=== PATIENT | female | born 1990 | race American Indian/Alaskan Native ===

== ENCOUNTER 2016-11-05 07:52 | Emergency (ER) | payer MEDICARE ==
[2016-11-05] MEDS ORDERED: KEPPRA 1,000 MG/NS 0.75% 100ML 100 ML IV ONE ×2 (08:32→08:42)
[2016-11-05] MEDS ORDERED: ZOFRAN ONE (08:34)
[2016-11-05] MEDS ORDERED: ZOFRAN IV ONE (08:41)
[2016-11-05 09:38] LABS: Hemoglobin 11.3 gm/dl (10.1-14.3); Mean Corpuscular HGB Conc 32 % (30-34); Mean Corpuscular Hemoglobin 31 pg (28-32); Mean Corpuscular Volume 95 fl (79-97); Red Blood Count 3.67 M/mm3 (3.65-5.03); Red Cell Distribution Width 17.3 % (13.2-15.2)
[2016-11-05 09:39] LABS: BUN/Creatinine Ratio 2.83; Calcium 8.7 mg/dL (8.4-10.2); Potassium 4.7 mmol/L (3.6-5.0)
--- NOTE | 2016-11-05 10:20 | Emergency Department Report ---
ED Seizure HPI - General Chief Complaint: Seizure Stated Complaint: SEIZURE Time Seen by Provider: 11/05/16 10:05 Source: patient, EMS Mode of arrival: Stretcher Limitations: No Limitations - History of Present Illness Initial Comments: 36-year-old female presents to the emergency department via EMS after a seizure. History is obtained from EMS report due to the patient not willing to give any information. Per report, EMS found the patient lying on the couch at home. Family reported that she had a seizure. Patient was reportedly seen in another emergency Department last night for the same. She was reportedly discharged around 2 AM. Patient receives dialysis on Sunday, , and Sunday. Patient did go to dialysis yesterday. Further history is unable to be obtained from the patient due to her uncooperative behavior. MD Complaint: seizure -: Gradual, During the night Description of Episode: tonic-clonic movement Witnessed:: Yes Trauma: No Seizure History: known seizure disorder, history of non-compliance Place: home Possible Precipitating Event: none Associated Symptoms: denies other symptoms - Related Data Home Medications Medication Instructions Recorded Confirmed Last Taken Furosemide [Lasix TAB] 80 mg PO QDAY 05/30/16 09/23/16 09/23/16 Lisinopril [Zestril TAB] 40 mg PO QDAY 05/30/16 09/23/16 09/23/16 Metoprolol [Lopressor] 100 mg PO DAILY 05/30/16 09/23/16 09/23/16 Phenytoin [Dilantin] 100 mg PO Q8HR 05/30/16 09/23/16 09/23/16 cloNIDine [Catapres] 0.2 mg PO TID 05/30/16 09/23/16 09/23/16 predniSONE [Deltasone] 10 mg PO QDAY 05/30/16 09/23/16 09/23/16 No Known Home Medications [No 09/15/16 09/15/16 Unknown Reported Home Medications] Allergies Allergy/AdvReac Type Severity Reaction Status Date / Time No Known Allergies Allergy Verified 05/22/15 11:56 ED Review of Systems ROS: Stated complaint: SEIZURE Other details as noted in HPI Comment: All other systems reviewed and negative Neurological: as per HPI (seizure) ED Past Medical Hx - Past Medical History Previous Medical History?: Yes Hx Hypertension: Yes Hx Congestive Heart Failure: No Hx Diabetes: No Hx Renal Disease: Yes (pt does dialysis) Hx Headaches / Migraines: Yes Hx Seizures: Yes Hx Asthma: Yes Hx COPD: No Additional medical history: Lupus - Surgical History Past Surgical History?: Yes Additional Surgical History: fistula right arm - Family History Family history: no significant - Social History Smoking Status: Never Smoker - Medications Home Medications: Home Medications Medication Instructions Recorded Confirmed Last Taken Type Furosemide [Lasix TAB] 80 mg PO QDAY 05/30/16 09/23/16 09/23/16 History Lisinopril [Zestril TAB] 40 mg PO QDAY 05/30/16 09/23/16 09/23/16 History Metoprolol [Lopressor] 100 mg PO DAILY 05/30/16 09/23/16 09/23/16 History Phenytoin [Dilantin] 100 mg PO Q8HR 05/30/16 09/23/16 09/23/16 History cloNIDine [Catapres] 0.2 mg PO TID 05/30/16 09/23/16 09/23/16 History predniSONE [Deltasone] 10 mg PO QDAY 05/30/16 09/23/16 09/23/16 History No Known Home Medications [No 09/15/16 09/15/16 Unknown History Reported Home Medications] ED Physical Exam - General Limitations: No Limitations General appearance: alert, in no apparent distress - Head Head exam: Present: atraumatic, normocephalic - Eye Eye exam: Present: normal appearance, PERRL, EOMI - ENT ENT exam: Present: normal exam, normal orophraynx, mucous membranes moist - Neck Neck exam: Present: normal inspection, full ROM. Absent: tenderness - Respiratory Respiratory exam: Present: normal lung sounds bilaterally. Absent: respiratory distress - Cardiovascular Cardiovascular Exam: Present: regular rate, normal rhythm, normal heart sounds - GI/Abdominal GI/Abdominal exam: Present: soft, normal bowel sounds. Absent: distended, tenderness - Extremities Exam Extremities exam: Present: normal inspection, full ROM. Absent: tenderness - Back Exam Back exam: Present: normal inspection, full ROM. Absent: tenderness - Neurological Exam Neurological exam: Present: alert, oriented X3. Absent: motor sensory deficit - Skin Skin exam: Present: warm, dry, intact ED Course Vital Signs 11/05/16 11/05/16 07:59 08:43 Temperature 98.9 F Pulse Rate 101 H Respiratory 22 18 Rate Blood Pressure 186/114 Blood Pressure 185/116 [Left] O2 Sat by Pulse 96 100 Oximetry ED Medical Decision Making - Lab Data Result diagrams: 11/05/16 09:30 11/05/16 08:58 - Medical Decision Making Laboratory results reviewed and discussed with the patient. Patient's Dilantin level is subtherapeutic. Patient has been given IV Keppra. No further seizure activity has been noted in the emergency department. Patient was initially sleeping upon my entering her room. After waking the patient up she began crying out in pain, but not say what was hurting. There are no objective findings on physical exam. Patient will be discharged home at this time to follow up with her primary care physician. - Differential Diagnosis seizure, medication noncompliance Critical care attestation.: If time is entered above; I have spent that time in minutes in the direct care of this critically ill patient, excluding procedure time. ED Disposition Clinical Impression: Seizure disorder, Subtherapeutic serum dilantin level Disposition: DISCHARGED TO HOME OR SELFCARE Is pt being admited?: No Condition: Stable Instructions: Recurrent Seizures Adult (ED) Time of Disposition: 10:20
[2016-11-05 10:31] LABS: Platelet Count 155 K/mm3 (140-440)
[2016-11-05] MEDS ORDERED: TYLENOL ONE (10:33)
[2016-11-05] MEDS ORDERED: TYLENOL PO ONE (10:37)
[2016-11-05 10:39] VITALS: BP 183/108
== END 2016-11-05 11:58 | disposition home or self-care (01) ==
LOC: ED 07:52
DX: G40.909 Epilepsy, unspecified, not intractable, without status epilepticus (principal); R79.1 Abnormal coagulation profile; I10 Essential (primary) hypertension; G43.909 Migraine, unspecified, not intractable, without status migrainosus; J45.909 Unspecified asthma, uncomplicated; N28.9 Disorder of kidney and ureter, unspecified
CPT/HCPCS: 36415; 80048; 80185; 85027; 96361; 96374; 99284; J1953; J2405

== ENCOUNTER 2017-02-10 13:44 | Emergency (ER) | payer MEDICARE ==
[2017-02-10] MEDS ORDERED: ATIVAN IV ONE (15:08)
[2017-02-10] MEDS ORDERED: NACL 0.9% 1000 ML 1,000 ML IV ONE (15:08)
[2017-02-10] MEDS ORDERED: BENADRYL ONE (15:39)
[2017-02-10] MEDS ORDERED: BENADRYL IV ONE (15:46)
[2017-02-10 16:01] LABS: Basophils % (Auto) 0.5 % (0.0-1.8); Eosinophils % (Auto) 1.6 % (0.0-4.3); Hemoglobin 10.6 gm/dl (10.1-14.3); Mean Corpuscular HGB Conc 32 % (30-34); Mean Corpuscular Hemoglobin 30 pg (28-32); Mean Corpuscular Volume 93 fl (79-97); Platelet Count 158 K/mm3 (140-440); Red Blood Count 3.55 M/mm3 (3.65-5.03); Red Cell Distribution Width 15.8 % (13.2-15.2); White Blood Count 6.1 K/mm3 (4.5-11.0)
--- NOTE | 2017-02-10 16:04 | Emergency Department Report ---
ED Seizure HPI - General Chief Complaint: Seizure Stated Complaint: SEIZURE Time Seen by Provider: 02/10/17 15:08 Source: EMS, vp integrity, RN notes reviewed Mode of arrival: Stretcher Limitations: No Limitations, Physical Limitation - History of Present Illness MD Complaint: seizure, feel seizure coming on, loss of consciousness, shaking, other (no ) Witnessed:: Yes Trauma: No Seizure History: known seizure disorder Place: home Possible Precipitating Event: head injury, lack of sleep Associated Symptoms: denies other symptoms Treatments Prior to Arrival: none - Related Data Home Medications Medication Instructions Recorded Confirmed Last Taken Furosemide [Lasix TAB] 80 mg PO QDAY 05/30/16 09/23/16 09/23/16 Lisinopril [Zestril TAB] 40 mg PO QDAY 05/30/16 09/23/16 09/23/16 Metoprolol [Lopressor] 100 mg PO DAILY 05/30/16 09/23/16 09/23/16 cloNIDine [Catapres] 0.2 mg PO TID 05/30/16 09/23/16 09/23/16 predniSONE [Deltasone] 10 mg PO QDAY 05/30/16 09/23/16 09/23/16 No Known Home Medications [No 09/15/16 09/15/16 Unknown Reported Home Medications] Previous Rx's Medication Instructions Recorded Last Taken Type Phenytoin [Dilantin] 100 mg PO Q8HR #180 capsule.er 02/10/17 Unknown Rx Allergies Allergy/AdvReac Type Severity Reaction Status Date / Time No Known Allergies Allergy Verified 05/22/15 11:56 ED Review of Systems ROS: Stated complaint: SEIZURE Other details as noted in HPI Comment: All other systems reviewed and negative ED Past Medical Hx - Past Medical History Hx Hypertension: Yes Hx Congestive Heart Failure: No Hx Diabetes: No Hx Renal Disease: Yes (pt does dialysis) Hx Headaches / Migraines: Yes Hx Seizures: Yes Hx Asthma: Yes Hx COPD: No Additional medical history: Lupus - Surgical History Additional Surgical History: fistula right arm - Social History Smoking Status: Never Smoker - Medications Home Medications: Home Medications Medication Instructions Recorded Confirmed Last Taken Type Furosemide [Lasix TAB] 80 mg PO QDAY 05/30/16 09/23/16 09/23/16 History Lisinopril [Zestril TAB] 40 mg PO QDAY 0809/23/16 09/23/16 History Metoprolol [Lopressor] 100 mg PO DAILY 05/30/16 09/23/16 09/23/16 History cloNIDine [Catapres] 0.2 mg PO TID 05/30/16 09/23/16 09/23/16 History predniSONE [Deltasone] 10 mg PO QDAY 05/30/16 09/23/16 09/23/16 History No Known Home Medications [No 09/15/16 09/15/16 Unknown History Reported Home Medications] Phenytoin [Dilantin] 100 mg PO Q8HR #180 capsule.er 02/10/17 Unknown Rx ED Physical Exam - General General appearance: alert, in no apparent distress - Head Head exam: Present: atraumatic, normocephalic - Eye Eye exam: Present: normal appearance - ENT ENT exam: Present: mucous membranes moist - Neck Neck exam: Present: normal inspection, other (neck stifnessed) - Respiratory Respiratory exam: Present: normal lung sounds bilaterally. Absent: respiratory distress - Cardiovascular Cardiovascular Exam: Present: regular rate, normal rhythm. Absent: systolic murmur, diastolic murmur, rubs, gallop - GI/Abdominal GI/Abdominal exam: Present: soft, normal bowel sounds - Extremities Exam Extremities exam: Present: normal inspection - Back Exam Back exam: Present: normal inspection - Neurological Exam Neurological exam: Present: alert, oriented X3 - Psychiatric Psychiatric exam: Present: normal affect, normal mood - Skin Skin exam: Present: warm, dry, intact, normal color. Absent: rash ED Course Vital Signs 02/10/17 14:20 Temperature 98.3 F Pulse Rate 74 Blood Pressure 152/110 ED Medical Decision Making - Lab Data Result diagrams: 02/10/17 15:25 02/10/17 15:25 - EKG Data EKG shows normal: sinus rhythm - Medical Decision Making Her ER evaluation she has no complaintsrelated to this point we worked her up and noted the blood test came back negative except for her Dilantin level. This is consistent with her doses. There is consistent with her missed doses of Dilantin, refill her medications for this head CT was negative to and will discharge and follow-up with neurology Critical care attestation.: If time is entered above; I have spent that time in minutes in the direct care of this critically ill patient, excluding procedure time. ED Disposition Clinical Impression: Seizure disorder Disposition: DISCHARGED TO HOME OR SELFCARE Is pt being admited?: No Does the pt Need Aspirin: No Condition: Good Instructions: Recurrent Seizures Adult (ED) Prescriptions: Phenytoin [Dilantin] 100 mg PO Q8HR #180 capsule.er Referrals: PRIMARY CARE, [Primary Care Provider] - 3-5 Days Time of Disposition: 17:25
[2017-02-10 16:25] LABS: Albumin 3.7 g/dL (3.9-5); Albumin/Globulin Ratio 1.5 %; BUN/Creatinine Ratio 3.2; Bilirubin,Total 0.2 mg/dL (0.1-1.2); Calcium 8.4 mg/dL (8.4-10.2); Potassium 3.7 mmol/L (3.6-5.0); Total Protein 6.2 g/dL (6.3-8.2)
--- NOTE | 2017-02-10 16:42 | Cat Scan Report ---
FINAL REPORT EXAM: CT HEAD/BRAIN WO CON HISTORY: Seizure TECHNIQUE: CT head without contrast PRIORS: None. FINDINGS: No acute intra-axial or extra-axial hemorrhage is identified. There is no evidence of midline shift or mass effect. The ventricles and sulci are within normal limits. Lyon-white matter differentiation is intact. No acute parenchymal abnormalities seen. Bony calvarium is grossly intact. Visualized portions of the mastoids and paranasal sinuses are unremarkable. IMPRESSION: Negative CT head
[2017-02-10 18:41] VITALS: BP 155/101
== END 2017-02-10 18:30 | disposition home or self-care (01) ==
LOC: ED 13:44
DX: G40.909 Epilepsy, unspecified, not intractable, without status epilepticus (principal); G43.909 Migraine, unspecified, not intractable, without status migrainosus; J45.909 Unspecified asthma, uncomplicated; I12.0 Hypertensive chronic kidney disease with stage 5 chronic kidney disease or end stage renal disease; N18.6 End stage renal disease
CPT/HCPCS: 36415; 70450; 80053; 80185; 85025; 96361; 96374; 96375; 99284; J1200; J2060; J7030

== ENCOUNTER 2017-02-19 05:33 | Emergency (ER) | payer MEDICARE ==
[2017-02-19] MEDS ORDERED: CATAPRES PO ONE (07:15)
[2017-02-19] MEDS ORDERED: SUBLIMAZE IV ONE (07:25)
[2017-02-19] MEDS ORDERED: ATIVAN IV ONE (07:26)
--- NOTE | 2017-02-19 07:33 | Emergency Department Report ---
HPI - General Chief Complaint: Pain General Time Seen by Provider: 02/19/17 07:14 - HPI HPI: Room 4 The patient is a 26-year-old female presenting with a chief complaint of lupus pain. The patient states she's had whole body pain consistent with her lupus flareups for the past 2 days. Patient states she believes she had a seizure yesterday because she was incontinent of urine and had bitten her tongue. The patient gives her whole body pain a score of 10/10. Patient states she has been compliant with her Dilantin. Location: "Whole body" Duration: [see above] Quality: Feels like previous lupus flares Severity: 1010 Modifying factors: [see above] Context: [see above] Mode of transportation: [not driving] ED Past Medical Hx - Past Medical History Previous Medical History?: Yes Hx Hypertension: Yes Hx Renal Disease: Yes (pt does dialysis) Hx Headaches / Migraines: Yes Hx Seizures: Yes Hx Asthma: Yes Additional medical history: Lupus - Surgical History Additional Surgical History: fistula right arm - Family History Family history: no significant - Social History Smoking Status: Never Smoker Substance Use Type: None - Medications Home Medications: Home Medications Medication Instructions Recorded Confirmed Last Taken Type Furosemide [Lasix TAB] 80 mg PO QDAY 05/30/16 09/23/16 09/23/16 History Lisinopril [Zestril TAB] 40 mg PO QDAY 05/30/16 09/23/16 09/23/16 History Metoprolol [Lopressor] 100 mg PO DAILY 05/30/16 09/23/16 09/23/16 History cloNIDine [Catapres] 0.2 mg PO TID 05/30/16 09/23/16 09/23/16 History predniSONE [Deltasone] 10 mg PO QDAY 05/30/16 09/23/16 09/23/16 History Phenytoin [Dilantin] 100 mg PO Q8HR #180 capsule.er 02/10/17 Unknown Rx HYDROcodone/APAP 5-325 [[place] 1 each PO Q6HR PRN #10 tablet 02/19/17 Unknown Rx 5/325] ED Review of Systems ROS: Stated complaint: LUPUS FLARE UP Other details as noted in HPI Comment: All other systems reviewed and negative Constitutional: denies: chills, fever Eyes: denies: eye pain, eye discharge, vision change ENT: denies: ear pain, throat pain Respiratory: denies: cough, shortness of breath, wheezing Cardiovascular: denies: palpitations Endocrine: no symptoms reported Gastrointestinal: denies: abdominal pain, nausea, diarrhea Genitourinary: denies: urgency, dysuria, discharge Musculoskeletal: myalgia Skin: denies: rash, lesions Neurological: other (seizure) Psychiatric: denies: anxiety, depression Hematological/Lymphatic: denies: easy bleeding, easy bruising Physical Exam - Physical Exam Vital Signs: Vital Signs 02/19/17 02/19/17 06:03 06:12 Temperature 98.7 F 98 F Pulse Rate 104 H 104 H Respiratory 18 18 Rate Blood Pressure 202/131 Blood Pressure 202/131 [Left] O2 Sat by Pulse 100 100 Oximetry Physical Exam: GENERAL: The patient is well-developed well-nourished female lying on stretcher not appearing to be in acute distress. [] HEENT: Normocephalic. Atraumatic. Extraocular motions are intact. Patient has moist mucous membranes. NECK: Supple. Trachea midline CHEST/LUNGS: Clear to auscultation. There is no respiratory distress noted. HEART/CARDIOVASCULAR: Regular. There is no tachycardia. There is no gallop rub or murmur. ABDOMEN: Abdomen is soft, nontender. Patient has normal bowel sounds. There is no abdominal distention. SKIN: There is no rash. There is no edema. There is no diaphoresis. NEURO: The patient is awake, alert, and oriented. The patient is cooperative. The patient has no focal neurologic deficits. The patient has normal speech. Cranial nerves II through XII grossly intact MUSCULOSKELETAL: There is no evidence of acute injury. ED Course Vital Signs 02/19/17 02/19/17 06:03 06:12 Temperature 98.7 F 98 F Pulse Rate 104 H 104 H Respiratory 18 18 Rate Blood Pressure 202/131 Blood Pressure 202/131 [Left] O2 Sat by Pulse 100 100 Oximetry - Reevaluation(s) Reevaluation #1: 02/19/17 10:09 Patient sleeping comfortably. Patient was awakened to be informed that her Dilantin level was subtherapeutic and we will be loading her with fosphenytoin ED Medical Decision Making - Lab Data Result diagrams: 02/19/17 07:34 05/15/17 07:34 Laboratory Tests 02/19/17 02/19/17 02/19/17 07:34 07:34 07:34 WBC 5.7 RBC 3.50 L Hgb 10.5 Hct 32.4 MCV 93 MCH 30 MCHC 33 RDW 16.4 H Plt Count 203 Lymph % (Auto) 15.3 [place] % (Auto) 9.3 H Eos % (Auto) 0.6 Baso % (Auto) 1.0 Lymph # 0.9 L [place] # 0.5 Eos # 0.0 Baso # 0.1 Seg Neutrophils % 73.8 H Seg Neutrophils # 4.2 Sodium 141 Potassium 4.3 Chloride 97.9 L Carbon Dioxide 24 Anion Gap 23 BUN 29 H Creatinine 9.4 H Estimated GFR 6 BUN/Creatinine Ratio 3.08 Glucose 75 Calcium 9.2 Phenytoin 3.0 L - Differential Diagnosis lupus pain, end-stage renal disease Critical care attestation.: If time is entered above; I have spent that time in minutes in the direct care of this critically ill patient, excluding procedure time. ED Disposition Clinical Impression: Whole body pain, Seizure, ESRD (end stage renal disease) on dialysis, Subtherapeutic serum dilantin level Disposition: DISCHARGED TO HOME OR SELFCARE Is pt being admited?: No Does the pt Need Aspirin: No Condition: Stable Instructions: Chronic Kidney Disease (ED) Additional Instructions: Return to the emergency department immediately should you develop worsening symptoms, fever, inability to tolerate food or liquid or any other concerns. Prescriptions: HYDROcodone/APAP 5-325 [[place] 5/325] 1 each PO Q6HR PRN #10 tablet PRN Reason: Pain Referrals: PRIMARY CARE, [Primary Care Provider] - 3-5 Days Time of Disposition: 10:13
[2017-02-19 08:03] LABS: Eosinophils % (Auto) 0.6 % (0.0-4.3); Hematocrit 32.4 % (30.3-42.9); Hemoglobin 10.5 gm/dl (10.1-14.3); Mean Corpuscular HGB Conc 33 % (30-34); Mean Corpuscular Hemoglobin 30 pg (28-32); Mean Corpuscular Volume 93 fl (79-97); Platelet Count 203 K/mm3 (140-440); Red Cell Distribution Width 16.4 % (13.2-15.2); White Blood Count 5.7 K/mm3 (4.5-11.0)
[2017-02-19 08:15] LABS: BUN/Creatinine Ratio 3.08; Calcium 9.2 mg/dL (8.4-10.2); Chloride 97.9 mmol/L (98-107); Potassium 4.3 mmol/L (3.6-5.0)
[2017-02-19 09:49] VITALS: BP 172/113
[2017-02-19] MEDS ORDERED: CEREBYX 1,000 MG.PE in NACL 0.9% 100 ML IV ONE (10:03)
== END 2017-02-19 11:13 | disposition home or self-care (01) ==
LOC: ED 05:33
DX: M79.1 Myalgia (principal); R56.9 Unspecified convulsions; G43.909 Migraine, unspecified, not intractable, without status migrainosus; J45.909 Unspecified asthma, uncomplicated; I12.0 Hypertensive chronic kidney disease with stage 5 chronic kidney disease or end stage renal disease; N18.6 End stage renal disease; R79.1 Abnormal coagulation profile
CPT/HCPCS: 36415; 80048; 80185; 85025; 96365; 96375; 99283; J2060; J3010; Q2009

== ENCOUNTER 2017-04-17 12:43 | Inpatient (IN) | payer MEDICARE ==
[2017-04-17] MEDS ORDERED: MORPHINE IV ONE (14:50)
[2017-04-17] MEDS ORDERED: ZOFRAN IV ONE (14:50)
[2017-04-17] MEDS ORDERED: APRESOLINE IV ONE ×2 (14:50→16:40)
--- NOTE | 2017-04-17 14:52 | Emergency Department Report ---
ED General Adult HPI - General Chief complaint: Nausea/Vomiting/Diarrhea Stated complaint: HYPERTENSION/NAUSEA AND VOMITING Time Seen by Provider: 04/17/17 14:49 Source: patient, EMS (ems notes not available at time of chart dictation), RN notes reviewed Mode of arrival: Stretcher Limitations: No Limitations - History of Present Illness Initial comments: This is a 27-year-old female. She is previously unknown to me. Past medical history includes hypertension, lupus, end-stage renal disease on dialysis. She typically gets dialysis Sunday, , Sunday. Her last dialysis session was this past Sunday. It was of normal length and duration. Nephrology: Dr. Strickland The patient was sent to the ER by dialysis for hypertension. The patient complains of nausea, vomiting, malaise, left flank pain, inability to tolerate liquid feeds. There is no chest pain or shortness of breath. Emesis is clear, nonbloody and nonbilious. She reports that she feels like she has a fever but is not certain. She denies cough. She denies irritative and obstructive urinary symptoms. Her symptoms have been constant. they dont have any exacerbating or relieving factors, with the exception that attending to eat and drink exacerbates her symptoms. Pain is exacerbated by movement. -: Gradual Location: back (left flank), abdomen Quality: aching Consistency: constant Improves with: medication, rest Worsens with: movement Associated Symptoms: fever/chills, loss of appetite, malaise, nausea/vomiting, weakness. denies: chest pain, cough, diaphoresis - Related Data Home Medications Medication Instructions Recorded Confirmed Last Taken Clonidine HCl [Catapres] 0.3 mg PO TID 04/17/17 04/17/17 04/15/17 NIFEdipine XL [Procardia Xl] 60 mg PO QDAY 04/17/17 04/17/17 04/15/17 Phenytoin [Dilantin] 200 mg PO TID 04/17/17 04/17/17 04/15/17 diphenhydrAMINE [Benadryl CAP] 25 mg PO QHS PRN 04/17/17 04/17/17 Unknown Previous Rx's Medication Instructions Recorded Last Taken Type amLODIPine [Norvasc] 10 mg PO DAILY #30 tab 03/24/17 04/15/17 Rx predniSONE [Deltasone] 10 mg PO QDAY #30 tablet 03/24/17 04/15/17 Rx Allergies Allergy/AdvReac Type Severity Reaction Status Date / Time No Known Allergies Allergy Verified 05/22/15 11:56 ED Review of Systems ROS: Stated complaint: HYPERTENSION/NAUSEA AND VOMITING Other details as noted in HPI Constitutional: malaise, weakness Eyes: denies: vision change ENT: denies: epistaxis Respiratory: see HPI Cardiovascular: as per HPI Gastrointestinal: nausea, vomiting Musculoskeletal: as per HPI, back pain Skin: denies: lesions Neurological: weakness Psychiatric: anxiety ED Past Medical Hx - Past Medical History Hx Hypertension: Yes Hx Congestive Heart Failure: No Hx Diabetes: No Hx Renal Disease: Yes Hx Headaches / Migraines: Yes (3 nights) Hx Seizures: Yes Hx Asthma: Yes Hx COPD: No Additional medical history: Lupus - Surgical History Additional Surgical History: fistula right arm - Social History Smoking Status: Current Every Day Smoker - Medications Home Medications: Home Medications Medication Instructions Recorded Confirmed Last Taken Type amLODIPine [Norvasc] 10 mg PO DAILY #30 tab 03/24/17 04/17/17 04/15/17 Rx predniSONE [Deltasone] 10 mg PO QDAY #30 tablet 03/24/17 04/17/17 04/15/17 Rx Clonidine HCl [Catapres] 0.3 mg PO TID 04/17/17 04/17/17 04/15/17 History NIFEdipine XL [Procardia Xl] 60 mg PO QDAY 04/17/17 04/17/17 04/15/17 History Phenytoin [Dilantin] 200 mg PO TID 04/17/17 04/17/17 04/15/17 History diphenhydrAMINE [Benadryl CAP] 25 mg PO QHS PRN 04/17/17 04/17/17 Unknown History ED Physical Exam - General Limitations: No Limitations General appearance: alert, in no apparent distress - Head Head exam: Present: atraumatic, normocephalic - Eye Eye exam: Present: normal appearance, EOMI. Absent: nystagmus - ENT ENT exam: Present: normal exam, normal orophraynx, mucous membranes moist - Neck Neck exam: Present: normal inspection, full ROM. Absent: tenderness, meningismus - Respiratory Respiratory exam: Present: normal lung sounds bilaterally. Absent: respiratory distress, wheezes, rales, rhonchi, stridor, chest wall tenderness, accessory muscle use, decreased breath sounds, prolonged expiratory - Cardiovascular Cardiovascular Exam: Present: regular rate, normal rhythm, normal heart sounds. Absent: bradycardia, tachycardia, irregular rhythm, systolic murmur, diastolic murmur, rubs, gallop - GI/Abdominal GI/Abdominal exam: Present: soft, tenderness, normal bowel sounds, other (llq tender). Absent: distended, guarding, rebound, rigid, pulsatile mass - Extremities Exam Extremities exam: Present: normal inspection, full ROM, normal capillary refill , other (there is a right upper extremity AV fistula. There is an appropriate throat. There is no tenderness.). Absent: pedal edema, joint swelling, calf tenderness - Back Exam Back exam: Present: normal inspection, full ROM. Absent: tenderness, CVA tenderness (R), CVA tenderness (L), muscle spasm, paraspinal tenderness, vertebral tenderness - Neurological Exam Neurological exam: Present: alert, oriented X3, normal gait, other (Extraocular movements intact. Tongue midline. No facial droop. Facial sensation intact to light touch in the V1, V2, V3 distribution bilaterally. 5 and 5 strength in 4 extremities.. Sensation is intact to light touch in 4 extremities.). Absent : motor sensory deficit - Psychiatric Psychiatric exam: Present: anxious - Skin Skin exam: Present: warm, dry, intact, normal color. Absent: rash ED Course Vital Signs 04/17/17 04/17/17 04/17/17 12:55 13:16 14:20 Temperature 98.3 F Pulse Rate 99 H 84 92 H Respiratory 18 16 16 Rate Blood Pressure 194/125 Blood Pressure 191/127 201/123 [Left] O2 Sat by Pulse 99 100 Oximetry 04/17/17 04/17/17 04/17/17 14:47 15:46 15:48 Temperature Pulse Rate 102 H Respiratory 16 18 Rate Blood Pressure 205/126 Blood Pressure [Left] O2 Sat by Pulse 99 Oximetry 04/17/17 04/17/17 16:08 17:43 Temperature 98.7 F Pulse Rate 98 H Respiratory Rate Blood Pressure 199/119 Blood Pressure [Left] O2 Sat by Pulse Oximetry - Reevaluation(s) Reevaluation #1: 04/17/17 17:03 Case is discussed with hematology on-call, Dr. Steffen Johnson, who agrees with repeat CBC and platelet count. He requests callback wants a platelet count has resulted. He does recommend bryson t13. Reevaluation #2: 04/17/17 17:15 case d/w Dr Kang who will arrange dialysis Reevaluation #3: 04/17/17 18:05 CT scan negative. Patient currently in dialysis. Patient's CBC will be drawn off in dialysis. - EJ/Peripheral Line Neck L Time Out Performed: Yes Indications: nurses unable to establis Skin Cleansed in Sterile Fashion: Yes Size: 20 Dressing Placed: Tegaderm Patient Tolerated Procedure: well ED Medical Decision Making - Lab Data Result diagrams: 04/18/17 14:36 04/18/17 14:36 Lab Results 04/17/17 04/17/17 04/17/17 Range/Units 15:34 15:34 15:34 WBC 1.8 L* (4.5-11.0) K/mm3 RBC 3.11 L (3.65-5.03) M/mm3 Hgb 9.7 L (10.1-14.3) gm/dl Hct 30.1 L (30.3-42.9) % MCV 97 (79-97) fl MCH 31 (28-32) pg MCHC 32 (30-34) % RDW 18.7 H (13.2-15.2) % Plt Count (140-440) K/mm3 [place] % (Auto) 4.7 (0.0-7.3) % Eos % (Auto) 0.6 (0.0-4.3) % [place] # 0.1 (0.0-0.8) K/mm3 Eos # 0.0 (0.0-0.4) K/mm3 Baso # 0.0 (0.0-0.1) K/mm3 Seg Neutrophils % 60.7 (40.0-70.0) % Seg Neutrophils # 1.1 L (1.8-7.7) K/mm3 Sodium 134 L (137-145) mmol/L Potassium 5.7 H (3.6-5.0) mmol/L Chloride 92.3 L (98-107) mmol/L Carbon Dioxide 21 L (22-30) mmol/L Anion Gap 26 mmol/L BUN 45 H (7-17) mg/dL Creatinine 11.9 H (0.7-1.2) mg/dL Estimated GFR 5 ml/min BUN/Creatinine Ratio 3.78 % Glucose 66 (65-100) mg/dL Calcium 8.6 (8.4-10.2) mg/dL HCG, Quant < 2 (0-4) mIU/mL Urine Color (Yellow) Urine Turbidity (Clear) Urine pH (5.0-7.0) Ur Specific [place] (1.003-1.030) Urine Protein (Negative) mg/dL Urine Glucose (UA) (Negative) mg/dL Urine Ketones (Negative) mg/dL Urine Blood (Negative) Urine Nitrite (Negative) Urine Bilirubin (Negative) Urine Urobilinogen (<2.0) mg/dL Ur Leukocyte Esterase (Negative) Urine WBC (Auto) (0.0-6.0) /HPF Urine RBC (Auto) (0.0-6.0) /HPF Urine Bacteria (Auto) (Negative) /HPF 04/17/17 Range/Units 15:55 WBC (4.5-11.0) K/mm3 RBC (3.65-5.03) M/mm3 Hgb (10.1-14.3) gm/dl Hct (30.3-42.9) % MCV (79-97) fl MCH (28-32) pg MCHC (30-34) % RDW (13.2-15.2) % Plt Count (140-440) K/mm3 [place] % (Auto) (0.0-7.3) % Eos % (Auto) (0.0-4.3) % [place] # (0.0-0.8) K/mm3 Eos # (0.0-0.4) K/mm3 Baso # (0.0-0.1) K/mm3 Seg Neutrophils % (40.0-70.0) % Seg Neutrophils # (1.8-7.7) K/mm3 Sodium (137-145) mmol/L Potassium (3.6-5.0) mmol/L Chloride (98-107) mmol/L Carbon Dioxide (22-30) mmol/L Anion Gap mmol/L BUN (7-17) mg/dL Creatinine (0.7-1.2) mg/dL Estimated GFR ml/min BUN/Creatinine Ratio % Glucose (65-100) mg/dL Calcium (8.4-10.2) mg/dL HCG, Quant (0-4) mIU/mL Urine Color Red (Yellow) Urine Turbidity Clear (Clear) Urine pH 7.0 (5.0-7.0) Ur Specific [place] 1.001 L (1.003-1.030) Urine Protein 100 mg/dl (Negative) mg/dL Urine Glucose (UA) Neg (Negative) mg/dL Urine Ketones Neg (Negative) mg/dL Urine Blood Lg (Negative) Urine Nitrite Neg (Negative) Urine Bilirubin Neg (Negative) Urine Urobilinogen < 2.0 (<2.0) mg/dL Ur Leukocyte Esterase Sm (Negative) Urine WBC (Auto) < 1.0 (0.0-6.0) /HPF Urine RBC (Auto) < 1.0 (0.0-6.0) /HPF Urine Bacteria (Auto) 1+ (Negative) /HPF Lab Results 04/17/17 04/17/17 04/17/17 Range/Units 15:34 15:34 15:34 WBC 1.8 L* (4.5-11.0) K/mm3 RBC 3.11 L (3.65-5.03) M/mm3 Hgb 9.7 L (10.1-14.3) gm/dl Hct 30.1 L (30.3-42.9) % MCV 97 (79-97) fl MCH 31 (28-32) pg MCHC 32 (30-34) % RDW 18.7 H (13.2-15.2) % Plt Count (140-440) K/mm3 [place] % (Auto) 4.7 (0.0-7.3) % Eos % (Auto) 0.6 (0.0-4.3) % [place] # 0.1 (0.0-0.8) K/mm3 Eos # 0.0 (0.0-0.4) K/mm3 Baso # 0.0 (0.0-0.1) K/mm3 Seg Neutrophils % 60.7 (40.0-70.0) % Seg Neutrophils # 1.1 L (1.8-7.7) K/mm3 Sodium 134 L (137-145) mmol/L Potassium 5.7 H (3.6-5.0) mmol/L Chloride 92.3 L (98-107) mmol/L Carbon Dioxide 21 L (22-30) mmol/L Anion Gap 26 mmol/L BUN 45 H (7-17) mg/dL Creatinine 11.9 H (0.7-1.2) mg/dL Estimated GFR 5 ml/min BUN/Creatinine Ratio 3.78 % Glucose 66 (65-100) mg/dL Calcium 8.6 (8.4-10.2) mg/dL HCG, Quant < 2 (0-4) mIU/mL Urine Color (Yellow) Urine Turbidity (Clear) Urine pH (5.0-7.0) Ur Specific [place] (1.003-1.030) Urine Protein (Negative) mg/dL Urine Glucose (UA) (Negative) mg/dL Urine Ketones (Negative) mg/dL Urine Blood (Negative) Urine Nitrite (Negative) Urine Bilirubin (Negative) Urine Urobilinogen (<2.0) mg/dL Ur Leukocyte Esterase (Negative) Urine WBC (Auto) (0.0-6.0) /HPF Urine RBC (Auto) (0.0-6.0) /HPF Urine Bacteria (Auto) (Negative) /HPF 04/17/17 Range/Units 15:55 WBC (4.5-11.0) K/mm3 RBC (3.65-5.03) M/mm3 Hgb (10.1-14.3) gm/dl Hct (30.3-42.9) % MCV (79-97) fl MCH (28-32) pg MCHC (30-34) % RDW (13.2-15.2) % Plt Count (140-440) K/mm3 [place] % (Auto) (0.0-7.3) % Eos % (Auto) (0.0-4.3) % [place] # (0.0-0.8) K/mm3 Eos # (0.0-0.4) K/mm3 Baso # (0.0-0.1) K/mm3 Seg Neutrophils % (40.0-70.0) % Seg Neutrophils # (1.8-7.7) K/mm3 Sodium (137-145) mmol/L Potassium (3.6-5.0) mmol/L Chloride (98-107) mmol/L Carbon Dioxide (22-30) mmol/L Anion Gap mmol/L BUN (7-17) mg/dL Creatinine (0.7-1.2) mg/dL Estimated GFR ml/min BUN/Creatinine Ratio % Glucose (65-100) mg/dL Calcium (8.4-10.2) mg/dL HCG, Quant (0-4) mIU/mL Urine Color Red (Yellow) Urine Turbidity Clear (Clear) Urine pH 7.0 (5.0-7.0) Ur Specific [place] 1.001 L (1.003-1.030) Urine Protein 100 mg/dl (Negative) mg/dL Urine Glucose (UA) Neg (Negative) mg/dL Urine Ketones Neg (Negative) mg/dL Urine Blood Lg (Negative) Urine Nitrite Neg (Negative) Urine Bilirubin Neg (Negative) Urine Urobilinogen < 2.0 (<2.0) mg/dL Ur Leukocyte Esterase Sm (Negative) Urine WBC (Auto) < 1.0 (0.0-6.0) /HPF Urine RBC (Auto) < 1.0 (0.0-6.0) /HPF Urine Bacteria (Auto) 1+ (Negative) /HPF - EKG Data -: EKG Interpreted by Sc EKG shows normal: sinus rhythm Rate: normal - EKG Data 04/17/17 16:48 Normal sinus, 91 beats per minute, QTC 492 ms, high left ventricular voltage, atrial enlargement, abnormal EKG, not morphologically consistent with STEMI 04/17/17 16:48 - Radiology Data Radiology results: pending, report reviewed, image reviewed X-ray of the chest demonstrates cardiomegaly, pulmonary vascular congestion. No pneumonia. Noncontrast CT scan of the abdomen and pelvis negative for acute disease - Medical Decision Making Differential diagnosis: Hypertensive urgency/emergency, TTP, ITP, urinary tract infection, pneumonia, perforated viscus, electrolyte derangement Assessment and plan: 27-year-old female with hypertensive urgency, hyperkalemia , heart dialysis. Lungs are clear at this time. No crackles or rales. She will be treated medically for her hyperkalemia. A nephrology consult is pending. She was fairly tender, but a urinalysis does not suggest urinary tract infection , a noncontrast CT scan of the abdomen and pelvis is pending. Given presence of abdominal pain, I will withhold Kayexalate at this time, given risk for perforated viscus. Patient also found to have leukopenia which appears to be new, and after my discussion with the research laboratory specialist Jenelle (she informs me that no platelet clumps are noted in the sample, but she only sees 13-15 platelets on microscopy, and recommends a repeat CBC), a repeat CBC is ordered. Lactic acid is ordered. Case is discussed with the Hospital physician, Dr. Campbell, who accepts the patient to his service. He requested I not consult hematology, and indicates that he will consult hematology if he feels like it is appropriate and necessary. Critical care attestation.: If time is entered above; I have spent that time in minutes in the direct care of this critically ill patient, excluding procedure time. ED Disposition Clinical Impression: ESRD (end stage renal disease) on dialysis, Hypertensive emergency, Hyperkalemia Leukopenia Qualifiers: Leukopenia type: unspecified Qualified Code(s): D72.819 - Decreased white blood cell count, unspecified Disposition: DC09 OP ADMIT IP TO THIS HOSP Is pt being admited?: Yes Does the pt Need Aspirin: No Condition: Good
[2017-04-17 15:53] LABS: Hematocrit 30.1 % (30.3-42.9); Hemoglobin 9.7 gm/dl (10.1-14.3); Mean Corpuscular HGB Conc 32 % (30-34); Mean Corpuscular Hemoglobin 31 pg (28-32); Mean Corpuscular Volume 97 fl (79-97); Red Blood Count 3.11 M/mm3 (3.65-5.03); Red Cell Distribution Width 18.7 % (13.2-15.2)
[2017-04-17 15:56] LABS: White Blood Count 1.8 K/mm3 (4.5-11.0)
[2017-04-17 16:04] LABS: Eosinophils % (Auto) 0.6 % (0.0-4.3)
[2017-04-17 16:13] LABS: BUN/Creatinine Ratio 3.78; Calcium 8.6 mg/dL (8.4-10.2); Chloride 92.3 mmol/L (98-107); Potassium 5.7 mmol/L (3.6-5.0)
[2017-04-17 16:32] LABS: Bacteria,Urine 1+ /HPF (Negative); Bilirubin,Urine NEG (Negative); Blood,Urine LG (Negative); Ketones,Urine NEG (Negative); Leukocyte Esterase,Urine SM (Negative); Nitrite,Urine NEG (Negative); Urobilinogen,Urine < 2.0 mg/dL (<2.0); WBC,Urine < 1.0 /HPF (0.0-6.0)
[2017-04-17 16:37] LABS: RBC,Urine < 1.0 /HPF (0.0-6.0)
[2017-04-17] MEDS ORDERED: SODIUM BICARBONATE IV ONE ×2 (16:40→17:00)
[2017-04-17] MEDS ORDERED: D50W (25GM) IV ONE (16:40)
[2017-04-17 16:43] LABS: Basophils % (Manual) 0 % (0.0-1.8); Blastocytes % (Manual) 0 %
[2017-04-17 16:46] LABS: Anisocytosis 1+; Elliptocytes 1+; Tear Drop Cells 1+
[2017-04-17 16:48] LABS: Diff Status Complete; Platelet Estimate Appears Decreased
[2017-04-17 16:50] LABS: Platelet Count TNR K/mm3 (140-440)
[2017-04-17] MEDS ORDERED: ATARAX PO ONE (17:00)
[2017-04-17] MEDS ORDERED: NORMODYNE IV ONE (17:13)
[2017-04-17] MEDS ORDERED: NACL 0.9% 100 ML IV PRN (17:19)
--- NOTE | 2017-04-17 17:38 | History and Physical Report ---
History of Present Illness Date of examination: 04/17/17 Date of admission: 04/17/17 Chief complaint: High BP History of present illness: This is a 27-year-old female. Past medical history includes hypertension, lupus , end-stage renal disease on dialysis. She typically gets dialysis Sunday, , Sunday. Her last dialysis session was this past Sunday. It was of normal length and duration. The patient was sent to the ER by dialysis for hypertension. The patient complains of nausea, vomiting, malaise, left flank pain, inability to tolerate liquid feeds. There is no chest pain or shortness of breath. Emesis is clear, nonbloody and nonbilious. She reports that she feels like she has a fever but is not certain. She denies cough. She denies irritative and obstructive urinary symptoms. Her symptoms have been constant. they dont have any exacerbating or relieving factors, with the exception that attending to eat and drink exacerbates her symptoms. Pain is exacerbated by movement. Review of Systems ROS: Stated complaint: HYPERTENSION/NAUSEA AND VOMITING Other details as noted in HPI ED Past Medical Hx - Past Medical History Hx Hypertension: Yes Hx Congestive Heart Failure: No Hx Diabetes: No Hx Renal Disease: Yes Hx Headaches / Migraines: Yes (3 nights) Hx Seizures: Yes Hx Asthma: Yes Hx COPD: No Additional medical history: Lupus - Surgical History Additional Surgical History: fistula right arm - Social History Smoking Status: Current Every Day Smoker - Medications Home Medications: Home Medications Medication Instructions Recorded Confirmed Last Taken Type amLODIPine [Norvasc] 10 mg PO DAILY #30 tab 03/24/17 04/17/17 04/15/17 Rx predniSONE [Deltasone] 10 mg PO QDAY #30 tablet 03/24/17 04/17/17 04/15/17 Rx Clonidine HCl [Catapres] 0.3 mg PO TID 04/17/17 04/17/17 04/15/17 History NIFEdipine XL [Procardia Xl] 60 mg PO QDAY 04/17/17 04/17/17 04/15/17 History Phenytoin [Dilantin] 200 mg PO TID 04/17/17 04/17/17 04/15/17 History diphenhydrAMINE [Benadryl CAP] 25 mg PO QHS PRN 04/17/17 04/17/17 Unknown History Medications and Allergies Allergies Allergy/AdvReac Type Severity Reaction Status Date / Time No Known Allergies Allergy Verified 05/22/15 11:56 Home Medications Medication Instructions Recorded Confirmed Last Taken Type predniSONE [Deltasone] 10 mg PO QDAY #30 tablet 03/24/17 04/17/17 04/15/17 Rx Clonidine HCl [Catapres] 0.3 mg PO TID #90 tablet 04/19/17 Unknown Rx Labetalol [Normodyne TAB] 200 mg PO BID #60 tablet 04/19/17 Unknown Rx NIFEdipine XL [Procardia Xl] 60 mg PO Q12HR #60 tablet 04/19/17 Unknown Rx Phenytoin [Dilantin] 200 mg PO TID #90 capsule.er 04/19/17 Unknown Rx diphenhydrAMINE [Benadryl CAP] 25 mg PO QHS PRN #30 capsule 04/19/17 Unknown Rx oxyCODONE /ACETAMINOPHEN [Percocet 1 tab PO Q6H PRN #20 tablet 04/19/17 Unknown Rx 5/325 mg] Active Meds: Active Medications Sodium Chloride (Nacl 0.9%) 100 mls @ 999 mls/hr IV LAKESHA PRN PRN Reason: Hypotension Exam - Physical Exam Narrative exam: Comfortable - Constitutional Vitals: Temp Pulse Resp BP Pulse Ox 98.7 F 102 H 18 205/126 99 04/17/17 16:08 04/17/17 15:48 04/17/17 15:46 04/17/17 15:48 04/17/17 14:47 General appearance: Present: no acute distress, well-nourished - EENT Eyes: Present: PERRL ENT: hearing intact, clear oral mucosa - Neck Neck: Present: supple, normal ROM - Respiratory Respiratory effort: normal Respiratory: bilateral: CTA - Cardiovascular Heart Sounds: Present: S1 & S2. Absent: rub, click - Extremities Extremities: pulses symmetrical, No edema Peripheral Pulses: within normal limits - Abdominal General gastrointestinal: Present: soft, non-tender, non-distended, normal bowel sounds Female genitourinary: Present: normal - Integumentary Integumentary: Present: clear, warm, dry - Musculoskeletal Musculoskeletal: gait normal, strength equal bilaterally - Psychiatric Psychiatric: appropriate mood/affect, intact judgment & insight - Neurologic Neurologic: CNII-XII intact, moves all extremities Results - Labs CBC & Chem 7: 04/19/17 10:26 04/19/17 10:26 Labs: Laboratory Last Values WBC 1.8 K/mm3 (4.5-11.0) L* 04/17/17 15:34 RBC 3.11 M/mm3 (3.65-5.03) L 04/17/17 15:34 Hgb 9.7 gm/dl (10.1-14.3) L 04/17/17 15:34 Hct 30.1 % (30.3-42.9) L 04/17/17 15:34 MCV 97 fl (79-97) 04/17/17 15:34 MCH 31 pg (28-32) 04/17/17 15:34 MCHC 32 % (30-34) 04/17/17 15:34 RDW 18.7 % (13.2-15.2) H 04/17/17 15:34 Plt Count TNR 04/17/17 15:34 [place] % (Auto) 4.7 % (0.0-7.3) 04/17/17 15:34 Eos % (Auto) 0.6 % (0.0-4.3) 04/17/17 15:34 [place] # 0.1 K/mm3 (0.0-0.8) 04/17/17 15:34 Eos # 0.0 K/mm3 (0.0-0.4) 04/17/17 15:34 Baso # 0.0 K/mm3 (0.0-0.1) 04/17/17 15:34 Add Manual Diff Complete 04/17/17 15:34 Total Counted 100 04/17/17 15:34 Seg Neutrophils % 60.7 % (40.0-70.0) 04/17/17 15:34 Seg Neuts % (Manual) 64.0 % (40.0-70.0) 04/17/17 15:34 Band Neutrophils % 1.0 % 04/17/17 15:34 Lymphocytes % (Manual) 27.0 % (13.4-35.0) 04/17/17 15:34 Reactive Lymphs % (Man) 1.0 % 04/17/17 15:34 Monocytes % (Manual) 6.0 % (0.0-7.3) 04/17/17 15:34 Eosinophils % (Manual) 1.0 % (0.0-4.3) 04/17/17 15:34 Basophils % (Manual) 0 % (0.0-1.8) 04/17/17 15:34 Metamyelocytes % 0 % 04/17/17 15:34 Myelocytes % 0 % 04/17/17 15:34 Promyelocytes % 0 % 04/17/17 15:34 Blast Cells % 0 % 04/17/17 15:34 Nucleated RBC % Not Reportable 04/17/17 15:34 Seg Neutrophils # 1.1 K/mm3 (1.8-7.7) L 04/17/17 15:34 Seg Neutrophils # Man 1.2 K/mm3 (1.8-7.7) L 04/17/17 15:34 Band Neutrophils # 0.0 K/mm3 04/17/17 15:34 Lymphocytes # (Manual) 0.5 K/mm3 (1.2-5.4) L 04/17/17 15:34 Abs React Lymphs (Man) 0.0 K/mm3 04/17/17 15:34 Monocytes # (Manual) 0.1 K/mm3 (0.0-0.8) 04/17/17 15:34 Eosinophils # (Manual) 0.0 K/mm3 (0.0-0.4) 04/17/17 15:34 Basophils # (Manual) 0.0 K/mm3 (0.0-0.1) 04/17/17 15:34 Metamyelocytes # 0.0 K/mm3 04/17/17 15:34 Myelocytes # 0.0 K/mm3 04/17/17 15:34 Promyelocytes # 0.0 K/mm3 04/17/17 15:34 Blast Cells # 0.0 K/mm3 04/17/17 15:34 WBC Morphology Not Reportable 04/17/17 15:34 Hypersegmented Neuts Not Reportable 04/17/17 15:34 Hyposegmented Neuts Not Reportable 04/17/17 15:34 Hypogranular Neuts Not Reportable 04/17/17 15:34 Smudge Cells Not Reportable 04/17/17 15:34 Toxic Granulation Not Reportable 04/17/17 15:34 Toxic Vacuolation Not Reportable 04/17/17 15:34 Dohle Bodies Not Reportable 04/17/17 15:34 Pelger-Huet Anomaly Not Reportable 04/17/17 15:34 Shay Rods Not Reportable 04/17/17 15:34 Platelet Estimate Appears decreased 04/17/17 15:34 Clumped Platelets Not Reportable 04/17/17 15:34 Plt Clumps, EDTA Not Reportable 04/17/17 15:34 Large Platelets Not Reportable 04/17/17 15:34 Giant Platelets Not Reportable 04/17/17 15:34 Platelet Satelliting Not Reportable 04/17/17 15:34 Plt Morphology Comment Not Reportable 04/17/17 15:34 RBC Morphology Not Reportable 04/17/17 15:34 Dimorphic RBCs Not Reportable 04/17/17 15:34 Polychromasia Not Reportable 04/17/17 15:34 Hypochromasia Not Reportable 04/17/17 15:34 Poikilocytosis Not Reportable 04/17/17 15:34 Anisocytosis 1+ 04/17/17 15:34 Microcytosis Not Reportable 04/17/17 15:34 Macrocytosis Not Reportable 04/17/17 15:34 Spherocytes Not Reportable 04/17/17 15:34 Pappenheimer Bodies Not Reportable 04/17/17 15:34 Sickle Cells Not Reportable 04/17/17 15:34 Target Cells Not Reportable 04/17/17 15:34 Tear Drop Cells 1+ 04/17/17 15:34 Ovalocytes Not Reportable 04/17/17 15:34 Helmet Cells Not Reportable 04/17/17 15:34 [place] Bodies Not Reportable 04/17/17 15:34 [place] Rings Not Reportable 04/17/17 15:34 Jade Cells Not Reportable 04/17/17 15:34 Bite Cells Not Reportable 04/17/17 15:34 Crenated Cell Not Reportable 04/17/17 15:34 Elliptocytes 1+ 04/17/17 15:34 Acanthocytes (Spur) Not Reportable 04/17/17 15:34 Rouleaux Not Reportable 04/17/17 15:34 Hemoglobin C Crystals Not Reportable 04/17/17 15:34 Schistocytes Not Reportable 04/17/17 15:34 Malaria parasites Not Reportable 04/17/17 15:34 Colt Bodies Not Reportable 04/17/17 15:34 Hem Pathologist Commnt No 04/17/17 15:34 Sodium 134 mmol/L (137-145) L 04/17/17 15:34 Potassium 5.7 mmol/L (3.6-5.0) H 04/17/17 15:34 Chloride 92.3 mmol/L (98-107) L 04/17/17 15:34 Carbon Dioxide 21 mmol/L (22-30) L 04/17/17 15:34 Anion Gap 26 mmol/L 04/17/17 15:34 BUN 45 mg/dL (7-17) H 04/17/17 15:34 Creatinine 11.9 mg/dL (0.7-1.2) H 04/17/17 15:34 Estimated GFR 5 ml/min 04/17/17 15:34 BUN/Creatinine Ratio 3.78 % 04/17/17 15:34 Glucose 66 mg/dL (65-100) 04/17/17 15:34 Calcium 8.6 mg/dL (8.4-10.2) 04/17/17 15:34 HCG, Quant < 2 mIU/mL (0-4) 04/17/17 15:34 Urine Color Red (Yellow) 04/17/17 15:55 Urine Turbidity Clear (Clear) 04/17/17 15:55 Urine pH 7.0 (5.0-7.0) 04/17/17 15:55 Ur Specific [place] 1.001 (1.003-1.030) L 04/17/17 15:55 Urine Protein 100 mg/dl mg/dL (Negative) 04/17/17 15:55 Urine Glucose (UA) Neg mg/dL (Negative) 04/17/17 15:55 Urine Ketones Neg mg/dL (Negative) 04/17/17 15:55 Urine Blood Lg (Negative) 04/17/17 15:55 Urine Nitrite Neg (Negative) 04/17/17 15:55 Urine Bilirubin Neg (Negative) 04/17/17 15:55 Urine Urobilinogen < 2.0 mg/dL (<2.0) 04/17/17 15:55 Ur Leukocyte Esterase Sm (Negative) 04/17/17 15:55 Urine WBC (Auto) < 1.0 /HPF (0.0-6.0) 04/17/17 15:55 Urine RBC (Auto) < 1.0 /HPF (0.0-6.0) 04/17/17 15:55 Urine Bacteria (Auto) 1+ /HPF (Negative) 04/17/17 15:55 - Imaging and Cardiology EKG: report reviewed Chest x-ray: report reviewed Assessment and Plan Advance Directives: Yes VTE prophylaxis?: Chemical Plan of care discussed with patient/family: Yes - Patient Problems (1) Hypertensive emergency Status: Acute Plan to address problem: Adjust meds IV Hydralazine 10 mg q 3 prn. Add Nicardipine drip if not amenable to Hydralazine (2) Hyperkalemia Status: Acute Plan to address problem: Given Kayexalate Emergent HD (3) ESRD (end stage renal disease) on dialysis Status: Chronic Plan to address problem: gent HD (4) Leukopenia Status: Chronic Qualifiers: Leukopenia type: unspecified Neutropenia type: N Qualified Code(s): D72.819 - Decreased white blood cell count, unspecified Plan to address problem: Recheck. Nonspecific
[2017-04-17] MEDS ORDERED: ZOFRAN IV PRN (17:40)
[2017-04-17] MEDS ORDERED: DULCOLAX PR PRN (17:40)
[2017-04-17] MEDS ORDERED: PERCOCET 5/325 PO PRN (17:40)
[2017-04-17] MEDS ORDERED: MILK OF MAGNESIA PO PRN (17:40)
--- NOTE | 2017-04-17 17:44 | Cat Scan Report ---
FINAL REPORT EXAM: CT ABDOMEN PELVIS WO CON HISTORY: flank pain n/v TECHNIQUE: CT abdomen and pelvis without contrast PRIORS: None. FINDINGS: No acute abnormality identified in the lung bases. Mild parenchymal scarring noted at the lung bases. No focal abnormality identified within the liver parenchyma. The spleen demonstrates normal size and attenuation. No pancreatic abnormalities seen. Kidneys demonstrate no evidence of hydronephrosis or nephrolithiasis. No ureteral calculus identified. The adrenal glands are unremarkable. Abdominal aorta is normal in caliber. No pathologically enlarged lymph nodes are identified. No evidence of small bowel dilatation. The appendix is identified and is normal in size no adjacent inflammatory change seen. No pericolonic inflammatory changes are observed. There is small amount of free fluid in the lower pelvis which is most likely physiologic. Urinary bladder is unremarkable. IMPRESSION: Small amount of free fluid in the lower pelvis most likely physiologic No evidence for obstructive uropathy. No acute findings.
[2017-04-17 18:26] LABS: Hematocrit 38.9 % (30.3-42.9); Hemoglobin 12.4 gm/dl (10.1-14.3); Mean Corpuscular HGB Conc 32 % (30-34); Mean Corpuscular Hemoglobin 31 pg (28-32); Mean Corpuscular Volume 97 fl (79-97); Platelet Count 201 K/mm3 (140-440); Red Blood Count 4.02 M/mm3 (3.65-5.03); Red Cell Distribution Width 18.9 % (13.2-15.2); White Blood Count 4.9 K/mm3 (4.5-11.0)
[2017-04-17] MEDS: CATAPRES PO SCH ×2 (18:50→20:00)
[2017-04-17] MEDS: NORVASC PO SCH (19:00)
[2017-04-17] MEDS: PROCARDIA XL PO SCH (20:00)
[2017-04-17] MEDS ORDERED: NON-FORMULARY (Clonidine Hcl [Catapres] 0.3 MG) PO SCH (20:00)
[2017-04-17] MEDS: DILANTIN PO SCH (20:00)
--- NOTE | 2017-04-17 20:00 | Consultation ---
History of Present Illness - Reason for Consult Consult date: 04/17/17 - History of Present Illness This 27 yr old AA female with ESRD,HTN, SLE presents with SOB,vomitings. Pt says my bones are hurting. On HD x 4 and half yrs. Discussed with ER physician, reported to have high BP, but stable to go to dialysis room Past History Past Medical History: ESRD, hypertension, other (SLE) Social history: other (denies smoking or alcohol abuse) Family history: hypertension Medications and Allergies Allergies Allergy/AdvReac Type Severity Reaction Status Date / Time No Known Allergies Allergy Verified 05/22/15 11:56 Home Medications Medication Instructions Recorded Confirmed Last Taken Type amLODIPine [Norvasc] 10 mg PO DAILY #30 tab 03/24/17 04/17/17 04/15/17 Rx predniSONE [Deltasone] 10 mg PO QDAY #30 tablet 03/24/17 04/17/17 04/15/17 Rx Clonidine HCl [Catapres] 0.3 mg PO TID 04/17/17 04/17/17 04/15/17 History NIFEdipine XL [Procardia Xl] 60 mg PO QDAY 04/17/17 04/17/17 04/15/17 History Phenytoin [Dilantin] 200 mg PO TID 04/17/17 04/17/17 04/15/17 History diphenhydrAMINE [Benadryl CAP] 25 mg PO QHS PRN 04/17/17 04/17/17 Unknown History Active Meds: Active Medications Acetaminophen (Tylenol) 650 mg PO Q4H PRN PRN Reason: Pain MILD(1-3)/Fever >100.5/ROY Amlodipine Besylate (Norvasc) 10 mg PO DAILY HENRY Bisacodyl (Dulcolax) 10 mg [place] QDAY PRN PRN Reason: Constipation unrelieved by MOM Clonidine HCl (Catapres) 0.3 mg PO TID HENRY Last Admin: 04/17/17 18:50 Dose: 0.3 mg Diphenhydramine HCl (Benadryl) 25 mg PO QHS PRN PRN Reason: Itching Famotidine (Pepcid) 10 mg PO BID HENRY Hydromorphone HCl (Dilaudid) 0.5 mg IV Q3H PRN PRN Reason: Pain , Severe (7-10) Sodium Chloride (Nacl 0.9%) 100 mls @ 999 mls/hr IV LAKESHA PRN PRN Reason: Hypotension Magnesium Hydroxide (Milk Of Magnesia) 30 ml PO Q4H PRN PRN Reason: Constipation Nifedipine (Procardia Xl) 60 mg PO QDAY HENRY Ondansetron HCl (Zofran) 4 mg IV Q8H PRN PRN Reason: N/V unrelieved by Reglan Oxycodone/Acetaminophen (Percocet 5/325) 1 tab PO Q6H PRN PRN Reason: Pain, Moderate (4-6) Phenytoin (Dilantin) 200 mg PO TID HENRY Prednisone (Deltasone) 10 mg PO QDAY HENRY Review of Systems All systems: negative Constitutional: weakness Gastrointestinal: nausea, vomiting Musculoskeletal: other (hurts all over) Exam - Constitutional Vitals: Temp Pulse Resp BP Pulse Ox 98.5 F 112 H 16 159/112 99 04/17/17 17:45 04/17/17 19:45 04/17/17 17:45 04/17/17 19:45 04/17/17 14:47 General appearance: Present: no acute distress - EENT ENT: clear oral mucosa - Neck Neck: Present: supple - Respiratory Respiratory: bilateral: CTA - Cardiovascular Rhythm: other ([id number]) Heart Sounds: Present: S1 & S2, systolic murmur - Extremities Extremities: No edema - Abdominal General gastrointestinal: Present: soft, non-tender, normal bowel sounds Results - Labs CBC & Chem 7: 04/17/17 18:00 04/17/17 15:34 Labs: Abnormal lab results 04/17/17 Range/Units 18:00 RDW 18.9 H (13.2-15.2) % - Imaging and Cardiology EKG: report reviewed, image reviewed Chest x-ray: report reviewed Assessment and Plan - Patient Problems (1) ESRD (end stage renal disease) on dialysis Current Visit: Yes Status: Chronic Plan to address problem: pt was seen and examined during dialysis. BP-high, optimise BP meds. May need Cardene drip if no improvement with ultrafiltration (2) Hypertensive emergency Current Visit: Yes Status: Acute (3) Hyperkalemia Current Visit: Yes Status: Acute Plan to address problem: follow up on K. Renal diet with low potassium (4) Vomiting Current Visit: Yes Status: Acute Qualifiers: Vomiting type: V Vomiting Intractability: V Nausea presence: N (5) SLE (systemic lupus erythematosus) Current Visit: No Status: Chronic Qualifiers: Systemic lupus erythematosus type: unspecified Systemic lupus erythematosus organ involvement: unspecified Qualified Code(s): M32.9 - Systemic lupus erythematosus, unspecified Plan to address problem: check lupus serology (6) Hx of seizure disorder Current Visit: No Status: Acute
[2017-04-17] MEDS: DILAUDID IV PRN ×2 (20:34→23:25)
[2017-04-17] MEDS: PEPCID PO SCH (23:25)
[2017-04-17] MEDS: BENADRYL PO PRN (23:25)
[2017-04-18] MEDS ORDERED: APRESOLINE IV ONE (05:09)
[2017-04-18] MEDS: DILAUDID IV PRN ×2 (05:40→15:23)
[2017-04-18] MEDS: ZOFRAN IV PRN ×2 (05:42→15:24)
--- NOTE | 2017-04-18 07:21 | XRay Report ---
AP CHEST: HISTORY: Hypertension Mild cardiomegaly, mild pulmonary venous congestion and trace pleural effusions are identified. These findings have improved slightly since 03/01/17. No evidence for pneumonia or pneumothorax. Normal bony structures. IMPRESSION: Mild CHF and
--- NOTE | 2017-04-18 08:22 | Admit Criteria Form ---
Admission Criteria Documentation: HYPERTENSION Clinical Indications for Admission to Inpatient Care ( [facility]/check or initial the applicable condition/criteria) Admission is indicated for 1 or more of the following(1)(2)(3)(4)(5)(6)(7)(8)(9) (10): [ ]I. Hypertensive emergency, with evidence of acute and progressing target organ disease as indicated by 1 or more of the following: [ ]a) Hypertensive encephalopathy (e.g., confusion, altered mental status) (11) [ ]b) Cerebral infarction [ ]c) Intracranial hemorrhage [ ]d) Myocardial ischemia or infarction [ ]e) Heart failure (eg. Pulmonary edema) [ ]f) Aortic dissection [ ]g) Increased creatinine (new) with reduction of more than 50% in estimated glomerular filtration rate from baseline [ ]h) Seizure [ ]i) Papilledema [ ]j) Retinal hemorrhage [ ]k) Microangiopathic hemolytic anemia [ ]l) Other significant finding secondary to hypertension [ ]II. Adrenergic or sympathomimetic crisis (e.g., severe hypertension due to pheochromocytoma crisis, cocaine, phencyclindine, or amphetamine intoxication, or clonidine withdrawal) [X ]III. Severe hypertension (SBP greater than 180 mmHg or DBP greater than 110 mmHg or greater than the 95th percentile for age, gender, and height in pediatric patients) that cannot be controlled (e.g., to SBP less than 160 mmHg and DBP less than 100 mmHg in adults) by treatment with oral medication in emergency department or observation care (12) Extended stay beyond goal length of staymay be needed for(21)(22): [ ]a) Persistent hypertensive encephalopathy [ ]b) Continuation of pulmonary edema [ ]c) Recurring or persistent severe hypertension [ ]d) Target organ damage (eg, angina, stroke, aortic dissection) The original [employer] content created by [employer] has been revised. The portions of the content which have been revised are identified through the use of italic text or in bold, and [employer] has neither reviewed nor approved the modified material. All other unmodified content is copyright [employer]. Please see references footnoted in the original [employer] edition 2016
[2017-04-18] MEDS: DILANTIN PO SCH ×3 (09:22→20:46)
[2017-04-18] MEDS: DELTASONE PO SCH (09:23)
[2017-04-18] MEDS: NORVASC PO SCH (09:23)
[2017-04-18] MEDS: PROCARDIA XL PO SCH ×3 (09:23→22:44)
[2017-04-18] MEDS: PEPCID PO SCH ×2 (09:24→22:41)
[2017-04-18] MEDS: CATAPRES PO SCH ×3 (09:24→20:47)
--- NOTE | 2017-04-18 09:24 | Progress Note ---
Assessment and Plan Impression: * End stage renal disease on HD TTS * Accelerated hypertension * Hyperkalemia * Nausea/Vomiting * SLE * Hx of seizure disorder Plan: * Patient is s/p hemodialysis yesterday; continue TTS schedule * Patient is ordered to receive Amlodipine and Nifedipine. Will d/c Amlodipine ; Increase Nifedipine to BID * Add Labetalol 200mg BID * Renal diet * Epogen for Hb 10-12; current Hb 12 * Dose medications for renal function Subjective Date of service: 04/18/17 Interval history: Patient c/o vomiting this am. Objective - Vital Signs Vital signs: Vital Signs - 12hr 04/17/17 04/17/17 04/17/17 21:31 21:33 22:00 Temperature 98.5 F 98.4 F Pulse Rate 105 H 99 H Pulse Rate [ 92 H Left] Respiratory 16 20 Rate Blood Pressure 132/78 140/83 Blood Pressure 135/87 [Left Arm] O2 Sat by Pulse 98 Oximetry 04/18/17 04/18/17 04/18/17 02:22 05:18 05:19 Temperature 99.1 F Pulse Rate 75 102 H Pulse Rate [ 83 Left] Respiratory 16 Rate Blood Pressure 180/130 Blood Pressure 204/119 [Left Arm] O2 Sat by Pulse 98 Oximetry 04/18/17 06:58 Temperature 99.1 F Pulse Rate Pulse Rate [ 100 H Left] Respiratory 18 Rate Blood Pressure Blood Pressure 186/111 [Left Arm] O2 Sat by Pulse 98 Oximetry - General Appearance General appearance: well-developed, well-nourished, other (NAD; resting comfortably) EENT: ATNC Respiratory: Present: Clear to Ascultation Cardiology: tachycardia, S1S2 Gastrointestinal: normal, no tenderness, no distended Neurologic: no focal deficit Musculoskeletal: other (no edema) Psychiatric: cooperative - Lab 04/17/17 18:00 04/17/17 15:34 Most recent lab results Calcium 8.6 mg/dL (8.4-10.2) 04/17/17 15:34
[2017-04-18] MEDS ORDERED: DELTASONE PO SCH (10:00)
[2017-04-18] MEDS: NORMODYNE PO SCH ×2 (11:10→22:44)
[2017-04-18] MEDS ORDERED: NACL 0.9% 100 ML IV PRN (11:30)
--- NOTE | 2017-04-18 12:48 | Progress Note ---
Assessment and Plan Assessment and plan: Accelerated hypertension. Continue current medications. Nephrology added labetalol to the regimen. We will increase as needed. Hyperkalemia. Patient status post emergent hemodialysis. Continue follow-up BMP. ESRD. Continue hemodialysis per nephrology. Abdominal pain/nausea/vomiting. Check CT scan of the abdomen and pelvis. SLE. Stable. Seizure disorder. Stable. History Interval history: Patient refusing labs this morning. Hospitalist Physical - Constitutional Vitals: Temp Pulse Resp BP Pulse Ox 97.8 F 86 18 196/120 99 04/18/17 07:00 04/18/17 11:10 04/18/17 07:00 04/18/17 11:10 04/18/17 07:00 General appearance: Present: no acute distress, well-nourished - EENT Eyes: Present: PERRL, EOM intact ENT: hearing intact, clear oral mucosa, dentition normal - Neck Neck: Present: supple, normal ROM - Respiratory Respiratory effort: normal Respiratory: bilateral: CTA - Cardiovascular Rhythm: regular Heart Sounds: Present: S1 & S2. Absent: gallop, rub - Extremities Extremities: no ischemia, No edema, Full ROM - Abdominal General gastrointestinal: soft, non-tender, non-distended, normal bowel sounds - Integumentary Integumentary: Present: clear, warm, dry - Neurologic Neurologic: CNII-XII intact, moves all extremities Results - Labs CBC & Chem 7: 04/17/17 18:00 04/17/17 15:34 Labs: Laboratory Last Values WBC 4.9 K/mm3 (4.5-11.0) 04/17/17 18:00 RBC 4.02 M/mm3 (3.65-5.03) 04/17/17 18:00 Hgb 12.4 gm/dl (10.1-14.3) 04/17/17 18:00 Hct 38.9 % (30.3-42.9) D 04/17/17 18:00 MCV 97 fl (79-97) 04/17/17 18:00 MCH 31 pg (28-32) 04/17/17 18:00 MCHC 32 % (30-34) 04/17/17 18:00 RDW 18.9 % (13.2-15.2) H 04/17/17 18:00 Plt Count 201 K/mm3 (140-440) 04/17/17 18:00 Garza % (Auto) 4.7 % (0.0-7.3) 04/17/17 15:34 Eos % (Auto) 0.6 % (0.0-4.3) 04/17/17 15:34 Garza # 0.1 K/mm3 (0.0-0.8) 04/17/17 15:34 Eos # 0.0 K/mm3 (0.0-0.4) 04/17/17 15:34 Baso # 0.0 K/mm3 (0.0-0.1) 04/17/17 15:34 Add Manual Diff Complete 04/17/17 15:34 Total Counted 100 04/17/17 15:34 Seg Neutrophils % 60.7 % (40.0-70.0) 04/17/17 15:34 Seg Neuts % (Manual) 64.0 % (40.0-70.0) 04/17/17 15:34 Band Neutrophils % 1.0 % 04/17/17 15:34 Lymphocytes % (Manual) 27.0 % (13.4-35.0) 04/17/17 15:34 Reactive Lymphs % (Man) 1.0 % 04/17/17 15:34 Monocytes % (Manual) 6.0 % (0.0-7.3) 04/17/17 15:34 Eosinophils % (Manual) 1.0 % (0.0-4.3) 04/17/17 15:34 Basophils % (Manual) 0 % (0.0-1.8) 04/17/17 15:34 Metamyelocytes % 0 % 04/17/17 15:34 Myelocytes % 0 % 04/17/17 15:34 Promyelocytes % 0 % 04/17/17 15:34 Blast Cells % 0 % 04/17/17 15:34 Nucleated RBC % Not Reportable 04/17/17 15:34 Seg Neutrophils # 1.1 K/mm3 (1.8-7.7) L 04/17/17 15:34 Seg Neutrophils # Man 1.2 K/mm3 (1.8-7.7) L 04/17/17 15:34 Band Neutrophils # 0.0 K/mm3 04/17/17 15:34 Lymphocytes # (Manual) 0.5 K/mm3 (1.2-5.4) L 04/17/17 15:34 Abs React Lymphs (Man) 0.0 K/mm3 04/17/17 15:34 Monocytes # (Manual) 0.1 K/mm3 (0.0-0.8) 04/17/17 15:34 Eosinophils # (Manual) 0.0 K/mm3 (0.0-0.4) 04/17/17 15:34 Basophils # (Manual) 0.0 K/mm3 (0.0-0.1) 04/17/17 15:34 Metamyelocytes # 0.0 K/mm3 04/17/17 15:34 Myelocytes # 0.0 K/mm3 04/17/17 15:34 Promyelocytes # 0.0 K/mm3 04/17/17 15:34 Blast Cells # 0.0 K/mm3 04/17/17 15:34 WBC Morphology Not Reportable 04/17/17 15:34 Hypersegmented Neuts Not Reportable 04/17/17 15:34 Hyposegmented Neuts Not Reportable 04/17/17 15:34 Hypogranular Neuts Not Reportable 04/17/17 15:34 Smudge Cells Not Reportable 04/17/17 15:34 Toxic Granulation Not Reportable 04/17/17 15:34 Toxic Vacuolation Not Reportable 04/17/17 15:34 Dohle Bodies Not Reportable 04/17/17 15:34 Pelger-Huet Anomaly Not Reportable 04/17/17 15:34 Shay Rods Not Reportable 04/17/17 15:34 Platelet Estimate Appears decreased 04/17/17 15:34 Clumped Platelets Not Reportable 04/17/17 15:34 Plt Clumps, EDTA Not Reportable 04/17/17 15:34 Large Platelets Not Reportable 04/17/17 15:34 Giant Platelets Not Reportable 04/17/17 15:34 Platelet Satelliting Not Reportable 04/17/17 15:34 Plt Morphology Comment Not Reportable 04/17/17 15:34 RBC Morphology Not Reportable 04/17/17 15:34 Dimorphic RBCs Not Reportable 04/17/17 15:34 Polychromasia Not Reportable 04/17/17 15:34 Hypochromasia Not Reportable 04/17/17 15:34 Poikilocytosis Not Reportable 04/17/17 15:34 Anisocytosis 1+ 04/17/17 15:34 Microcytosis Not Reportable 04/17/17 15:34 Macrocytosis Not Reportable 04/17/17 15:34 Spherocytes Not Reportable 04/17/17 15:34 Pappenheimer Bodies Not Reportable 04/17/17 15:34 Sickle Cells Not Reportable 04/17/17 15:34 Target Cells Not Reportable 04/17/17 15:34 Tear Drop Cells 1+ 04/17/17 15:34 Ovalocytes Not Reportable 04/17/17 15:34 Helmet Cells Not Reportable 04/17/17 15:34 [employer] Bodies Not Reportable 04/17/17 15:34 [place] Rings Not Reportable 04/17/17 15:34 [place] Cells Not Reportable 04/17/17 15:34 Bite Cells Not Reportable 04/17/17 15:34 Crenated Cell Not Reportable 04/17/17 15:34 Elliptocytes 1+ 04/17/17 15:34 Acanthocytes (Spur) Not Reportable 04/17/17 15:34 Rouleaux Not Reportable 04/17/17 15:34 Hemoglobin C Crystals Not Reportable 04/17/17 15:34 Schistocytes Not Reportable 04/17/17 15:34 Malaria parasites Not Reportable 04/17/17 15:34 Colt Bodies Not Reportable 04/17/17 15:34 Hem Pathologist Commnt No 04/17/17 15:34 Sodium 134 mmol/L (137-145) L 04/17/17 15:34 Potassium 5.7 mmol/L (3.6-5.0) H 04/17/17 15:34 Chloride 92.3 mmol/L (98-107) L 04/17/17 15:34 Carbon Dioxide 21 mmol/L (22-30) L 04/17/17 15:34 Anion Gap 26 mmol/L 04/17/17 15:34 BUN 45 mg/dL (7-17) H 04/17/17 15:34 Creatinine 11.9 mg/dL (0.7-1.2) H 04/17/17 15:34 Estimated GFR 5 ml/min 04/17/17 15:34 BUN/Creatinine Ratio 3.78 % 04/17/17 15:34 Glucose 66 mg/dL (65-100) 04/17/17 15:34 Lactic Acid 0.80 mmol/L (0.7-2.0) 04/17/17 18:00 Calcium 8.6 mg/dL (8.4-10.2) 04/17/17 15:34 HCG, Quant < 2 mIU/mL (0-4) 04/17/17 15:34 Urine Color Red (Yellow) 04/17/17 15:55 Urine Turbidity Clear (Clear) 04/17/17 15:55 Urine pH 7.0 (5.0-7.0) 04/17/17 15:55 Ur Specific [place] 1.001 (1.003-1.030) L 04/17/17 15:55 Urine Protein 100 mg/dl mg/dL (Negative) 04/17/17 15:55 Urine Glucose (UA) Neg mg/dL (Negative) 04/17/17 15:55 Urine Ketones Neg mg/dL (Negative) 04/17/17 15:55 Urine Blood Lg (Negative) 04/17/17 15:55 Urine Nitrite Neg (Negative) 04/17/17 15:55 Urine Bilirubin Neg (Negative) 04/17/17 15:55 Urine Urobilinogen < 2.0 mg/dL (<2.0) 04/17/17 15:55 Ur Leukocyte Esterase Sm (Negative) 04/17/17 15:55 Urine WBC (Auto) < 1.0 /HPF (0.0-6.0) 04/17/17 15:55 Urine RBC (Auto) < 1.0 /HPF (0.0-6.0) 04/17/17 15:55 Urine Bacteria (Auto) 1+ /HPF (Negative) 04/17/17 15:55
[2017-04-18 15:06] LABS: Basophils % (Auto) 0.5 % (0.0-1.8); Eosinophils % (Auto) 0.5 % (0.0-4.3); Hematocrit 39.5 % (30.3-42.9); Hemoglobin 12.8 gm/dl (10.1-14.3); Mean Corpuscular HGB Conc 32 % (30-34); Mean Corpuscular Hemoglobin 31 pg (28-32); Mean Corpuscular Volume 97 fl (79-97); Platelet Count 143 K/mm3 (140-440); Red Blood Count 4.06 M/mm3 (3.65-5.03); Red Cell Distribution Width 18.9 % (13.2-15.2); White Blood Count 3.8 K/mm3 (4.5-11.0)
[2017-04-18 15:34] LABS: Albumin 4.1 g/dL (3.9-5); Albumin/Globulin Ratio 1.2 %; BUN/Creatinine Ratio 2.76; Bilirubin,Total 0.5 mg/dL (0.1-1.2); Calcium 8.9 mg/dL (8.4-10.2); Chloride 91.9 mmol/L (98-107); Potassium 4.8 mmol/L (3.6-5.0); Total Protein 7.4 g/dL (6.3-8.2)
[2017-04-19] MEDS: DILAUDID IV PRN (04:26)
--- NOTE | 2017-04-19 08:38 | Discharge Summary ---
Providers - Providers Date of Admission: 04/17/17 17:40 Date of discharge: 04/19/17 Attending physician: YANDY GONZALES Primary care physician: UI SOFTWARE DEVELOPER Hospitalization Reason for admission: accelerated hypertension Condition: Good Hospital course: 27-year-old female presented through the emergency department with significant past medical history hypertension, SLE and ESRD who presented to the emergency department with complaints of elevated blood pressure and missed hemodialysis. Patient normally has dialysis Sunday, and Sunday. Patient however missed her dialysis the Sunday prior to admission. Patient denies any chest pain or shortness of breath. Patient was seen by nephrology in consultation and underwent hemodialysis to hospitalization. Patient was also noted to have hyperkalemia which resolved. Patient also had her blood pressure medications adjusted. Patient also complains of abdominal pain which resolved on hospital stay. CT scan of the abdomen was found to be negative. Patient's blood pressure has stabilized and she is felt to have received maximal hospital benefit for discharge. Dedicated discharge time 32 minutes. Disposition: TO HOME OR SELFCARE Time spent for discharge: 32 - Discharge Diagnoses (1) Hyperkalemia Status: Acute (2) Hypertensive emergency Status: Acute (3) ESRD (end stage renal disease) on dialysis Status: Chronic (4) Leukopenia Status: Chronic Qualifiers: Leukopenia type: unspecified Neutropenia type: N Qualified Code(s): D72.819 - Decreased white blood cell count, unspecified (5) SLE (systemic lupus erythematosus) Status: Chronic Qualifiers: Systemic lupus erythematosus type: unspecified Systemic lupus erythematosus organ involvement: unspecified Qualified Code(s): M32.9 - Systemic lupus erythematosus, unspecified Core Measure Documentation - Palliative Care Palliative Care/ Comfort Measures: Not Applicable - Core Measures Any of the following diagnoses?: none Exam - Constitutional Vitals: Temp Pulse Resp BP Pulse Ox 98.2 F 81 16 156/96 100 04/19/17 04:30 04/19/17 04:30 04/19/17 04:30 04/19/17 04:30 04/19/17 04:30 General appearance: Present: no acute distress, well-nourished - EENT Eyes: Present: PERRL ENT: hearing intact, clear oral mucosa - Neck Neck: Present: supple, normal ROM - Respiratory Respiratory effort: normal Respiratory: bilateral: CTA - Cardiovascular Heart Sounds: Present: S1 & S2. Absent: rub, click - Extremities Extremities: pulses symmetrical, No edema Peripheral Pulses: within normal limits - Abdominal General gastrointestinal: Present: soft, non-tender, non-distended, normal bowel sounds Female genitourinary: Present: normal - Integumentary Integumentary: Present: clear, warm, dry - Musculoskeletal Musculoskeletal: gait normal, strength equal bilaterally - Psychiatric Psychiatric: appropriate mood/affect, intact judgment & insight - Neurologic Neurologic: CNII-XII intact, moves all extremities Plan Activity: no restrictions Weight Bearing Status: Full Weight Bearing Diet: renal Follow up with: PRIMARY CAREMD [Primary Care Provider] - 3-5 Days ALEE ORTEGA MD [Staff Physician] - 7 Days Prescriptions: Clonidine HCl [Catapres] 0.3 mg PO TID #90 tablet diphenhydrAMINE [Benadryl CAP] 25 mg PO QHS PRN #30 capsule PRN Reason: Itching Labetalol [Normodyne TAB] 200 mg PO BID #60 tablet NIFEdipine XL [Procardia Xl] 60 mg PO Q12HR #60 tablet oxyCODONE /ACETAMINOPHEN [Percocet 5/325 mg] 1 tab PO Q6H PRN #20 tablet PRN Reason: Pain, Moderate (4-6) Phenytoin [Dilantin] 200 mg PO TID #90 capsule.er
[2017-04-19] MEDS: DILANTIN PO SCH ×3 (08:45→20:55)
[2017-04-19] MEDS: CATAPRES PO SCH ×3 (08:45→20:54)
[2017-04-19] MEDS: ZOFRAN IV PRN ×2 (08:58→15:26)
[2017-04-19 10:55] LABS: Hematocrit 34.1 % (30.3-42.9); Hemoglobin 11.1 gm/dl (10.1-14.3); Mean Corpuscular HGB Conc 33 % (30-34); Mean Corpuscular Hemoglobin 31 pg (28-32); Mean Corpuscular Volume 97 fl (79-97); Platelet Count 111 K/mm3 (140-440); Red Blood Count 3.53 M/mm3 (3.65-5.03); Red Cell Distribution Width 18.3 % (13.2-15.2)
[2017-04-19 11:06] LABS: BUN/Creatinine Ratio 2.65; Calcium 8.1 mg/dL (8.4-10.2); Chloride 93.4 mmol/L (98-107); Potassium 3.5 mmol/L (3.6-5.0)
[2017-04-19] MEDS: PEPCID PO SCH ×3 (11:14→22:58)
[2017-04-19] MEDS: DELTASONE PO SCH ×2 (11:14→15:25)
[2017-04-19] MEDS: NORMODYNE PO SCH ×2 (11:14→22:57)
[2017-04-19] MEDS: PROCARDIA XL PO SCH ×3 (11:15→22:58)
[2017-04-19 11:17] LABS: White Blood Count 1.9 K/mm3 (4.5-11.0)
[2017-04-19] MEDS ORDERED: NACL 0.9% 1000 ML 2,000 ML ONE (12:00)
[2017-04-19 12:09] LABS: Basophils % (Manual) 0 % (0.0-1.8); Blastocytes % (Manual) 0 %
[2017-04-19 12:10] LABS: Anisocytosis 1+; Ovalocytes 1+; Tear Drop Cells Few
[2017-04-19 12:15] LABS: Diff Status Complete; Platelet Estimate Consistent w Auto
--- NOTE | 2017-04-19 13:15 | Progress Note ---
Assessment and Plan Impression: * End stage renal disease on HD TTS * Accelerated hypertension * Hyperkalemia * Nausea/Vomiting * SLE * Hx of seizure disorder * Pancytopenia Plan: * HD continue TTS schedule * Nifedipine to BID * low wbc and plt noted, seems to be having lupus flare, give iv steriods * Renal diet * Epogen for Hb 10-12; current Hb 12 * Dose medications for renal function Subjective Date of service: 04/19/17 Principal diagnosis: esrd, sle Interval history: resting well in bed today Objective - Exam Narrative Exam: General appearance: well-developed, well-nourished, other (NAD; resting comfortably) EENT: ATNC Respiratory: Present: Clear to Ascultation Cardiology: tachycardia, S1S2 Gastrointestinal: normal, no tenderness, no distended Neurologic: no focal deficit Musculoskeletal: other (no edema) Psychiatric: cooperative - Vital Signs Vital signs: Vital Signs - 12hr 04/19/17 04/19/17 04/19/17 04:30 08:45 08:49 Temperature 98.2 F 97.6 F Pulse Rate Pulse Rate [ 81 76 Left] Respiratory 16 16 Rate Blood Pressure 197/115 Blood Pressure 156/96 197/115 [Left Arm] O2 Sat by Pulse 100 97 Oximetry 04/19/17 04/19/17 04/19/17 09:30 10:00 10:30 Temperature 97.0 F L Pulse Rate 77 76 78 Pulse Rate [ Left] Respiratory 20 18 Rate Blood Pressure 135/85 147/91 Blood Pressure [Left Arm] O2 Sat by Pulse 97 Oximetry 04/19/17 04/19/17 04/19/17 10:45 11:00 11:15 Temperature Pulse Rate 77 76 78 Pulse Rate [ Left] Respiratory Rate Blood Pressure 142/86 131/82 134/75 Blood Pressure [Left Arm] O2 Sat by Pulse Oximetry 04/19/17 04/19/17 04/19/17 11:30 11:45 12:00 Temperature Pulse Rate 84 78 88 Pulse Rate [ Left] Respiratory Rate Blood Pressure 128/84 129/81 135/87 Blood Pressure [Left Arm] O2 Sat by Pulse Oximetry 04/19/17 04/19/17 04/19/17 12:15 12:30 12:45 Temperature Pulse Rate 84 88 88 Pulse Rate [ Left] Respiratory Rate Blood Pressure 123/83 122/80 136/87 Blood Pressure [Left Arm] O2 Sat by Pulse Oximetry 04/19/17 13:00 Temperature Pulse Rate 92 H Pulse Rate [ Left] Respiratory Rate Blood Pressure 118/77 Blood Pressure [Left Arm] O2 Sat by Pulse Oximetry - Lab 04/19/17 10:26 04/19/17 10:26 Most recent lab results Calcium 8.1 mg/dL (8.4-10.2) L 04/19/17 10:26
[2017-04-19] MEDS: BENADRYL PO PRN (21:12)
[2017-04-19] MEDS: TYLENOL PO PRN (22:56)
[2017-04-20] MEDS: TYLENOL PO PRN (05:53)
[2017-04-20] MEDS: ZOFRAN IV PRN (06:20)
[2017-04-20 06:23] VITALS: BP 127/71
[2017-04-20] MEDS: DELTASONE PO SCH (09:49)
[2017-04-20] MEDS: PROCARDIA XL PO SCH (09:49)
[2017-04-20] MEDS: DILANTIN PO SCH (09:49)
[2017-04-20] MEDS: CATAPRES PO SCH (09:49)
[2017-04-20] MEDS: NORMODYNE PO SCH (09:49)
[2017-04-20] MEDS: PEPCID PO SCH (09:51)
--- NOTE | 2017-04-20 12:00 | Progress Note ---
Assessment and Plan Accelerated hypertension. Continue current medications. Hyperkalemia. Patient status post emergent hemodialysis. Continue follow-up BMP. ESRD. Continue hemodialysis per nephrology. Abdominal pain/nausea/vomiting. Check CT scan of the abdomen and pelvis. SLE. Stable. Seizure disorder. Stable. - Patient Problems (1) Hyperkalemia Status: Acute (2) Hypertensive emergency Status: Acute (3) ESRD (end stage renal disease) on dialysis Status: Chronic (4) Leukopenia Status: Chronic Qualifiers: Leukopenia type: unspecified Neutropenia type: N Qualified Code(s): D72.819 - Decreased white blood cell count, unspecified (5) SLE (systemic lupus erythematosus) Status: Chronic Qualifiers: Systemic lupus erythematosus type: unspecified Systemic lupus erythematosus organ involvement: unspecified Qualified Code(s): M32.9 - Systemic lupus erythematosus, unspecified Subjective Date of service: 04/19/17 Principal diagnosis: esrd, sle Interval history: Patient refusing labs this morning. Objective - Constitutional Vitals: Vital Signs - 12hr 04/20/17 04/20/17 00:00 06:22 Temperature 98.5 F 52.2 F L Pulse Rate [ 70 96 H Left] Respiratory 19 20 Rate Blood Pressure 136/82 127/71 [Left Arm] O2 Sat by Pulse 97 98 Oximetry General appearance: Present: no acute distress, well-nourished - EENT Eyes: PERRL, EOM intact ENT: hearing intact, clear oral mucosa Ears: bilateral: normal - Neck Neck: supple, normal ROM - Respiratory Respiratory effort: normal Respiratory: bilateral: CTA - Breasts Breasts: normal - Cardiovascular Rhythm: regular Heart Sounds: Present: S1 & S2. Absent: gallop, rub Extremities: pulses intact, No edema, normal color, Full ROM - Gastrointestinal General gastrointestinal: Present: soft, non-tender, non-distended, normal bowel sounds - Genitourinary Female genitourinary: normal - Integumentary Integumentary: clear, warm, dry - Musculoskeletal Musculoskeletal: 1, strength equal bilaterally - Neurologic Neurologic: moves all extremities - Psychiatric Psychiatric: memory intact, appropriate mood/affect, intact judgment & insight - Labs CBC & Chem 7: 04/19/17 10:26 04/19/17 10:26 Labs: Abnormal lab results 04/19/17 Range/Units 10:26 Eosinophils % (Manual) 5.0 H (0.0-4.3) % Seg Neutrophils # Man 1.2 L (1.8-7.7) K/mm3 Lymphocytes # (Manual) 0.6 L (1.2-5.4) K/mm3
--- NOTE | 2017-04-20 12:02 | Discharge Summary ---
Providers - Providers Date of Admission: 04/17/17 17:40 Date of discharge: 04/20/17 Attending physician: YANDY GONZALES Primary care physician: ROBERT HOLT MD Hospitalization Reason for admission: esrd Condition: Good Hospital course: 27-year-old female presented through the emergency department with significant past medical history hypertension, SLE and ESRD who presented to the emergency department with complaints of elevated blood pressure and missed hemodialysis. Patient normally has dialysis Sunday, and Sunday. Patient however missed her dialysis the Sunday prior to admission. Patient denies any chest pain or shortness of breath. Patient was seen by nephrology in consultation and underwent hemodialysis to hospitalization. Patient was also noted to have hyperkalemia which resolved. Patient also had her blood pressure medications adjusted. Patient also complains of abdominal pain which resolved during hospital stay. CT scan of the abdomen was found to be negative. Patient's blood pressure stabilized. Unfortunately, patient did have an episode of leukopenia and thrombocytopenia with general malaise. Therefore, there was some question of possible early SLE flare which has been her typical response per Dr. Mark in the past. Patient was started on IV steroids. However, patient did not want to continue further treatment and left AMA. Dedicated discharge time 32 minutes. Disposition: [id number] LEFT AGAINST MED ADVICE - Discharge Diagnoses (1) Hyperkalemia Status: Acute (2) Hypertensive emergency Status: Acute (3) ESRD (end stage renal disease) on dialysis Status: Chronic (4) Leukopenia Status: Chronic Qualifiers: Leukopenia type: unspecified Neutropenia type: N Qualified Code(s): D72.819 - Decreased white blood cell count, unspecified (5) SLE (systemic lupus erythematosus) Status: Chronic Qualifiers: Systemic lupus erythematosus type: unspecified Systemic lupus erythematosus organ involvement: unspecified Qualified Code(s): M32.9 - Systemic lupus erythematosus, unspecified Core Measure Documentation - Palliative Care Palliative Care/ Comfort Measures: Not Applicable - Core Measures Any of the following diagnoses?: none Exam - Constitutional Vitals: Temp Pulse Resp BP Pulse Ox 52.2 F L 96 H 20 127/71 98 04/20/17 06:22 04/20/17 06:22 04/20/17 06:22 04/20/17 06:22 04/20/17 06:22 Plan Follow up with: ROBERT HOLT MD [Primary Care Provider] - 3-5 Days ALEE ORTEGA MD [Staff Physician] - 7 Days Prescriptions: Clonidine HCl [Catapres] 0.3 mg PO TID #90 tablet diphenhydrAMINE [Benadryl CAP] 25 mg PO QHS PRN #30 capsule PRN Reason: Itching Labetalol [Normodyne TAB] 200 mg PO BID #60 tablet NIFEdipine XL [Procardia Xl] 60 mg PO Q12HR #60 tablet oxyCODONE /ACETAMINOPHEN [Percocet 5/325 mg] 1 tab PO Q6H PRN #20 tablet PRN Reason: Pain, Moderate (4-6) Phenytoin [Dilantin] 200 mg PO TID #90 capsule.er
== END 2017-04-20 10:26 | disposition left against medical advice (07) | DRG 545 ==
LOC: ED 12:43 → 4A 17:40
PROVIDERS: ADMIT Internal Medicine; ATTEND Hospitalist
PROC: 5A1D60Z (ICD-10-PCS; principal; 2017-04-17)
DX: M32.9 Systemic lupus erythematosus, unspecified (principal); N18.6 End stage renal disease; I16.1 Hypertensive emergency; I12.0 Hypertensive chronic kidney disease with stage 5 chronic kidney disease or end stage renal disease; D61.818 Other pancytopenia; E87.5 Hyperkalemia; G43.909 Migraine, unspecified, not intractable, without status migrainosus; Z53.21 Procedure and treatment not carried out due to patient leaving prior to being seen by health care provider; F17.200 Nicotine dependence, unspecified, uncomplicated; G40.909 Epilepsy, unspecified, not intractable, without status epilepticus; D72.819 Decreased white blood cell count, unspecified; Z82.49 Family history of ischemic heart disease and other diseases of the circulatory system
CPT/HCPCS: 36415; 71010; 74176; 80048; 80053; 81001; 81025; 82140; 84702; 85007; 85025; 85027; 93005; 93010; 96374; 96375; 96376; J0360; J1170; J2270; J2405; J2920; J7030; J7512

== ENCOUNTER 2017-06-21 21:37 | Emergency (ER) | payer MEDICARE ==
[2017-06-21] MEDS ORDERED: TYLENOL PO ONE (23:10)
[2017-06-21] MEDS ORDERED: TYLENOL ONE (23:15)
[2017-06-22 00:06] LABS: BUN/Creatinine Ratio 2.36; Calcium 8.7 mg/dL (8.4-10.2)
[2017-06-22 00:07] LABS: Chloride 99.3 mmol/L (98-107)
[2017-06-22 00:16] LABS: Basophils % (Auto) 0.4 % (0.0-1.8); Eosinophils % (Auto) 3.5 % (0.0-4.3); Hematocrit 31.4 % (30.3-42.9); Hemoglobin 10.2 gm/dl (10.1-14.3); Mean Corpuscular HGB Conc 32 % (30-34); Mean Corpuscular Hemoglobin 31 pg (28-32); Mean Corpuscular Volume 96 fl (79-97); Platelet Count 140 K/mm3 (140-440); Red Blood Count 3.28 M/mm3 (3.65-5.03); Red Cell Distribution Width 17.1 % (13.2-15.2); White Blood Count 2.8 K/mm3 (4.5-11.0)
[2017-06-22 11:38] LABS: Bacteria,Urine 2+ /HPF (Negative); Bilirubin,Urine NEG (Negative); Blood,Urine SM (Negative); Ketones,Urine NEG (Negative); Leukocyte Esterase,Urine SM (Negative); Nitrite,Urine NEG (Negative); Urobilinogen,Urine < 2.0 mg/dL (<2.0)
--- NOTE | 2017-06-22 11:59 | Emergency Department Report ---
ED General Adult HPI - General Chief complaint: Headache Stated complaint: BODY ACHE, HEADACHE Time Seen by Provider: 06/22/17 11:20 Source: patient Mode of arrival: Ambulatory Limitations: No Limitations - History of Present Illness Initial comments: The patient states "I am having a lupus flare". She states that she has tried to make an appointment at the [facility]. She states she does not have a floor worker well service. She denies fever or chills or any neurological change. She denies nausea or vomiting. She does have not infrequent headaches. She is not specifically complaining of a headache more so of hurting all over at time of my encounter. She did have a CT of her head that showed no intracranial abnormality on 03/23/2017 at this facility. She states that she is out of her oxycodone. She received a full dialysis run today. -: Gradual, hour(s) Location: head, upper extremity, lower extremity Radiation: non-radiation Quality: aching Consistency: intermittent Improves with: none Worsens with: none Associated Symptoms: denies other symptoms - Related Data Previous Rx's Medication Instructions Recorded Last Taken Type predniSONE [Deltasone] 10 mg PO QDAY #30 tablet 03/24/17 04/15/17 Rx Clonidine HCl [Catapres] 0.3 mg PO TID #90 tablet 04/19/17 Unknown Rx Labetalol [Normodyne TAB] 200 mg PO BID #60 tablet 04/19/17 Unknown Rx NIFEdipine XL [Procardia Xl] 60 mg PO Q12HR #60 tablet 04/19/17 Unknown Rx Phenytoin [Dilantin] 200 mg PO TID #90 capsule.er 04/19/17 Unknown Rx diphenhydrAMINE [Benadryl CAP] 25 mg PO QHS PRN #30 capsule 04/19/17 Unknown Rx oxyCODONE /ACETAMINOPHEN [Percocet 1 tab PO Q6H PRN #20 tablet 04/19/17 Unknown Rx 5/325 mg] oxyCODONE /ACETAMINOPHEN [Percocet 1 tab PO Q6HR PRN #7 tablet 06/22/17 Unknown Rx 5/325] Allergies Allergy/AdvReac Type Severity Reaction Status Date / Time No Known Allergies Allergy Verified 05/22/15 11:56 ED Review of Systems ROS: Stated complaint: BODY ACHE, HEADACHE Other details as noted in HPI Constitutional: denies: chills, fever Eyes: denies: eye pain, eye discharge, vision change ENT: denies: ear pain, throat pain Respiratory: denies: cough, shortness of breath, wheezing Cardiovascular: denies: chest pain, palpitations Endocrine: no symptoms reported Gastrointestinal: denies: abdominal pain, nausea, diarrhea Genitourinary: denies: urgency, dysuria, discharge Musculoskeletal: arthralgia. denies: back pain, joint swelling Skin: denies: rash, lesions Neurological: headache. denies: weakness, paresthesias Psychiatric: denies: anxiety, depression Hematological/Lymphatic: denies: easy bleeding, easy bruising ED Past Medical Hx - Past Medical History Previous Medical History?: Yes Hx Hypertension: Yes Hx Congestive Heart Failure: No Hx Diabetes: No Hx Renal Disease: Yes Hx Headaches / Migraines: Yes (3 nights) Hx Seizures: Yes Hx Asthma: Yes Hx COPD: No Hx HIV: No Additional medical history: Lupus - Surgical History Past Surgical History?: Yes Additional Surgical History: fistula right arm - Social History Smoking Status: Current Every Day Smoker Substance Use Type: None - Medications Home Medications: Home Medications Medication Instructions Recorded Confirmed Last Taken Type predniSONE [Deltasone] 10 mg PO QDAY #30 tablet 03/24/17 04/17/17 04/15/17 Rx Clonidine HCl [Catapres] 0.3 mg PO TID #90 tablet 04/19/17 Unknown Rx Labetalol [Normodyne TAB] 200 mg PO BID #60 tablet 04/19/17 Unknown Rx NIFEdipine XL [Procardia Xl] 60 mg PO Q12HR #60 tablet 04/19/17 Unknown Rx Phenytoin [Dilantin] 200 mg PO TID #90 capsule.er 04/19/17 Unknown Rx diphenhydrAMINE [Benadryl CAP] 25 mg PO QHS PRN #30 capsule 04/19/17 Unknown Rx oxyCODONE /ACETAMINOPHEN [Percocet 1 tab PO Q6H PRN #20 tablet 04/19/17 Unknown Rx 5/325 mg] oxyCODONE /ACETAMINOPHEN [Percocet 1 tab PO Q6HR PRN #7 tablet 06/22/17 Unknown Rx 5/325] ED Physical Exam - General Limitations: No Limitations General appearance: alert, in no apparent distress - Head Head exam: Present: atraumatic, normocephalic - Eye Eye exam: Present: normal appearance, PERRL, EOMI. Absent: scleral icterus - ENT ENT exam: Present: normal exam, mucous membranes moist - Neck Neck exam: Present: normal inspection. Absent: tenderness, meningismus - Respiratory Respiratory exam: Present: normal lung sounds bilaterally. Absent: respiratory distress - Cardiovascular Cardiovascular Exam: Present: regular rate, normal rhythm. Absent: systolic murmur, diastolic murmur, rubs, gallop - GI/Abdominal GI/Abdominal exam: Present: soft, normal bowel sounds. Absent: distended, tenderness, guarding, rebound, rigid - Extremities Exam Extremities exam: Present: normal inspection, full ROM, normal capillary refill. Absent: tenderness, pedal edema, joint swelling (no evidence of active joints found), calf tenderness - Back Exam Back exam: Present: normal inspection - Neurological Exam Neurological exam: Present: alert, oriented X3, CN II-XII intact, normal gait. Absent: motor sensory deficit - Psychiatric Psychiatric exam: Present: normal affect, normal mood - Skin Skin exam: Present: warm, dry, intact, normal color. Absent: rash ED Course Vital Signs 06/21/17 06/22/17 23:02 06:42 Temperature 98.0 F 98.1 F Pulse Rate 81 69 Respiratory 18 12 Rate Blood Pressure 152/112 156/96 O2 Sat by Pulse 100 100 Oximetry - Reevaluation(s) Reevaluation #1: The patient is on 20 mg of prednisone a day. She will be given Decadron 1 and oral analgesia. I do not think this is a "lupus flare". She is referred back to her corncob pipe supervisor for further care and a referral to a floor worker well service. 06/22/17 12:01 ED Medical Decision Making - Lab Data Result diagrams: 06/21/17 23:21 06/21/17 23:21 Laboratory Results - last 24 hr 06/21/17 06/21/17 06/22/17 23:21 23:21 11:27 WBC 2.8 L RBC 3.28 L Hgb 10.2 Hct 31.4 MCV 96 MCH 31 MCHC 32 RDW 17.1 H Plt Count 140 Lymph % (Auto) 32.9 Sebastian % (Auto) 10.4 H Eos % (Auto) 3.5 Baso % (Auto) 0.4 Lymph # 0.9 L Sebastian # 0.3 Eos # 0.1 Baso # 0.0 Seg Neutrophils % 52.8 Seg Neutrophils # 1.5 L Sodium 140 Potassium 4.0 Chloride 99.3 Carbon Dioxide 25 Anion Gap 20 BUN 13 Creatinine 5.5 H Estimated GFR 11 BUN/Creatinine Ratio 2.36 Glucose 65 Calcium 8.7 Urine Color Yellow Urine Turbidity Cloudy Urine pH 9.0 H Ur Specific [place] 1.009 Urine Protein 100 mg/dl Urine Glucose (UA) Neg Urine Ketones Neg Urine Blood Sm Urine Nitrite Neg Urine Bilirubin Neg Urine Urobilinogen < 2.0 Ur Leukocyte Esterase Sm Urine WBC (Auto) 27.0 H Urine RBC (Auto) 5.0 U Epithel Cells (Auto) 25.0 H Urine Bacteria (Auto) 2+ Critical care attestation.: If time is entered above; I have spent that time in minutes in the direct care of this critically ill patient, excluding procedure time. ED Disposition Clinical Impression: SLE (systemic lupus erythematosus) Qualifiers: Systemic lupus erythematosus type: unspecified Systemic lupus erythematosus organ involvement: unspecified Qualified Code(s): M32.9 - Systemic lupus erythematosus, unspecified Arthralgia Qualifiers: Joint pain location: unspecified Qualified Code(s): M25.50 - Pain in unspecified joint Cephalalgia Qualifiers: Headache type: unspecified Headache chronicity pattern: chronic headache Intractability: not intractable Qualified Code(s): R51 - Headache Disposition: DC-01 TO HOME OR SELFCARE Is pt being admited?: No Does the pt Need Aspirin: No Condition: Stable Instructions: Arthralgia (ED), Acute Headache (ED) Additional Instructions: See your nephrologists regarding referral to a floor worker well service or Dov as you have called before. Return any acute change or problems. Prescriptions: oxyCODONE /ACETAMINOPHEN [Percocet 5/325] 1 tab PO Q6HR PRN #7 tablet PRN Reason: Pain Referrals: PRIMARY CARE, [Primary Care Provider] - 3-5 Days Time of Disposition: 12:03
[2017-06-22] MEDS ORDERED: DECADRON IM ONE (12:04)
[2017-06-22] MEDS ORDERED: PERCOCET 5/325 PO ONE (12:04)
[2017-06-22 13:39] VITALS: BP 139/89
== END 2017-06-22 12:50 | disposition home or self-care (01) ==
LOC: ED 21:37
DX: M32.9 Systemic lupus erythematosus, unspecified (principal); M25.50 Pain in unspecified joint; R51 Headache; I10 Essential (primary) hypertension; G43.909 Migraine, unspecified, not intractable, without status migrainosus; R56.9 Unspecified convulsions; J45.909 Unspecified asthma, uncomplicated; F17.200 Nicotine dependence, unspecified, uncomplicated
CPT/HCPCS: 36415; 80048; 81001; 85025; 96372; 99283; J1100

== ENCOUNTER 2017-07-01 02:43 | Emergency (ER) | payer MEDICARE ==
[2017-07-01] MEDS ORDERED: CATAPRES PO ONE (04:35)
[2017-07-01] MEDS ORDERED: CATAPRES ONE ×2 (04:36)
[2017-07-01 07:03] LABS: Basophils % (Auto) 0.5 % (0.0-1.8); Eosinophils % (Auto) 6.6 % (0.0-4.3); Hematocrit 29.2 % (30.3-42.9); Hemoglobin 9.5 gm/dl (10.1-14.3); Mean Corpuscular HGB Conc 33 % (30-34); Mean Corpuscular Hemoglobin 31 pg (28-32); Mean Corpuscular Volume 96 fl (79-97); Platelet Count 152 K/mm3 (140-440); Red Blood Count 3.04 M/mm3 (3.65-5.03); Red Cell Distribution Width 17.5 % (13.2-15.2); White Blood Count 2.7 K/mm3 (4.5-11.0)
[2017-07-01 07:22] LABS: Albumin 3.9 g/dL (3.9-5); Albumin/Globulin Ratio 1.2 %; BUN/Creatinine Ratio 3.54; Bilirubin,Total 0.3 mg/dL (0.1-1.2); Calcium 8.8 mg/dL (8.4-10.2); Chloride 94.6 mmol/L (98-107); Potassium 4.7 mmol/L (3.6-5.0); Total Protein 7.2 g/dL (6.3-8.2)
--- NOTE | 2017-07-01 09:25 | XRay Report ---
Chest 2 views: Compared to 04/17/17. History: Weakness shakiness patient on dialysis. Findings: Cardiomegaly. Trachea is midline. Pulmonary venous congestion with fluid in the oblique and horizontal fissure. Normal CP angles. Impression: Probable early CHF.
[2017-07-01 10:28] LABS: Bacteria,Urine 1+ /HPF (Negative); Bilirubin,Urine NEG (Negative); Blood,Urine NEG (Negative); Ketones,Urine NEG (Negative); Leukocyte Esterase,Urine TR (Negative); Mucus,Urine FEW /HPF; Nitrite,Urine NEG (Negative); RBC,Urine < 1.0 /HPF (0.0-6.0); Urobilinogen,Urine < 2.0 mg/dL (<2.0)
--- NOTE | 2017-07-01 10:40 | Emergency Department Report ---
ED General Adult HPI - General Chief complaint: Abdominal Pain Stated complaint: CAN NOT SLEEP Time Seen by Provider: 07/01/17 10:37 Source: patient, EMS Mode of arrival: Wheelchair Limitations: No Limitations - History of Present Illness Initial comments: The patient is found in the left lateral decubitus position lethargic and/or a sleeping in no distress. Very similar to the presentation 2 days ago at this emergency department where she complained of allodynia. She was given a prescription for a few Percocet. She states that she did not take them today at all. She does not even seem to recall that I saw HER-2 days ago for similar non-emergent complaints. At that time she was informed that she needed better chronic pain management with her family physician/environmental compliance inspector and oriented from this. He states he has a history of lupus. There is no joint complaints there is no fever swelling headache, etc. Today she is solely complaining of pain in her left trapezius area which is tender to touch. Her last dialysis was yesterday. Apparently she does not discuss her emergency department visits with her chip separator or primary care/rheumatology physician. -: Gradual, hour(s) Location: left (trapezius) Radiation: non-radiation Quality: aching Consistency: intermittent Improves with: none Worsens with: none Associated Symptoms: denies other symptoms Treatments Prior to Arrival: none - Related Data Previous Rx's Medication Instructions Recorded Last Taken Type predniSONE [Deltasone] 10 mg PO QDAY #30 tablet 03/24/17 04/15/17 Rx Clonidine HCl [Catapres] 0.3 mg PO TID #90 tablet 04/19/17 Unknown Rx Labetalol [Normodyne TAB] 200 mg PO BID #60 tablet 04/19/17 Unknown Rx NIFEdipine XL [Procardia Xl] 60 mg PO Q12HR #60 tablet 04/19/17 Unknown Rx Phenytoin [Dilantin] 200 mg PO TID #90 capsule.er 04/19/17 Unknown Rx diphenhydrAMINE [Benadryl CAP] 25 mg PO QHS PRN #30 capsule 04/19/17 Unknown Rx oxyCODONE /ACETAMINOPHEN [Percocet 1 tab PO Q6H PRN #20 tablet 04/19/17 Unknown Rx 5/325 mg] oxyCODONE /ACETAMINOPHEN [Percocet 1 tab PO Q6HR PRN #7 tablet 06/22/17 Unknown Rx 5/325] Cyclobenzaprine HCl [Flexeril 5 MG 5 mg PO TID PRN #14 tab 07/01/17 Unknown Rx TAB] Allergies Allergy/AdvReac Type Severity Reaction Status Date / Time acetaminophen [From Percocet] AdvReac Unknown Verified 07/01/17 04:06 metoprolol AdvReac Vomiting Verified 07/01/17 04:07 oxycodone HCl [From Percocet] AdvReac Unknown Verified 07/01/17 04:06 phenytoin sodium AdvReac Unknown Verified 07/01/17 04:07 [From Dilantin] phenytoin sodium extended AdvReac Unknown Verified 07/01/17 04:07 [From Dilantin] ED Review of Systems ROS: Stated complaint: CAN NOT SLEEP Other details as noted in HPI Constitutional: denies: chills, fever Eyes: denies: eye pain, eye discharge, vision change ENT: denies: ear pain, throat pain Respiratory: denies: cough, shortness of breath, wheezing Cardiovascular: denies: chest pain, palpitations Endocrine: no symptoms reported Gastrointestinal: denies: abdominal pain, nausea, diarrhea Genitourinary: denies: urgency, dysuria, discharge Musculoskeletal: as per HPI. denies: back pain, joint swelling, arthralgia Skin: denies: rash, lesions Neurological: denies: headache, weakness, paresthesias Psychiatric: denies: anxiety, depression Hematological/Lymphatic: denies: easy bleeding, easy bruising ED Past Medical Hx - Past Medical History Previous Medical History?: Yes Hx Hypertension: Yes Hx Congestive Heart Failure: No Hx Diabetes: No Hx Renal Disease: Yes Hx Headaches / Migraines: Yes (3 nights) Hx Seizures: Yes Hx Asthma: Yes Hx COPD: No Hx HIV: No Additional medical history: Lupus - Surgical History Past Surgical History?: Yes Additional Surgical History: fistula right arm - Social History Smoking Status: Current Every Day Smoker Substance Use Type: None - Medications Home Medications: Home Medications Medication Instructions Recorded Confirmed Last Taken Type predniSONE [Deltasone] 10 mg PO QDAY #30 tablet 03/24/17 04/17/17 04/15/17 Rx Clonidine HCl [Catapres] 0.3 mg PO TID #90 tablet 04/19/17 Unknown Rx Labetalol [Normodyne TAB] 200 mg PO BID #60 tablet 04/19/17 Unknown Rx NIFEdipine XL [Procardia Xl] 60 mg PO Q12HR #60 tablet 04/19/17 Unknown Rx Phenytoin [Dilantin] 200 mg PO TID #90 capsule.er 04/19/17 Unknown Rx diphenhydrAMINE [Benadryl CAP] 25 mg PO QHS PRN #30 capsule 04/19/17 Unknown Rx oxyCODONE /ACETAMINOPHEN [Percocet 1 tab PO Q6H PRN #20 tablet 04/19/17 Unknown Rx 5/325 mg] oxyCODONE /ACETAMINOPHEN [Percocet 1 tab PO Q6HR PRN #7 tablet 06/22/17 Unknown Rx 5/325] Cyclobenzaprine HCl [Flexeril 5 MG 5 mg PO TID PRN #14 tab 07/01/17 Unknown Rx TAB] ED Physical Exam - General Limitations: No Limitations General appearance: alert, in no apparent distress - Head Head exam: Present: atraumatic, normocephalic - Eye Eye exam: Present: normal appearance, PERRL, EOMI. Absent: scleral icterus - ENT ENT exam: Present: mucous membranes moist - Neck Neck exam: Present: normal inspection - Respiratory Respiratory exam: Present: normal lung sounds bilaterally. Absent: respiratory distress - Cardiovascular Cardiovascular Exam: Present: regular rate, normal rhythm. Absent: systolic murmur, diastolic murmur, rubs, gallop - GI/Abdominal GI/Abdominal exam: Present: soft, normal bowel sounds. Absent: distended, tenderness, guarding, rebound, rigid - Extremities Exam Extremities exam: Present: normal inspection, tenderness (tenderness is localized and reproducible to the left trapezius area there is normal range of motion of the shoulder. There is no swelling or arm or calf tenderness no thigh tenderness.). Absent: full ROM, normal capillary refill, pedal edema, joint swelling, calf tenderness - Back Exam Back exam: Present: normal inspection. Absent: CVA tenderness (R), CVA tenderness (L), muscle spasm, paraspinal tenderness, vertebral tenderness - Neurological Exam Neurological exam: Present: alert, oriented X3, CN II-XII intact. Absent: motor sensory deficit - Psychiatric Psychiatric exam: Present: normal mood, flat affect - Skin Skin exam: Present: warm, dry, intact, normal color. Absent: rash ED Course Vital Signs 07/01/17 07/01/17 07/01/17 03:26 04:11 04:42 Temperature 98.1 F 98.1 F Pulse Rate 96 H 96 H 96 H Respiratory 18 18 Rate Blood Pressure 184/119 184/119 184/119 Blood Pressure [Left] O2 Sat by Pulse 100 100 Oximetry 07/01/17 07/01/17 07/01/17 08:28 08:31 08:36 Temperature 97.8 F Pulse Rate 76 75 Respiratory 20 18 Rate Blood Pressure Blood Pressure 148/104 [Left] O2 Sat by Pulse 100 100 Oximetry 07/01/17 07/01/17 07/01/17 08:37 08:45 09:00 Temperature Pulse Rate 71 71 Respiratory 18 15 16 Rate Blood Pressure 148/104 138/105 Blood Pressure [Left] O2 Sat by Pulse 100 97 Oximetry 07/01/17 07/01/17 07/01/17 09:15 09:31 09:45 Temperature Pulse Rate 68 71 74 Respiratory 13 16 16 Rate Blood Pressure 138/105 138/105 138/105 Blood Pressure [Left] O2 Sat by Pulse 98 99 100 Oximetry - Reevaluation(s) Reevaluation #1: This is the second emergency department visit for this patient with pain complaints. She claims that she did not even attempt to take pain management which I prescribed to HER-2 days ago. This certainly raises the specter of drug -seeking behavior. In any case it would appear that the patient has a series of chronic pain management issues and should be addressed in the appropriate venue. She was again advised. She will be given a prescription for Flexeril today. 07/01/17 10:58 ED Medical Decision Making - Lab Data Result diagrams: 07/01/17 06:25 07/01/17 06:25 NA 134 K 4.7 Cl 94.6 AG 19 Critical care attestation.: If time is entered above; I have spent that time in minutes in the direct care of this critically ill patient, excluding procedure time. ED Disposition Clinical Impression: History of lupus, End stage renal disease on dialysis Strain of left trapezius muscle Qualifiers: Encounter type: initial encounter Qualified Code(s): S46.812A - Strain of other muscles, fascia and tendons at shoulder and upper arm level, left arm, initial encounter Chronic pain Qualifiers: Chronic pain type: chronic pain syndrome Qualified Code(s): G89.4 - Chronic pain syndrome Disposition: - TO HOME OR SELFCARE Is pt being admited?: No Does the pt Need Aspirin: No Condition: Stable Instructions: Muscle Strain (ED), Chronic Kidney Disease (ED), Chronic Pain (ED ) Additional Instructions: Follow-up with your environmental compliance inspector, primary care provider and chip separator. Chronic pain management must be handled by your usual physicians. Prescriptions: Cyclobenzaprine HCl [Flexeril 5 MG TAB] 5 mg PO TID PRN #14 tab PRN Reason: Muscle Spasm Referrals: PRIMARY CARE, [Primary Care Provider] - 3-5 Days Time of Disposition: 11:01
[2017-07-01 11:46] VITALS: BP 157/104
== END 2017-07-01 11:45 | disposition home or self-care (01) ==
LOC: ED 02:43
DX: S46.812A Strain of other muscles, fascia and tendons at shoulder and upper arm level, left arm, initial encounter (principal); G89.4 Chronic pain syndrome; I12.0 Hypertensive chronic kidney disease with stage 5 chronic kidney disease or end stage renal disease; N18.6 End stage renal disease; G43.909 Migraine, unspecified, not intractable, without status migrainosus; J45.909 Unspecified asthma, uncomplicated; F17.200 Nicotine dependence, unspecified, uncomplicated; R56.9 Unspecified convulsions; Z88.8 Allergy status to other drugs, medicaments and biological substances
CPT/HCPCS: 36415; 71020; 80053; 80185; 81001; 83690; 85025; 93005; 93010

== ENCOUNTER 2017-07-10 04:00 | Inpatient (IN) | payer MEDICARE ==
[2017-07-10] MEDS ORDERED: NORMODYNE IV ONE ×2 (05:13→05:23)
[2017-07-10] MEDS ORDERED: KEPPRA 1,000 MG/NS 0.75% 100ML 1,000 MG/100 ML BAG IV ONE ×2 (05:13→05:23)
--- NOTE | 2017-07-10 06:34 | Emergency Department Report ---
ED Seizure HPI - General Chief Complaint: Seizure Stated Complaint: SEIZURE Time Seen by Provider: 07/10/17 05:59 Source: EMS Mode of arrival: Stretcher Limitations: No Limitations - History of Present Illness Initial Comments: 27-year-old female who presents to emergency department status post seizure. Patient had a second seizure the last 3 days. States she's been taking her Dilantin on a daily basis. Complains of some chills but otherwise no other complaints or headaches fevers nausea vomiting. Her blood pressure is slightly elevated. She states she is taking her blood pressure medicines. MD Complaint: seizure -: Sudden Description of Episode: tonic-clonic movement Seizure History: known seizure disorder, compliant with medication Place: home Possible Precipitating Event: none Associated Symptoms: fever/chills. denies: chest pain, confusion, cough, diaphoresis, loss of appetite, malaise, rash - Related Data Previous Rx's Medication Instructions Recorded Last Taken Type predniSONE [Deltasone] 10 mg PO QDAY #30 tablet 03/24/17 04/15/17 Rx Clonidine HCl [Catapres] 0.3 mg PO TID #90 tablet 04/19/17 Unknown Rx Labetalol [Normodyne TAB] 200 mg PO BID #60 tablet 04/19/17 Unknown Rx NIFEdipine XL [Procardia Xl] 60 mg PO Q12HR #60 tablet 04/19/17 Unknown Rx Phenytoin [Dilantin] 200 mg PO TID #90 capsule.er 04/19/17 Unknown Rx diphenhydrAMINE [Benadryl CAP] 25 mg PO QHS PRN #30 capsule 04/19/17 Unknown Rx oxyCODONE /ACETAMINOPHEN [Percocet 1 tab PO Q6H PRN #20 tablet 04/19/17 Unknown Rx 5/325 mg] oxyCODONE /ACETAMINOPHEN [Percocet 1 tab PO Q6HR PRN #7 tablet 06/22/17 Unknown Rx 5/325] Cyclobenzaprine HCl [Flexeril 5 MG 5 mg PO TID PRN #14 tab 07/01/17 Unknown Rx TAB] Allergies Allergy/AdvReac Type Severity Reaction Status Date / Time acetaminophen [From Percocet] AdvReac Unknown Verified 07/01/17 04:06 metoprolol AdvReac Vomiting Verified 07/01/17 04:07 oxycodone HCl [From Percocet] AdvReac Unknown Verified 07/01/17 04:06 phenytoin sodium AdvReac Unknown Verified 07/01/17 04:07 [From Dilantin] phenytoin sodium extended AdvReac Unknown Verified 07/01/17 04:07 [From Dilantin] ED Review of Systems ROS: Stated complaint: SEIZURE Other details as noted in HPI Comment: All other systems reviewed and negative Constitutional: denies: chills, fever Eyes: denies: eye pain, eye discharge, vision change ENT: denies: ear pain, throat pain Respiratory: denies: cough, shortness of breath, wheezing Cardiovascular: denies: chest pain, palpitations Endocrine: no symptoms reported Gastrointestinal: denies: abdominal pain, nausea, diarrhea Genitourinary: denies: urgency, dysuria, discharge Musculoskeletal: denies: back pain, joint swelling, arthralgia Skin: denies: rash, lesions Neurological: denies: headache, weakness, numbness, paresthesias, confusion Psychiatric: denies: anxiety, depression Hematological/Lymphatic: denies: easy bleeding, easy bruising ED Past Medical Hx - Past Medical History Hx Hypertension: Yes Hx Congestive Heart Failure: No Hx Diabetes: No Hx Renal Disease: Yes Hx Headaches / Migraines: Yes (3 nights) Hx Seizures: Yes Hx Asthma: Yes Hx COPD: No Hx HIV: No Additional medical history: Lupus - Surgical History Additional Surgical History: fistula right arm - Family History Family history: no significant - Social History Smoking Status: Never Smoker Substance Use Type: None - Medications Home Medications: Home Medications Medication Instructions Recorded Confirmed Last Taken Type predniSONE [Deltasone] 10 mg PO QDAY #30 tablet 03/24/17 04/17/17 04/15/17 Rx Clonidine HCl [Catapres] 0.3 mg PO TID #90 tablet 04/19/17 Unknown Rx Labetalol [Normodyne TAB] 200 mg PO BID #60 tablet 04/19/17 Unknown Rx NIFEdipine XL [Procardia Xl] 60 mg PO Q12HR #60 tablet 04/19/17 Unknown Rx Phenytoin [Dilantin] 200 mg PO TID #90 capsule.er 04/19/17 Unknown Rx diphenhydrAMINE [Benadryl CAP] 25 mg PO QHS PRN #30 capsule 04/19/17 Unknown Rx oxyCODONE /ACETAMINOPHEN [Percocet 1 tab PO Q6H PRN #20 tablet 04/19/17 Unknown Rx 5/325 mg] oxyCODONE /ACETAMINOPHEN [Percocet 1 tab PO Q6HR PRN #7 tablet 06/22/17 Unknown Rx 5/325] Cyclobenzaprine HCl [Flexeril 5 MG 5 mg PO TID PRN #14 tab 07/01/17 Unknown Rx TAB] ED Physical Exam - General Limitations: No Limitations General appearance: alert, in no apparent distress - Head Head exam: Present: atraumatic, normocephalic - Eye Eye exam: Present: normal appearance - ENT ENT exam: Present: mucous membranes moist - Neck Neck exam: Present: normal inspection - Respiratory Respiratory exam: Present: normal lung sounds bilaterally. Absent: respiratory distress, wheezes, rales - Cardiovascular Cardiovascular Exam: Present: regular rate, normal rhythm, normal heart sounds. Absent: systolic murmur, diastolic murmur, rubs, gallop - GI/Abdominal GI/Abdominal exam: Present: soft, normal bowel sounds. Absent: distended, tenderness - Extremities Exam Extremities exam: Present: normal inspection - Back Exam Back exam: Present: normal inspection - Neurological Exam Neurological exam: Present: alert, oriented X3 - Psychiatric Psychiatric exam: Present: normal affect, normal mood - Skin Skin exam: Present: warm, dry, intact, normal color. Absent: rash ED Course Vital Signs 07/10/17 07/10/17 07/10/17 04:37 04:47 05:00 Temperature 98.7 F Pulse Rate 99 H Respiratory 20 Rate Blood Pressure 172/113 172/113 189/126 Blood Pressure 172/113 [Left] O2 Sat by Pulse 97 98 Oximetry 07/10/17 07/10/17 07/10/17 05:15 05:30 05:46 Temperature Pulse Rate Respiratory Rate Blood Pressure 191/116 172/113 172/113 Blood Pressure [Left] O2 Sat by Pulse 100 100 100 Oximetry 07/10/17 07/10/17 07/10/17 05:56 06:05 06:15 Temperature Pulse Rate 99 H 88 Respiratory 20 21 Rate Blood Pressure 171/113 170/111 Blood Pressure [Left] O2 Sat by Pulse 98 97 Oximetry 07/10/17 07/10/17 07/10/17 06:20 06:26 06:30 Temperature Pulse Rate 94 H 96 H 92 H Respiratory 20 25 H 21 Rate Blood Pressure 170/111 170/111 164/110 Blood Pressure [Left] O2 Sat by Pulse 98 97 97 Oximetry 07/10/17 07/10/17 07/10/17 06:36 06:40 06:45 Temperature Pulse Rate 96 H 94 H 98 H Respiratory 20 21 20 Rate Blood Pressure 164/110 164/110 164/112 Blood Pressure [Left] O2 Sat by Pulse 99 98 97 Oximetry 07/10/17 07/10/17 07/10/17 06:50 06:56 07:00 Temperature Pulse Rate 96 H 97 H 93 H Respiratory 26 H 23 21 Rate Blood Pressure 164/112 164/112 160/104 Blood Pressure [Left] O2 Sat by Pulse 98 99 98 Oximetry 07/10/17 07/10/17 07/10/17 07:06 07:10 07:15 Temperature Pulse Rate 96 H 91 H 94 H Respiratory 21 21 22 Rate Blood Pressure 160/104 160/104 165/101 Blood Pressure [Left] O2 Sat by Pulse 98 96 98 Oximetry 07/10/17 07/10/17 07/10/17 07:20 07:26 07:30 Temperature Pulse Rate 97 H 101 H 91 H Respiratory 20 23 24 Rate Blood Pressure 165/101 162/112 162/112 Blood Pressure [Left] O2 Sat by Pulse 99 97 96 Oximetry 07/10/17 07/10/17 07/10/17 07:35 07:36 07:40 Temperature 98.5 F Pulse Rate 98 H 100 H 96 H Respiratory 24 20 23 Rate Blood Pressure 169/114 169/114 Blood Pressure 169/114 [Left] O2 Sat by Pulse 96 96 97 Oximetry 07/10/17 07/10/17 07/10/17 07:46 07:50 07:56 Temperature Pulse Rate 96 H 96 H 96 H Respiratory 24 23 23 Rate Blood Pressure 169/114 169/114 169/114 Blood Pressure [Left] O2 Sat by Pulse 97 97 96 Oximetry 07/10/17 07/10/17 07/10/17 08:00 08:06 08:10 Temperature Pulse Rate 94 H 94 H 96 H Respiratory 21 22 22 Rate Blood Pressure 164/106 164/106 164/106 Blood Pressure [Left] O2 Sat by Pulse 97 97 96 Oximetry 07/10/17 07/10/17 07/10/17 08:16 08:20 08:26 Temperature Pulse Rate 97 H 97 H 101 H Respiratory 20 22 21 Rate Blood Pressure 164/106 164/106 164/106 Blood Pressure [Left] O2 Sat by Pulse 97 97 97 Oximetry 07/10/17 07/10/17 07/10/17 08:30 08:36 08:40 Temperature Pulse Rate 103 H 94 H 103 H Respiratory 20 24 17 Rate Blood Pressure 164/106 164/106 164/106 Blood Pressure [Left] O2 Sat by Pulse 99 96 99 Oximetry 07/10/17 07/10/17 07/10/17 08:46 08:50 08:56 Temperature Pulse Rate 94 H 95 H 88 Respiratory 23 18 23 Rate Blood Pressure 164/106 164/106 164/106 Blood Pressure [Left] O2 Sat by Pulse 97 99 98 Oximetry 07/10/17 07/10/17 07/10/17 09:00 09:06 09:10 Temperature Pulse Rate 94 H 96 H 94 H Respiratory 18 23 21 Rate Blood Pressure 171/108 171/108 171/108 Blood Pressure [Left] O2 Sat by Pulse 98 97 97 Oximetry 07/10/17 07/10/17 07/10/17 09:16 09:20 09:26 Temperature Pulse Rate 88 90 94 H Respiratory 21 26 H 20 Rate Blood Pressure 171/108 171/108 164/106 Blood Pressure [Left] O2 Sat by Pulse 98 98 99 Oximetry 07/10/17 07/10/17 07/10/17 09:30 09:36 09:40 Temperature Pulse Rate 88 91 H 91 H Respiratory 20 20 21 Rate Blood Pressure 164/106 164/106 164/106 Blood Pressure [Left] O2 Sat by Pulse 98 98 98 Oximetry 07/10/17 07/10/17 07/10/17 09:46 09:50 09:56 Temperature Pulse Rate 91 H 94 H 90 Respiratory 21 22 21 Rate Blood Pressure 164/106 164/106 171/108 Blood Pressure [Left] O2 Sat by Pulse 99 96 97 Oximetry 07/10/17 07/10/17 07/10/17 10:00 10:06 10:10 Temperature Pulse Rate 89 93 H 93 H Respiratory 22 20 21 Rate Blood Pressure 176/106 176/106 176/106 Blood Pressure [Left] O2 Sat by Pulse 97 97 97 Oximetry 07/10/17 07/10/17 07/10/17 10:16 10:20 10:56 Temperature Pulse Rate 96 H 94 H Respiratory 16 13 12 Rate Blood Pressure 176/106 176/106 176/106 Blood Pressure [Left] O2 Sat by Pulse 98 99 Oximetry 07/10/17 07/10/17 07/10/17 11:00 11:05 11:11 Temperature Pulse Rate 94 H 91 H 97 H Respiratory 12 19 20 Rate Blood Pressure 162/110 162/110 162/110 Blood Pressure [Left] O2 Sat by Pulse Oximetry 07/10/17 07/10/17 07/10/17 11:15 11:21 11:25 Temperature Pulse Rate 94 H 99 H 102 H Respiratory 19 20 21 Rate Blood Pressure 162/110 162/110 162/110 Blood Pressure [Left] O2 Sat by Pulse Oximetry 07/10/17 07/10/17 07/10/17 11:35 11:41 11:45 Temperature Pulse Rate 109 H 96 H 95 H Respiratory 16 14 Rate Blood Pressure 162/110 162/110 162/110 Blood Pressure [Left] O2 Sat by Pulse Oximetry 07/10/17 07/10/17 07/10/17 11:51 11:55 12:00 Temperature Pulse Rate 97 H 96 H 96 H Respiratory 17 13 14 Rate Blood Pressure 162/110 162/110 161/110 Blood Pressure [Left] O2 Sat by Pulse Oximetry ED Medical Decision Making - Lab Data Result diagrams: 07/10/17 06:43 07/10/17 06:43 Laboratory Results - last 24 hr 07/10/17 07/10/17 07/10/17 06:43 06:43 06:43 WBC 6.5 RBC 2.81 L Hgb 8.8 L Hct 27.2 L MCV 97 MCH 31 MCHC 33 RDW 18.3 H Plt Count 212 Lymph % (Auto) 12.7 L [place] % (Auto) 7.3 Eos % (Auto) 2.2 Baso % (Auto) 0.6 Lymph # 0.8 L [place] # 0.5 Eos # 0.1 Baso # 0.0 Seg Neutrophils % 77.2 H Seg Neutrophils # 5.0 Sodium 138 Potassium 6.0 H Chloride 100.9 Carbon Dioxide 20 L Anion Gap 23 BUN 47 H Creatinine 10.1 H Estimated GFR 6 BUN/Creatinine Ratio 5 Glucose 76 Calcium 8.9 Phenytoin 4.2 L - EKG Data -: EKG Interpreted by Wi - EKG Data 07/10/17 12:02 Sinus 91 normal axis normal intervals she has early peaking T waves no ST segment changes - Medical Decision Making 27-year-old female with known seizure disorder here with seizure. Plan to check labs and will reassess. No focal findings on neurological exam. Potassium of 6 on chemistry. Patient is supposed to receive dialysis today. She does not appear volume overloaded however she is hypertensive. 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 Plan to treat her hyperkalemia with D50 insulin and calcium gluconate. Portions of this chart were dictated with dictation software. There may be dictation errors contained within this note. Critical Care Time: Yes (60) Critical care attestation.: If time is entered above; I have spent that time in minutes in the direct care of this critically ill patient, excluding procedure time. Critical Care Time: 60 ED Disposition Clinical Impression: SLE (systemic lupus erythematosus), Seizure disorder, ESRD (end stage renal disease) on dialysis, Hyperkalemia Disposition: OP ADMIT IP TO THIS HOSP Is pt being admited?: Yes Condition: Stable Referrals: PRIMARY CARE, [Primary Care Provider] - 3-5 Days
[2017-07-10 07:21] LABS: Calcium 8.9 mg/dL (8.4-10.2)
[2017-07-10 07:22] LABS: Chloride 100.9 mmol/L (98-107)
[2017-07-10 07:37] LABS: Basophils % (Auto) 0.6 % (0.0-1.8); Eosinophils % (Auto) 2.2 % (0.0-4.3); Hematocrit 27.2 % (30.3-42.9); Hemoglobin 8.8 gm/dl (10.1-14.3); Mean Corpuscular HGB Conc 33 % (30-34); Mean Corpuscular Hemoglobin 31 pg (28-32); Mean Corpuscular Volume 97 fl (79-97); Platelet Count 212 K/mm3 (140-440); Red Blood Count 2.81 M/mm3 (3.65-5.03); Red Cell Distribution Width 18.3 % (13.2-15.2); White Blood Count 6.5 K/mm3 (4.5-11.0)
[2017-07-10] MEDS ORDERED: CEREBYX 1,000 MG.PE in NACL 0.9% 100 ML IV ONE (09:00)
[2017-07-10] MEDS ORDERED: CALCIUM GLUCONATE 1,000 MG in NACL 0.9% 100 ML IV ONE (12:00)
[2017-07-10] MEDS ORDERED: D50W (25GM) Syringe IV ONE (12:00)
--- NOTE | 2017-07-10 12:18 | XRay Report ---
Portable chest: Hypertension. The heart is enlarged and there is vascular congestion. No perivascular edema is appreciated. No pulmonary infiltrates. The findings appear unchanged compared to prior study of July 01, 2017. Impression: Mild CHF.
[2017-07-10] MEDS ORDERED: NACL 0.9% 100 ML IV PRN (12:56)
--- NOTE | 2017-07-10 14:30 | Consultation ---
History of Present Illness - Reason for Consult Consult date: 07/10/17 end stage renal disease, accelerated hypertension Requesting physician: EVELIO HOLMAN - History of Present Illness 27-year-old female who presents to emergency department status post seizure. Patient had a second seizure the last 3 days. States she's been taking her Dilantin on a daily basis. Complains of some chills but otherwise no other complaints or headaches fevers nausea vomiting. Her blood pressure is slightly elevated. She states she is taking her blood pressure medicines. Description of Episode: tonic-clonic movement Seizure History: known seizure disorder, compliant with medication Place: home Possible Precipitating Event: none Associated Symptoms: fever/chills. denies: chest pain, confusion, cough, diaphoresis, loss of appetite, malaise, rash ROS: Stated complaint: SEIZURE Other details as noted in HPI All other systems reviewed and negative Constitutional: denies: chills, fever Eyes: denies: eye pain, eye discharge, vision change ENT: denies: ear pain, throat pain Respiratory: denies: cough, shortness of breath, wheezing Cardiovascular: denies: chest pain, palpitations Endocrine: no symptoms reported Gastrointestinal: denies: abdominal pain, nausea, diarrhea Genitourinary: denies: urgency, dysuria, discharge Musculoskeletal: denies: back pain, joint swelling, arthralgia Skin: denies: rash, lesions Neurological: denies: headache, weakness, numbness, paresthesias, confusion Psychiatric: denies: anxiety, depression Hematological/Lymphatic: denies: easy bleeding, easy bruising Medications and Allergies Allergies Allergy/AdvReac Type Severity Reaction Status Date / Time acetaminophen [From Percocet] AdvReac Unknown Verified 07/01/17 04:06 metoprolol AdvReac Vomiting Verified 07/01/17 04:07 oxycodone HCl [From Percocet] AdvReac Unknown Verified 07/01/17 04:06 phenytoin sodium AdvReac Unknown Verified 07/01/17 04:07 [From Dilantin] phenytoin sodium extended AdvReac Unknown Verified 07/01/17 04:07 [From Dilantin] Home Medications Medication Instructions Recorded Confirmed Last Taken Type predniSONE [Deltasone] 10 mg PO QDAY #30 tablet 03/24/17 04/17/17 04/15/17 Rx Clonidine HCl [Catapres] 0.3 mg PO TID #90 tablet 04/19/17 Unknown Rx Labetalol [Normodyne TAB] 200 mg PO BID #60 tablet 04/19/17 Unknown Rx NIFEdipine XL [Procardia Xl] 60 mg PO Q12HR #60 tablet 04/19/17 Unknown Rx Phenytoin [Dilantin] 200 mg PO TID #90 capsule.er 04/19/17 Unknown Rx diphenhydrAMINE [Benadryl CAP] 25 mg PO QHS PRN #30 capsule 04/19/17 Unknown Rx oxyCODONE /ACETAMINOPHEN [Percocet 1 tab PO Q6H PRN #20 tablet 04/19/17 Unknown Rx 5/325 mg] oxyCODONE /ACETAMINOPHEN [Percocet 1 tab PO Q6HR PRN #7 tablet 06/22/17 Unknown Rx 5/325] Cyclobenzaprine HCl [Flexeril 5 MG 5 mg PO TID PRN #14 tab 07/01/17 Unknown Rx TAB] Active Meds: Active Medications Sodium Chloride (Nacl 0.9%) 100 mls @ 999 mls/hr IV LAKESHA PRN PRN Reason: Hypotension Exam - Vital Signs Vital signs: Vital Signs Temp Pulse Resp BP Pulse Ox 98.7 F 99 H 20 172/113 97 07/10/17 04:37 07/10/17 04:37 07/10/17 04:37 07/10/17 04:37 07/10/17 04:37 - Physical Exam Narrative exam: - General Limitations: No Limitations General appearance: alert, in no apparent distress - Head Head exam: Present: atraumatic, normocephalic - Eye Eye exam: Present: normal appearance - ENT ENT exam: Present: mucous membranes moist - Neck Neck exam: Present: normal inspection - Respiratory Respiratory exam: Present: normal lung sounds bilaterally. Absent: respiratory distress, wheezes, rales - Cardiovascular Cardiovascular Exam: Present: regular rate, normal rhythm, normal heart sounds. Absent: systolic murmur, diastolic murmur, rubs, gallop - GI/Abdominal GI/Abdominal exam: Present: soft, normal bowel sounds. Absent: distended, tenderness - Extremities Exam Extremities exam: Present: normal inspection - Back Exam Back exam: Present: normal inspection - Neurological Exam Neurological exam: Present: alert, oriented X3 - Psychiatric Psychiatric exam: Present: normal affect, normal mood - Skin Skin exam: Present: warm, dry, intact, normal color. Absent: rash Results - Lab Results 07/10/17 06:43 10 06:43 Most recent lab results Calcium 8.9 mg/dL (8.4-10.2) 07/10/17 06:43 Assessment and Plan Impression: * End stage renal disease on HD TTS * Accelerated hypertension * Hyperkalemia * SLE * Hx of seizure disorder Plan: * HD continue TTS schedule * screen for lupus flare, may need iv steriods * Renal diet * sz management per neurology * strict i/os * uf as tolerated with hd * Epogen for Hb 10-12; current Hb 12 * Dose medications for renal function
[2017-07-10] MEDS ORDERED: K-DUR PO ONE (16:14)
--- NOTE | 2017-07-10 23:41 | History and Physical Report ---
History of Present Illness Date of examination: 07/10/17 Date of admission: 07/10/17 12:12 Chief complaint: Seizures before arrival in ED History of present illness: - History of Present Illness Initial Comments: 27-year-old female who presents to emergency department status post seizure. Patient had a second seizure since the last 3 days. States she's been taking her Dilantin on a daily basis. Complains of some chills but otherwise no other complaints or headaches fevers nausea vomiting. Her blood pressure is slightly elevated. She states she is taking her blood pressure medicines. MD Complaint: seizure -: Sudden Description of Episode: tonic-clonic movement Seizure History: known seizure disorder, compliant with medication Place: home Possible Precipitating Event: none Associated Symptoms: fever/chills. denies: chest pain, confusion, cough, diaphoresis, loss of appetite, malaise, rash - Past Medical History Hx Hypertension: Yes Hx Renal Disease: Yes Hx Headaches / Migraines: Yes (3 nights) Hx Seizures: Yes Hx Asthma: Yes Additional medical history: Lupus ESRd - Surgical History Additional Surgical History: fistula right arm - Family History Family history: no significant - Social History Smoking Status: Never Smoker Substance Use Type: None - Medications Home Medications: Home Medications Medication Instructions Recorded Confirmed Last Taken Type predniSONE [Deltasone] 10 mg PO QDAY #30 tablet 03/24/17 04/17/17 04/15/17 Rx Clonidine HCl [Catapres] 0.3 mg PO TID #90 tablet 04/19/17 Unknown Rx Labetalol [Normodyne TAB] 200 mg PO BID #60 tablet 04/19/17 Unknown Rx NIFEdipine XL [Procardia Xl] 60 mg PO Q12HR #60 tablet 04/19/17 Unknown Rx Phenytoin [Dilantin] 200 mg PO TID #90 capsule.er 04/19/17 Unknown Rx diphenhydrAMINE [Benadryl CAP] 25 mg PO QHS PRN #30 capsule 04/19/17 Unknown Rx oxyCODONE /ACETAMINOPHEN [Percocet 1 tab PO Q6H PRN #20 tablet 04/19/17 Unknown Rx 5/325 mg] oxyCODONE /ACETAMINOPHEN [Percocet 1 tab PO Q6HR PRN #7 tablet 06/22/17 Unknown Rx 5/325] Cyclobenzaprine HCl [Flexeril 5 MG 5 mg PO TID PRN #14 tab 07/01/17 Unknown Rx TAB] Review of Systems Stated complaint: SEIZURE Other details as noted in HPI Comment: All other systems reviewed and negative Constitutional: denies: chills, fever Eyes: denies: eye pain, eye discharge, vision change ENT: denies: ear pain, throat pain Respiratory: denies: cough, shortness of breath, wheezing Cardiovascular: denies: chest pain, palpitations Endocrine: no symptoms reported Gastrointestinal: denies: abdominal pain, nausea, diarrhea Genitourinary: denies: urgency, dysuria, discharge Musculoskeletal: denies: back pain, joint swelling, arthralgia Skin: denies: rash, lesions Neurological: denies: headache, weakness, numbness, paresthesias, confusion Psychiatric: denies: anxiety, depression Hematological/Lymphatic: denies: easy bleeding, easy bruising Medications and Allergies Allergies Allergy/AdvReac Type Severity Reaction Status Date / Time acetaminophen [From Percocet] AdvReac Unknown Verified 07/01/17 04:06 metoprolol AdvReac Vomiting Verified 07/01/17 04:07 oxycodone HCl [From Percocet] AdvReac Unknown Verified 07/01/17 04:06 phenytoin sodium AdvReac Unknown Verified 07/01/17 04:07 [From Dilantin] phenytoin sodium extended AdvReac Unknown Verified 07/01/17 04:07 [From Dilantin] Home Medications Medication Instructions Recorded Confirmed Last Taken Type predniSONE [Deltasone] 10 mg PO QDAY #30 tablet 03/24/17 07/10/17 07/09/17 09: 00 Rx Clonidine HCl [Catapres] 0.3 mg PO TID #90 tablet 04/19/17 07/10/17 07/09/17 20: 45 Rx Labetalol [Normodyne TAB] 200 mg PO BID #60 tablet 04/19/17 07/10/17 07/09/17 08 :30 Rx 60mg NIFEdipine XL [Procardia Xl] 60 mg PO Q12HR #60 tablet 04/19/17 07/10/17 08:30 Rx Phenytoin [Dilantin] 200 mg PO TID #90 capsule.er 04/19/17 07/10/17 07/09/17 21: 00 Rx 200mg diphenhydrAMINE [Benadryl CAP] 25 mg PO QHS PRN #30 capsule 04/19/17 07/10/17 20:00 Rx 25mg oxyCODONE /ACETAMINOPHEN [Percocet 1 tab PO Q6H PRN #20 tablet 04/19/17 Unknown Rx 5/325 mg] oxyCODONE /ACETAMINOPHEN [Percocet 1 tab PO Q6HR PRN #7 tablet 06/22/17 Unknown Rx 5/325] Cyclobenzaprine HCl [Flexeril 5 MG 5 mg PO TID PRN #14 tab 07/01/17 Unknown Rx TAB] Active Meds: Active Medications Sodium Chloride (Nacl 0.9%) 100 mls @ 999 mls/hr IV LAKESHA PRN PRN Reason: Hypotension Exam - Constitutional Vitals: Temp Pulse Resp BP Pulse Ox 99.0 F 80 18 154/92 99 07/10/17 19:38 07/10/17 20:47 07/10/17 20:47 07/10/17 19:38 07/10/17 10:20 General appearance: Present: no acute distress, well-nourished - EENT Eyes: Present: PERRL ENT: hearing intact, clear oral mucosa - Neck Neck: Present: supple, normal ROM - Respiratory Respiratory effort: normal Respiratory: bilateral: CTA - Cardiovascular Heart Sounds: Present: S1 & S2. Absent: rub, click - Extremities Extremities: pulses symmetrical, No edema Peripheral Pulses: within normal limits - Abdominal General gastrointestinal: Present: soft, non-tender, non-distended, normal bowel sounds Female genitourinary: Present: normal - Integumentary Integumentary: Present: clear, warm, dry - Musculoskeletal Musculoskeletal: gait normal, strength equal bilaterally - Psychiatric Psychiatric: appropriate mood/affect, intact judgment & insight - Neurologic Neurologic: CNII-XII intact, moves all extremities Results - Labs CBC & Chem 7: 07/11/17 02:25 07/11/17 02:25 Labs: Laboratory Last Values WBC 6.5 K/mm3 (4.5-11.0) 07/10/17 06:43 RBC 2.81 M/mm3 (3.65-5.03) L 07/10/17 06:43 Hgb 8.8 gm/dl (10.1-14.3) L 07/10/17 06:43 Hct 27.2 % (30.3-42.9) L 07/10/17 06:43 MCV 97 fl (79-97) 07/10/17 06:43 MCH 31 pg (28-32) 07/10/17 06:43 MCHC 33 % (30-34) 07/10/17 06:43 RDW 18.3 % (13.2-15.2) H 07/10/17 06:43 Plt Count 212 K/mm3 (140-440) 07/10/17 06:43 Lymph % (Auto) 12.7 % (13.4-35.0) L 07/10/17 06:43 [place] % (Auto) 7.3 % (0.0-7.3) 07/10/17 06:43 Eos % (Auto) 2.2 % (0.0-4.3) 07/10/17 06:43 Baso % (Auto) 0.6 % (0.0-1.8) 07/10/17 06:43 Lymph # 0.8 K/mm3 (1.2-5.4) L 07/10/17 06:43 [place] # 0.5 K/mm3 (0.0-0.8) 07/10/17 06:43 Eos # 0.1 K/mm3 (0.0-0.4) 07/10/17 06:43 Baso # 0.0 K/mm3 (0.0-0.1) 07/10/17 06:43 Seg Neutrophils % 77.2 % (40.0-70.0) H 07/10/17 06:43 Seg Neutrophils # 5.0 K/mm3 (1.8-7.7) 07/10/17 06:43 Sodium 138 mmol/L (137-145) 07/10/17 06:43 Potassium 6.0 mmol/L (3.6-5.0) H 07/10/17 06:43 Chloride 100.9 mmol/L (98-107) 07/10/17 06:43 Carbon Dioxide 20 mmol/L (22-30) L 07/10/17 06:43 Anion Gap 23 mmol/L 07/10/17 06:43 BUN 47 mg/dL (7-17) H 07/10/17 06:43 Creatinine 10.1 mg/dL (0.7-1.2) H 07/10/17 06:43 Estimated GFR 6 ml/min 07/10/17 06:43 BUN/Creatinine Ratio 5 % 07/10/17 06:43 Glucose 76 mg/dL (65-100) 07/10/17 06:43 Calcium 8.9 mg/dL (8.4-10.2) 07/10/17 06:43 Phenytoin 4.2 ug/mL (10.0-20.0) L 07/10/17 06:43 - Imaging and Cardiology EKG: report reviewed Chest x-ray: report reviewed (Mild CHF) Assessment and Plan Advance Directives: Yes (Full code) VTE prophylaxis?: Chemical Plan of care discussed with patient/family: Yes - Patient Problems (1) Seizure disorder Current Visit: Yes Status: Acute Plan to address problem: IV Keppra and transition to Keppra po Check phenytoin level Discharge on po Keppra if patient tolerates Keppra. Phenytoin maybe d/c'd if Keppra is tolerated. (2) Hyperkalemia Current Visit: Yes Status: Acute Plan to address problem: Was given Insulin and Dextrose+ Calcium Gluconate in ER Recheck K level (3) End stage renal disease on dialysis Current Visit: Yes Status: Chronic Plan to address problem: COnt HD Renal consulted (4) Accelerated hypertension Current Visit: No Status: Acute Plan to address problem: Adjust BP meds (5) Volume overload Current Visit: Yes Status: Acute Qualifiers: Hypervolemia type: unspecified Qualified Code(s): E87.70 - Fluid overload, unspecified Plan to address problem: Needs emergent HD (6) Lupus (systemic lupus erythematosus) Current Visit: Yes Status: Chronic Qualifiers: Systemic lupus erythematosus type: S Systemic lupus erythematosus organ involvement: unspecified Plan to address problem: On Prednisone 10 mg po qd.To f/u with PCP regarding Plaquenil (7) Noncompliance Current Visit: Yes Status: Acute Plan to address problem: Seems to be there.Patient to be counselled.Was post ictal and could not academic counselor (8) Anemia Current Visit: Yes Status: Chronic Qualifiers: Anemia type: due to chronic kidney disease Iron deficiency anemia type: I Vitamin B12 deficiency anemia type: V Folate deficiency anemia type: F Bone marrow failure anemia type: B Hemolytic anemia type: H Other causes of anemia: O Chronic kidney disease stage: on chronic dialysis Qualified Code(s ): N18.6 - End stage renal disease; D63.1 - Anemia in chronic kidney disease; D63.1 - Anemia in chronic kidney disease; Z99.2 - Dependence on renal dialysis; Z99.2 - Dependence on renal dialysis; Z99.2 - Dependence on renal dialysis; Z99.2 - Dependence on renal dialysis Plan to address problem: Anemia sec to ESRD (9) DVT prophylaxis Current Visit: Yes Status: Acute Plan to address problem: on heparin
[2017-07-10] MEDS ORDERED: TYLENOL PO PRN (23:42)
[2017-07-10] MEDS ORDERED: DULCOLAX PR PRN (23:42)
[2017-07-10] MEDS ORDERED: PERCOCET 5/325 PO PRN (23:42)
[2017-07-10] MEDS ORDERED: MILK OF MAGNESIA PO PRN (23:42)
[2017-07-10] MEDS ORDERED: ZOFRAN IV PRN (23:42)
[2017-07-10] MEDS ORDERED: PEPCID PO SCH (23:45)
[2017-07-10] MEDS ORDERED: BENADRYL PO PRN (23:52)
[2017-07-10] MEDS ORDERED: MORPHINE PO ONE (23:53)
[2017-07-11 02:38] LABS: Basophils % (Auto) 0.9 % (0.0-1.8); Eosinophils % (Auto) 3.7 % (0.0-4.3); Hematocrit 26.3 % (30.3-42.9); Hemoglobin 8.9 gm/dl (10.1-14.3); Mean Corpuscular HGB Conc 34 % (30-34); Mean Corpuscular Hemoglobin 32 pg (28-32); Mean Corpuscular Volume 96 fl (79-97); Platelet Count 205 K/mm3 (140-440); Red Blood Count 2.75 M/mm3 (3.65-5.03); Red Cell Distribution Width 18.1 % (13.2-15.2); White Blood Count 3.3 K/mm3 (4.5-11.0)
[2017-07-11 02:54] LABS: Calcium 8.4 mg/dL (8.4-10.2); Chloride 95.7 mmol/L (98-107); Potassium 4.7 mmol/L (3.6-5.0)
[2017-07-11] MEDS: PEPCID PO SCH ×2 (05:22→10:16)
[2017-07-11] MEDS ORDERED: NON-FORMULARY (Cyclobenzaprine Hcl [Flexeril 5 Mg Tab] 5 MG) PO PRN (07:32)
[2017-07-11] MEDS ORDERED: DILANTIN PO SCH (08:00)
[2017-07-11] MEDS ORDERED: NON-FORMULARY (Clonidine Hcl [Catapres] 0.3 MG) PO SCH (08:00)
[2017-07-11 09:00] VITALS: BP 178/121
[2017-07-11] MEDS ORDERED: APRESOLINE IV SCH (10:00)
[2017-07-11] MEDS ORDERED: PROCARDIA XL PO SCH (10:00)
[2017-07-11] MEDS ORDERED: DELTASONE PO SCH ×2 (10:00→12:00)
--- NOTE | 2017-07-11 10:15 | Progress Note ---
Assessment and Plan Impression: * End stage renal disease on HD TTS * Accelerated hypertension * Hyperkalemia * SLE * Hx of seizure disorder Plan: * HD continue TTS schedule * screen for lupus flare, may need iv steriods * Renal diet * sz management per neurology * strict i/os * uf as tolerated with hd * Epogen for Hb 10-12; current Hb 12 * Dose medications for renal function Subjective Date of service: 07/11/17 Principal diagnosis: esrd Interval history: resting well in bed today Objective - Exam Narrative Exam: - General Limitations: No Limitations General appearance: alert, in no apparent distress - Head Head exam: Present: atraumatic, normocephalic - Eye Eye exam: Present: normal appearance - ENT ENT exam: Present: mucous membranes moist - Neck Neck exam: Present: normal inspection - Respiratory Respiratory exam: Present: normal lung sounds bilaterally. Absent: respiratory distress, wheezes, rales - Cardiovascular Cardiovascular Exam: Present: regular rate, normal rhythm, normal heart sounds. Absent: systolic murmur, diastolic murmur, rubs, gallop - GI/Abdominal GI/Abdominal exam: Present: soft, normal bowel sounds. Absent: distended, tenderness - Extremities Exam Extremities exam: Present: normal inspection - Back Exam Back exam: Present: normal inspection - Neurological Exam Neurological exam: Present: alert, oriented X3 - Psychiatric Psychiatric exam: Present: normal affect, normal mood - Skin Skin exam: Present: warm, dry, intact, normal color. Absent: rash - Vital Signs Vital signs: Vital Signs - 12hr 07/10/17 07/11/17 07/11/17 23:48 03:15 05:05 Temperature 98.6 F 99.0 F Pulse Rate 93 H 93 H 96 H Respiratory 18 18 Rate Blood Pressure 161/109 164/107 Blood Pressure [Left] O2 Sat by Pulse 99 98 Oximetry 07/11/17 08:59 Temperature 100.0 F H Pulse Rate 92 H Respiratory 16 Rate Blood Pressure Blood Pressure 178/121 [Left] O2 Sat by Pulse Oximetry - Lab 07/11/17 02:25 07/11/17 02:25 Most recent lab results Calcium 8.4 mg/dL (8.4-10.2) 07/11/17 02:25
[2017-07-11] MEDS ORDERED: NORMODYNE PO SCH (11:00)
[2017-07-11] MEDS ORDERED: HEPARIN SUB-Q SCH (11:00)
--- NOTE | 2017-07-11 11:20 | Discharge Summary ---
Providers - Providers Date of Admission: 07/10/17 12:12 Date of discharge: 07/11/17 Attending physician: DRU GONG MD 07/10/17 23:42 Consult to Physician [CONS] Routine Consulting Provider: ANITHA FRANCO Reason For Exam: esrd Place consult to:: Deedee Notified:: Office Phone number called:: [phone] Was contact made?: Yes If yes, spoke with:: Deepika Time called:: 09:39 Primary care physician: FRONT OFFICE SUPERVISOR Hospitalization Reason for admission: Seizure disorder Condition: Stable Pertinent studies: CT head negative for acute intracranial process Hospital course: 27-year-old female who presents to emergency department status post seizure. Patient had a second seizure since the last 3 days. States she's been taking her Dilantin on a daily basis. Complains of some chills but otherwise no other complaints or headaches fevers nausea vomiting. Her blood pressure is slightly elevated. She states she is taking her blood pressure medicines. Patient was admitted to the floor and patient's seizure was controlled with Keppra. Serum Dilantin level was low. On further questioning the patient admitted that she has been taking 100 mg of Dilantin 3 times a day, but when I checked several order it was ordered 200 mg by mouth 3 times a day. Patient was advised to take Dilantin 200 mg by mouth 3 times a day and patient agreed with the plan. Patient preferred to take Dilantin instead of Keppra. Patient is hemodynamically stable at the time of discharge. Patient's medications were reviewed and updated to the time of discharge. Patient's questions and concerns were addressed at bedside. Disposition: -01 TO HOME OR SELFCARE Time spent for discharge: 31 minutes - Discharge Diagnoses (1) Hyperkalemia Status: Acute (2) Seizure disorder Status: Acute (3) End stage renal disease on dialysis Status: Chronic (4) History of lupus Status: Acute Core Measure Documentation - Palliative Care Palliative Care/ Comfort Measures: Not Applicable - Core Measures Any of the following diagnoses?: none Exam - Physical Exam Narrative exam: Not in cardiopulmonary distress. The patient appeared well nourished and normally developed. Vital signs as documented. Head exam is unremarkable. No scleral icterus . Neck is without jugular venous distension, thyromegaly, or carotid bruits. Lungs are clear to auscultation. Cardiac exam reveals regular rate and Rhythm. First and second heart sounds normal. No murmurs, rubs or gallops. Abdominal exam reveals normal bowel sounds, no masses, no organomegaly and no aortic enlargement. Extremities are nonedematous and both femoral and pedal pulses are normal. E[employer]AME [employer]ER: Alert and oriented 3. No focal weakness. - Constitutional Vitals: Temp Pulse Resp BP Pulse Ox 100.0 F H 92 H 16 178/121 98 07/11/17 08:59 07/11/17 08:59 07/11/17 08:59 07/11/17 08:59 07/11/17 05:05 Plan Activity: no restrictions Weight Bearing Status: Full Weight Bearing Diet: low cholesterol, low salt, renal Follow up with: PRIMARY CAREMD [Primary Care Provider] - 3-5 Days
[2017-07-11] MEDS ORDERED: KEPPRA PO SCH (11:30)
[2017-07-11] MEDS ORDERED: CATAPRES PO SCH (12:00)
[2017-07-11] MEDS ORDERED: FLEXERIL PO PRN ×2 (12:14→12:15)
[2017-07-11] MEDS ORDERED: BENADRYL PO PRN (22:00)
== END 2017-07-11 12:58 | disposition home or self-care (01) | DRG 100 ==
LOC: ED 04:00 → 4A 12:12
PROVIDERS: ADMIT Internal Medicine; ATTEND Internal Medicine
PROC: 5A1D70Z Performance of Urinary Filtration, Intermittent, Less than 6 Hours Per Day (ICD-10-PCS; principal; 2017-07-10)
DX: G40.909 Epilepsy, unspecified, not intractable, without status epilepticus (principal); N18.6 End stage renal disease; I12.0 Hypertensive chronic kidney disease with stage 5 chronic kidney disease or end stage renal disease; E87.5 Hyperkalemia; Z99.2 Dependence on renal dialysis; E87.70 Fluid overload, unspecified; M32.9 Systemic lupus erythematosus, unspecified; D64.9 Anemia, unspecified; Z88.8 Allergy status to other drugs, medicaments and biological substances; Z91.19 Patient's noncompliance with other medical treatment and regimen
CPT/HCPCS: 36415; 71010; 80048; 80185; 83036; 85025; 93005; 93010; 96374; 96375; 99291; J0360; J0610; J1644; J1815; J1953; Q2009

== ENCOUNTER 2017-07-17 14:41 | Emergency (ER) | payer MEDICARE ==
[2017-07-17 14:58] VITALS: BP 175/112
--- NOTE | 2017-07-17 15:48 | Emergency Department Report ---
ED Seizure HPI - General Chief Complaint: Seizure Stated Complaint: SEIZURE Source: patient, EMS Mode of arrival: Stretcher Limitations: Altered Mental Status - History of Present Illness Complaint: seizure -: Sudden (Patient with seizure 2 days ago and then again today at HD. Was brought in and then had seizure in the ED and given ativan 1 mg and keppra 1 gm. ) Description of Episode: loss of consciousness, tonic-clonic movement -: minutes(s) (5) Witnessed:: Yes Trauma: No Seizure History: known seizure disorder Place: other (dialysis center) Possible Precipitating Event: stress, medication (subtheraputic) Associated Symptoms: denies other symptoms Treatments Prior to Arrival: benzodiazepines - Related Data Previous Rx's Medication Instructions Recorded Last Taken Type Clonidine HCl [Catapres] 0.3 mg PO TID #90 tablet 04/19/17 07/09/17 20:45 Rx Labetalol [Normodyne TAB] 200 mg PO BID #60 tablet 04/19/17 07/09/17 08:30 Rx 60mg NIFEdipine XL [Procardia Xl] 60 mg PO Q12HR #60 tablet 04/19/17 07/09/17 08:30 Rx Phenytoin [Dilantin] 200 mg PO TID #90 capsule.er 04/19/17 07/09/17 21:00 Rx 200mg levETIRAcetam [Keppra TAB] 500 mg PO BID #60 tablet 07/17/17 Unknown Rx Allergies Allergy/AdvReac Type Severity Reaction Status Date / Time acetaminophen [From Percocet] AdvReac Unknown Verified 07/01/17 04:06 metoprolol AdvReac Vomiting Verified 07/01/17 04:07 oxycodone HCl [From Percocet] AdvReac Unknown Verified 07/01/17 04:06 phenytoin sodium AdvReac Unknown Verified 07/01/17 04:07 [From Dilantin] phenytoin sodium extended AdvReac Unknown Verified 07/01/17 04:07 [From Dilantin] ED Review of Systems ROS: Stated complaint: SEIZURE Other details as noted in HPI Constitutional: denies: chills, fever Eyes: denies: eye pain, eye discharge, vision change ENT: denies: ear pain, throat pain Respiratory: denies: cough, shortness of breath, wheezing Cardiovascular: denies: chest pain, palpitations Endocrine: no symptoms reported Gastrointestinal: denies: abdominal pain, nausea, diarrhea Genitourinary: denies: urgency, dysuria, discharge Musculoskeletal: denies: back pain, joint swelling, arthralgia Skin: denies: rash, lesions Neurological: headache, confusion. denies: weakness, paresthesias Psychiatric: denies: anxiety, depression Hematological/Lymphatic: denies: easy bleeding, easy bruising ED Past Medical Hx - Past Medical History Previous Medical History?: Yes Hx Hypertension: Yes Hx Congestive Heart Failure: No Hx Diabetes: No Hx Renal Disease: Yes Hx Headaches / Migraines: Yes (3 nights) Hx Seizures: Yes Hx Asthma: Yes Hx COPD: No Hx HIV: No Additional medical history: Lupus - Surgical History Past Surgical History?: Yes Additional Surgical History: fistula right arm - Social History Smoking Status: Current Every Day Smoker Substance Use Type: None - Medications Home Medications: Home Medications Medication Instructions Recorded Confirmed Last Taken Type Clonidine HCl [Catapres] 0.3 mg PO TID #90 tablet 04/19/17 07/10/17 07/09/17 20: 45 Rx Labetalol [Normodyne TAB] 200 mg PO BID #60 tablet 04/19/17 07/10/17 07/09/17 08 :30 Rx 60mg NIFEdipine XL [Procardia Xl] 60 mg PO Q12HR #60 tablet 04/19/17 07/10/17 08:30 Rx Phenytoin [Dilantin] 200 mg PO TID #90 capsule.er 04/19/17 07/10/17 07/09/17 21: 00 Rx 200mg levETIRAcetam [Keppra TAB] 500 mg PO BID #60 tablet 07/17/17 Unknown Rx ED Physical Exam - General Limitations: Altered Mental Status General appearance: alert, in no apparent distress - Head Head exam: Present: atraumatic, normocephalic - Eye Eye exam: Present: normal appearance - ENT ENT exam: Present: mucous membranes moist - Neck Neck exam: Present: normal inspection - Respiratory Respiratory exam: Present: normal lung sounds bilaterally. Absent: respiratory distress - Cardiovascular Cardiovascular Exam: Present: regular rate, normal rhythm. Absent: systolic murmur, diastolic murmur, rubs, gallop - GI/Abdominal GI/Abdominal exam: Present: soft, normal bowel sounds - Extremities Exam Extremities exam: Present: normal inspection - Back Exam Back exam: Present: normal inspection - Neurological Exam Neurological exam: Present: alert, oriented X3 (after recovered from postictal state.) - Psychiatric Psychiatric exam: Present: normal affect, normal mood - Skin Skin exam: Present: warm, dry, intact, normal color. Absent: rash ED Course Vital Signs 07/17/17 14:55 Temperature 98.4 F Pulse Rate 104 H Respiratory 18 Rate Blood Pressure 175/112 O2 Sat by Pulse 97 Oximetry - Reevaluation(s) Reevaluation #1: 07/17/17 20:20 Patient reevaluated around 20:20 and was A&O x 4. She was able to tell me she was taking her meds every day and that she does not have a neurologist but does have a primary care doctor. - Consultations Consultation #1: 07/17/17 20:22 Called Tele-neurology around 20:00 and they stated that she should be okay to be placed on keppra since she was subtheraputic on dilatin. No driving until she sees neurology. She was informed of this. ED Medical Decision Making - Lab Data Result diagrams: 07/17/17 16:24 07/17/17 16:24 - EKG Data EKG shows normal: axis, intervals, QRS complexes - Medical Decision Making Seizures recurrent. Has history of seizure with no acute changes on CT head this summer. Had last seizure 2 days ago. D/W neurology and they stated she can be sent home on Keppra. Critical care attestation.: If time is entered above; I have spent that time in minutes in the direct care of this critically ill patient, excluding procedure time. ED Disposition Clinical Impression: Seizure disorder Disposition: DC-01 TO HOME OR SELFCARE Is pt being admited?: No Does the pt Need Aspirin: No Condition: Stable Instructions: Epilepsy (ED) Additional Instructions: No driving until follow up with Neurology. Referrals were given for neurology and for primary care. Prescriptions: levETIRAcetam [Keppra TAB] 500 mg PO BID #60 tablet Referrals: [facility] [Outside] - 3-5 Days TON ZIMMERMAN MD [Staff Physician] - 3-5 Days MANN ANGULO MD [Staff Physician] - 3-5 Days
[2017-07-17 16:45] LABS: Hematocrit 25.9 % (30.3-42.9); Hemoglobin 8.5 gm/dl (10.1-14.3); Mean Corpuscular HGB Conc 33 % (30-34); Mean Corpuscular Hemoglobin 31 pg (28-32); Mean Corpuscular Volume 96 fl (79-97); Platelet Count 149 K/mm3 (140-440); Red Blood Count 2.71 M/mm3 (3.65-5.03); Red Cell Distribution Width 17.7 % (13.2-15.2); White Blood Count 4.2 K/mm3 (4.5-11.0)
[2017-07-17] MEDS ORDERED: KEPPRA 1,000 MG/NS 0.75% 100ML 1,000 MG/100 ML BAG IV ONE (16:45)
[2017-07-17] MEDS ORDERED: ATIVAN ONE (16:46)
[2017-07-17 16:59] LABS: Calcium 8.6 mg/dL (8.4-10.2); Chloride 97.7 mmol/L (98-107); Potassium 4.7 mmol/L (3.6-5.0)
[2017-07-17] MEDS ORDERED: ATIVAN IV ONE (17:00)
[2017-07-17] MEDS ORDERED: KEPPRA 1,000 MG in NACL 0.9% 100 ML IV ONE ×2 (17:00→18:00)
[2017-07-17] MEDS ORDERED: MORPHINE IV ONE (18:05)
[2017-07-17] MEDS ORDERED: ZOFRAN IV ONE (18:05)
== END 2017-07-17 21:00 | disposition home or self-care (01) ==
LOC: ED 14:41
DX: R56.9 Unspecified convulsions (principal); I10 Essential (primary) hypertension; J45.909 Unspecified asthma, uncomplicated; F17.200 Nicotine dependence, unspecified, uncomplicated; Z88.6 Allergy status to analgesic agent
CPT/HCPCS: 36415; 80048; 80185; 82962; 85027; 96365; 96366; 96375; 99284; J1953; J2060; J2270; J2405

== ENCOUNTER 2017-09-03 00:59 | Inpatient (IN) | payer MEDICARE ==
[2017-09-03] MEDS ORDERED: PROVENTIL IH ONE ×2 (01:39→03:48)
[2017-09-03] MEDS ORDERED: ATROVENT IH ONE ×2 (01:39→03:48)
[2017-09-03] MEDS ORDERED: DECADRON 20 MG in NACL 0.9% 50 ML IV ONE (01:40)
--- NOTE | 2017-09-03 01:42 | Emergency Department Report ---
ED Shortness of Breath HPI - General Chief Complaint: Dyspnea/Respdistress Stated Complaint: ELIANE Time Seen by Provider: 09/03/17 01:38 Source: patient, EMS Mode of arrival: Stretcher Limitations: No Limitations - History of Present Illness Initial Comments: 27 YO FEMALE WITH SOB SINCE 09/01/2017 WHICH BECAME WORSE LAST NIGHT. SHE HAS DIALYSIS WHICH SHE MISSED BECAUSE OF THE [place] hER LAST DIALYSIS WAS SUNDAY AND SHE IS SCHEDULE FOR TODAY. SHE HAS H/O ASTHMA,LUPUS, ANXIETY, SEIZURE,DEPRESSION AND SEVERE HTN. SHE IS ON A LOW DOSE OF DILANTIN FOR SEIZURE. IN THE PAST, NEUROLOGY HAD HER ON A HIGHER DOSE OF DILANTIN BUT HS LOWER THIS DUE TO HER KEPPRA USE. SHE IS A POOR HISTORIAN MD Complaint: shortness of breath, "asthma attack" -: days(s) (3) Consistency: constant Improves With: nothing Associated Symptoms: denies other symptoms - Related Data Previous Rx's Medication Instructions Recorded Last Taken Type Clonidine HCl [Catapres] 0.3 mg PO TID #90 tablet 07/22/17 Unknown Rx NIFEdipine XL [Procardia Xl] 60 mg PO Q12HR #60 tablet 07/22/17 Unknown Rx Phenytoin [Dilantin] 200 mg PO TID #180 capsule.er 07/22/17 Unknown Rx levETIRAcetam [Keppra TAB] 500 mg PO BID #60 tablet 07/22/17 Unknown Rx Allergies Allergy/AdvReac Type Severity Reaction Status Date / Time acetaminophen [From Percocet] AdvReac Unknown Verified 09/03/17 01:06 metoprolol AdvReac Vomiting Verified 09/03/17 01:06 oxycodone HCl [From Percocet] AdvReac Unknown Verified 09/03/17 01:06 ED Review of Systems ROS: Stated complaint: ELIANE Other details as noted in HPI Constitutional: denies: chills, fever Eyes: denies: eye pain, eye discharge, vision change ENT: denies: ear pain, throat pain Respiratory: shortness of breath, SOB at rest. denies: cough, wheezing Cardiovascular: denies: chest pain, palpitations Endocrine: no symptoms reported Gastrointestinal: denies: abdominal pain, nausea, diarrhea Genitourinary: denies: urgency, dysuria, discharge Musculoskeletal: denies: back pain, joint swelling, arthralgia Skin: denies: rash, lesions Neurological: denies: headache, weakness, paresthesias Psychiatric: denies: anxiety, depression Hematological/Lymphatic: denies: easy bleeding, easy bruising ED Past Medical Hx - Past Medical History Previous Medical History?: Yes Hx Hypertension: Yes Hx Heart Attack/AMI: No Hx Congestive Heart Failure: No Hx Diabetes: No Hx Pulmonary Embolism: No Hx Liver Disease: No Hx Renal Disease: Yes Hx Sickle Cell Disease: No Hx Headaches / Migraines: Yes (3 nights) Hx Seizures: Yes Hx Asthma: No Hx COPD: No Additional medical history: Lupus - Surgical History Past Surgical History?: Yes Additional Surgical History: fistula right arm - Social History Smoking Status: Current Every Day Smoker Substance Use Type: Prescribed - Medications Home Medications: Home Medications Medication Instructions Recorded Confirmed Last Taken Type Clonidine HCl [Catapres] 0.3 mg PO TID #90 tablet 07/22/17 Unknown Rx NIFEdipine XL [Procardia Xl] 60 mg PO Q12HR #60 tablet 07/22/17 Unknown Rx Phenytoin [Dilantin] 200 mg PO TID #180 capsule.er 07/22/17 Unknown Rx levETIRAcetam [Keppra TAB] 500 mg PO BID #60 tablet 07/22/17 Unknown Rx ED Physical Exam - General Limitations: Other (POR HISTORIAN) General appearance: alert, in no apparent distress - Head Head exam: Present: atraumatic, normocephalic - Eye Eye exam: Present: normal appearance, EOMI - ENT ENT exam: Present: mucous membranes moist - Neck Neck exam: Present: normal inspection - Respiratory Respiratory exam: Present: normal lung sounds bilaterally, wheezes, decreased breath sounds - Cardiovascular Cardiovascular Exam: Present: regular rate, normal rhythm. Absent: systolic murmur, diastolic murmur, rubs, gallop - GI/Abdominal GI/Abdominal exam: Present: soft, normal bowel sounds. Absent: distended - Rectal Rectal exam: Present: deferred - Extremities Exam Extremities exam: Present: normal inspection - Back Exam Back exam: Present: normal inspection - Neurological Exam Neurological exam: Present: alert, oriented X3 - Psychiatric Psychiatric exam: Present: normal affect, normal mood - Skin Skin exam: Present: warm, dry, intact, normal color. Absent: rash ED Course Vital Signs 09/03/17 09/03/17 09/03/17 01:07 01:09 01:15 Temperature 98.3 F Pulse Rate 99 H 77 Pulse Rate [ Right Lower Lobe] Respiratory 24 28 H 17 Rate Respiratory Rate [Right Lower Lobe] Blood Pressure Blood Pressure [Left] O2 Sat by Pulse 100 100 Oximetry 09/03/17 09/03/17 09/03/17 01:16 01:31 01:45 Temperature Pulse Rate 74 80 Pulse Rate [ Right Lower Lobe] Respiratory 24 20 Rate Respiratory Rate [Right Lower Lobe] Blood Pressure Blood Pressure 182/122 [Left] O2 Sat by Pulse 100 100 Oximetry 09/03/17 09/03/17 09/03/17 02:01 03:53 04:09 Temperature Pulse Rate 87 Pulse Rate [ 86 Right Lower Lobe] Respiratory 41 H Rate Respiratory 18 Rate [Right Lower Lobe] Blood Pressure Blood Pressure [Left] O2 Sat by Pulse 100 100 Oximetry 09/03/17 09/03/17 09/03/17 04:12 04:15 04:20 Temperature 98.2 F Pulse Rate 89 Pulse Rate [ Right Lower Lobe] Respiratory Rate Respiratory Rate [Right Lower Lobe] Blood Pressure 185/122 190/120 Blood Pressure [Left] O2 Sat by Pulse 100 Oximetry 09/03/17 09/03/17 09/03/17 04:22 04:23 04:30 Temperature Pulse Rate 89 Pulse Rate [ Right Lower Lobe] Respiratory 22 Rate Respiratory Rate [Right Lower Lobe] Blood Pressure 188/119 Blood Pressure [Left] O2 Sat by Pulse 100 100 Oximetry 09/03/17 09/03/17 09/03/17 04:45 05:00 05:15 Temperature Pulse Rate Pulse Rate [ Right Lower Lobe] Respiratory Rate Respiratory Rate [Right Lower Lobe] Blood Pressure 195/120 193/118 192/115 Blood Pressure [Left] O2 Sat by Pulse 100 100 100 Oximetry 09/03/17 05:38 Temperature Pulse Rate 72 Pulse Rate [ Right Lower Lobe] Respiratory Rate Respiratory Rate [Right Lower Lobe] Blood Pressure 170/115 Blood Pressure [Left] O2 Sat by Pulse Oximetry ED Medical Decision Making - Lab Data Result diagrams: 09/03/17 01:33 09/03/17 01:33 - Radiology Data Radiology results: report reviewed (CXR:CHF WITH CARDIOMEGALY) Critical care attestation.: If time is entered above; I have spent that time in minutes in the direct care of this critically ill patient, excluding procedure time. ED Disposition Clinical Impression: Hyperkalemia, Hypertensive urgency, ESRD needing dialysis Acute on chronic renal failure Qualifiers: Acute renal failure type: unspecified Chronic kidney disease stage: on chronic dialysis Qualified Code(s): N17.9 - Acute kidney failure, unspecified; N18.9 - Chronic kidney disease, unspecified; N18.9 - Chronic kidney disease, unspecified ; Z99.2 - Dependence on renal dialysis; Z99.2 - Dependence on renal dialysis; Z99.2 - Dependence on renal dialysis; Z99.2 - Dependence on renal dialysis Disposition: OP ADMIT IP TO THIS HOSP Is pt being admited?: Yes Does the pt Need Aspirin: No Condition: Stable Referrals: PRIMARY CARE, [Primary Care Provider] - 3-5 Days Time of Disposition: 05:51 (CASE REVIEWED WITH DR CASTILLO AND HE WILL)
[2017-09-03 01:50] LABS: Eosinophils % (Auto) 0.8 % (0.0-4.3); Hematocrit 32.1 % (30.3-42.9); Hemoglobin 10.2 gm/dl (10.1-14.3); Mean Corpuscular HGB Conc 32 % (30-34); Mean Corpuscular Hemoglobin 32 pg (28-32); Mean Corpuscular Volume 101 fl (79-97); Platelet Count 175 K/mm3 (140-440); Red Blood Count 3.18 M/mm3 (3.65-5.03); Red Cell Distribution Width 18.3 % (13.2-15.2); White Blood Count 3.4 K/mm3 (4.5-11.0)
[2017-09-03 02:27] LABS: Anion Gap 27 mmol/L; BUN/Creatinine Ratio 5; Blood Urea Nitrogen 74 mg/dL (7-17); Calcium 8.7 mg/dL (8.4-10.2); Carbon Dioxide 17 mmol/L (22-30); Chloride 98.7 mmol/L (98-107); Glucose 76 mg/dL (65-100); Sodium 137 mmol/L (137-145)
--- NOTE | 2017-09-03 02:34 | XRay Report ---
FINAL REPORT EXAM: XR CHEST ROUTINE 2V HISTORY: Shortness of breath TECHNIQUE: PA and lateral views of the chest were submitted. FINDINGS: The heart is mildly enlarged. The lungs appear congested. There fluid in the fissures. There are no localized infiltrates. The bones and soft tissues otherwise appear well maintained. IMPRESSION: Cardiomegaly with CHF pattern.
[2017-09-03] MEDS ORDERED: CATAPRES PO ONE (04:16)
[2017-09-03] MEDS ORDERED: CATAPRES ONE ×3 (04:20→07:41)
[2017-09-03] MEDS ORDERED: NORVASC PO ONE (05:29)
[2017-09-03] MEDS ORDERED: NACL ONE (05:52)
[2017-09-03] MEDS ORDERED: D50W (25GM) Vial IV ONE (05:53)
[2017-09-03] MEDS ORDERED: D50W (25GM) Syringe IV ONE (05:53)
[2017-09-03] MEDS ORDERED: CALCIUM CHLORIDE 1,000 MG in NACL 0.9% 100 ML IV ONE (05:53)
[2017-09-03] MEDS ORDERED: KIONEX PO ONE (05:54)
--- NOTE | 2017-09-03 05:54 | History and Physical Report ---
History of Present Illness Chief complaint: I cant breathe History of present illness: 27 YO Female with HTN, Nicotine Dependence, Lupus, Seizure Disorder, Migraine Headache, ESRD on HD (M,W,F) presents to ED for evaluation. Pt states that she has experienced shortness of breath over the past 2 days with persistent symptoms over the past 8 hours. Pt states that she missed dialysis because she was unable to get a ride to the dialysis center. Pt was last dialyzed on Sunday. Pt denies fever, chills, trauma, CP, Palpitations, NVD, Productive cough or recent ill contacts. Pt seen and evaluated in ED and found to have hyperkalemia, malignant hypertension, and is in respiratory distress. Pt treated with , calcium gluconate, supplemental oxygen, nebulizer therapy. Nephrology service consulted in ED for urgent dialysis. Past History Past Medical History: ESRD, hypertension, seizures, other (SLE, Migraine ROY) Past Surgical History: Other (RUE AVF) Social history: single. denies: smoking, alcohol abuse, prescription drug abuse , IV drug use Family history: hypertension Medications and Allergies Allergies Allergy/AdvReac Type Severity Reaction Status Date / Time acetaminophen [From Percocet] AdvReac Unknown Verified 09/03/17 01:06 metoprolol AdvReac Vomiting Verified 09/03/17 01:06 oxycodone HCl [From Percocet] AdvReac Unknown Verified 09/03/17 01:06 Home Medications Medication Instructions Recorded Confirmed Last Taken Type Clonidine HCl [Catapres] 0.3 mg PO TID #90 tablet 07/22/17 Unknown Rx NIFEdipine XL [Procardia Xl] 60 mg PO Q12HR #60 tablet 07/22/17 Unknown Rx Phenytoin [Dilantin] 200 mg PO TID #180 capsule.er 07/22/17 Unknown Rx levETIRAcetam [Keppra TAB] 500 mg PO BID #60 tablet 07/22/17 Unknown Rx Review of Systems Constitutional: no weight loss, no weight gain, no fever, no chills Ears, nose, mouth and throat: no ear pain, no ear discharge, no tinnitis, no decreased hearing, no nose pain, no nasal congestion Breasts: no change in shape, no swelling, no mass Cardiovascular: shortness of breath, no chest pain, no orthopnea, no palpitations, no dyspnea on exertion, no leg edema Respiratory: no cough, no cough with sputum, no excessive sputum, no hemoptysis Gastrointestinal: no nausea, no vomiting, no diarrhea, no constipation, no change in bowel habits Genitourinary Female: no pelvic pain, no flank pain, no menorrhagia, no dysuria Rectal: no pain, no incontinence, no bleeding Musculoskeletal: no neck stiffness, no neck pain, no shooting arm pain, no arm numbness/tingling, no low back pain Integumentary: no rash, no pruritis, no redness, no sores, no wounds Neurological: no head injury, no transient paralysis, no paralysis, no weakness , no parathesias, no numbness, no tingling Psychiatric: no anxiety, no memory loss, no change in sleep habits, no sleep disturbances, no insomnia, no hypersomnia, no change in appetite Endocrine: no cold intolerance, no heat intolerance, no polyphagia, no excessive thirst, no polydipsia, no polyuria Hematologic/Lymphatic: no easy bruising, no easy bleeding Allergic/Immunologic: no urticaria, no allergic rhinitis, no wheezing Exam - Constitutional Vitals: Temp Pulse Resp BP Pulse Ox 98.2 F 72 22 170/115 100 09/03/17 04:12 09/03/17 05:38 09/03/17 04:22 09/03/17 05:38 09/03/17 05:15 General appearance: Present: mild distress - Respiratory Respiratory effort: normal Respiratory: bilateral: diminished - Cardiovascular Heart Sounds: Present: S1 & S2. Absent: rub, click - Extremities Extremities: pulses symmetrical, No edema Peripheral Pulses: within normal limits - Abdominal General gastrointestinal: Present: soft, non-tender, non-distended, normal bowel sounds Female genitourinary: Present: normal - Integumentary Integumentary: Present: clear, warm, dry - Musculoskeletal Musculoskeletal: gait normal, strength equal bilaterally - Psychiatric Psychiatric: appropriate mood/affect, intact judgment & insight - Neurologic Neurologic: CNII-XII intact, moves all extremities Results - Labs CBC & Chem 7: 09/03/17 01:33 09/03/17 01:33 Labs: Abnormal lab results 09/03/17 09/03/17 09/03/17 Range/Units 01:33 01:33 01:42 WBC 3.4 L (4.5-11.0) K/mm3 RBC 3.18 L (3.65-5.03) M/mm3 MCV 101 H (79-97) fl RDW 18.3 H (13.2-15.2) % [place] % (Auto) 8.4 H (0.0-7.3) % Lymph # 1.0 L (1.2-5.4) K/mm3 D-Dimer 813.08 H (0-234) ng/mlDDU Potassium 6.0 H (3.6-5.0) mmol/L Carbon Dioxide 17 L (22-30) mmol/L BUN 74 H (7-17) mg/dL Creatinine 13.6 H (0.7-1.2) mg/dL Phenytoin (10.0-20.0) ug/mL 09/03/17 Range/Units 01:44 WBC (4.5-11.0) K/mm3 RBC (3.65-5.03) M/mm3 MCV (79-97) fl RDW (13.2-15.2) % [place] % (Auto) (0.0-7.3) % Lymph # (1.2-5.4) K/mm3 D-Dimer (0-234) ng/mlDDU Potassium (3.6-5.0) mmol/L Carbon Dioxide (22-30) mmol/L BUN (7-17) mg/dL Creatinine (0.7-1.2) mg/dL Phenytoin 2.4 L (10.0-20.0) ug/mL Assessment and Plan - Patient Problems (1) Acute hypoxemic respiratory failure Current Visit: No Status: Acute Plan to address problem: Supplemental oxygen, nebs, aspiration precautions, incentive spirometry, urgent dialysis, NIPPV as clinically indicated, (2) Hyperkalemia Current Visit: No Status: Acute (3) Hypertensive urgency Current Visit: No Status: Acute Plan to address problem: Monitor BP q shift, Hydralazine PRN, urgent dialysis, IV hydralazine prn for systolic above 150. (4) Seizure disorder Current Visit: No Status: Acute Plan to address problem: Continue current therapy, neuro checks, resume dilantin and Keppra, outpatient neurology f/U care. (5) ESRD needing dialysis Current Visit: No Status: Acute Plan to address problem: Nephrology consulted, Dialysis as per renal team, monitor uop q shift, fluid restriction (6) DVT prophylaxis Current Visit: No Status: Acute
[2017-09-03] MEDS ORDERED: ZOFRAN IV PRN (05:58)
[2017-09-03] MEDS ORDERED: TYLENOL PO PRN (05:58)
[2017-09-03] MEDS ORDERED: DILANTIN 1,000 MG in NACL 0.9% 250ML 250 ML IV ONE (06:01)
[2017-09-03] MEDS ORDERED: D50W (25GM) Vial 50 ML IV ONE (06:06)
[2017-09-03] MEDS ORDERED: APRESOLINE IV PRN (06:15)
[2017-09-03] MEDS ORDERED: ZOFRAN ONE (07:44)
[2017-09-03] MEDS: CATAPRES PO SCH ×3 (07:55→21:32)
[2017-09-03] MEDS ORDERED: NON-FORMULARY (Clonidine Hcl [Catapres] 0.3 MG) PO SCH (08:00)
[2017-09-03] MEDS ORDERED: NACL 0.9% 100 ML IV PRN (08:54)
[2017-09-03] MEDS ORDERED: PROCRIT IV PRN (08:54)
--- NOTE | 2017-09-03 09:07 | Consultation ---
History of Present Illness - Reason for Consult Consult date: 09/03/17 end stage renal disease Requesting physician: CARLEY MCGEE - History of Present Illness 27 YO Female with HTN, Nicotine Dependence, Lupus, Seizure Disorder, Migraine Headache, ESRD on HD (M,W,F) presents to ED for evaluation. Pt states that she has experienced shortness of breath over the past 2 days with persistent symptoms over the past 8 hours. Pt states that she missed dialysis because she was unable to get a ride to the dialysis center. Pt was last dialyzed on Sunday. Pt denies fever, chills, trauma, CP, Palpitations, NVD, Productive cough or recent ill contacts. Pt seen and evaluated in ED and found to have hyperkalemia, malignant hypertension, and is in respiratory distress. Pt treated with , calcium gluconate, supplemental oxygen, nebulizer therapy. Past History Past Medical History: ESRD, hypertension, seizures, other (SLE, Migraine ROY) Past Surgical History: Other (RUE AVF) Social history: single. denies: smoking, alcohol abuse, prescription drug abuse , IV drug use Family history: hypertension Medications and Allergies Allergies Allergy/AdvReac Type Severity Reaction Status Date / Time acetaminophen [From Percocet] AdvReac Unknown Verified 09/03/17 01:06 metoprolol AdvReac Vomiting Verified 09/03/17 01:06 oxycodone HCl [From Percocet] AdvReac Unknown Verified 09/03/17 01:06 Home Medications Medication Instructions Recorded Confirmed Last Taken Type Clonidine HCl [Catapres] 0.3 mg PO TID #90 tablet 07/22/17 Unknown Rx NIFEdipine XL [Procardia Xl] 60 mg PO Q12HR #60 tablet 07/22/17 Unknown Rx Phenytoin [Dilantin] 200 mg PO TID #180 capsule.er 07/22/17 Unknown Rx levETIRAcetam [Keppra TAB] 500 mg PO BID #60 tablet 07/22/17 Unknown Rx Active Meds: Active Medications Acetaminophen (Tylenol) 650 mg PO Q4H PRN PRN Reason: Pain MILD(1-3)/Fever >100.5/ROY Clonidine HCl (Catapres) 0.3 mg PO TID HENRY Last Admin: 09/03/17 07:55 Dose: 0.3 mg Epoetin Del (Procrit) 10,000 unit IV LAKESHA PRN PRN Reason: hemodialysis Hydralazine HCl (Apresoline) 10 mg IV Q6HR PRN PRN Reason: Hypertension Sodium Chloride (Nacl 0.9%) 100 mls @ 999 mls/hr IV LAKESHA PRN PRN Reason: Hypotension Levetiracetam (Keppra) 500 mg PO BID HENRY Nifedipine (Procardia Xl) 60 mg PO Q12HR HENRY Ondansetron HCl (Zofran) 4 mg IV Q8H PRN PRN Reason: N/V unrelieved by Emelyn Last Admin: 09/03/17 07:55 Dose: 4 mg Phenytoin (Dilantin) 200 mg PO TID HENRY Review of Systems All systems: negative (negative except as noted above) Exam - Vital Signs Vital signs: Vital Signs Temp Pulse Resp Pulse Ox 98.3 F 99 H 24 100 09/03/17 01:07 09/03/17 01:07 09/03/17 01:07 09/03/17 01:07 - General Appearance General appearance: well-developed, well-nourished, appears stated age EENT: PERRL, mucous membranes moist Neck: Present: neck supple, trachea midline. Absent: JVD/HJR, Masses Respiratory: Clear to Ascultation Heart: regular, normal heart rate, S1S2, no murmurs Gastrointestinal: Present: normal, normoactive bowel sounds Integumentary: no rash, other (AV fistula right upper extremity. Good bruit and thrill) Results - Lab Results 09/03/17 01:33 09/03/17 01:33 Most recent lab results Calcium 8.7 mg/dL (8.4-10.2) 09/03/17 01:33 Assessment and Plan Impression * End-stage renal disease. On maintenance hemodialysis * Hyperkalemia * Fluid overload * Uncontrolled Hypertension * Seizure disorder * Lupus * Anemia secondary to ESRD Recommendations * Agree with medical management of hyperkalemia * Shall arrange for hemodialysis as soon as possible for control of hyperkalemia and fluid overload * Epogen with dialysis * No IV, BP of any puncture in her access arm * Adjust diet and meds for ESRD state * Binders with diet * Thank you very much for the consultation. Shall follow along with you
[2017-09-03] MEDS: KEPPRA PO SCH ×2 (09:47→21:32)
[2017-09-03] MEDS ORDERED: NACL 0.9 (PRIMING MACHINE ONLY DIALYSIS) MC ONE (13:13)
--- NOTE | 2017-09-03 14:39 | Progress Note ---
History Interval history: Feels better, Less shortness of breath Hospitalist Physical - Physical exam Narrative exam: GEN APPEARANCE : Not in acute distress, HEENT: Normocephalic Atraumatic NECK : supple, no JVD LUNGS: Bilateral rales, no wheeze HEART: S1 and S2 regular, tachycardia, no murmurs, rubs or gallop, ABD: Soft, no tenderness, no distension, normal bowel sounds EXT: No edema, no clubbing, no cyanosis NEURO: Awake,alert,oriented x 3, no facial asymmetry, no focal signs - Constitutional Vitals: Temp Pulse Resp BP Pulse Ox 98.2 F 67 18 198/104 100 09/03/17 10:45 09/03/17 12:45 09/03/17 10:45 09/03/17 12:45 09/03/17 08:15 General appearance: Present: mild distress Results - Labs CBC & Chem 7: 09/03/17 01:33 09/03/17 01:33 Labs: Laboratory Last Values WBC 3.4 K/mm3 (4.5-11.0) L 09/03/17 01:33 RBC 3.18 M/mm3 (3.65-5.03) L 09/03/17 01:33 Hgb 10.2 gm/dl (10.1-14.3) 09/03/17 01:33 Hct 32.1 % (30.3-42.9) 09/03/17 01:33 MCV 101 fl (79-97) H 09/03/17 01:33 MCH 32 pg (28-32) 09/03/17 01:33 MCHC 32 % (30-34) 09/03/17 01:33 RDW 18.3 % (13.2-15.2) H 09/03/17 01:33 Plt Count 175 K/mm3 (140-440) 09/03/17 01:33 Lymph % (Auto) 28.8 % (13.4-35.0) 09/03/17 01:33 [place] % (Auto) 8.4 % (0.0-7.3) H 09/03/17 01:33 Eos % (Auto) 0.8 % (0.0-4.3) 09/03/17 01:33 Baso % (Auto) 1.0 % (0.0-1.8) 09/03/17 01:33 Lymph # 1.0 K/mm3 (1.2-5.4) L 09/03/17 01:33 [place] # 0.3 K/mm3 (0.0-0.8) 09/03/17 01:33 Eos # 0.0 K/mm3 (0.0-0.4) 09/03/17 01:33 Baso # 0.0 K/mm3 (0.0-0.1) 09/03/17 01:33 Seg Neutrophils % 61.0 % (40.0-70.0) 09/03/17 01:33 Seg Neutrophils # 2.1 K/mm3 (1.8-7.7) 09/03/17 01:33 D-Dimer 813.08 ng/mlDDU (0-234) H 09/03/17 01:42 Sodium 137 mmol/L (137-145) 09/03/17 01:33 Potassium 6.0 mmol/L (3.6-5.0) H 09/03/17 01:33 Chloride 98.7 mmol/L (98-107) 09/03/17 01:33 Carbon Dioxide 17 mmol/L (22-30) L 09/03/17 01:33 Anion Gap 27 mmol/L 09/03/17 01:33 BUN 74 mg/dL (7-17) H 09/03/17 01:33 Creatinine 13.6 mg/dL (0.7-1.2) H 09/03/17 01:33 Estimated GFR 4 ml/min 09/03/17 01:33 BUN/Creatinine Ratio 5 % 09/03/17 01:33 Glucose 76 mg/dL (65-100) 09/03/17 01:33 POC Glucose 200 (70-105) H 09/03/17 07:12 Calcium 8.7 mg/dL (8.4-10.2) 09/03/17 01:33 Troponin T < 0.010 ng/mL (0.00-0.029) 09/03/17 01:33 NT-Pro-B Natriuret Pep > 16749 pg/mL (0-450) H 09/03/17 01:33 HCG, Qual Negative (Negative) 09/03/17 01:33 Phenytoin 2.4 ug/mL (10.0-20.0) L 09/03/17 01:44
--- NOTE | 2017-09-03 14:48 | Event Note ---
Date: 09/03/17 Patient is 27 yo with ESRD on dialysis, missed dialysis, presents with shortness of breath, hyperkalemia and hypertensive urgency. I have seen and examined her today. Continue current management. For dialysis today.
[2017-09-03] MEDS: PROCARDIA XL PO SCH ×2 (16:09→21:32)
[2017-09-03] MEDS: DILANTIN PO SCH ×3 (16:10→21:32)
[2017-09-04] MEDS ORDERED: BENADRYL IV ONE (05:44)
[2017-09-04 07:37] LABS: Calcium 7.8 mg/dL (8.4-10.2); Chloride 99.3 mmol/L (98-107); Potassium 4.5 mmol/L (3.6-5.0)
[2017-09-04] MEDS: CATAPRES PO SCH ×3 (09:37→23:51)
[2017-09-04] MEDS: KEPPRA PO SCH ×2 (09:37→23:39)
[2017-09-04] MEDS ORDERED: NACL 0.9% 100 ML IV PRN (09:43)
--- NOTE | 2017-09-04 09:43 | Progress Note ---
Assessment and Plan Impression * End-stage renal disease. On maintenance hemodialysis * Hyperkalemia * Fluid overload * Uncontrolled Hypertension * Seizure disorder * Lupus * Anemia secondary to ESRD Recommendations * Her hyperkalemia has been corrected. * Outpatient dialysis days however Tuesdays, and Saturdays. She'll dialyze her today and keep her on TTS schedule * Epogen with dialysis * No IV, BP of any puncture in her access arm * Adjust diet and meds for ESRD state * Binders with diet Subjective Date of service: 09/04/17 Interval history: Patient is awake and alert. Denies any shortness of breath. Uneventful hemodialysis yesterday Objective - Vital Signs Vital signs: Vital Signs - 12hr 09/03/17 09/03/17 21:52 22:00 Temperature 98.0 F Pulse Rate 72 Respiratory 16 Rate Blood Pressure 165/101 O2 Sat by Pulse 100 98 Oximetry - General Appearance General appearance: well-developed, well-nourished, appears stated age EENT: PERRL, mucous membranes moist Neck: no JVD, no thyromegaly, no carotid bruit, supple Respiratory: Present: Clear to Ascultation Cardiology: regular, normal heart rate Gastrointestinal: normal, normoactive bowel sounds Integumentary: no rash, other (AV fistula in her right upper arm. Good bruit and thrill) - Lab 09/03/17 01:33 09/04/17 07:04 Most recent lab results Calcium 7.8 mg/dL (8.4-10.2) L 09/04/17 07:04
[2017-09-04] MEDS: PROCARDIA XL PO SCH ×2 (10:00→23:50)
--- NOTE | 2017-09-04 10:21 | XRay Report ---
AP CHEST :09/04/17 CLINICAL: Difficulty breathing. COMPARISON:09/03/17 FINDINGS: Cardiomegaly and central vascular congestion. Increased bilateral multilobar lung opacities. Both interstitial and alveolar lung opacities involve bilateral upper lobes and the right lung base. No tubes or lines. Stable small right pleural effusion. IMPRESSION: Slight worsening of CHF with multilobar pulmonary edema.
--- NOTE | 2017-09-04 11:09 | Nuclear Medicine Report ---
VENTILATION/PERFUSION LUNG SCAN: 09/03/17 05:58:00 CLINICAL: Shortness of breath TECHNIQUE: 15.0 millicuries of xenon-133 was administered by aerosol and 5.0 mCi of technetium 99m MAA was administered intravenously. Comparison is made to the 09/03/17 chest x-ray. FINDINGS: Inhalation of Xenon gas demonstrates a normal distribution of the activity throughout both lungs. The wash out phases show significant retention of activity in the left lower lobe. After injection of Technetium 99m macroaggregated albumin gamma camera imaging of the lungs in multiple projections demonstrates normal pulmonary contours with a homogeneous distribution of activity. No focal areas of perfusion deficiency are identified. IMPRESSION: Low probability for pulmonary embolus. Left lower lobe air trapping.
[2017-09-04] MEDS: APRESOLINE PO SCH ×3 (12:26→23:40)
--- NOTE | 2017-09-04 12:28 | Progress Note ---
Assessment and Plan Assessment and plan: Fluid overload from missed hemodialysis. Dialysis done yesterday. Hyperkalemia due to missed dialysis. hemoglobin 6.0 on admission. Now 4.5 after Dialysis ESRD on dialysis Hypertensive urgency. Resumed Clonidine and nifedipine XL Diabetes mellitus type 2. Fingerstick Qac and hs Seizure disorder. Continue Keppra and Dilantin. No seizure this admission Lupus. No exacerbation currently Full code status History Interval history: Nausea or vomiting, shortness of breath Hospitalist Physical - Constitutional Vitals: Temp Pulse Resp BP Pulse Ox 99.0 F 72 20 153/97 100 09/04/17 10:11 09/03/17 21:52 09/04/17 10:11 09/04/17 10:11 09/04/17 11:34 General appearance: Present: no acute distress - EENT Eyes: Present: PERRL ENT: hearing intact - Neck Neck: Present: supple - Respiratory Respiratory effort: normal Respiratory: bilateral: CTA, negative: diminished, rales, rhonchi, wheezing - Cardiovascular Rhythm: regular Heart Sounds: Present: S1 & S2 (S1 and S2 reg, no murmurs) - Extremities Extremities: no ischemia, No edema - Abdominal General gastrointestinal: soft, non-tender, non-distended, normal bowel sounds - Integumentary Integumentary: Present: clear, warm - Neurologic Neurologic: CNII-XII intact, moves all extremities Results - Labs CBC & Chem 7: 09/03/17 01:33 09/04/17 07:04 Labs: Laboratory Last Values WBC 3.4 K/mm3 (4.5-11.0) L 09/03/17 01:33 RBC 3.18 M/mm3 (3.65-5.03) L 09/03/17 01:33 Hgb 10.2 gm/dl (10.1-14.3) 09/03/17 01:33 Hct 32.1 % (30.3-42.9) 09/03/17 01:33 MCV 101 fl (79-97) H 09/03/17 01:33 MCH 32 pg (28-32) 09/03/17 01:33 MCHC 32 % (30-34) 09/03/17 01:33 RDW 18.3 % (13.2-15.2) H 09/03/17 01:33 Plt Count 175 K/mm3 (140-440) 09/03/17 01:33 Lymph % (Auto) 28.8 % (13.4-35.0) 09/03/17 01:33 Sanders % (Auto) 8.4 % (0.0-7.3) H 09/03/17 01:33 Eos % (Auto) 0.8 % (0.0-4.3) 09/03/17 01:33 Baso % (Auto) 1.0 % (0.0-1.8) 09/03/17 01:33 Lymph # 1.0 K/mm3 (1.2-5.4) L 09/03/17 01:33 Sanders # 0.3 K/mm3 (0.0-0.8) 09/03/17 01:33 Eos # 0.0 K/mm3 (0.0-0.4) 09/03/17 01:33 Baso # 0.0 K/mm3 (0.0-0.1) 09/03/17 01:33 Seg Neutrophils % 61.0 % (40.0-70.0) 09/03/17 01:33 Seg Neutrophils # 2.1 K/mm3 (1.8-7.7) 09/03/17 01:33 D-Dimer 813.08 ng/mlDDU (0-234) H 09/03/17 01:42 Sodium 142 mmol/L (137-145) 09/04/17 07:04 Potassium 4.5 mmol/L (3.6-5.0) D 09/04/17 07:04 Chloride 99.3 mmol/L (98-107) 09/04/17 07:04 Carbon Dioxide 26 mmol/L (22-30) D 09/04/17 07:04 Anion Gap 21 mmol/L 09/04/17 07:04 BUN 35 mg/dL (7-17) H 09/04/17 07:04 Creatinine 8.2 mg/dL (0.7-1.2) H 09/04/17 07:04 Estimated GFR 7 ml/min 09/04/17 07:04 BUN/Creatinine Ratio 4 % 09/04/17 07:04 Glucose 81 mg/dL (65-100) 09/04/17 07:04 POC Glucose 200 (70-105) H 09/03/17 07:12 Calcium 7.8 mg/dL (8.4-10.2) L 09/04/17 07:04 Troponin T < 0.010 ng/mL (0.00-0.029) 09/03/17 01:33 NT-Pro-B Natriuret Pep > 28979 pg/mL (0-450) H 09/03/17 01:33 HCG, Qual Negative (Negative) 09/03/17 01:33 Phenytoin 2.4 ug/mL (10.0-20.0) L 09/03/17 01:44
[2017-09-04] MEDS: DILANTIN PO SCH (23:39)
[2017-09-05] MEDS: APRESOLINE PO SCH (07:56)
[2017-09-05] MEDS: KEPPRA PO SCH (09:17)
[2017-09-05] MEDS: PROCARDIA XL PO SCH (09:17)
[2017-09-05] MEDS: CATAPRES PO SCH ×2 (09:17→14:02)
--- NOTE | 2017-09-05 10:26 | Progress Note ---
Assessment and Plan Assessment and plan: 1) Acute hypoxemic respiratory failure Resolved. Cont. Supplemental oxygen, nebs, aspiration precautions, incentive spirometry (2) Hyperkalemia Resolved (3) Hypertensive urgency Monitor BP q shift, Hydralazine PRN, Increase scheduled and nifedipine. (4) Seizure disorder Continue current therapy, neuro checks, resume dilantin and Keppra, outpatient neurology f/U care. (5) ESRD needing dialysis Nephrology following, Dialysis as per renal team, monitor uop q shift, fluid restriction (6) DVT prophylaxis Add lovenox History Interval history: No new issues overnight Hospitalist Physical - Constitutional Vitals: Temp Pulse Resp BP Pulse Ox 98.3 F 99 H 20 158/100 99 09/05/17 08:00 09/05/17 08:00 09/05/17 08:00 09/05/17 08:00 09/05/17 08:00 General appearance: Present: no acute distress - EENT Eyes: Present: PERRL, EOM intact ENT: hearing intact, clear oral mucosa, dentition normal - Neck Neck: Present: supple, normal ROM - Respiratory Respiratory effort: normal Respiratory: bilateral: CTA - Cardiovascular Rhythm: regular Heart Sounds: Present: S1 & S2. Absent: gallop, rub - Extremities Extremities: no ischemia, No edema, Full ROM - Abdominal General gastrointestinal: soft, non-tender, non-distended, normal bowel sounds - Integumentary Integumentary: Present: clear, warm, dry - Neurologic Neurologic: CNII-XII intact, moves all extremities Results - Labs CBC & Chem 7: 09/03/17 01:33 09/04/17 07:04 Labs: Laboratory Last Values WBC 3.4 K/mm3 (4.5-11.0) L 09/03/17 01:33 RBC 3.18 M/mm3 (3.65-5.03) L 09/03/17 01:33 Hgb 10.2 gm/dl (10.1-14.3) 09/03/17 01:33 Hct 32.1 % (30.3-42.9) 09/03/17 01:33 MCV 101 fl (79-97) H 09/03/17 01:33 MCH 32 pg (28-32) 09/03/17 01:33 MCHC 32 % (30-34) 09/03/17 01:33 RDW 18.3 % (13.2-15.2) H 09/03/17 01:33 Plt Count 175 K/mm3 (140-440) 09/03/17 01:33 Lymph % (Auto) 28.8 % (13.4-35.0) 09/03/17 01:33 Hood % (Auto) 8.4 % (0.0-7.3) H 09/03/17 01:33 Eos % (Auto) 0.8 % (0.0-4.3) 09/03/17 01:33 Baso % (Auto) 1.0 % (0.0-1.8) 09/03/17 01:33 Lymph # 1.0 K/mm3 (1.2-5.4) L 09/03/17 01:33 Hood # 0.3 K/mm3 (0.0-0.8) 09/03/17 01:33 Eos # 0.0 K/mm3 (0.0-0.4) 09/03/17 01:33 Baso # 0.0 K/mm3 (0.0-0.1) 09/03/17 01:33 Seg Neutrophils % 61.0 % (40.0-70.0) 09/03/17 01:33 Seg Neutrophils # 2.1 K/mm3 (1.8-7.7) 09/03/17 01:33 D-Dimer 813.08 ng/mlDDU (0-234) H 09/03/17 01:42 Sodium 142 mmol/L (137-145) 09/04/17 07:04 Potassium 4.5 mmol/L (3.6-5.0) D 09/04/17 07:04 Chloride 99.3 mmol/L (98-107) 09/04/17 07:04 Carbon Dioxide 26 mmol/L (22-30) D 09/04/17 07:04 Anion Gap 21 mmol/L 09/04/17 07:04 BUN 35 mg/dL (7-17) H 09/04/17 07:04 Creatinine 8.2 mg/dL (0.7-1.2) H 09/04/17 07:04 Estimated GFR 7 ml/min 09/04/17 07:04 BUN/Creatinine Ratio 4 % 09/04/17 07:04 Glucose 81 mg/dL (65-100) 09/04/17 07:04 POC Glucose 200 (70-105) H 09/03/17 07:12 Calcium 7.8 mg/dL (8.4-10.2) L 09/04/17 07:04 Troponin T < 0.010 ng/mL (0.00-0.029) 09/03/17 01:33 NT-Pro-B Natriuret Pep > 61188 pg/mL (0-450) H 09/03/17 01:33 HCG, Qual Negative (Negative) 09/03/17 01:33 Phenytoin 2.4 ug/mL (10.0-20.0) L 09/03/17 01:44
[2017-09-05] MEDS ORDERED: APRESOLINE PO SCH ×2 (10:28→12:00)
[2017-09-05] MEDS ORDERED: PROCARDIA XL PO SCH ×2 (10:28→22:00)
--- NOTE | 2017-09-05 11:53 | Progress Note ---
Assessment and Plan Impression * End-stage renal disease. On maintenance hemodialysis * Hyperkalemia * Fluid overload * Uncontrolled Hypertension * Seizure disorder * Lupus * Anemia secondary to ESRD Recommendations * Her hyperkalemia has been corrected. * Continue dialysis on Tuesdays, and Saturdays schedule for now * Epogen with dialysis * No IV, BP of any puncture in her access arm * Adjust diet and meds for ESRD state * Binders with diet Subjective Date of service: 09/05/17 Interval history: Patient is comfortable. Denies any shortness of breath. Uneventful hemodialysis yesterday Objective - Vital Signs Vital signs: Vital Signs - 12hr 09/05/17 08:00 Temperature 98.3 F Pulse Rate 99 H Respiratory 20 Rate Blood Pressure 158/100 [Left] O2 Sat by Pulse 99 Oximetry - General Appearance General appearance: well-developed, well-nourished, appears stated age EENT: PERRL, mucous membranes moist Neck: no JVD, no thyromegaly, no carotid bruit, supple Respiratory: Present: Clear to Ascultation Cardiology: regular, normal heart rate, S1S2, no murmurs Gastrointestinal: normal, normoactive bowel sounds Integumentary: no rash, other (AV fistula in her right upper arm. Good bruit and thrill.) - Lab 09/03/17 01:33 09/04/17 07:04 Most recent lab results Calcium 7.8 mg/dL (8.4-10.2) L 09/04/17 07:04
[2017-09-05 13:33] VITALS: BP 142/88
--- NOTE | 2017-09-05 14:06 | Discharge Summary ---
Providers - Providers Date of Admission: 09/03/17 05:58 Date of discharge: 09/05/17 Attending physician: YANDY GONZALES 09/03/17 06:00 Consult to Physician [CONS] Routine Consulting Provider: DEBBI JACOBO Reason For Exam: PT NEEDS DIALYSIS Place consult to:: Dr. Jacobo Notified:: Answering Service Phone number called:: [phone] Was contact made?: Yes If yes, spoke with:: Dr. Jacobo Time called:: 05:51 Comment:: Dr. Scott (er dr) spoke with Dr. 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 Pt stated that she missed dialysis because she was unable to get a ride to the dialysis center. Pt was last dialyzed on Sunday [employer] TE[employer]. Pt denied fever, chills, trauma, CP, Palpitations, NVD, Productive cough or recent ill contacts. Pt seen and evaluated in ED and found to have hyperkalemia, malignant hypertension, and is in respiratory distress. Pt treated with , calcium gluconate, supplemental oxygen, nebulizer therapy. Pt. received appropriate HD and was seen by nephrology in consultation. Bp stabilized with antihypertensive meds at discharge. Resp failure was sec to missed HD and volume overload. Pt. now back to baseline. Pt. reports she has all meds at home including BP meds and needs no prescriptions Disposition: TO HOME OR SELFCARE Time spent for discharge: 32 - Discharge Diagnoses (1) Acute dyspnea Status: Acute (2) ESRD needing dialysis Status: Acute (3) Hyperkalemia Status: Acute (4) Hypertensive urgency Status: Acute (5) Acute hypoxemic respiratory failure Status: Acute Core Measure Documentation - Palliative Care Palliative Care/ Comfort Measures: Not Applicable - Core Measures Any of the following diagnoses?: none Exam - Constitutional Vitals: Temp Pulse Resp BP Pulse Ox 98.3 F 78 20 142/88 99 09/05/17 08:00 09/05/17 13:34 09/05/17 08:00 09/05/17 13:34 09/05/17 08:00 General appearance: Present: no acute distress, well-nourished - EENT Eyes: Present: PERRL ENT: hearing intact, clear oral mucosa - Neck Neck: Present: supple, normal ROM - Respiratory Respiratory effort: normal Respiratory: bilateral: CTA - Cardiovascular Heart Sounds: Present: S1 & S2. Absent: rub, click - Extremities Extremities: pulses symmetrical, No edema Peripheral Pulses: within normal limits - Abdominal General gastrointestinal: Present: soft, non-tender, non-distended, normal bowel sounds Female genitourinary: Present: normal - Integumentary Integumentary: Present: clear, warm, dry - Musculoskeletal Musculoskeletal: gait normal, strength equal bilaterally - Psychiatric Psychiatric: appropriate mood/affect, intact judgment & insight - Neurologic Neurologic: CNII-XII intact, moves all extremities Plan Activity: no restrictions Weight Bearing Status: Full Weight Bearing Diet: renal Follow up with: PRIMARY CAREMD [Primary Care Provider] - 3-5 Days
== END 2017-09-05 15:46 | disposition home or self-care (01) | DRG 189 ==
LOC: ED 00:59 → 3A 05:58
PROVIDERS: ADMIT Internal Medicine; ATTEND Hospitalist
PROC: 5A1D70Z Performance of Urinary Filtration, Intermittent, Less than 6 Hours Per Day (ICD-10-PCS; principal; 2017-09-03)
PROC: 5A1D70Z Performance of Urinary Filtration, Intermittent, Less than 6 Hours Per Day (ICD-10-PCS; 2017-09-04)
DX: J96.01 Acute respiratory failure with hypoxia (principal); N18.6 End stage renal disease; I12.0 Hypertensive chronic kidney disease with stage 5 chronic kidney disease or end stage renal disease; E87.5 Hyperkalemia; G40.909 Epilepsy, unspecified, not intractable, without status epilepticus; D63.1 Anemia in chronic kidney disease; M32.9 Systemic lupus erythematosus, unspecified; I16.0 Hypertensive urgency; F17.200 Nicotine dependence, unspecified, uncomplicated; G43.909 Migraine, unspecified, not intractable, without status migrainosus; Z95.828 Presence of other vascular implants and grafts; Z99.2 Dependence on renal dialysis; Z82.49 Family history of ischemic heart disease and other diseases of the circulatory system; Z88.8 Allergy status to other drugs, medicaments and biological substances; Z88.5 Allergy status to narcotic agent
CPT/HCPCS: 36415; 71010; 71020; 78582; 80048; 80185; 82962; 83880; 84484; 84703; 85025; 85379; 96365; 99406; A9540; A9558; J0360; J0885; J1100; J1165; J1200; J1815; J2405; J7030; J7050

== ENCOUNTER 2017-09-11 23:33 | Inpatient (IN) | payer MEDICARE ==
[2017-09-12] MEDS ORDERED: KEPPRA 1,000 MG/NS 0.75% 100ML 1,000 MG/100 ML BAG IV ONE (00:11)
[2017-09-12 00:45] LABS: Basophils % (Auto) 0.9 % (0.0-1.8); Eosinophils % (Auto) 1.5 % (0.0-4.3); Hematocrit 22.6 % (30.3-42.9); Hemoglobin 7.4 gm/dl (10.1-14.3); Mean Corpuscular HGB Conc 33 % (30-34); Mean Corpuscular Hemoglobin 31 pg (28-32); Mean Corpuscular Volume 94 fl (79-97); Platelet Count 138 K/mm3 (140-440); Red Blood Count 2.41 M/mm3 (3.65-5.03); Red Cell Distribution Width 16.1 % (13.2-15.2); White Blood Count 3.8 K/mm3 (4.5-11.0)
[2017-09-12 01:04] LABS: Calcium 7.9 mg/dL (8.4-10.2); Chloride 98.8 mmol/L (98-107)
[2017-09-12] MEDS ORDERED: DILANTIN 1,000 MG in NACL 0.9% 250ML 250 ML IV ONE (02:36)
[2017-09-12] MEDS ORDERED: NACL 0.9% 1000 ML 1,000 ML IV ONE (02:37)
--- NOTE | 2017-09-12 02:43 | Emergency Department Report ---
ED Seizure HPI - General Chief Complaint: Seizure Stated Complaint: SEIZURE Time Seen by Provider: 09/12/17 02:20 Source: EMS Mode of arrival: Stretcher Limitations: Altered Mental Status - History of Present Illness Initial Comments: 27 yo female who comes in today due to seizures. The patient was sent to the ED via ems after her family witnessed her seizing. She does have a hx of seizures for which she is supposed to take meds. The patient is a poor historian and is somnolent currently. MD Complaint: seizure -: Last night Description of Episode: other (Unknown ) Duration of Episode: 2 -: minutes(s) Witnessed:: Yes Trauma: No Seizure History: known seizure disorder, history of non-compliance Place: home Possible Precipitating Event: other (unknown ) Treatments Prior to Arrival: none - Related Data Home Medications Medication Instructions Recorded Confirmed Last Taken Phenytoin Sodium Extended 100 mg PO QHS 09/03/17 09/03/17 Unknown [Dilantin] Previous Rx's Medication Instructions Recorded Last Taken Type Clonidine HCl [Catapres] 0.3 mg PO TID #90 tablet 07/22/17 Unknown Rx NIFEdipine XL [Procardia Xl] 60 mg PO Q12HR #60 tablet 07/22/17 Unknown Rx levETIRAcetam [Keppra TAB] 500 mg PO BID #60 tablet 07/22/17 Unknown Rx Allergies Allergy/AdvReac Type Severity Reaction Status Date / Time acetaminophen [From Percocet] AdvReac Unknown Verified 09/03/17 01:06 metoprolol AdvReac Vomiting Verified 09/03/17 01:06 oxycodone HCl [From Percocet] AdvReac Unknown Verified 09/03/17 01:06 ED Review of Systems ROS: Stated complaint: SEIZURE Other details as noted in HPI Constitutional: denies: chills, fever Eyes: denies: eye pain, eye discharge, vision change ENT: denies: ear pain, throat pain Respiratory: denies: cough, shortness of breath, wheezing Cardiovascular: denies: chest pain, palpitations Endocrine: no symptoms reported Gastrointestinal: denies: abdominal pain, nausea, diarrhea Genitourinary: denies: urgency, dysuria, discharge Musculoskeletal: back pain Skin: denies: rash, lesions Neurological: denies: headache, weakness, paresthesias Psychiatric: denies: anxiety, depression Hematological/Lymphatic: denies: easy bleeding, easy bruising ED Past Medical Hx - Past Medical History Hx Hypertension: Yes Hx Heart Attack/AMI: No Hx Congestive Heart Failure: No Hx Diabetes: No Hx Pulmonary Embolism: No Hx Liver Disease: No Hx Renal Disease: Yes Hx Sickle Cell Disease: No Hx Headaches / Migraines: Yes (3 nights) Hx Seizures: Yes Hx Asthma: Yes Hx COPD: No Additional medical history: Lupus - Surgical History Additional Surgical History: fistula right arm - Social History Smoking Status: Never Smoker Substance Use Type: None - Medications Home Medications: Home Medications Medication Instructions Recorded Confirmed Last Taken Type Clonidine HCl [Catapres] 0.3 mg PO TID #90 tablet 07/22/17 09/03/17 Unknown Rx NIFEdipine XL [Procardia Xl] 60 mg PO Q12HR #60 tablet 07/22/17 09/03/17 Unknown Rx levETIRAcetam [Keppra TAB] 500 mg PO BID #60 tablet 07/22/17 09/03/17 Unknown Rx Phenytoin Sodium Extended 100 mg PO QHS 09/03/17 09/03/17 Unknown History [Dilantin] ED Physical Exam - General Limitations: Altered Mental Status General appearance: postictal, other (Somnolent ) - Head Head exam: Present: atraumatic, normocephalic - Eye Eye exam: Present: normal appearance - ENT ENT exam: Present: mucous membranes moist - Neck Neck exam: Present: normal inspection - Respiratory Respiratory exam: Present: normal lung sounds bilaterally. Absent: respiratory distress - Cardiovascular Cardiovascular Exam: Present: regular rate, normal rhythm. Absent: systolic murmur, diastolic murmur, rubs, gallop - GI/Abdominal GI/Abdominal exam: Present: soft, normal bowel sounds - Extremities Exam Extremities exam: Present: normal inspection - Back Exam Back exam: Present: normal inspection - Neurological Exam Neurological exam: Present: other (somnolent ) - Psychiatric Psychiatric exam: Present: other (somnolent ) - Skin Skin exam: Present: warm, dry, intact, normal color. Absent: rash ED Course Vital Signs 09/11/17 09/12/17 09/12/17 23:42 00:00 00:01 Temperature 98.8 F Pulse Rate 89 94 H Respiratory 20 23 Rate Blood Pressure 167/95 183/97 O2 Sat by Pulse 98 100 99 Oximetry 12/03/2409/12/17 09/12/17 00:10 00:11 00:30 Temperature Pulse Rate 85 84 Respiratory 23 19 22 Rate Blood Pressure 167/95 165/93 O2 Sat by Pulse 99 Oximetry 09/12/17 09/12/17 09/12/17 01:00 01:30 02:00 Temperature Pulse Rate 85 76 73 Respiratory 10 L 22 18 Rate Blood Pressure 169/98 166/92 168/93 O2 Sat by Pulse 100 100 100 Oximetry 09/12/17 09/12/17 09/12/17 02:30 03:00 03:31 Temperature Pulse Rate 73 73 95 H Respiratory 17 17 15 Rate Blood Pressure 170/94 175/98 175/98 O2 Sat by Pulse 100 100 100 Oximetry 09/12/17 04:01 Temperature Pulse Rate 109 H Respiratory 14 Rate Blood Pressure 175/98 O2 Sat by Pulse Oximetry - Reevaluation(s) Reevaluation #1: 09/12/17 04:44 No seizures reported since being present in the ED. H/H changed from previous visit. Patient does admit to being on her menstrual cycle currently. Patient to be admitted for further evaluation. ED Medical Decision Making - Lab Data Result diagrams: 09/12/17 00:19 09/12/17 00:19 - Radiology Data Radiology results: report reviewed Critical care attestation.: If time is entered above; I have spent that time in minutes in the direct care of this critically ill patient, excluding procedure time. ED Disposition Clinical Impression: Seizure disorder, Non-compliance, ESRD (end stage renal disease) on dialysis, Anemia Disposition: OP ADMIT IP TO THIS HOSP Is pt being admited?: Yes Does the pt Need Aspirin: No Condition: Stable Referrals: PRIMARY CARE, [Primary Care Provider] - 3-5 Days Time of Disposition: 04:48
--- NOTE | 2017-09-12 03:03 | XRay Report ---
FINAL REPORT EXAM: XR CHEST 1V AP HISTORY: seizure COMPARISON: September 03, 2017 FINDINGS: Frontal view(s) of the chest obtained. Stable mild to moderate cardiac enlargement. Shallow inspiration. Prominence of the pulmonary vasculature centrally without overt edema. Stable linear scarring at the left lung base. No pneumothorax. IMPRESSION: Stable cardiac enlargement. Shallow inspiration. No acute infiltrates. Stable scarring at the left lung base.
[2017-09-12] MEDS ORDERED: BENADRYL ONE (04:01)
[2017-09-12] MEDS ORDERED: BENADRYL IV ONE (04:07)
--- NOTE | 2017-09-12 09:01 | History and Physical Report ---
<YOLANDA MCKEON - Last Filed: 09/12/17 13:24> History of Present Illness Date of examination: 09/12/17 Date of admission: 09/12/2017 Chief complaint: Seizure History of present illness: Patient is a 27-year-old -Niuean female with past medical history of hypertension, lupus, end-stage renal disease MWF and asthma who is brought to the hospital by EMS for seizure. Patient currently very lethargic, follows simple command. Patient understood the basic words spoken, but struggle to get words out and somnolent currently, Therefore poor historian. Patient had generalized tonic-clonic seizure this morning while she was at home. History obtained from ER physician and charts. patient denies headache, chest pain shortness of breath or neck pain. CTof the head negative at this time. Patient is currently taking Keppra. Past History Past Medical History: other (Asthma and lupus ) Past Surgical History: Other Social history: denies: smoking, alcohol abuse Family history: denies: hypertension Medications and Allergies Allergies Allergy/AdvReac Type Severity Reaction Status Date / Time acetaminophen [From Percocet] AdvReac Unknown Verified 09/03/17 01:06 metoprolol AdvReac Vomiting Verified 09/03/17 01:06 oxycodone HCl [From Percocet] AdvReac Unknown Verified 09/03/17 01:06 Home Medications Medication Instructions Recorded Confirmed Last Taken Type Clonidine HCl [Catapres] 0.3 mg PO TID #90 tablet 07/22/17 09/12/17 Unknown Rx NIFEdipine XL [Procardia Xl] 60 mg PO Q12HR #60 tablet 07/22/17 09/12/17 Unknown Rx levETIRAcetam [Keppra TAB] 500 mg PO BID #60 tablet 07/22/17 09/12/17 Unknown Rx Phenytoin Sodium Extended 100 mg PO QHS 09/03/17 09/12/17 Unknown History [Dilantin] Active Meds: Active Medications Heparin Sodium (Porcine) (Heparin) 5,000 unit SUB-Q Q12HR [facility] Hydralazine HCl (Apresoline) 10 mg IV Q4HR PRN PRN Reason: Blood Pressure Ondansetron HCl (Zofran) 4 mg IV Q4H PRN PRN Reason: Nausea And Vomiting Pantoprazole Sodium (Protonix) 40 mg PO QDAY [facility] Review of Systems Constitutional: no weight gain, no fever, no chills Ears, nose, mouth and throat: no tinnitis, no decreased hearing, no nose pain, no nasal congestion Breasts: no swelling Cardiovascular: no palpitations, no rapid/irregular heart beat, no edema Respiratory: no cough with sputum, no excessive sputum, no hemoptysis Gastrointestinal: no vomiting, no diarrhea, no constipation Genitourinary Female: no pelvic pain, no flank pain, no menorrhagia Rectal: no incontinence, no bleeding Musculoskeletal: no shooting arm pain, no arm numbness/tingling, no low back pain Integumentary: no sores, no wounds, no jaundice Neurological: no parathesias, no numbness, no tingling Psychiatric: no memory loss, no change in sleep habits, no sleep disturbances, no insomnia, no hypersomnia Endocrine: no heat intolerance, no polyphagia, no excessive thirst, no polydipsia Hematologic/Lymphatic: no easy bruising, no easy bleeding Allergic/Immunologic: no urticaria, no allergic rhinitis Exam - Constitutional Vitals: Temp Pulse Resp BP Pulse Ox 98.8 F 90 16 144/90 100 09/12/17 00:01 09/12/17 07:31 09/12/17 07:31 09/12/17 07:31 09/12/17 07:31 General appearance: Present: no acute distress - EENT Eyes: Present: PERRL ENT: hearing intact, clear oral mucosa - Neck Neck: Present: supple - Respiratory Respiratory effort: normal Respiratory: bilateral: CTA - Cardiovascular Rhythm: regular Heart Sounds: Present: S1 & S2 - Abdominal General gastrointestinal: Present: soft, non-tender Female genitourinary: Present: deferred - Rectal Rectal Exam: deferred - Integumentary Integumentary: Present: clear, warm, dry - Musculoskeletal Musculoskeletal: strength equal bilaterally - Psychiatric Psychiatric: appropriate mood/affect - Neurologic Neurologic: moves all extremities - Allied Health Allied health notes reviewed: nursing Results - Labs CBC & Chem 7: 09/12/17 00:19 09/12/17 00:19 Labs: Laboratory Last Values WBC 3.8 K/mm3 (4.5-11.0) L 09/12/17 00:19 RBC 2.41 M/mm3 (3.65-5.03) L 09/12/17 00:19 Hgb 7.4 gm/dl (10.1-14.3) L 09/12/17 00:19 Hct 22.6 % (30.3-42.9) L 09/12/17 00:19 MCV 94 fl (79-97) 09/12/17 00:19 MCH 31 pg (28-32) 09/12/17 00:19 MCHC 33 % (30-34) 09/12/17 00:19 RDW 16.1 % (13.2-15.2) H 09/12/17 00:19 Plt Count 138 K/mm3 (140-440) L 09/12/17 00:19 Lymph % (Auto) 18.6 % (13.4-35.0) 09/12/17 00:19 Wallace % (Auto) 6.8 % (0.0-7.3) 09/12/17 00:19 Eos % (Auto) 1.5 % (0.0-4.3) 09/12/17 00:19 Baso % (Auto) 0.9 % (0.0-1.8) 09/12/17 00:19 Lymph # 0.7 K/mm3 (1.2-5.4) L 09/12/17 00:19 Wallace # 0.3 K/mm3 (0.0-0.8) 09/12/17 00:19 Eos # 0.1 K/mm3 (0.0-0.4) 09/12/17 00:19 Baso # 0.0 K/mm3 (0.0-0.1) 09/12/17 00:19 Seg Neutrophils % 72.2 % (40.0-70.0) H 09/12/17 00:19 Seg Neutrophils # 2.7 K/mm3 (1.8-7.7) 09/12/17 00:19 Sodium 137 mmol/L (137-145) 09/12/17 00:19 Potassium 5.0 mmol/L (3.6-5.0) 09/12/17 00:19 Chloride 98.8 mmol/L (98-107) 09/12/17 00:19 Carbon Dioxide 26 mmol/L (22-30) 09/12/17 00:19 Anion Gap 17 mmol/L 09/12/17 00:19 BUN 34 mg/dL (7-17) H 09/12/17 00:19 Creatinine 8.8 mg/dL (0.7-1.2) H 09/12/17 00:19 Estimated GFR 7 ml/min 09/12/17 00:19 BUN/Creatinine Ratio 4 % 09/12/17 00:19 Glucose 86 mg/dL (65-100) 09/12/17 00:19 Calcium 7.9 mg/dL (8.4-10.2) L 09/12/17 00:19 Magnesium 2.00 mg/dL (1.7-2.3) 09/12/17 00:19 Total Creatine Kinase 44 units/L (30-135) 09/12/17 00:19 HCG, Qual Negative (Negative) 09/12/17 00:19 Phenytoin 1.8 ug/mL (10.0-20.0) L 09/12/17 00:19 Assessment and Plan Assessment and plan: Patient is a 27-year-old -Niuean female with past medical history of hypertension, lupus, end-stage renal disease MWF and asthma who is brought to the hospital by EMS for seizure. Metabolic encephalopathy Secondary to seizure, postictal state. CT of the head unremarkable. Seizure precautions We will get MRI of the brain Supportive care Status Epilepticus Started on PO Keppera Frequent neuro checks. We will obtain EEG Ativan when necessary Oxygen supplement when necessary Implement seizure precautions Neurology consulted Supportive care End-stage renal disease Nephrology consulted Chronic anemia Next likely due to ESRD Stable, No transfusion at this time Closely monitor H&H Medical Noncompliance Patient noncompliance with Keppra Counseling will be given when patient become awake. Hypertension Resume home antihypertensive medication IV hydralazine SBP >160 Closely monitor blood pressure History of lupus Stable History Asthma Stable DVT prophylaxis Heparin Advance Directives: Yes VTE prophylaxis?: Chemical Contraindication Mechanical VTE Prophylaxis: Treatment Not Indicated Plan of care discussed with patient/family: Yes <JANUARY PEÑA - Last Filed: 09/12/17 13:29> History of Present Illness Date of admission: 09/12/17 08:52 Medications and Allergies Active Meds: Active Medications Clonidine HCl (Catapres) 0.3 mg PO TID [facility] Last Admin: 09/12/17 10:39 Dose: Not Given Heparin Sodium (Porcine) (Heparin) 5,000 unit SUB-Q Q12HR [facility] Hydralazine HCl (Apresoline) 10 mg IV Q4HR PRN PRN Reason: Blood Pressure Levetiracetam (Keppra) 500 mg PO BID [facility] Last Admin: 09/12/17 10:36 Dose: 500 mg Nifedipine (Procardia Xl) 60 mg PO Q12HR [facility] Last Admin: 09/12/17 10:46 Dose: 60 mg Ondansetron HCl (Zofran) 4 mg IV Q4H PRN PRN Reason: Nausea And Vomiting Last Admin: 09/12/17 10:08 Dose: 4 mg Pantoprazole Sodium (Protonix) 40 mg PO QDAY [facility] Last Admin: 09/12/17 10:36 Dose: 40 mg Phenytoin (Dilantin) 100 mg PO QHS [facility] Exam - Constitutional Vitals: Temp Pulse Resp BP Pulse Ox 98.7 F 89 20 132/86 97 09/12/17 12:17 09/12/17 12:17 09/12/17 12:17 09/12/17 12:17 09/12/17 12:17 Results - Labs CBC & Chem 7: 09/12/17 00:19 09/12/17 00:19 Labs: Laboratory Last Values WBC 3.8 K/mm3 (4.5-11.0) L 09/12/17 00:19 RBC 2.41 M/mm3 (3.65-5.03) L 09/12/17 00:19 Hgb 7.4 gm/dl (10.1-14.3) L 09/12/17 00:19 Hct 22.6 % (30.3-42.9) L 09/12/17 00:19 MCV 94 fl (79-97) 09/12/17 00:19 MCH 31 pg (28-32) 09/12/17 00:19 MCHC 33 % (30-34) 09/12/17 00:19 RDW 16.1 % (13.2-15.2) H 09/12/17 00:19 Plt Count 138 K/mm3 (140-440) L 09/12/17 00:19 Lymph % (Auto) 18.6 % (13.4-35.0) 09/12/17 00:19 Wallace % (Auto) 6.8 % (0.0-7.3) 09/12/17 00:19 Eos % (Auto) 1.5 % (0.0-4.3) 09/12/17 00:19 Baso % (Auto) 0.9 % (0.0-1.8) 09/12/17 00:19 Lymph # 0.7 K/mm3 (1.2-5.4) L 09/12/17 00:19 Wallace # 0.3 K/mm3 (0.0-0.8) 09/12/17 00:19 Eos # 0.1 K/mm3 (0.0-0.4) 09/12/17 00:19 Baso # 0.0 K/mm3 (0.0-0.1) 09/12/17 00:19 Seg Neutrophils % 72.2 % (40.0-70.0) H 09/12/17 00:19 Seg Neutrophils # 2.7 K/mm3 (1.8-7.7) 09/12/17 00:19 Sodium 137 mmol/L (137-145) 09/12/17 00:19 Potassium 5.0 mmol/L (3.6-5.0) 09/12/17 00:19 Chloride 98.8 mmol/L (98-107) 09/12/17 00:19 Carbon Dioxide 26 mmol/L (22-30) 09/12/17 00:19 Anion Gap 17 mmol/L 09/12/17 00:19 BUN 34 mg/dL (7-17) H 09/12/17 00:19 Creatinine 8.8 mg/dL (0.7-1.2) H 09/12/17 00:19 Estimated GFR 7 ml/min 09/12/17 00:19 BUN/Creatinine Ratio 4 % 09/12/17 00:19 Glucose 86 mg/dL (65-100) 09/12/17 00:19 Calcium 7.9 mg/dL (8.4-10.2) L 09/12/17 00:19 Magnesium 2.00 mg/dL (1.7-2.3) 09/12/17 00:19 Total Creatine Kinase 44 units/L (30-135) 09/12/17 00:19 HCG, Qual Negative (Negative) 09/12/17 00:19 Phenytoin 1.8 ug/mL (10.0-20.0) L 09/12/17 00:19 Assessment and Plan Assessment and plan: I saw and evaluated the patient. I agree with the findings and the plan of care as documented in the Nurse Practitioner's
[2017-09-12] MEDS ORDERED: APRESOLINE IV PRN (09:30)
--- NOTE | 2017-09-12 09:32 | Cat Scan Report ---
CT HEAD WITHOUT CONTRAST: HISTORY: Headaches, seizure. TECHNIQUE: Sequential 2.5mm CT images. COMPARISON: 07/20/17. FINDINGS: Cerebral Parenchyma: Within normal limits. Cerebellum: Within normal limits. Brainstem: Within normal limits. Ventricles: Normal. Sella: Normal. Extra-axial spaces: Normal. Basal Cisterns: Normal. Intracranial Hemorrhage: None. Midline Shift: None. Calvarium: Normal. Sinuses: Normal. Mastoid Air Cells: Normal. Visualized Orbits: Normal. IMPRESSION: Cranial CT scan within normal limits.
[2017-09-12] MEDS ORDERED: ZOFRAN IV PRN (10:00)
[2017-09-12] MEDS: PROTONIX PO SCH (10:36)
[2017-09-12] MEDS: KEPPRA PO SCH ×2 (10:36→21:42)
[2017-09-12] MEDS: CATAPRES PO SCH ×3 (10:39→21:41)
[2017-09-12] MEDS: PROCARDIA XL PO SCH ×2 (10:46→21:41)
[2017-09-12] MEDS ORDERED: NON-FORMULARY (Clonidine Hcl [Catapres] 0.3 MG) PO SCH (14:00)
[2017-09-12] MEDS ORDERED: DILANTIN PO SCH (22:00)
--- NOTE | 2017-09-13 08:22 | Consultation ---
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 as ther dilantin level is 1.8 patient has RF and dilantin actually good choice as far as seizure med will advise patient on med therapy Past History Past Medical History: other (Asthma and lupus ) Past Surgical History: Other Social history: denies: smoking, alcohol abuse Family history: denies: hypertension Medications and Allergies Allergies Allergy/AdvReac Type Severity Reaction Status Date / Time acetaminophen [From Percocet] AdvReac Unknown Verified 09/03/17 01:06 metoprolol AdvReac Vomiting Verified 09/03/17 01:06 oxycodone HCl [From Percocet] AdvReac Unknown Verified 09/03/17 01:06 Home Medications Medication Instructions Recorded Confirmed Last Taken Type Clonidine HCl [Catapres] 0.3 mg PO TID #90 tablet 07/22/17 09/13/17 Unknown Rx NIFEdipine XL [Procardia Xl] 60 mg PO Q12HR #60 tablet 07/22/17 09/13/17 Unknown Rx levETIRAcetam [Keppra TAB] 500 mg PO BID #60 tablet 07/22/17 09/13/17 Unknown Rx Phenytoin Sodium Extended 100 mg PO QHS 09/03/17 09/13/17 Unknown History [Dilantin] Active Meds: Active Medications Clonidine HCl (Catapres) 0.3 mg PO TID [facility] Last Admin: 09/12/17 21:41 Dose: 0.3 mg Heparin Sodium (Porcine) (Heparin) 5,000 unit SUB-Q Q12HR [facility] Hydralazine HCl (Apresoline) 10 mg IV Q4HR PRN PRN Reason: Blood Pressure Levetiracetam (Keppra) 500 mg PO BID [facility] Last Admin: 09/12/17 21:42 Dose: 500 mg Nifedipine (Procardia Xl) 60 mg PO Q12HR [facility] Last Admin: 09/12/17 21:41 Dose: 60 mg Ondansetron HCl (Zofran) 4 mg IV Q4H PRN PRN Reason: Nausea And Vomiting Last Admin: 09/12/17 10:08 Dose: 4 mg Pantoprazole Sodium (Protonix) 40 mg PO QDAY [facility] Last Admin: 09/12/17 10:36 Dose: 40 mg Phenytoin (Dilantin) 100 mg PO QHS [facility] Last Admin: 09/12/17 21:42 Dose: 100 mg Physical Examination - Vital Signs Vital Signs: Vital Signs Pulse Ox 98 09/11/17 23:42 Results - Laboratory Findings CBC and BMP: 09/12/17 00:19 09/12/17 00:19 Abnormal Lab Findings: Abnormal Labs 09/12/17 09/12/17 09/12/17 00:19 00:19 00:19 WBC 3.8 L RBC 2.41 L Hgb 7.4 L Hct 22.6 L RDW 16.1 H Plt Count 138 L Lymph # 0.7 L Seg Neutrophils % 72.2 H BUN 34 H Creatinine 8.8 H Calcium 7.9 L Phenytoin 1.8 L
[2017-09-13 08:38] LABS: Urine Drugs of Abuse Note Disclamer
[2017-09-13 09:00] LABS: Bilirubin,Urine NEG (Negative); Blood,Urine LG (Negative); Ketones,Urine NEG (Negative); Leukocyte Esterase,Urine NEG (Negative); Nitrite,Urine NEG (Negative); Urobilinogen,Urine < 2.0 mg/dL (<2.0)
[2017-09-13 09:05] LABS: RBC,Urine > 182.0 /HPF (0.0-6.0)
--- NOTE | 2017-09-13 09:58 | Magnetic Resonance Report ---
MRI BRAIN WITHOUT CONTRAST: 09/13/17 CLINICAL: Seizure. COMPARISON: 09/12/17 CT Head TECHNIQUE: Axial diffusion, T1, T2, FLAIR, gradient echo T2*, and sagittal T1 sequences on a 1.5 Valerie magnet. FINDINGS: The ventricles and sulci are slightly large for age. Focal linear hypointense signal at the margins of a right frontal lobe sulcus on the gradient echo sequence and no other abnormal signal. No restricted diffusion. No mass or mass effect. No hemorrhage, edema or extra-axial collection. Normal pituitary and optic chiasm. The brainstem and cerebellum are normal. Intact vascular flow voids. Normal sinuses. The orbits, and soft tissues are normal. Normal calvarium and skull base. IMPRESSION: Focal signal abnormality in the right frontal lobe is consistent with focal hemosiderin deposition and is likely related to a remote tiny hemorrhage. Focal mineralization is a second possibility but there is no corresponding calcification on the CT. No evidence of acute/subacute infarct or hemorrhage and no mass.
[2017-09-13] MEDS ORDERED: HEPARIN SUB-Q SCH (10:00)
[2017-09-13] MEDS: CATAPRES PO SCH ×3 (10:53→18:20)
[2017-09-13] MEDS: KEPPRA PO SCH (10:53)
[2017-09-13] MEDS: PROCARDIA XL PO SCH ×2 (10:53→18:21)
[2017-09-13] MEDS: PROTONIX PO SCH (10:53)
--- NOTE | 2017-09-13 12:05 | Discharge Summary ---
Providers - Providers Date of Admission: 09/12/17 08:52 Date of discharge: 09/13/17 Attending physician: JANUARY PEÑA 09/12/17 08:53 Consult to Physician [CONS] Routine Consulting Provider: CONNER SALCEDO Reason For Exam: esrd on hd Place consult to:: Notified:: voice mail Phone number called:: Was contact made?: No Time called:: 16:15 Comment:: left msg 09/12/17 08:55 Consult to Physician [CONS] Routine Consulting Provider: PATTIE DICKENS Reason For Exam: seizures, read EEG Place consult to:: dr. 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 Metabolic encephalopathy Secondary to seizure, postictal state. CT of the head unremarkable. Seizure precautions We will get MRI of the brain Supportive care Status Epilepticus Started on PO Keppera Frequent neuro checks. We will obtain EEG Ativan when necessary Oxygen supplement when necessary Implement seizure precautions Neurology consulted Supportive care End-stage renal disease Nephrology consulted Chronic anemia Next likely due to ESRD Stable, No transfusion at this time Closely monitor H&H Medical Noncompliance Patient noncompliance with Keppra Counseling will be given when patient become awake. Hypertension Resume home antihypertensive medication IV hydralazine SBP >160 Closely monitor blood pressure History of lupus Stable History Asthma Stable DVT prophylaxis Heparin Brain MRI: Focal signal abnormality in the right frontal lobe is consistent with focal hemosiderin deposition is likely related to a remote tiny hemorrhage. Focal mineralization is a second possibility but there is no corresponding consultation and CT. No evidence of acute/subacute infarct hemorrhage and no mass. Main issue is non compliance: Counseling done Cocaine abuse on UDS and tobacco abuse: Counseling done to stop both. Patient states "the blunt was laced with cocaine"; however marijuana on UDS was negative. So, patient may not be telling the truth. Disposition: DC-01 TO HOME OR SELFCARE Time spent for discharge: 34 minutes Core Measure Documentation - Palliative Care Palliative Care/ Comfort Measures: Not Applicable - Core Measures Any of the following diagnoses?: none - VTE Discharge Requirements Deep Vein Thrombosis/Pulmonary Embolism Present on Admission: No Has pt received <5 days of overlap therapy or INR<2.0: No Anticoagulant overlap therapy prescribed at discharge: No Contraindication No Overlap Therapy order at DC: Not Indicated Exam - Physical Exam Narrative exam: General appearance: Present: no acute distress - HEENT Eyes: Present: PERRL ENT: hearing intact, clear oral mucosa - Neck Neck: Present: supple - Respiratory Respiratory effort: normal Respiratory: bilateral: CTA - Cardiovascular Rhythm: regular Heart Sounds: Present: S1 & S2 - Abdominal General gastrointestinal: Present: soft, non-tender Female genitourinary: Present: deferred - Rectal Rectal Exam: deferred - Integumentary Integumentary: Present: clear, warm, dry - Musculoskeletal Musculoskeletal: strength equal bilaterally - Psychiatric Psychiatric: appropriate mood/affect - Neurologic Neurologic: moves all extremities - Allied Health Allied health notes reviewed: nursing - Constitutional Vitals: Temp Pulse Resp BP Pulse Ox 98.5 F 85 20 139/98 100 09/13/17 08:13 09/13/17 08:13 09/13/17 08:13 09/13/17 08:13 09/13/17 08:13 Plan Activity: other Diet: regular Special Instructions: smoking cessation Follow up with: PRIMARY CAREMD [Primary Care Provider] - 3-5 Days PATTIE DICKENS MD [Staff Physician] - 7 Days CONNER SALCEDO MD [Staff Physician] - 7 Days Prescriptions: Phenytoin Sodium Extended [Dilantin] 100 mg PO QHS #30 capsule Clonidine HCl [Catapres] 0.3 mg PO TID #90 tablet levETIRAcetam [Keppra TAB] 500 mg PO BID #60 tablet
[2017-09-13 12:23] LABS: Hematocrit 22.5 % (30.3-42.9); Hemoglobin 7.2 gm/dl (10.1-14.3); Mean Corpuscular HGB Conc 32 % (30-34); Mean Corpuscular Hemoglobin 31 pg (28-32); Mean Corpuscular Volume 97 fl (79-97); Platelet Count 152 K/mm3 (140-440); Red Blood Count 2.34 M/mm3 (3.65-5.03); Red Cell Distribution Width 16.2 % (13.2-15.2); White Blood Count 3.5 K/mm3 (4.5-11.0)
[2017-09-13 12:38] LABS: Calcium 8.3 mg/dL (8.4-10.2); Chloride 103.8 mmol/L (98-107)
[2017-09-13] MEDS ORDERED: NACL 0.9% 100 ML IV PRN (13:35)
[2017-09-13] MEDS ORDERED: HEPARIN 10,000 UNITS/10 ML IV PRN (13:35)
--- NOTE | 2017-09-13 15:56 | Consultation ---
History of Present Illness - Reason for Consult Consult date: 09/13/17 end stage renal disease Requesting physician: JANUARY PEÑA - History of Present Illness Patient is a 27-year-old -[place] female with past medical history of hypertension, lupus, end-stage renal disease MWF and asthma who is brought to the hospital by EMS for seizure. Patient currently very lethargic, follows simple command. Patient understood the basic words spoken, but struggle to get words out and somnolent currently, Therefore poor historian. Patient had generalized tonic-clonic seizure this morning while she was at home. History obtained from ER physician and charts. patient denies headache, chest pain shortness of breath or neck pain. CTof the head negative at this time. Patient is currently taking Keppra. Past History Past Medical History: other (Asthma and lupus ) Past Surgical History: Other Social history: denies: smoking, alcohol abuse Family history: denies: hypertension Review of Systems Constitutional: no weight gain, no fever, no chills Ears, nose, mouth and throat: no tinnitis, no decreased hearing, no nose pain, no nasal congestion Breasts: no swelling Cardiovascular: no palpitations, no rapid/irregular heart beat, no edema Respiratory: no cough with sputum, no excessive sputum, no hemoptysis Gastrointestinal: no vomiting, no diarrhea, no constipation Genitourinary Female: no pelvic pain, no flank pain, no menorrhagia Rectal: no incontinence, no bleeding Musculoskeletal: no shooting arm pain, no arm numbness/tingling, no low back pain Integumentary: no sores, no wounds, no jaundice Neurological: no parathesias, no numbness, no tingling Psychiatric: no memory loss, no change in sleep habits, no sleep disturbances, no insomnia, no hypersomnia Endocrine: no heat intolerance, no polyphagia, no excessive thirst, no polydipsia Hematologic/Lymphatic: no easy bruising, no easy bleeding Allergic/Immunologic: no urticaria, no allergic rhinitis Past History Past Medical History: other (Asthma and lupus ) Past Surgical History: Other Social history: denies: smoking, alcohol abuse Family history: denies: hypertension Medications and Allergies Allergies Allergy/AdvReac Type Severity Reaction Status Date / Time acetaminophen [From Percocet] AdvReac Unknown Verified 09/03/17 01:06 metoprolol AdvReac Vomiting Verified 09/03/17 01:06 oxycodone HCl [From Percocet] AdvReac Unknown Verified 09/03/17 01:06 Home Medications Medication Instructions Recorded Confirmed Last Taken Type NIFEdipine XL [Procardia Xl] 60 mg PO Q12HR #60 tablet 07/22/17 09/13/17 Unknown Rx Clonidine HCl [Catapres] 0.3 mg PO TID #90 tablet 09/13/17 Unknown Rx Phenytoin Sodium Extended 100 mg PO QHS #30 capsule 09/13/17 Unknown Rx [Dilantin] levETIRAcetam [Keppra TAB] 500 mg PO BID #60 tablet 09/13/17 Unknown Rx Active Meds: Active Medications Clonidine HCl (Catapres) 0.3 mg PO TID [facility] Last Admin: 09/13/17 15:26 Dose: Not Given Heparin Sodium (Porcine) (Heparin) 5,000 unit SUB-Q Q12HR [facility] Last Admin: 09/13/17 10:53 Dose: Not Given Heparin Sodium (Porcine) (Heparin 10,000 Units/10 Ml) 2,000 unit IV [facility] PRN PRN Reason: hemodialysis Hydralazine HCl (Apresoline) 10 mg IV Q4HR PRN PRN Reason: Blood Pressure Sodium Chloride (Nacl 0.9%) 100 mls @ 999 mls/hr IV [facility] PRN PRN Reason: Hypotension Levetiracetam (Keppra) 500 mg PO BID [facility] Last Admin: 09/13/17 10:53 Dose: 500 mg Nifedipine (Procardia Xl) 60 mg PO Q12HR [facility] Last Admin: 09/13/17 10:53 Dose: Not Given Ondansetron HCl (Zofran) 4 mg IV Q4H PRN PRN Reason: Nausea And Vomiting Last Admin: 09/12/17 10:08 Dose: 4 mg Pantoprazole Sodium (Protonix) 40 mg PO QDAY [facility] Last Admin: 09/13/17 10:53 Dose: 40 mg Phenytoin (Dilantin) 100 mg PO QHS [facility] Last Admin: 09/12/17 21:42 Dose: 100 mg Exam - Vital Signs Vital signs: Vital Signs Pulse Ox 98 09/11/17 23:42 - Physical Exam Narrative exam: General appearance: Present: no acute distress - EENT Eyes: Present: PERRL ENT: hearing intact, clear oral mucosa - Neck Neck: Present: supple - Respiratory Respiratory effort: normal Respiratory: bilateral: CTA - Cardiovascular Rhythm: regular Heart Sounds: Present: S1 & S2 - Abdominal General gastrointestinal: Present: soft, non-tender Female genitourinary: Present: deferred - Rectal Rectal Exam: deferred - Integumentary Integumentary: Present: clear, warm, dry - Musculoskeletal Musculoskeletal: strength equal bilaterally - Psychiatric Psychiatric: appropriate mood/affect - Neurologic Neurologic: moves all extremities - Allied Health Allied health notes reviewed: nursing Results - Lab Results 09/13/17 10:56 09/13/17 10:56 Most recent lab results Calcium 8.3 mg/dL (8.4-10.2) L 09/13/17 10:56 Magnesium 2.00 mg/dL (1.7-2.3) 09/12/17 00:19 Assessment and Plan Impression: * ESRD * Seizure disorder * HTN * Noncompliance * SLE * Anemia in esrd Plan: * hd today and qQMF for volume and solute control * strict i/os * uf as tolerated * stress compliance with medical therapy and dialysis * renal diet * hold epogen with seizures
[2017-09-13] MEDS ORDERED: ULTRAM PO PRN (18:14)
--- NOTE | 2017-09-13 18:15 | Progress Note ---
Assessment and Plan Assessment and plan: Patient is a 27-year-old -[place] female with past medical history of hypertension, lupus, end-stage renal disease MWF and asthma who is brought to the hospital by EMS for seizure. Metabolic encephalopathy Secondary to seizure, postictal state. CT of the head unremarkable. Seizure precautions We will get MRI of the brain Supportive care Status Epilepticus Started on PO Keppera Frequent neuro checks. We will obtain EEG Ativan when necessary Oxygen supplement when necessary Implement seizure precautions Neurology consulted Supportive care End-stage renal disease Nephrology consulted Chronic anemia Next likely due to ESRD Stable, No transfusion at this time Closely monitor H&H Medical Noncompliance Patient noncompliance with Keppra Counseling will be given when patient become awake. Hypertension Resume home antihypertensive medication IV hydralazine SBP >160 Closely monitor blood pressure History of lupus Stable History Asthma Stable DVT prophylaxis Heparin Brain MRI: Focal signal abnormality in the right frontal lobe is consistent with focal hemosiderin deposition is likely related to a remote tiny hemorrhage. Focal mineralization is a second possibility but there is no corresponding consultation and CT. No evidence of acute/subacute infarct hemorrhage and no mass. Main issue is non compliance: Counseling done Cocaine abuse on UDS and tobacco abuse: Counseling done to stop both. Patient states "the blunt was laced with cocaine"; however marijuana on UDS was negative. So, patient may not be telling the truth. BP is high because RN held patient clonidine and procardia dose. RN took iv out and patient is seeking narcotics. History Interval history: pt seen and examined. no more seizures. Hospitalist Physical - Physical exam Narrative exam: General appearance: Present: no acute distress - HEENT Eyes: Present: PERRL ENT: hearing intact, clear oral mucosa - Neck Neck: Present: supple - Respiratory Respiratory effort: normal Respiratory: bilateral: CTA - Cardiovascular Rhythm: regular Heart Sounds: Present: S1 & S2 - Abdominal General gastrointestinal: Present: soft, non-tender Female genitourinary: Present: deferred - Rectal Rectal Exam: deferred - Integumentary Integumentary: Present: clear, warm, dry - Musculoskeletal Musculoskeletal: strength equal bilaterally - Psychiatric Psychiatric: appropriate mood/affect - Neurologic Neurologic: moves all extremities - Allied Health Allied health notes reviewed: nursing - Constitutional Vitals: Temp Pulse Resp BP Pulse Ox 98.5 F 117 H 18 179/114 100 09/13/17 17:59 09/13/17 17:59 09/13/17 17:59 09/13/17 17:59 09/13/17 17:59 General appearance: Present: no acute distress Results - Labs CBC & Chem 7: 09/13/17 10:56 09/13/17 10:56 Labs: Laboratory Last Values WBC 3.5 K/mm3 (4.5-11.0) L 09/13/17 10:56 RBC 2.34 M/mm3 (3.65-5.03) L 09/13/17 10:56 Hgb 7.2 gm/dl (10.1-14.3) L 09/13/17 10:56 Hct 22.5 % (30.3-42.9) L 09/13/17 10:56 MCV 97 fl (79-97) 09/13/17 10:56 MCH 31 pg (28-32) 09/13/17 10:56 MCHC 32 % (30-34) 09/13/17 10:56 RDW 16.2 % (13.2-15.2) H 09/13/17 10:56 Plt Count 152 K/mm3 (140-440) 09/13/17 10:56 Lymph % (Auto) 18.6 % (13.4-35.0) 09/12/17 00:19 [place] % (Auto) 6.8 % (0.0-7.3) 09/12/17 00:19 Eos % (Auto) 1.5 % (0.0-4.3) 09/12/17 00:19 Baso % (Auto) 0.9 % (0.0-1.8) 09/12/17 00:19 Lymph # 0.7 K/mm3 (1.2-5.4) L 09/12/17 00:19 [place] # 0.3 K/mm3 (0.0-0.8) 09/12/17 00:19 Eos # 0.1 K/mm3 (0.0-0.4) 09/12/17 00:19 Baso # 0.0 K/mm3 (0.0-0.1) 09/12/17 00:19 Seg Neutrophils % 72.2 % (40.0-70.0) H 09/12/17 00:19 Seg Neutrophils # 2.7 K/mm3 (1.8-7.7) 09/12/17 00:19 Sodium 144 mmol/L (137-145) D 09/13/17 10:56 Potassium 5.0 mmol/L (3.6-5.0) 09/13/17 10:56 Chloride 103.8 mmol/L (98-107) 09/13/17 10:56 Carbon Dioxide 21 mmol/L (22-30) L 09/13/17 10:56 Anion Gap 24 mmol/L 09/13/17 10:56 BUN 47 mg/dL (7-17) H 09/13/17 10:56 Creatinine 11.2 mg/dL (0.7-1.2) H 09/13/17 10:56 Estimated GFR 5 ml/min 09/13/17 10:56 BUN/Creatinine Ratio 4 % 09/13/17 10:56 Glucose 100 mg/dL (65-100) 09/13/17 10:56 Calcium 8.3 mg/dL (8.4-10.2) L 09/13/17 10:56 Magnesium 2.00 mg/dL (1.7-2.3) 09/12/17 00:19 Total Creatine Kinase 44 units/L (30-135) 09/12/17 00:19 HCG, Qual Negative (Negative) 09/12/17 00:19 Urine Color Red (Yellow) 09/13/17 02:37 Urine Turbidity Clear (Clear) 09/13/17 02:37 Urine pH 9.0 (5.0-7.0) H 09/13/17 02:37 Ur Specific [place] 1.010 (1.003-1.030) 09/13/17 02:37 Urine Protein 100 mg/dl mg/dL (Negative) 09/13/17 02:37 Urine Glucose (UA) 50 mg/dL (Negative) 09/13/17 02:37 Urine Ketones Neg mg/dL (Negative) 09/13/17 02:37 Urine Blood Lg (Negative) 09/13/17 02:37 Urine Nitrite Neg (Negative) 09/13/17 02:37 Urine Bilirubin Neg (Negative) 09/13/17 02:37 Urine Urobilinogen < 2.0 mg/dL (<2.0) 09/13/17 02:37 Ur Leukocyte Esterase Neg (Negative) 09/13/17 02:37 Urine WBC (Auto) 10.0 /HPF (0.0-6.0) H 09/13/17 02:37 Urine RBC (Auto) > 182.0 /HPF (0.0-6.0) 09/13/17 02:37 U Epithel Cells (Auto) 3.0 /HPF (0-13.0) 09/13/17 02:37 Urine Opiates Screen Presumptive negative 09/13/17 02:37 Urine Methadone Screen Presumptive negative 09/13/17 02:37 Ur Barbiturates Screen Presumptive negative 09/13/17 02:37 Phenytoin 1.8 ug/mL (10.0-20.0) L 09/12/17 00:19 Ur Phencyclidine Scrn Presumptive negative 09/13/17 02:37 Ur Amphetamines Screen Presumptive negative 09/13/17 02:37 U Benzodiazepines Scrn Presumptive negative 09/13/17 02:37 Urine Cocaine Screen Presumptive positive 09/13/17 02:37 U Marijuana (THC) Screen Presumptive negative 09/13/17 02:37 Drugs of Abuse Note Disclamer 09/13/17 02:37
[2017-09-13] MEDS ORDERED: MOTRIN PO PRN (18:18)
[2017-09-13 19:52] VITALS: BP 150/98
== END 2017-09-13 19:00 | disposition home or self-care (01) | DRG 100 ==
LOC: ED 23:33 → 3A 09-12 08:52
PROVIDERS: ADMIT Internal Medicine; ATTEND Internal Medicine
PROC: 5A1D70Z Performance of Urinary Filtration, Intermittent, Less than 6 Hours Per Day (ICD-10-PCS; principal; 2017-09-13)
DX: G40.401 Other generalized epilepsy and epileptic syndromes, not intractable, with status epilepticus (principal); N18.6 End stage renal disease; I12.0 Hypertensive chronic kidney disease with stage 5 chronic kidney disease or end stage renal disease; G43.909 Migraine, unspecified, not intractable, without status migrainosus; J45.909 Unspecified asthma, uncomplicated; M32.9 Systemic lupus erythematosus, unspecified; D63.1 Anemia in chronic kidney disease; Z99.2 Dependence on renal dialysis; Z88.6 Allergy status to analgesic agent; Z91.14 Patient's other noncompliance with medication regimen
CPT/HCPCS: 36415; 70450; 70551; 71010; 80048; 80185; 80307; 81001; 82550; 83735; 84703; 85025; 85027; 96365; 96375; 99285; J0360; J1165; J1200; J1644; J1953; J2405; J2930; J7030; J7050

== ENCOUNTER 2017-09-17 19:34 | Inpatient (IN) | payer MEDICARE ==
[2017-09-17] MEDS ORDERED: DILANTIN 1,000 MG in NACL 0.9% 250ML 250 ML IV ONE (20:29)
[2017-09-17] MEDS ORDERED: KEPPRA 1,000 MG/NS 0.75% 100ML 1,000 MG/100 ML BAG IV ONE (20:30)
--- NOTE | 2017-09-17 20:39 | Emergency Department Report ---
ED Seizure HPI - General Chief Complaint: Seizure Stated Complaint: SEIZURE Time Seen by Provider: 09/17/17 20:22 Source: patient, EMS Mode of arrival: Stretcher Limitations: Altered Mental Status - History of Present Illness Initial Comments: 27 yo female who comes in today due to seizures. The patient has been seen on several occasions due to her history of seizures and medical non-compliance. The patient was brought in via ems prior to arrival. The patient is sleeping in the room and is a poor historian. MD Complaint: seizure -: unknown Description of Episode: other (unknown) Witnessed:: No Trauma: No Seizure History: known seizure disorder, history of non-compliance Place: home Possible Precipitating Event: none Associated Symptoms: other (none noted ) Treatments Prior to Arrival: none - Related Data Previous Rx's Medication Instructions Recorded Last Taken Type NIFEdipine XL [Procardia Xl] 60 mg PO Q12HR #60 tablet 07/22/17 Unknown Rx Clonidine HCl [Catapres] 0.3 mg PO TID #90 tablet 09/13/17 Unknown Rx Phenytoin Sodium Extended 100 mg PO QHS #30 capsule 09/13/17 Unknown Rx [Dilantin] levETIRAcetam [Keppra TAB] 500 mg PO BID #60 tablet 09/13/17 Unknown Rx Allergies Allergy/AdvReac Type Severity Reaction Status Date / Time acetaminophen [From Percocet] AdvReac Unknown Verified 09/03/17 01:06 metoprolol AdvReac Vomiting Verified 09/03/17 01:06 oxycodone HCl [From Percocet] AdvReac Unknown Verified 09/03/17 01:06 ED Review of Systems ROS: Stated complaint: SEIZURE Other details as noted in HPI Comment: Unobtainable due to pts medical conditions (seizure disorder-patient sleeping/post-ictal) Neurological: as per HPI ED Past Medical Hx - Past Medical History Previous Medical History?: Yes Hx Hypertension: Yes Hx Heart Attack/AMI: No Hx Congestive Heart Failure: No Hx Diabetes: No Hx Pulmonary Embolism: No Hx Liver Disease: No Hx Renal Disease: Yes Hx Sickle Cell Disease: No Hx Headaches / Migraines: Yes (3 nights) Hx Seizures: Yes Hx Asthma: Yes Hx COPD: No Additional medical history: Lupus - Surgical History Past Surgical History?: Yes Additional Surgical History: fistula right arm - Social History Smoking Status: Heavy Tobacco Smoker Substance Use Type: None - Medications Home Medications: Home Medications Medication Instructions Recorded Confirmed Last Taken Type NIFEdipine XL [Procardia Xl] 60 mg PO Q12HR #60 tablet 07/22/17 09/13/17 Unknown Rx Clonidine HCl [Catapres] 0.3 mg PO TID #90 tablet 09/13/17 Unknown Rx Phenytoin Sodium Extended 100 mg PO QHS #30 capsule 09/13/17 Unknown Rx [Dilantin] levETIRAcetam [Keppra TAB] 500 mg PO BID #60 tablet 09/13/17 Unknown Rx ED Physical Exam - General Limitations: Altered Mental Status General appearance: postictal - Head Head exam: Present: atraumatic, normocephalic - Eye Eye exam: Present: normal appearance - ENT ENT exam: Present: mucous membranes moist - Neck Neck exam: Present: normal inspection - Respiratory Respiratory exam: Present: normal lung sounds bilaterally. Absent: respiratory distress - Cardiovascular Cardiovascular Exam: Present: regular rate, normal rhythm. Absent: systolic murmur, diastolic murmur, rubs, gallop - GI/Abdominal GI/Abdominal exam: Present: soft, normal bowel sounds - Extremities Exam Extremities exam: Present: normal inspection - Back Exam Back exam: Present: normal inspection - Neurological Exam Neurological exam: Present: other (somnolent ) - Psychiatric Psychiatric exam: Present: other (somnolent ) - Skin Skin exam: Present: warm, dry, intact, normal color. Absent: rash ED Course Vital Signs 09/17/17 09/17/17 09/17/17 19:56 20:00 20:05 Temperature 98.1 F Pulse Rate 95 H 97 H Respiratory 11 L 12 Rate Blood Pressure 176/123 176/123 Blood Pressure [Right] O2 Sat by Pulse 100 100 100 Oximetry 09/17/17 09/17/17 09/17/17 20:10 20:15 20:16 Temperature 98.1 F Pulse Rate 98 H 97 H Respiratory 19 12 12 Rate Blood Pressure 176/123 Blood Pressure 176/123 [Right] O2 Sat by Pulse 100 100 100 Oximetry 09/17/17 09/17/17 09/17/17 20:20 20:30 20:40 Temperature Pulse Rate 103 H 102 H Respiratory 26 H 21 Rate Blood Pressure 217/133 171/117 171/117 Blood Pressure [Right] O2 Sat by Pulse 100 96 Oximetry 09/17/17 09/17/1709/17/17 20:50 21:02 21:29 Temperature Pulse Rate 103 H 129 H Respiratory 23 25 H Rate Blood Pressure 217/133 217/133 Blood Pressure [Right] O2 Sat by Pulse 100 Oximetry 09/17/17 09/17/17 09/17/17 21:30 21:40 21:50 Temperature Pulse Rate Respiratory Rate Blood Pressure 178/121 178/121 206/110 Blood Pressure [Right] O2 Sat by Pulse 100 73 L 76 L Oximetry 09/17/17 09/17/17 09/17/17 22:00 22:10 22:20 Temperature Pulse Rate 107 H 101 H 100 H Respiratory 22 25 H 22 Rate Blood Pressure 178/121 178/121 178/121 Blood Pressure [Right] O2 Sat by Pulse 100 100 89 Oximetry 09/17/17 09/17/17 09/17/17 22:30 22:40 22:50 Temperature Pulse Rate 98 H 97 H 95 H Respiratory 22 19 19 Rate Blood Pressure 182/107 182/107 182/107 Blood Pressure [Right] O2 Sat by Pulse 95 100 100 Oximetry 09/17/17 09/17/17 09/17/17 23:00 23:10 23:20 Temperature Pulse Rate 95 H 98 H 131 H Respiratory 19 19 26 H Rate Blood Pressure 182/107 182/107 182/107 Blood Pressure [Right] O2 Sat by Pulse 100 100 Oximetry 09/17/17 09/18/17 09/18/17 23:31 00:46 00:50 Temperature Pulse Rate 109 H Respiratory 17 Rate Blood Pressure 182/107 176/115 176/115 Blood Pressure [Right] O2 Sat by Pulse 93 88 90 Oximetry 09/18/17 09/18/17 09/18/17 01:00 03:30 03:47 Temperature Pulse Rate 111 H 107 H 132 H Respiratory 18 22 Rate Blood Pressure 176/117 185/118 Blood Pressure 160/103 [Right] O2 Sat by Pulse 100 100 Oximetry - Reevaluation(s) Reevaluation #1: 09/18/17 04:11 Patient extremely agitated and uncooperative with nursing staff. Geodon and ativan IM given. Patient now resting quietly. Admit to the hospitalist service for dialysis and seizure disorder management. ED Medical Decision Making - Lab Data Result diagrams: 09/17/17 20:34 09/17/17 20:34 - EKG Data Rate: tachycardia - EKG Data When compared to previous EKG there are: no significant change Interpretation: no acute changes, other (sinus tachycardia ) - Medical Decision Making Medication non-compliance Seizure disorder End stage renal disease requiring dialysis - Differential Diagnosis seizure disorder, medication non-compliance, end stage renal disease Critical care attestation.: If time is entered above; I have spent that time in minutes in the direct care of this critically ill patient, excluding procedure time. ED Disposition Clinical Impression: ESRD (end stage renal disease) on dialysis, Hypertension, Noncompliance with medication regimen Disposition: OP ADMIT IP TO THIS HOSP Is pt being admited?: Yes Does the pt Need Aspirin: No Condition: Stable Instructions: Hypertension (ED), Chronic Kidney Disease (ED) Referrals: ROSIE EVANS MD [Primary Care Provider] - 3-5 Days Time of Disposition: 04:16
[2017-09-17] MEDS ORDERED: APRESOLINE IV ONE (20:43)
[2017-09-17 20:46] LABS: Hematocrit 26.6 % (30.3-42.9); Hemoglobin 8.4 gm/dl (10.1-14.3); Mean Corpuscular HGB Conc 32 % (30-34); Mean Corpuscular Hemoglobin 31 pg (28-32); Mean Corpuscular Volume 98 fl (79-97); Platelet Count 295 K/mm3 (140-440); Red Blood Count 2.73 M/mm3 (3.65-5.03); Red Cell Distribution Width 16.7 % (13.2-15.2); White Blood Count 10.4 K/mm3 (4.5-11.0)
[2017-09-17 21:10] LABS: Creatine Kinase MB 2.3 ng/mL (0.0-4.0)
[2017-09-17 21:11] LABS: Albumin 4.2 g/dL (3.9-5); Albumin/Globulin Ratio 1.4 %; Bilirubin,Total 0.2 mg/dL (0.1-1.2); Calcium 8.3 mg/dL (8.4-10.2); Total Protein 7.1 g/dL (6.3-8.2)
[2017-09-17 21:15] LABS: Potassium 6.3 mmol/L (3.6-5.0)
[2017-09-17] MEDS ORDERED: NARCAN 0.4 MG/1 ML IV ONE (21:55)
[2017-09-17] MEDS ORDERED: ROMAZICON IV ONE (21:56)
[2017-09-17] MEDS ORDERED: ATIVAN IM ONE (23:34)
[2017-09-17] MEDS ORDERED: ATIVAN ONE (23:36)
[2017-09-18] MEDS ORDERED: GEODON IM ONE (01:38)
[2017-09-18] MEDS ORDERED: KEPPRA 1,000 MG/NS 0.75% 100ML 1,000 MG/100 ML BAG IV ONE (03:20)
[2017-09-18] MEDS ORDERED: APRESOLINE ONE (03:28)
[2017-09-18] MEDS ORDERED: CALCIUM GLUCONATE 1,000 MG in NACL 0.9% 100 ML IV ONE (04:08)
[2017-09-18] MEDS ORDERED: D50W (25GM) Vial IV ONE (04:10)
[2017-09-18] MEDS ORDERED: MILK OF MAGNESIA PO PRN (04:44)
[2017-09-18] MEDS ORDERED: ATIVAN IV PRN (04:44)
[2017-09-18] MEDS ORDERED: ZOFRAN IV PRN (04:44)
[2017-09-18] MEDS ORDERED: DULCOLAX PR PRN (04:44)
--- NOTE | 2017-09-18 04:47 | History and Physical Report ---
History of Present Illness Date of examination: 09/18/17 History of present illness: 27-year-old and a history of lupus, end-stage renal disease on dialysis Sunday, Sunday, seizure, asthma, hypertension was brought to the emergency room because she had a seizure. She was also found to be hyperkalemic and missed dialysis, per the emergency room physician. The patient is sedated with IV Ativan, unable to obtain a history or review of systems. Old charts reviewed. Recent admission for seizure PAST MEDICAL HISTORY:lupus, end-stage renal disease on dialysis Sunday , Sunday, seizure, asthma, hypertension PAST SURGICAL HISTORY:avf FAMILY HISTORY:hypertension SOCIAL HISTORY: Unknown Medications and Allergies Allergies Allergy/AdvReac Type Severity Reaction Status Date / Time acetaminophen [From Percocet] AdvReac Unknown Verified 09/03/17 01:06 metoprolol AdvReac Vomiting Verified 09/03/17 01:06 oxycodone HCl [From Percocet] AdvReac Unknown Verified 09/03/17 01:06 Home Medications Medication Instructions Recorded Confirmed Last Taken Type Clonidine HCl [Catapres] 0.3 mg PO TID #90 tablet 09/13/17 09/18/17 Unknown Rx Phenytoin Sodium Extended 100 mg PO QHS #30 capsule 09/13/17 09/18/17 Unknown Rx [Dilantin] levETIRAcetam [Keppra TAB] 500 mg PO BID #60 tablet 09/13/17 09/18/17 Unknown Rx hydrALAZINE [Apresoline] 25 mg PO DAILY 09/18/17 09/18/17 Unknown History Exam - Physical Exam Narrative exam: Gen. appearance: Patient lying in bed in no acute distress HEENT: Normocephalic/atraumatic, pupils equal round reactive to light, unable to do extraocular movement, no scleral icterus, no JVD or thyromegaly or nodule , neck is supple, mucous membrane moist, unable to examine oral cavity Heart: S1-S2, regular rate and rhythm Lungs: Clear to auscultation bilateral breathing comfortable Abdomen: Positive bowel sounds, nontender, nondistended, no organomegaly Extremities: No edema, cyanosis, clubbing Neuro:: sedated Skin: No rash, nodules, warm dry - Constitutional Vitals: Temp Pulse Resp BP Pulse Ox 98.1 F 132 H 22 160/103 100 09/17/17 20:15 09/18/17 03:47 09/18/17 03:47 09/18/17 03:47 09/18/17 03:47 Results - Labs CBC & Chem 7: 09/17/17 20:34 09/18/17 08:49 Labs: Abnormal lab results 09/17/17 09/17/17 09/17/17 Range/Units 20:20 20:34 20:34 RBC 2.73 L (3.65-5.03) M/mm3 Hgb 8.4 L (10.1-14.3) gm/dl Hct 26.6 L (30.3-42.9) % MCV 98 H (79-97) fl RDW 16.7 H (13.2-15.2) % Potassium 6.3 H* D (3.6-5.0) mmol/L Chloride 95.0 L (98-107) mmol/L Carbon Dioxide 17 L (22-30) mmol/L BUN 56 H (7-17) mg/dL Creatinine 15.2 H (0.7-1.2) mg/dL POC Glucose (70-105) Calcium 8.3 L (8.4-10.2) mg/dL Phenytoin 2.5 L (10.0-20.0) ug/mL 09/17/17 Range/Units 21:57 RBC (3.65-5.03) M/mm3 Hgb (10.1-14.3) gm/dl Hct (30.3-42.9) % MCV (79-97) fl RDW (13.2-15.2) % Potassium (3.6-5.0) mmol/L Chloride (98-107) mmol/L Carbon Dioxide (22-30) mmol/L BUN (7-17) mg/dL Creatinine (0.7-1.2) mg/dL POC Glucose 123 H (70-105) Calcium (8.4-10.2) mg/dL Phenytoin (10.0-20.0) ug/mL Assessment and Plan Assessment Seizure, acute on chronic End-stage renal disease needing dialysis Hyperkalemia Hypertension Lupus Plan Admit to medicine Give Kayexalate, consult renal for dialysis Start IV Ativan as needed for seizure activity DVT prophylaxis
[2017-09-18] MEDS ORDERED: KIONEX PO ONE (05:11)
[2017-09-18] MEDS ORDERED: KIONEX PR ONE (06:05)
[2017-09-18] MEDS ORDERED: KIONEX ONE (06:23)
[2017-09-18] MEDS ORDERED: MORPHINE IV ONE (06:43)
[2017-09-18] MEDS ORDERED: MORPHINE ONE (06:51)
[2017-09-18 09:30] LABS: Calcium 8.8 mg/dL (8.4-10.2); Chloride 98.3 mmol/L (98-107); Potassium 5.7 mmol/L (3.6-5.0)
[2017-09-18] MEDS ORDERED: LOVENOX SUB-Q SCH (10:00)
--- NOTE | 2017-09-18 10:08 | Consultation ---
History of Present Illness - History of Present Illness Source of information: History of presenting illness Patient is a 27-year-old -[place] female who is currently established clinic for ESRD care. Patient is currently dialysis dependent and does dialyze on Sunday schedule according to the patient she dialyzes for approximately 3 hours and normally 2-3 kg taken off. Patient is currently admitted here with seizure disorder with very low blood Dilantin level she does have history of noncompliance with medications, Dilantin level upon admission was subtherapeutic suggestive of noncompliance, confirmed She denies any complaints of chest pain pressure or shortness of breath but unfortunately continues to smoke Past medical history is significant for end-stage renal disease currently in maintenance hemodialysis Sunday and Sunday Anemia and end-stage renal disease Secondary hyperparathyroidism Seizure disorder Chronic tobacco use Noncompliance Family history: Noncontributory to foot elevated his daughter Social history: history of ongoing chronic tobacco abuse Allergies: Tylenol metoprolol and oxycodone Medications: Reviewed from the chart Review of system is positive for sseizure activity mild shortness of breath chronic tobacco use occasional cough All other review of system negative Physical examination Vitals: Reviewed HEENT: Oral mucosa mildly dry. No pharyngeal erythema, no icterus Neck: Supple, no JVD, thyromegaly, nodule or mass Chest: Clear to auscultation anteriorly. Very few faint basilar crackles Heart: Regular rate and rhythm, S1, S2 heard, no S3, S4 Abdomen: Soft, nontender, bowel sounds present. No suprapubic mass. No CVA tenderness. No renal bruit Extremities: No petechial rash, dry skin, 1+ edema, no peripheral cyanosis Neurological: Alert, awake, follows commands. No asterixis Dermatology; no petechial skin rash, dry skin, poor skin hygiene, fistula appears to have good thrill and bruit Back: Nontender thoracolumbar spine Psychiatric: No agitation, aggression noted My assessment and plan are as follows 1.end-stage renal disease: Patient is currently in maintenance dialysis on Sunday and Sunday patient will be dialyzed today 2.anemia and end-stage renal disease: To monitor and follow, 3.secondary hyperparathyroidism monitor phosphorus and PTH level periodically 4.chronic tobacco abuse counseled and educated to quit tobacco at length consequences explained mortality morbidity risk was also discussed 5.seizure disorder noncompliant patient subtherapeutic Dilantin level would be prone to chronic brain injury memory loss etc. 6.hyperkalemia patient will receive her hemodialysis treatment and follow-up 7.metabolic acidosis to follow Patient has received adequate counseling and education regarding multiple health issues that are being addressed this admission if she continues to remain noncompliant her overall prognosis will be very poor mortality and morbidity risk will be very high Patient needs to be responsible for her health and comply with medical instructions that have been provided We'll continue to follow and make recommendations from renal standpoint Patient was advised to make an appointment for follow-up in the office upon discharge. Medications and Allergies Allergies Allergy/AdvReac Type Severity Reaction Status Date / Time acetaminophen [From Percocet] AdvReac Unknown Verified 09/03/17 01:06 metoprolol AdvReac Vomiting Verified 09/03/17 01:06 oxycodone HCl [From Percocet] AdvReac Unknown Verified 09/03/17 01:06 Home Medications Medication Instructions Recorded Confirmed Last Taken Type Clonidine HCl [Catapres] 0.3 mg PO TID #90 tablet 09/13/17 09/18/17 Unknown Rx Phenytoin Sodium Extended 100 mg PO QHS #30 capsule 09/13/17 09/18/17 Unknown Rx [Dilantin] levETIRAcetam [Keppra TAB] 500 mg PO BID #60 tablet 09/13/17 09/18/17 Unknown Rx hydrALAZINE [Apresoline] 25 mg PO DAILY 09/18/17 09/18/17 Unknown History Active Meds: Active Medications Bisacodyl (Dulcolax) 10 mg [place] QDAY PRN PRN Reason: Constipation unrelieved by MOM Enoxaparin Sodium (Lovenox) 30 mg SUB-Q QDAY HENRY Lorazepam (Ativan) 1 mg IV Q4H PRN PRN Reason: Seizures Magnesium Hydroxide (Milk Of Magnesia) 30 ml PO Q4H PRN PRN Reason: Constipation Ondansetron HCl (Zofran) 4 mg IV Q8H PRN PRN Reason: N/V unrelieved by Reglan Last Admin: 09/18/17 09:45 Dose: 4 mg Exam - Vital Signs Vital signs: Vital Signs Pulse Ox 100 09/17/17 19:56 Results - Lab Results 09/17/17 20:34 12/12/17 08:49 Most recent lab results Calcium 8.8 mg/dL (8.4-10.2) 09/18/17 08:49
[2017-09-18] MEDS ORDERED: NORMODYNE IV PRN (12:36)
[2017-09-18] MEDS ORDERED: REGLAN IV PRN ×2 (12:36→13:09)
--- NOTE | 2017-09-18 14:02 | Progress Note ---
Assessment and Plan Assessment and plan: Patient is a 27-year-old -[place] female with past medical history of hypertension, cocaine abuse, Lupus, end-stage renal disease on hemodialysis and asthma who is brought to the hospital by EMS for seizure. Just discharged from her on 09/13/17 who returns after another seizure. She missed her hemodialysis session because "they [transport] didn't come on Sunday". Hyperkalemia Hemodialysis needed Acute Metabolic encephalopathy Secondary to seizure, postictal state. CT of the head unremarkable. Seizure precautions We will get MRI of the brain Supportive care Status Epilepticus Started on PO Keppera Frequent neuro checks. We will obtain EEG Ativan when necessary Oxygen supplement when necessary Implement seizure precautions Neurology consulted Supportive care End-stage renal disease Nephrology following Medical Noncompliance Patient noncompliance with Keppra Counseling will be given when patient become awake. Accelerated Hypertension Resume home antihypertensive medication IV labetalol SBP >160 Closely monitor blood pressure History of lupus Stable History Asthma Stable DVT prophylaxis Heparin Main issue is non compliance: Counseling done History Interval history: Patient was seen and examined. Follow-up on current diagnosis. Overnight uneventful. Patient denies any chest pain, shortness breath, nausea/vomiting or severe headaches. Imaging, nursing note, chart, labs and old chart reviewed. Discussed with patient. Hospitalist Physical - Physical exam Narrative exam: GEN: Ill-appearing young woman NAD, AWAKE, ALERT, ORIENTATED 3 HEENT: NCAT, EOMI, PERRL, OP Clear NECK: supple, no adenopathy, no thyromegaly, no JVD CVS/HEART: Regular tachycardic NORMAL S1S2, NO JVD, pulses present bilaterally CHEST/LUNGS: CTA B, Symmetrical chest expansion, good air entry bilaterally GI/Abdomen: soft, NTND, good bowel sounds, no guarding or rebound /Bladder: no suprapubic tenderness, no CVA or paraspinal tenderness EXT/Skin: no c/c/e, no obvious rash MSK: FROM x 4 Neuro: CN 2-12 grossly intact, no new focal deficits Psych: calm - Constitutional Vitals: Temp Pulse Resp BP Pulse Ox 98.2 F 113 H 18 178/114 100 09/18/17 09:18 09/18/17 09:18 09/18/17 09:18 09/18/17 09:18 09/18/17 09:18 Results - Labs CBC & Chem 7: 09/17/17 20:34 09/18/17 08:49 Labs: Laboratory Last Values WBC 10.4 K/mm3 (4.5-11.0) 09/17/17 20:34 RBC 2.73 M/mm3 (3.65-5.03) L 09/17/17 20:34 Hgb 8.4 gm/dl (10.1-14.3) L 09/17/17 20:34 Hct 26.6 % (30.3-42.9) L 09/17/17 20:34 MCV 98 fl (79-97) H 09/17/17 20:34 MCH 31 pg (28-32) 09/17/17 20:34 MCHC 32 % (30-34) 09/17/17 20:34 RDW 16.7 % (13.2-15.2) H 09/17/17 20:34 Plt Count 295 K/mm3 (140-440) 09/17/17 20:34 Sodium 147 mmol/L (137-145) H 09/18/17 08:49 Potassium 5.7 mmol/L (3.6-5.0) H 09/18/17 08:49 Chloride 98.3 mmol/L (98-107) 09/18/17 08:49 Carbon Dioxide 19 mmol/L (22-30) L 09/18/17 08:49 Anion Gap 35 mmol/L 09/18/17 08:49 BUN 62 mg/dL (7-17) H 09/18/17 08:49 Creatinine 16.2 mg/dL (0.7-1.2) H 09/18/17 08:49 Estimated GFR 3 ml/min 09/18/17 08:49 BUN/Creatinine Ratio 4 % 09/18/17 08:49 Glucose 69 mg/dL (65-100) 09/18/17 08:49 POC Glucose 98 (70-105) 09/18/17 05:32 Calcium 8.8 mg/dL (8.4-10.2) 09/18/17 08:49 Total Bilirubin 0.20 mg/dL (0.1-1.2) 09/17/17 20:34 AST 19 units/L (5-40) 09/17/17 20:34 ALT 11 units/L (7-56) 09/17/17 20:34 Alkaline Phosphatase 115 units/L (35-129) 09/17/17 20:34 Total Creatine Kinase 71 units/L (30-135) 09/17/17 20:34 CK-MB (CK-2) 2.3 ng/mL (0.0-4.0) 09/17/17 20:34 CK-MB (CK-2) Rel Index 3.2 (0-4) 09/17/17 20:34 Troponin T 0.018 ng/mL (0.00-0.029) 09/17/17 20:34 Total Protein 7.1 g/dL (6.3-8.2) 09/17/17 20:34 Albumin 4.2 g/dL (3.9-5) 09/17/17 20:34 Albumin/Globulin Ratio 1.4 % 09/17/17 20:34 HCG, Qual Negative (Negative) 09/18/17 08:49 Phenytoin 2.5 ug/mL (10.0-20.0) L 09/17/17 20:20 Plasma/Serum Alcohol < 0.01 gm% (0-0.07) 09/17/17 20:34
[2017-09-18] MEDS ORDERED: NACL 0.9% 100 ML IV PRN (15:41)
[2017-09-18] MEDS: MORPHINE IV PRN ×2 (16:34→21:10)
[2017-09-18] MEDS: BENADRYL IV PRN ×2 (16:34→21:22)
[2017-09-18] MEDS ORDERED: CATAPRES PO NR (18:46)
[2017-09-18] MEDS ORDERED: NON-FORMULARY (Clonidine Hcl [Catapres] 0.3 MG) PO SCH (20:00)
--- NOTE | 2017-09-18 20:04 | Cat Scan Report ---
FINAL REPORT PROCEDURE: CT HEAD/BRAIN WO CON TECHNIQUE: Computerized tomography of the head was performed without contrast material. HISTORY: severe headache COMPARISON: 02/10/2017 FINDINGS: No CT evidence of intracranial mass, hemorrhage, acute territorial infarction, or hydrocephalus. The intracranial arteries are symmetric in density. Calvarium is intact. Visualized paranasal sinuses and mastoids are aerated. IMPRESSION: No CT evidence of acute abnormality
[2017-09-18] MEDS: APRESOLINE IV PRN (21:11)
[2017-09-19] MEDS: CATAPRES PO SCH ×8 (01:02→22:36)
[2017-09-19] MEDS: KEPPRA PO SCH ×3 (01:04→22:35)
[2017-09-19] MEDS: DILANTIN PO SCH ×2 (01:04→22:37)
[2017-09-19] MEDS: BENADRYL IV PRN ×3 (05:30→22:48)
[2017-09-19 05:49] LABS: Basophils % (Auto) 0.6 % (0.0-1.8); Eosinophils % (Auto) 0.4 % (0.0-4.3); Hemoglobin 6.7 gm/dl (10.1-14.3); Mean Corpuscular HGB Conc 34 % (30-34); Mean Corpuscular Hemoglobin 31 pg (28-32); Mean Corpuscular Volume 93 fl (79-97); Platelet Count 165 K/mm3 (140-440); Red Blood Count 2.15 M/mm3 (3.65-5.03); White Blood Count 5.5 K/mm3 (4.5-11.0)
[2017-09-19 05:53] LABS: Hematocrit 19.9 % (30.3-42.9)
[2017-09-19 06:02] LABS: Calcium 8.7 mg/dL (8.4-10.2); Chloride 99.2 mmol/L (98-107); Potassium 4.8 mmol/L (3.6-5.0)
[2017-09-19 08:17] LABS: Hemoglobin 6.5 gm/dl (10.1-14.3)
[2017-09-19] MEDS ORDERED: NACL 0.9% 500 ML 500 ML IV ONE (08:38)
--- NOTE | 2017-09-19 09:35 | Progress Note ---
Subjective Interval history: Patient was seen today for follow-up on multiple renal related issues Events of 24 hours vitals labs intake output medications were reviewed Interdisciplinary Notes were also reviewed Past medical history: Reviewed Social history: Reviewed Allergies: Reviewed Medication: Reviewed Labs: Reviewed Physical examination Gen.: No acute distress HEENT: Oral mucosa moist, mild pallor no icterus Neck: Supple no thyromegaly nodular mass or JVD Chest: Clear to auscultation anteriorly Heart: Regular rate and rhythm S1 and S2 heard Abdomen: Soft nontender no renal bruit no CVA tenderness no suprapubic fullness Extremity: Edema approximately 1+ dry skin no purpuric rash Dermatology: Dry skin no rash Neurological: Assessment and plan End-stage renal disease in a patient who is very poorly compliant has had hemodialysis yesterday and will continue with Sunday and Sunday hemodialysis Hypertension: Goal blood pressure remains under 140-150 at this time Hyperkalemia: Responded well to hemodialysis Anemia significant drop in hemoglobin and hematocrit patient needs to rule out any possibility of GI bleed She may need one to 2 unit of packed red blood cell transfusion please consider with next dialysis treatment tomorrow She may need an upper endoscopy/ Seizure disorder: Noncompliant patient Dilantin was subtherapeutic Ongoing chronic tobacco abuse counseled and educated will be prone to vascular complications resulting from this and other organ injury Monitor dialysis related labs periodically, Patient must take responsibility for her own health or else her prognosis is very poor this has been well explained to her mortality risk will remain high Had a detailed discussion with patient about multiple renal related issues, explained and simple Ecuadorean. Patient does exhibit good understanding off multiple renal related issues We'll continue to follow and make recommendation from renal standpoint Objective - Vital Signs Vital signs: Vital Signs - 12hr 09/18/17 09/18/17 09/18/17 21:45 22:00 22:15 Temperature Pulse Rate 129 H 129 H 125 H Respiratory Rate Blood Pressure 189/117 191/121 200/123 Blood Pressure [Left] O2 Sat by Pulse 98 Oximetry 09/18/17 09/18/17 09/18/17 22:30 22:45 23:00 Temperature Pulse Rate 122 H 126 H 110 H Respiratory Rate Blood Pressure 198/128 206/128 202/108 Blood Pressure [Left] O2 Sat by Pulse Oximetry 09/18/17 09/18/17 09/18/17 23:15 23:30 23:45 Temperature Pulse Rate 116 H 121 H 117 H Respiratory Rate Blood Pressure 202/128 206/131 197/102 Blood Pressure [Left] O2 Sat by Pulse Oximetry 09/19/17 09/19/17 09/19/17 00:00 01:02 01:03 Temperature 98.6 F Pulse Rate 123 H 136 H 136 H Respiratory 20 Rate Blood Pressure 199/122 206/130 206/130 Blood Pressure [Left] O2 Sat by Pulse Oximetry 09/19/17 09/19/17 09/19/17 01:56 06:16 08:50 Temperature 98.6 F 99.9 F H 99.5 F Pulse Rate 122 H 112 H 107 H Respiratory 18 18 18 Rate Blood Pressure 156/101 Blood Pressure 178/106 162/103 [Left] O2 Sat by Pulse 98 100 100 Oximetry - Lab 09/19/17 Unknown 09/19/17 04:00 Most recent lab results Calcium 8.7 mg/dL (8.4-10.2) 09/19/17 04:00
[2017-09-19] MEDS: APRESOLINE PO SCH ×2 (10:53→22:38)
[2017-09-19] MEDS: MORPHINE IV PRN ×3 (10:55→22:39)
--- NOTE | 2017-09-19 14:09 | Progress Note ---
Assessment and Plan Assessment and plan: Patient is a 27-year-old -[place] female with past medical history of hypertension, cocaine abuse, Lupus, end-stage renal disease on hemodialysis and asthma who is brought to the hospital by EMS for seizure. Just discharged from her on 09/13/17 who returns after another seizure. She missed her hemodialysis session because "they [transport] didn't come on Sunday". Hyperkalemia Hemodialysis needed Acute Metabolic encephalopathy Secondary to seizure, postictal state. CT of the head unremarkable. Seizure precautions We will get MRI of the brain Supportive care Status Epilepticus Started on PO Keppera Frequent neuro checks. We will obtain EEG Ativan when necessary Oxygen supplement when necessary Implement seizure precautions Neurology consulted Supportive care End-stage renal disease Nephrology following Medical Noncompliance Patient noncompliance with Keppra Counseling will be given when patient become awake. Accelerated Hypertension Resume home antihypertensive medication IV labetalol SBP >160 Closely monitor blood pressure History of lupus Stable History Asthma Stable DVT prophylaxis Heparin Main issue is non compliance: Counseling done 09/19/17: h/h dropped to 6.5, most likely related to renal failure and noncompliance. Will transfuse 2 units of prbc, recheck h/h and if stable then d/ c tomorrow after hemodialysis History Interval history: Patient was seen and examined. Follow-up on current diagnosis. Overnight uneventful. Patient denies any chest pain, shortness breath, nausea/vomiting or severe headaches. Imaging, nursing note, chart, labs and old chart reviewed. Discussed with patient. Hospitalist Physical - Physical exam Narrative exam: GEN: Ill-appearing young woman NAD, AWAKE, ALERT, ORIENTATED 3 HEENT: NCAT, EOMI, PERRL, OP Clear NECK: supple, no adenopathy, no thyromegaly, no JVD CVS/HEART: Regular tachycardic NORMAL S1S2, NO JVD, pulses present bilaterally CHEST/LUNGS: CTA B, Symmetrical chest expansion, good air entry bilaterally GI/Abdomen: soft, NTND, good bowel sounds, no guarding or rebound /Bladder: no suprapubic tenderness, no CVA or paraspinal tenderness EXT/Skin: no c/c/e, no obvious rash MSK: FROM x 4 Neuro: CN 2-12 grossly intact, no new focal deficits Psych: calm - Constitutional Vitals: Temp Pulse Resp BP Pulse Ox 99.2 F 107 H 18 152/101 100 09/19/17 12:58 09/19/17 12:58 09/19/17 12:58 09/19/17 12:58 09/19/17 12:58 Results - Labs CBC & Chem 7: 09/19/17 Unknown 09/19/17 04:00 Labs: Laboratory Last Values WBC 5.5 K/mm3 (4.5-11.0) 09/19/17 04:00 RBC 2.15 M/mm3 (3.65-5.03) L 09/19/17 04:00 Hgb 6.5 gm/dl (10.1-14.3) L 09/19/17 Unknown Hct 20.0 % (30.3-42.9) L 09/19/17 Unknown MCV 93 fl (79-97) 09/19/17 04:00 MCH 31 pg (28-32) 09/19/17 04:00 MCHC 34 % (30-34) 09/19/17 04:00 RDW 16.0 % (13.2-15.2) H 09/19/17 04:00 Plt Count 165 K/mm3 (140-440) 09/19/17 04:00 Lymph % (Auto) 17.7 % (13.4-35.0) 09/19/17 04:00 Foard % (Auto) 8.7 % (0.0-7.3) H 09/19/17 04:00 Eos % (Auto) 0.4 % (0.0-4.3) 09/19/17 04:00 Baso % (Auto) 0.6 % (0.0-1.8) 09/19/17 04:00 Lymph # 1.0 K/mm3 (1.2-5.4) L 09/19/17 04:00 Foard # 0.5 K/mm3 (0.0-0.8) 09/19/17 04:00 Eos # 0.0 K/mm3 (0.0-0.4) 09/19/17 04:00 Baso # 0.0 K/mm3 (0.0-0.1) 09/19/17 04:00 Seg Neutrophils % 72.6 % (40.0-70.0) H 09/19/17 04:00 Seg Neutrophils # 4.0 K/mm3 (1.8-7.7) 09/19/17 04:00 Sodium 142 mmol/L (137-145) 09/19/17 04:00 Potassium 4.8 mmol/L (3.6-5.0) 09/19/17 04:00 Chloride 99.2 mmol/L (98-107) 09/19/17 04:00 Carbon Dioxide 27 mmol/L (22-30) D 09/19/17 04:00 Anion Gap 21 mmol/L 09/19/17 04:00 BUN 18 mg/dL (7-17) H 09/19/17 04:00 Creatinine 7.6 mg/dL (0.7-1.2) H D 09/19/17 04:00 Estimated GFR 8 ml/min 09/19/17 04:00 BUN/Creatinine Ratio 2 % 09/19/17 04:00 Glucose 75 mg/dL (65-100) 09/19/17 04:00 POC Glucose 98 (70-105) 09/18/17 05:32 Calcium 8.7 mg/dL (8.4-10.2) 09/19/17 04:00 Total Bilirubin 0.20 mg/dL (0.1-1.2) 09/17/17 20:34 AST 19 units/L (5-40) 09/17/17 20:34 ALT 11 units/L (7-56) 09/17/17 20:34 Alkaline Phosphatase 115 units/L (35-129) 09/17/17 20:34 Total Creatine Kinase 71 units/L (30-135) 09/17/17 20:34 CK-MB (CK-2) 2.3 ng/mL (0.0-4.0) 09/17/17 20:34 CK-MB (CK-2) Rel Index 3.2 (0-4) 09/17/17 20:34 Troponin T 0.018 ng/mL (0.00-0.029) 09/17/17 20:34 Total Protein 7.1 g/dL (6.3-8.2) 09/17/17 20:34 Albumin 4.2 g/dL (3.9-5) 09/17/17 20:34 Albumin/Globulin Ratio 1.4 % 09/17/17 20:34 HCG, Qual Negative (Negative) 09/18/17 08:49 Phenytoin 2.5 ug/mL (10.0-20.0) L 09/17/17 20:20 Plasma/Serum Alcohol < 0.01 gm% (0-0.07) 09/17/17 20:34 Blood Type O POSITIVE 09/19/17 07:50 Antibody Screen Negative 09/19/17 07:50 Crossmatch See Detail 09/19/17 07:50
[2017-09-20 06:17] LABS: Hematocrit 27.3 % (30.3-42.9); Hemoglobin 9.2 gm/dl (10.1-14.3); Mean Corpuscular HGB Conc 34 % (30-34); Mean Corpuscular Hemoglobin 31 pg (28-32); Mean Corpuscular Volume 91 fl (79-97); Platelet Count 146 K/mm3 (140-440); Red Blood Count 3.01 M/mm3 (3.65-5.03); Red Cell Distribution Width 17.6 % (13.2-15.2); White Blood Count 4.2 K/mm3 (4.5-11.0)
[2017-09-20 06:39] LABS: Calcium 8.7 mg/dL (8.4-10.2); Chloride 98.5 mmol/L (98-107); Potassium 5.6 mmol/L (3.6-5.0)
[2017-09-20] MEDS: CATAPRES PO SCH ×4 (08:54→15:49)
--- NOTE | 2017-09-20 09:27 | Progress Note ---
Subjective Interval history: Patient was seen today for follow-up on multiple renal related issues Events of 24 hours vitals labs intake output medications were reviewed Received packed red blood cell transfusion Interdisciplinary Notes were also reviewed Past medical history: Reviewed Social history: Reviewed Allergies: Reviewed Medication: Reviewed Labs: Reviewed Physical examination Gen.: No acute distress HEENT: Oral mucosa moist, mild pallor no icterus Neck: Supple no thyromegaly nodular mass or JVD Chest: Clear to auscultation anteriorly Heart: Regular rate and rhythm S1 and S2 heard Abdomen: Soft nontender no renal bruit no CVA tenderness no suprapubic fullness Extremity: Edema approximately 1+ dry skin no purpuric rash Dermatology: Dry skin no rash Neurological: Assessment and plan End-stage renal disease in a patient who is very poorly compliant has had hemodialysis yesterday and will continue with Sunday and Sunday hemodialysis Patient was counseled and educated to remain compliant Hypertension: Goal blood pressure remains under 140-150 at this time, diet plan was discussed with patient Hyperkalemia: Responded well to hemodialysis, continue to monitor Anemia significant drop in hemoglobin and hematocrit patient needs to rule out any possibility of GI bleed, better post PRBC Erythropoietin 10,000 units with every dialysis treatment Seizure disorder: Noncompliant patient Dilantin was subtherapeutic Ongoing chronic tobacco abuse counseled and educated will be prone to vascular complications resulting from this and other organ injury Monitor dialysis related labs periodically, Patient must take responsibility for her own health or else her prognosis is very poor this has been well explained to her mortality risk will remain high Had a detailed discussion with patient about multiple renal related issues, explained and simple Cypriot. All questions were answered Objective - Vital Signs Vital signs: Vital Signs - 12hr 09/19/17 09/19/17 09/19/17 21:50 22:00 22:20 Temperature 98.1 F 98.1 F Pulse Rate 76 79 Respiratory 18 20 20 Rate Blood Pressure 146/101 142/102 O2 Sat by Pulse 98 98 100 Oximetry 09/19/17 09/19/17 09/19/17 22:31 22:36 22:38 Temperature 98.0 F Pulse Rate 78 78 78 Respiratory 20 Rate Blood Pressure 132/87 132/87 132/87 O2 Sat by Pulse 98 Oximetry 09/19/17 09/20/17 09/20/17 22:39 00:08 04:57 Temperature 97.4 F L 98.7 F Pulse Rate 88 89 Respiratory 20 18 18 Rate Blood Pressure 152/102 148/110 O2 Sat by Pulse 94 98 Oximetry 09/20/17 09/20/17 09/20/17 07:46 08:54 08:58 Temperature Pulse Rate 96 H 96 H Respiratory Rate Blood Pressure 166/114 166/114 O2 Sat by Pulse 100 Oximetry - Lab 09/20/17 05:08 09/20/17 05:08 Most recent lab results Calcium 8.7 mg/dL (8.4-10.2) 09/20/17 05:08
[2017-09-20] MEDS: KEPPRA PO SCH (09:30)
[2017-09-20] MEDS: MORPHINE IV PRN (09:39)
[2017-09-20] MEDS: BENADRYL IV PRN (11:14)
--- NOTE | 2017-09-20 13:28 | Discharge Summary ---
Providers - Providers Date of Admission: 09/18/17 04:44 Date of discharge: 09/20/17 Attending physician: JANUARY PEÑA 09/18/17 04:44 Consult to Physician [CONS] Routine Consulting Provider: ANITHA FRANCO Reason For Exam: hd Place consult to:: RENAL Notified:: Y If yes, spoke with:: Dr Jacobo Primary care physician: ROSIE EVANS Hospitalization Condition: Stable Hospital course: Patient is a 27-year-old -[place] female with past medical history of hypertension, cocaine abuse, Lupus, end-stage renal disease on hemodialysis and asthma who is brought to the hospital by EMS for seizure. Just discharged from her on 09/13/17 who returns after another seizure. She missed her hemodialysis session because "they [transport] didn't come on Sunday". Hyperkalemia Hemodialysis needed Acute Metabolic encephalopathy Secondary to seizure, postictal state. CT of the head unremarkable. Seizure precautions We will get MRI of the brain Supportive care Status Epilepticus Started on PO Keppera Frequent neuro checks. We will obtain EEG Ativan when necessary Oxygen supplement when necessary Implement seizure precautions Neurology consulted Supportive care End-stage renal disease Nephrology following Medical Noncompliance Patient noncompliance with Keppra Counseling will be given when patient become awake. Accelerated Hypertension Resume home antihypertensive medication IV labetalol SBP >160 Closely monitor blood pressure History of lupus Stable History Asthma Stable DVT prophylaxis Heparin Main issue is non compliance: Counseling done 09/19/17: h/h dropped to 6.5, most likely related to renal failure and noncompliance. Will transfuse 2 units of prbc, recheck h/h and if stable then d/ c tomorrow after hemodialysis 09/20/17: hemodialysis today then discharge, h/h stable Disposition: DC-01 TO HOME OR SELFCARE Time spent for discharge: 34 minutes Core Measure Documentation - Palliative Care Palliative Care/ Comfort Measures: Not Applicable - Core Measures Any of the following diagnoses?: none - VTE Discharge Requirements Deep Vein Thrombosis/Pulmonary Embolism Present on Admission: No Has pt received <5 days of overlap therapy or INR<2.0: No Anticoagulant overlap therapy prescribed at discharge: No Contraindication No Overlap Therapy order at DC: Not Indicated Exam - Physical Exam Narrative exam: GEN: Ill-appearing young woman NAD, AWAKE, ALERT, ORIENTATED 3 HEENT: NCAT, EOMI, PERRL, OP Clear NECK: supple, no adenopathy, no thyromegaly, no JVD CVS/HEART: Regular tachycardic NORMAL S1S2, NO JVD, pulses present bilaterally CHEST/LUNGS: CTA B, Symmetrical chest expansion, good air entry bilaterally GI/Abdomen: soft, NTND, good bowel sounds, no guarding or rebound /Bladder: no suprapubic tenderness, no CVA or paraspinal tenderness EXT/Skin: no c/c/e, no obvious rash MSK: FROM x 4 Neuro: CN 2-12 grossly intact, no new focal deficits Psych: calm - Constitutional Vitals: Temp Pulse Resp BP Pulse Ox 98.8 F 85 20 156/94 99 09/20/17 10:00 09/20/17 12:15 09/20/17 10:00 09/20/17 12:15 09/20/17 08:26 Plan Activity: other (no strenous activity until cleared by pcp) Diet: renal Follow up with: ROSIE EVANS MD [Primary Care Provider] - 3-5 Days
[2017-09-20] MEDS ORDERED: NACL 0.9 (PRIMING MACHINE ONLY DIALYSIS) MC ONE (13:39)
[2017-09-20] MEDS: APRESOLINE IV PRN (15:38)
[2017-09-20 15:50] VITALS: BP 177/117
== END 2017-09-20 16:52 | disposition home or self-care (01) | DRG 100 ==
LOC: ED 19:34 → 4A 09-18 04:44
PROVIDERS: ADMIT Internal Medicine; ATTEND Internal Medicine
PROC: 5A1D70Z Performance of Urinary Filtration, Intermittent, Less than 6 Hours Per Day (ICD-10-PCS; 2017-09-18)
PROC: 30233N1 Transfusion of Nonautologous Red Blood Cells into Peripheral Vein, Percutaneous Approach (ICD-10-PCS; principal; 2017-09-19)
PROC: 5A1D70Z Performance of Urinary Filtration, Intermittent, Less than 6 Hours Per Day (ICD-10-PCS; 2017-09-20)
DX: G40.901 Epilepsy, unspecified, not intractable, with status epilepticus (principal); N18.6 End stage renal disease; N25.81 Secondary hyperparathyroidism of renal origin; E87.2 Acidosis; I12.0 Hypertensive chronic kidney disease with stage 5 chronic kidney disease or end stage renal disease; E87.5 Hyperkalemia; M32.9 Systemic lupus erythematosus, unspecified; G43.909 Migraine, unspecified, not intractable, without status migrainosus; F17.200 Nicotine dependence, unspecified, uncomplicated; D64.9 Anemia, unspecified; Z91.14 Patient's other noncompliance with medication regimen; Z71.89 Other specified counseling; Z88.5 Allergy status to narcotic agent; Z82.49 Family history of ischemic heart disease and other diseases of the circulatory system
CPT/HCPCS: 36415; 70450; 80048; 80053; 80185; 80320; 82550; 82553; 82962; 84484; 84703; 85014; 85018; 85025; 85027; 86850; 86900; 86901; 86920; 93005; 93010; 96365; 96367; 96372; 96375; G0480; J0360; J0610; J1165; J1200; J1650; J1815; J1953; J2060; J2270; J2310; J2405; J2765; J3486; J7030; J7040; J7050; P9016

== ENCOUNTER 2017-09-23 19:36 | Inpatient (IN) | payer MEDICARE ==
[2017-09-24] MEDS ORDERED: APRESOLINE IV ONE ×2 (06:37→07:45)
--- NOTE | 2017-09-24 06:39 | Emergency Department Report ---
ED General Adult HPI - General Chief complaint: Pain General Stated complaint: BODY PAIN Time Seen by Provider: 09/24/17 06:11 Source: patient, EMS, RN notes reviewed Mode of arrival: Ambulatory Limitations: Altered Mental Status - History of Present Illness Initial comments: This is a 27-year-old female whom I had evaluated in the past. Past medical history includes hypertension, lupus, end-stage renal disease on dialysis, Sunday, , Sunday. She reports missing dialysis over the weekend, and was last dialyzed on . Nephrology: Dr. Kang Patient is brought to the hospital by EMS. EMS indicates the patient complains of total body pain. Patient indicated that she was hurting all over. Patient indicated to EMS and to nursing staff that she did cocaine all weekend. To me she cannot tell me if she's had any coingestants. She cannot describe exacerbating or relieving factors. She cannot describe radiation. She admits to generalized malaise. Patient denies homicidality and suicidality. She denies urinary symptoms. She denies cough, chest pain, abdominal pain, shortness of breath. -: unknown Radiation: other (as per history of present illness) Quality: other (as per history of present illness) Consistency: other (as per history of present illness) Improves with: other (as per history of present illness) Worsens with: other (as per history of present illness) Associated Symptoms: other (as per history of present illness) - Related Data Home Medications Medication Instructions Recorded Confirmed Last Taken hydrALAZINE [Apresoline TAB] 25 mg PO DAILY 09/18/17 09/18/17 Unknown Previous Rx's Medication Instructions Recorded Last Taken Type Clonidine HCl [Catapres] 0.3 mg PO TID #90 tablet 09/13/17 Unknown Rx Phenytoin Sodium Extended 100 mg PO QHS #30 capsule 09/13/17 Unknown Rx [Dilantin] levETIRAcetam [Keppra TAB] 500 mg PO BID #60 tablet 09/13/17 Unknown Rx Allergies Allergy/AdvReac Type Severity Reaction Status Date / Time acetaminophen [From Percocet] AdvReac Unknown Verified 09/23/17 20:06 metoprolol AdvReac Vomiting Verified 09/23/17 20:06 oxycodone HCl [From Percocet] AdvReac Unknown Verified 09/23/17 20:06 ED Review of Systems ROS: Stated complaint: BODY PAIN Other details as noted in HPI Comment: Unobtainable due to pts medical conditions ED Past Medical Hx - Past Medical History Hx Hypertension: Yes Hx Heart Attack/AMI: No Hx Congestive Heart Failure: No Hx Diabetes: No Hx Pulmonary Embolism: No Hx Liver Disease: No Hx Renal Disease: Yes Hx Sickle Cell Disease: No Hx Headaches / Migraines: Yes (3 nights) Hx Seizures: Yes Hx Asthma: Yes Hx COPD: No Additional medical history: Lupus - Surgical History Additional Surgical History: fistula right arm - Social History Smoking Status: Current Every Day Smoker Substance Use Type: Cocaine - Medications Home Medications: Home Medications Medication Instructions Recorded Confirmed Last Taken Type Clonidine HCl [Catapres] 0.3 mg PO TID #90 tablet 09/13/17 09/18/17 Unknown Rx Phenytoin Sodium Extended 100 mg PO QHS #30 capsule 09/13/17 09/18/17 Unknown Rx [Dilantin] levETIRAcetam [Keppra TAB] 500 mg PO BID #60 tablet 09/13/17 09/18/17 Unknown Rx hydrALAZINE [Apresoline TAB] 25 mg PO DAILY 09/18/17 09/18/17 Unknown History ED Physical Exam - General Limitations: Altered Mental Status, Physical Limitation General appearance: appears intoxicated, in distress - Head Head exam: Present: atraumatic, normocephalic - Eye Eye exam: Present: normal appearance, PERRL, EOMI. Absent: nystagmus - ENT ENT exam: Present: normal exam, normal orophraynx, mucous membranes moist, normal external ear exam - Neck Neck exam: Present: normal inspection, full ROM - Respiratory Respiratory exam: Present: normal lung sounds bilaterally. Absent: respiratory distress - Cardiovascular Cardiovascular Exam: Present: normal rhythm, tachycardia, normal heart sounds. Absent: systolic murmur, diastolic murmur, rubs, gallop - GI/Abdominal GI/Abdominal exam: Present: soft, normal bowel sounds. Absent: distended, tenderness, guarding, rebound, rigid, pulsatile mass - Extremities Exam Extremities exam: Present: normal inspection, full ROM, normal capillary refill , other (right upper extremity AV fistula, no redness, pus or streaking. 2+ pulses noted in the bilateral upper and lower extremities, the compartments are soft, there is no clonus, downgoing plantar reflexes bilaterally). Absent: pedal edema, joint swelling, calf tenderness - Back Exam Back exam: Present: normal inspection, full ROM. Absent: tenderness, CVA tenderness (R), paraspinal tenderness, vertebral tenderness - Neurological Exam Neurological exam: Present: altered (patient alert to name, location, doesn't know the day of the week, doesn't know the month, follows commands), CN II-XII intact, other (Extraocular movements intact. Tongue midline. No facial droop. Facial sensation intact to light touch in the V1, V2, V3 distribution bilaterally. 5 and 5 strength in 4 extremities.. Sensation is intact to light touch in 4 extremities.). Absent: motor sensory deficit - Psychiatric Psychiatric exam: Present: anxious. Absent: homicidal ideation, suicidal ideation - Skin Skin exam: Present: warm, dry, intact, normal color. Absent: rash ED Course Vital Signs 09/23/17 09/24/17 09/24/17 20:06 02:37 05:44 Temperature 98.6 F 98.8 F Pulse Rate 120 H 106 H Respiratory 18 18 18 Rate Blood Pressure 211/143 209/134 O2 Sat by Pulse 98 100 98 Oximetry 09/24/17 09/24/17 09/24/17 06:00 06:15 06:30 Temperature 97.4 F L Pulse Rate 97 H 99 H 105 H Respiratory 12 9 L 14 Rate Blood Pressure 197/133 200/130 202/131 O2 Sat by Pulse 98 100 93 Oximetry 09/24/17 09/24/17 09/24/17 06:45 07:00 07:15 Temperature Pulse Rate 96 H 97 H 96 H Respiratory 15 12 15 Rate Blood Pressure 210/131 200/131 209/129 O2 Sat by Pulse 100 Oximetry 09/24/17 07:50 Temperature Pulse Rate 97 H Respiratory Rate Blood Pressure 200/131 O2 Sat by Pulse Oximetry - Reevaluation(s) Reevaluation #1: 09/24/17 08:[address] scan of the brain is negative. Patient had a generalized tonic- clonic seizure. She is placed on seizure precautions, head of the bed is elevated, 1 g of Keppra is ordered. - EJ/Peripheral Line Neck L Time Out Performed: Yes Indications: nurses unable to establis Skin Cleansed in Sterile Fashion: Yes Size: 20 Dressing Placed: Tegaderm Patient Tolerated Procedure: well ED Medical Decision Making - Lab Data Result diagrams: 09/24/17 05:56 09/24/17 05:56 Vital Signs 09/23/17 09/24/17 09/24/17 20:06 02:37 05:44 Temperature 98.6 F 98.8 F Pulse Rate 120 H 106 H Respiratory 18 18 18 Rate Blood Pressure 211/143 209/134 O2 Sat by Pulse 98 100 98 Oximetry 09/24/17 09/24/17 09/24/17 06:00 06:15 06:30 Temperature 97.4 F L Pulse Rate 97 H 99 H 105 H Respiratory 12 9 L 14 Rate Blood Pressure 197/133 200/130 202/131 O2 Sat by Pulse 98 100 93 Oximetry 09/24/17 09/24/17 09/24/17 06:45 07:00 07:15 Temperature Pulse Rate 96 H 97 H 96 H Respiratory 15 12 15 Rate Blood Pressure 210/131 200/131 209/129 O2 Sat by Pulse 100 Oximetry Lab Results 09/24/17 09/24/17 09/24/17 Range/Units 05:56 05:56 05:56 WBC 4.4 L (4.5-11.0) K/mm3 RBC 3.43 L (3.65-5.03) M/mm3 Hgb 10.3 (10.1-14.3) gm/dl Hct 30.9 (30.3-42.9) % MCV 90 (79-97) fl MCH 30 (28-32) pg MCHC 33 (30-34) % RDW 16.1 H (13.2-15.2) % Plt Count 138 L (140-440) K/mm3 Lymph % (Auto) 18.3 (13.4-35.0) % [place] % (Auto) 10.8 H (0.0-7.3) % Eos % (Auto) 3.7 (0.0-4.3) % Baso % (Auto) 1.0 (0.0-1.8) % Lymph # 0.8 L (1.2-5.4) K/mm3 [place] # 0.5 (0.0-0.8) K/mm3 Eos # 0.2 (0.0-0.4) K/mm3 Baso # 0.0 (0.0-0.1) K/mm3 Seg Neutrophils % 66.2 (40.0-70.0) % Seg Neutrophils # 2.9 (1.8-7.7) K/mm3 Sodium 139 (137-145) mmol/L Potassium 4.6 (3.6-5.0) mmol/L Chloride 92.3 L (98-107) mmol/L Carbon Dioxide 28 (22-30) mmol/L Anion Gap 23 mmol/L BUN 29 H (7-17) mg/dL Creatinine 12.6 H (0.7-1.2) mg/dL Estimated GFR 4 ml/min BUN/Creatinine Ratio 2 % Glucose 72 (65-100) mg/dL Calcium 9.0 (8.4-10.2) mg/dL Total Creatine Kinase 90 (30-135) units/L Troponin T 0.040 H (0.00-0.029) ng/mL Triglycerides 95 (2-149) mg/dL Cholesterol 164 (50-199) mg/dL LDL Cholesterol Direct 86 (50-130) mg/dL HDL Cholesterol 59 (40-59) mg/dL Cholesterol/HDL Ratio 2.77 % HCG, Qual Negative (Negative) - EKG Data -: EKG Interpreted by Ak EKG shows normal: sinus rhythm - EKG Data 09/24/17 07:50 EKG demonstrates normal sinus, 90 bpm, left axis deviation, atrial enlargement, QTC prolonged, high left ventricular voltage, abnormal EKG, not morphologically consistent with ST elevation myocardial infarction. Repeat EKG appears to be unchanged. Appears grossly unchanged from prior EKG from September 2017 - Radiology Data Radiology results: report reviewed, image reviewed X-ray of the chest negative for acute disease, chronic findings noted. - Medical Decision Making Differential diagnosis, including with not limited to: Posterior reversible encephalopathy syndrome, hypertensive encephalopathy, hypertensive urgency/ emergency, cocaine encephalopathy, rhabdomyolysis, hyperkalemia, azotemia, polysubstance abuse Assessment and plan: 27-year-old female with a complaint of total body pain. The patient is a poor historian. Her neurologic examination is nonfocal. Noncontrast CT scan of the brain grossly negative. Laboratory studies do nontender straight hyperkalemia, but patient has elevated creatinine at 12.6. Patient given hydralazine 2, still hypertensive. Patient has nonspecific altered mental status, most likely has encephalopathy as a multifactorial etiology, including cocaine abuse, and hypertension. The patient does not require 1013. A troponin was sent prior to my evaluation. It is elevated, as I would expect it to be for patient's end-stage renal disease. To me, the patient did not endorse any complaints of chest pain. X-ray of the chest and restraints chronic findings with no acute disease. Discussed with covering nephrology, Dr. Kang, who agrees with plan for admission and blood pressure control, her group will arrange for dialysis. Case presented to the hospital nurse practitioner, Antonieta Acosta; she accepts the patient to the medical service. Compartments were soft, there is no pain with passive range of motion of the upper or lower extremities, and creatinine kinase was not elevated. Critical care attestation.: If time is entered above; I have spent that time in minutes in the direct care of this critically ill patient, excluding procedure time. ED Disposition Clinical Impression: ESRD (end stage renal disease) on dialysis, Hypertensive urgency, Noncompliance with renal dialysis, Cocaine abuse, Generalized pain Disposition: 09 OP ADMIT IP TO THIS HOSP Is pt being admited?: Yes Condition: Good Referrals: CARLEY MARROQUIN MD [Primary Care Provider] - 3-5 Days
[2017-09-24 06:40] LABS: Eosinophils % (Auto) 3.7 % (0.0-4.3); Hematocrit 30.9 % (30.3-42.9); Hemoglobin 10.3 gm/dl (10.1-14.3); Mean Corpuscular HGB Conc 33 % (30-34); Mean Corpuscular Hemoglobin 30 pg (28-32); Mean Corpuscular Volume 90 fl (79-97); Platelet Count 138 K/mm3 (140-440); Red Blood Count 3.43 M/mm3 (3.65-5.03); Red Cell Distribution Width 16.1 % (13.2-15.2); White Blood Count 4.4 K/mm3 (4.5-11.0)
[2017-09-24 06:58] LABS: Chloride 92.3 mmol/L (98-107); Potassium 4.6 mmol/L (3.6-5.0)
--- NOTE | 2017-09-24 07:22 | XRay Report ---
FINAL REPORT PROCEDURE: XR CHEST 1V AP TECHNIQUE: Chest radiograph anteroposterior view. CPT 22607 HISTORY: htn esrd ams ? pna COMPARISON: Chest one view 09/12/2007 FINDINGS: Stable cardiomegaly is present. Stable linear scarring or subsegmental atelectasis at the left lung base is seen. The right lung is clear. There is no evident pneumothorax or pleural fluid. There is no focal consolidation or acute osseous abnormality. IMPRESSION: Stable cardiomegaly and left basilar scarring or subsegmental atelectasis.
--- NOTE | 2017-09-24 08:07 | Cat Scan Report ---
CT HEAD WITHOUT CONTRAST: HISTORY: Altered mental status. TECHNIQUE: Sequential 2.5mm CT images. COMPARISON: 09/18/17. FINDINGS: Cerebral Parenchyma: Within normal limits. Cerebellum: Within normal limits. Brainstem: Within normal limits. Ventricles: Normal. Sella: Normal. Extra-axial spaces: Normal. Basal Cisterns: Normal. Intracranial Hemorrhage: None. Midline Shift: None. Calvarium: Normal. Sinuses: Normal. Mastoid Air Cells: Normal. Visualized Orbits: Normal. IMPRESSION: Cranial CT scan within normal limits.
[2017-09-24] MEDS ORDERED: KEPPRA 1,000 MG/NS 0.75% 100ML 1,000 MG/100 ML BAG IV ONE ×2 (08:16)
[2017-09-24] MEDS ORDERED: DULCOLAX PR PRN (09:27)
[2017-09-24] MEDS ORDERED: TYLENOL PO PRN (09:27)
[2017-09-24] MEDS ORDERED: MORPHINE IV PRN (09:27)
[2017-09-24] MEDS ORDERED: APRESOLINE IV PRN (09:33)
[2017-09-24] MEDS ORDERED: ZOFRAN IM PRN (09:33)
--- NOTE | 2017-09-24 09:34 | Progress Note ---
History Interval history: Patient is a 27-year-old female whom I had evaluated in the past. Past medical history includes hypertension, lupus, end-stage renal disease on dialysis, Sunday, , Sunday. She reports missing dialysis over the weekend, and was last dialyzed on . Nephrology: Dr. Kang Patient is brought to the hospital by EMS. EMS indicates the patient complains of total body pain. Patient indicated that she was hurting all over. Patient indicated to EMS and to nursing staff that she did cocaine all weekend. To me she cannot tell me if she's had any coingestants. She cannot describe exacerbating or relieving factors. She cannot describe radiation. She admits to generalized malaise. Hospitalist Physical - Constitutional Vitals: Temp Pulse Resp BP Pulse Ox 97.4 F L 97 H 15 200/131 100 09/24/17 06:00 09/24/17 07:50 09/24/17 07:15 09/24/17 07:50 09/24/17 06:45 Results - Labs CBC & Chem 7: 09/24/17 05:56 09/24/17 05:56 Labs: Laboratory Last Values WBC 4.4 K/mm3 (4.5-11.0) L 09/24/17 05:56 RBC 3.43 M/mm3 (3.65-5.03) L 09/24/17 05:56 Hgb 10.3 gm/dl (10.1-14.3) 09/24/17 05:56 Hct 30.9 % (30.3-42.9) 09/24/17 05:56 MCV 90 fl (79-97) 09/24/17 05:56 MCH 30 pg (28-32) 09/24/17 05:56 MCHC 33 % (30-34) 09/24/17 05:56 RDW 16.1 % (13.2-15.2) H 09/24/17 05:56 Plt Count 138 K/mm3 (140-440) L 09/24/17 05:56 Lymph % (Auto) 18.3 % (13.4-35.0) 09/24/17 05:56 [place] % (Auto) 10.8 % (0.0-7.3) H 09/24/17 05:56 Eos % (Auto) 3.7 % (0.0-4.3) 09/24/17 05:56 Baso % (Auto) 1.0 % (0.0-1.8) 09/24/17 05:56 Lymph # 0.8 K/mm3 (1.2-5.4) L 09/24/17 05:56 [place] # 0.5 K/mm3 (0.0-0.8) 09/24/17 05:56 Eos # 0.2 K/mm3 (0.0-0.4) 09/24/17 05:56 Baso # 0.0 K/mm3 (0.0-0.1) 09/24/17 05:56 Seg Neutrophils % 66.2 % (40.0-70.0) 09/24/17 05:56 Seg Neutrophils # 2.9 K/mm3 (1.8-7.7) 09/24/17 05:56 Sodium 139 mmol/L (137-145) 09/24/17 05:56 Potassium 4.6 mmol/L (3.6-5.0) 09/24/17 05:56 Chloride 92.3 mmol/L (98-107) L 09/24/17 05:56 Carbon Dioxide 28 mmol/L (22-30) 09/24/17 05:56 Anion Gap 23 mmol/L 09/24/17 05:56 BUN 29 mg/dL (7-17) H 09/24/17 05:56 Creatinine 12.6 mg/dL (0.7-1.2) H 09/24/17 05:56 Estimated GFR 4 ml/min 09/24/17 05:56 BUN/Creatinine Ratio 2 % 09/24/17 05:56 Glucose 72 mg/dL (65-100) 09/24/17 05:56 Calcium 9.0 mg/dL (8.4-10.2) 09/24/17 05:56 Total Creatine Kinase 90 units/L (30-135) 09/24/17 05:56 Troponin T 0.040 ng/mL (0.00-0.029) H 09/24/17 05:56 Triglycerides 95 mg/dL (2-149) 09/24/17 05:56 Cholesterol 164 mg/dL (50-199) 09/24/17 05:56 LDL Cholesterol Direct 86 mg/dL (50-130) 09/24/17 05:56 HDL Cholesterol 59 mg/dL (40-59) 09/24/17 05:56 Cholesterol/HDL Ratio 2.77 % 09/24/17 05:56 HCG, Qual Negative (Negative) 09/24/17 05:56
--- NOTE | 2017-09-24 11:41 | History and Physical Report ---
History of Present Illness Date of examination: 09/24/17 Date of admission: 09/24/17 09:27 Chief complaint: Seizure and Altered mental status History of present illness: Patient is a 27-year-old female with past medical history of hypertension, lupus, end-stage renal disease on dialysis, Sunday, , Sunday who presents to the emergency department for needing dialysis, seizure, altered mental status and ingested a large amount of cocaine. Patient currently post takedown and altered mental status and therefore unable to obtain detailed history. Per ER physician patient brought by EMS indicating that patient complains of generalized ache and she missed her dialysis over the weekend. Patient her last dialysis was on 09/20/17. Per ER nurse patient states that she she did cocaine all weekend.No reports of fever, chills, chest pain, she seizure, trauma, loss of bowel or bladder continence or recent ill contacts. Past History Past Medical History: ESRD (Sunday, , Sunday), hypertension, seizures , other (Lupus) Past Surgical History: Other (unable to obtain due to patients mental status ) Social history: other (cocaine) Family history: other (unable to obtain due to patients mental status) Medications and Allergies Allergies Allergy/AdvReac Type Severity Reaction Status Date / Time acetaminophen [From Percocet] AdvReac Unknown Verified 09/23/17 20:06 metoprolol AdvReac Vomiting Verified 09/23/17 20:06 oxycodone HCl [From Percocet] AdvReac Unknown Verified 09/23/17 20:06 Home Medications Medication Instructions Recorded Confirmed Last Taken Type Clonidine HCl [Catapres] 0.3 mg PO TID #90 tablet 09/13/17 10/02/17 Unknown Rx Phenytoin Sodium Extended 100 mg PO QHS #30 capsule 09/13/17 10/02/17 Unknown Rx [Dilantin] hydrALAZINE [Apresoline TAB] 25 mg PO DAILY 09/18/17 10/02/17 Unknown History levETIRAcetam [Keppra TAB] 750 mg PO BID #60 tablet 09/25/17 10/02/17 Unknown Rx Furosemide [Lasix] 80 mg PO QDAY 10/02/17 10/02/17 Unknown History predniSONE [Deltasone] 10 mg PO QDAY 10/02/17 10/02/17 Unknown History Active Meds: Active Medications Acetaminophen (Tylenol) 650 mg PO Q4H PRN PRN Reason: Pain MILD(1-3)/Fever >100.5/ROY Bisacodyl (Dulcolax) 10 mg [place] QDAY PRN PRN Reason: Constipation unrelieved by MOM Heparin Sodium (Porcine) (Heparin) 5,000 unit SUB-Q Q12HR HENRY Hydralazine HCl (Apresoline) 10 mg IV Q4H PRN PRN Reason: Blood Pressure Levetiracetam 750 mg/ Sodium (Chloride) 107.5 mls @ 400 mls/hr IV Q12HR HENRY Morphine Sulfate (Morphine) 2 mg IV Q4H PRN PRN Reason: Pain, Moderate (4-6) Ondansetron HCl (Zofran) 4 mg IM Q4H PRN PRN Reason: Nausea And Vomiting Review of Systems ROS unobtainable: due to mental status (Unable to obtain due to patients mental status) Exam - Constitutional Vitals: Temp Pulse Resp BP Pulse Ox 97.4 F L 120 H 21 161/107 100 09/24/17 06:00 09/24/17 10:35 09/24/17 10:35 09/24/17 10:35 09/24/17 10:35 General appearance: Present: mild distress, other (Aletered mental status ) - EENT Eyes: Present: PERRL - Neck Neck: Present: supple - Respiratory Respiratory effort: normal Respiratory: bilateral: diminished - Cardiovascular Rhythm: regular Heart Sounds: Present: S1 & S2 - Abdominal General gastrointestinal: Present: soft, non-tender Female genitourinary: Present: deferred - Rectal Rectal Exam: deferred - Integumentary Integumentary: Present: clear, warm, dry - Musculoskeletal Musculoskeletal: strength equal bilaterally - Psychiatric Psychiatric: other (impaired judgment ) - Neurologic Neurologic: moves all extremities - Allied Health Allied health notes reviewed: nursing Results - Labs CBC & Chem 7: 09/24/17 05:56 09/24/17 05:56 Labs: Laboratory Last Values WBC 4.4 K/mm3 (4.5-11.0) L 09/24/17 05:56 RBC 3.43 M/mm3 (3.65-5.03) L 09/24/17 05:56 Hgb 10.3 gm/dl (10.1-14.3) 09/24/17 05:56 Hct 30.9 % (30.3-42.9) 09/24/17 05:56 MCV 90 fl (79-97) 09/24/17 05:56 MCH 30 pg (28-32) 09/24/17 05:56 MCHC 33 % (30-34) 09/24/17 05:56 RDW 16.1 % (13.2-15.2) H 09/24/17 05:56 Plt Count 138 K/mm3 (140-440) L 09/24/17 05:56 Lymph % (Auto) 18.3 % (13.4-35.0) 09/24/17 05:56 [place] % (Auto) 10.8 % (0.0-7.3) H 09/24/17 05:56 Eos % (Auto) 3.7 % (0.0-4.3) 09/24/17 05:56 Baso % (Auto) 1.0 % (0.0-1.8) 09/24/17 05:56 Lymph # 0.8 K/mm3 (1.2-5.4) L 09/24/17 05:56 [place] # 0.5 K/mm3 (0.0-0.8) 09/24/17 05:56 Eos # 0.2 K/mm3 (0.0-0.4) 09/24/17 05:56 Baso # 0.0 K/mm3 (0.0-0.1) 09/24/17 05:56 Seg Neutrophils % 66.2 % (40.0-70.0) 09/24/17 05:56 Seg Neutrophils # 2.9 K/mm3 (1.8-7.7) 09/24/17 05:56 Sodium 139 mmol/L (137-145) 09/24/17 05:56 Potassium 4.6 mmol/L (3.6-5.0) 09/24/17 05:56 Chloride 92.3 mmol/L (98-107) L 09/24/17 05:56 Carbon Dioxide 28 mmol/L (22-30) 09/24/17 05:56 Anion Gap 23 mmol/L 09/24/17 05:56 BUN 29 mg/dL (7-17) H 09/24/17 05:56 Creatinine 12.6 mg/dL (0.7-1.2) H 09/24/17 05:56 Estimated GFR 4 ml/min 09/24/17 05:56 BUN/Creatinine Ratio 2 % 09/24/17 05:56 Glucose 72 mg/dL (65-100) 09/24/17 05:56 Calcium 9.0 mg/dL (8.4-10.2) 09/24/17 05:56 Total Creatine Kinase 90 units/L (30-135) 09/24/17 05:56 Troponin T 0.040 ng/mL (0.00-0.029) H 09/24/17 05:56 Triglycerides 95 mg/dL (2-149) 09/24/17 05:56 Cholesterol 164 mg/dL (50-199) 09/24/17 05:56 LDL Cholesterol Direct 86 mg/dL (50-130) 09/24/17 05:56 HDL Cholesterol 59 mg/dL (40-59) 09/24/17 05:56 Cholesterol/HDL Ratio 2.77 % 09/24/17 05:56 HCG, Qual Negative (Negative) 09/24/17 05:56 Plasma/Serum Alcohol < 0.01 gm% (0-0.07) 09/24/17 07:18 - Imaging and Cardiology Chest x-ray: image reviewed (stable cardiomegaly) CT Scan - head: image reviewed (unremarkable) Assessment and Plan Assessment and plan: Patient is a 27-year-old female with past medical history of hypertension, lupus, end-stage renal disease on dialysis, Sunday, , Sunday who presents to the emergency department for making dialysis, seizure, altered mental status and ingested a large amount of cocaine. Metabolic encephalopathy Secondary to seizure, postictal state. CT of the head did not show any bleed, shift, mass or any acute process. seizure precautions MRI pending Status Epilepticus Started on IV Keppera for now and we will transition to PO when patient become alert and oriented. Frequent neuro checks. patient has a recent unremarkable MRI We will obtain EEG Ativan when necessary Oxygen supplement when necessary Implement seizure precautions Neurology consulted Supportive care End-stage renal disease Nephrology consult that Medical Noncompliance Patient noncompliance with her medication and Diayalasis . Counseling will be given when patient become more alert and oriented. Tobacco/cocaine abuse Counseling will be given when patient become more alert and oriented. Elevated troponin Most likely due to ESRD; patient all pervious troponin elevated DVT prophylaxis Lovenox Plan discussed with patient and her nurse. Advance Directives: Yes VTE prophylaxis?: Chemical Contraindication Mechanical VTE Prophylaxis: Treatment Not Indicated Plan of care discussed with patient/family: Yes
[2017-09-24] MEDS ORDERED: ATIVAN IV PRN (12:00)
[2017-09-24] MEDS ORDERED: NACL 0.9% 100 ML IV PRN (13:58)
[2017-09-24] MEDS ORDERED: NON-FORMULARY (Clonidine Hcl [Catapres] 0.3 MG) PO SCH (14:00)
[2017-09-24] MEDS: HEPARIN SUB-Q SCH ×2 (18:02→22:49)
[2017-09-24] MEDS: CATAPRES PO SCH ×2 (18:03→22:49)
--- NOTE | 2017-09-24 18:16 | Consultation ---
History of Present Illness - Reason for Consult Consult date: 09/24/17 (consult dictated) - History of Present Illness Discussed with ER physician this morning about the pt's clinical condition. HD ordered Past History Past Medical History: ESRD (Sunday, , Sunday), hypertension, seizures , other (Lupus) Past Surgical History: Other (unable to obtain due to patients mental status ) Social history: other (cocaine) Family history: other (unable to obtain due to patients mental status) Medications and Allergies Allergies Allergy/AdvReac Type Severity Reaction Status Date / Time acetaminophen [From Percocet] AdvReac Unknown Verified 09/23/17 20:06 metoprolol AdvReac Vomiting Verified 09/23/17 20:06 oxycodone HCl [From Percocet] AdvReac Unknown Verified 09/23/17 20:06 Home Medications Medication Instructions Recorded Confirmed Last Taken Type Clonidine HCl [Catapres] 0.3 mg PO TID #90 tablet 09/13/17 09/24/17 Unknown Rx Phenytoin Sodium Extended 100 mg PO QHS #30 capsule 09/13/17 09/24/17 Unknown Rx [Dilantin] levETIRAcetam [Keppra TAB] 500 mg PO BID #60 tablet 09/13/17 09/24/17 Unknown Rx hydrALAZINE [Apresoline TAB] 25 mg PO DAILY 09/18/17 09/24/17 Unknown History Active Meds: Active Medications Acetaminophen (Tylenol) 650 mg PO Q4H PRN PRN Reason: Pain MILD(1-3)/Fever >100.5/ROY Bisacodyl (Dulcolax) 10 mg ME QDAY PRN PRN Reason: Constipation unrelieved by MOM Clonidine HCl (Catapres) 0.3 mg PO Q8HR [facility]ENRY Last Admin: 09/24/17 18:03 Dose: 0.3 mg Heparin Sodium (Porcine) (Heparin) 5,000 unit SUB-Q Q12HR [facility] Last Admin: 09/24/17 18:02 Dose: Not Given Hydralazine HCl (Apresoline) 10 mg IV Q4H PRN PRN Reason: Blood Pressure Hydralazine HCl (Apresoline) 25 mg PO DAILY [facility] Levetiracetam 750 mg/ Sodium (Chloride) 107.5 mls @ 400 mls/hr IV Q12H [facility] Sodium Chloride (Nacl 0.9%) 100 mls @ 999 mls/hr IV LAKESHA PRN PRN Reason: Hypotension Lorazepam (Ativan) 2 mg IV Q4H PRN PRN Reason: Seizures Ondansetron HCl (Zofran) 4 mg IM Q4H PRN PRN Reason: Nausea And Vomiting Phenytoin (Dilantin) 100 mg PO QHS [facility] Exam - Constitutional Vitals: Temp Pulse Resp BP Pulse Ox 98.1 F 140 H 24 156/110 95 09/24/17 14:00 09/24/17 17:05 09/24/17 14:00 09/24/17 17:05 09/24/17 11:34 Results - Labs CBC & Chem 7: 09/24/17 05:56 09/24/17 05:56 Labs: Abnormal lab results 09/24/17 09/24/17 09/24/17 Range/Units 05:56 05:56 07:18 WBC 4.4 L (4.5-11.0) K/mm3 RBC 3.43 L (3.65-5.03) M/mm3 RDW 16.1 H (13.2-15.2) % Plt Count 138 L (140-440) K/mm3 Heard % (Auto) 10.8 H (0.0-7.3) % Lymph # 0.8 L (1.2-5.4) K/mm3 Chloride 92.3 L (98-107) mmol/L BUN 29 H (7-17) mg/dL Creatinine 12.6 H (0.7-1.2) mg/dL Troponin T 0.040 H (0.00-0.029) ng/mL Salicylates < 0.3 L (2.8-20.0) mg/dL
[2017-09-24] MEDS ORDERED: KEPPRA 750 MG in NACL 0.9% 100 ML IV SCH (20:00)
[2017-09-24] MEDS ORDERED: DILANTIN PO SCH (22:00)
[2017-09-24] MEDS: APRESOLINE PO SCH (22:48)
[2017-09-25] MEDS: CATAPRES PO SCH ×2 (05:53→13:31)
[2017-09-25] MEDS: APRESOLINE PO SCH ×2 (05:54→13:31)
--- NOTE | 2017-09-25 08:19 | Consultation ---
RENAL CONSULTATION HISTORY OF PRESENT ILLNESS: This 27-year-old -Stateless female with a history of end-stage renal disease, hypertension, lupus, was brought to the Emergency Room with complaints of total body pain. Discussed with ER physician, Dr. Santacruz. The patient goes to [facility] on Tuesdays, , Saturdays. Her last treatment was past , she missed her dialysis treatment on Sunday due to transportation issues per the patient. This discussed with the ER physician who informed me that the patient was doing cocaine all weekend. CT scan of the head was reported to have no acute findings and she also was reported to have a generalized tonic-clonic seizure, a gram of Keppra was ordered. Potassium was 4.6, BUN 29, creatinine 12.6. She had accelerated hypertension with blood pressure of 211/143 to 209/134. PAST MEDICAL HISTORY: Hypertension, end-stage renal disease, systemic lupus erythematosus. PERSONAL HISTORY: She smokes cigarettes, also cocaine abuse. ALLERGIES: ACETAMINOPHEN, METOPROLOL, OXYCODONE. HOME MEDICATIONS: Clonidine 0.3 mg 3 times a day, Dilantin 100 mg at bedtime, Keppra 500 mg twice a day, hydralazine 25 mg a day. FAMILY HISTORY: No family history of kidney failure. REVIEW OF SYSTEMS: The patient complains of headache and hurting all over. Denies fever or chills. Denies abdomen pain, denies nausea or vomiting. Appetite fair. Denies swelling of the legs. Other review of systems reviewed and negative. PHYSICAL EXAMINATION: GENERAL: The patient is sleepy, but arousable, able to tell her age, oriented to person and place. HEENT: Head is normocephalic. Eyes: Pupils reactive. VITAL SIGNS: Blood pressure 159/113, pulse 123, afebrile. HEENT: Conjunctivae pale. Lips noncyanotic. NECK: No JVD. No thyroid enlargement. LUNGS: Clear. HEART: S1, S2 regular. A 2/6 systolic murmur along the left sternal border. No pericardial rub. ABDOMEN: Soft, bowel sounds present, nontender. EXTREMITIES: 1+ edema, right upper arm AV access has bruit and thrill. LABORATORY DATA: WBC 4.4, hemoglobin 10.3, hematocrit 30.9, platelets 138. Sodium 139, potassium 4.6, chloride 92, CO2 28, BUN 29, creatinine 12.6, glucose 72, calcium 9.0. ASSESSMENT AND PLAN: 1. Hypertensive urgency. 2. End stage renal disease. 3. Cocaine abuse. 4. Anemia in chronic kidney disease. 5. Seizure disorder. 6. Systemic lupus erythematosus. Hemodialysis with ultrafiltration as tolerated. Optimize blood pressure medications. Avoid Epogen until blood pressure is well controlled. Adjust medications per renal function. JOB# [id number] K/NTS
[2017-09-25] MEDS ORDERED: APRESOLINE PO SCH (10:00)
--- NOTE | 2017-09-25 11:30 | Discharge Summary ---
Providers - Providers Date of Admission: 09/24/17 09:27 Date of discharge: 09/25/17 Attending physician: CARLEY MCGEE 09/24/17 07:25 Consult to Physician [CONS] Urgent Consulting Provider: ALEE ORTEGA Reason For Exam: esrd htn Notified:: yes Primary care physician: CARLEY MARROQUIN Hospitalization Condition: Good Hospital course: Patient with ESRD on dialysis, seizure disorder. She presents with seizures. She recently used lot of cocaine. She had altered mental status, hypertensive emergency with BP 211/143. She was given Hydralazine iv, and admitted. She was evaluated by Ophthalmic Assistant. Dialysis was done. her mental status improved, encephalopathy resolved and she was discharged home in 2 days on 09/25/17. Total time spent on discharge, 33 mins. Disposition: DC-01 TO HOME OR SELFCARE - Discharge Diagnoses (1) Breakthrough seizure Status: Acute (2) Cocaine abuse Status: Acute (3) Hypertensive urgency Status: Acute (4) End stage renal disease on dialysis Status: Chronic (5) Medical non-compliance Status: Acute (6) Lupus (systemic lupus erythematosus) Status: Acute (7) Hypertensive emergency Status: Acute (8) Toxic metabolic encephalopathy Status: Acute Core Measure Documentation - Palliative Care Palliative Care/ Comfort Measures: Not Applicable - Core Measures Any of the following diagnoses?: none Exam - Constitutional Vitals: Temp Pulse Resp BP Pulse Ox 97.6 F 79 18 124/77 98 09/25/17 08:51 09/25/17 09:25 09/25/17 08:51 09/25/17 08:51 09/25/17 08:51 General appearance: Present: no acute distress - EENT ENT: hearing intact - Respiratory Respiratory: bilateral: CTA - Cardiovascular Heart Sounds: Present: S1 & S2 Plan Activity: no restrictions, no driving until cleared by PCP Diet: low fat, low cholesterol, low salt, diabetic Additional Instructions: 1.Follow up with PCP in 1 week. 2.Continue routine hemodialysis as scheduled. 3.No driving for at least 6 months and until cleared by Physician. Follow up with: CARLEY MARROQUIN MD [Primary Care Provider] - 3-5 Days
[2017-09-25 13:05] VITALS: BP 133/80
--- NOTE | 2017-09-25 15:17 | Progress Note ---
Assessment and Plan Impression * End-stage renal disease on maintenance hemodialysis * Accelerated hypertension * Seizure disorder * Noncompliance * Lupus * Anemia secondary to ESRD Recommendations * Patient had uneventful hemodialysis yesterday * Her outpatient dialysis days however Tuesdays, and Saturdays * Her blood pressure is under better control * Continue Procrit with dialysis * Antiseizure therapy as per primary team * No objection to discharge from renal standpoint Subjective Date of service: 09/25/17 Interval history: Patient is comfortable this morning. Denies any shortness of breath. No nausea vomiting or diarrhea Objective - Vital Signs Vital signs: Vital Signs - 12hr 09/25/17 09/25/17 09/25/17 05:16 05:25 05:53 Temperature 98.0 F Pulse Rate 108 H 81 104 H Respiratory 18 Rate Blood Pressure 146/93 118/72 Blood Pressure [Left] O2 Sat by Pulse 99 Oximetry 09/25/17 09/25/17 09/25/17 05:54 08:51 09:25 Temperature 97.6 F Pulse Rate 104 H 72 79 Respiratory 18 Rate Blood Pressure 118/72 Blood Pressure 124/77 [Left] O2 Sat by Pulse 98 Oximetry 09/25/17 13:04 Temperature 97.7 F Pulse Rate 80 Respiratory 18 Rate Blood Pressure Blood Pressure 133/80 [Left] O2 Sat by Pulse Oximetry - General Appearance General appearance: well-developed, well-nourished, appears stated age EENT: PERRL, mucous membranes moist Neck: no JVD, no thyromegaly, no carotid bruit, supple Respiratory: Present: Clear to Ascultation Cardiology: regular, normal heart rate, S1S2, no murmurs Gastrointestinal: normal, normoactive bowel sounds Integumentary: no rash, other (AV fistula in her right upper arm. Good bruit and thrill.) - Lab 09/24/17 05:56 09/24/17 05:56 Most recent lab results Calcium 9.0 mg/dL (8.4-10.2) 09/24/17 05:56
[2017-09-25] MEDS ORDERED: KEPPRA PO SCH (22:00)
== END 2017-09-25 14:40 | disposition home or self-care (01) | DRG 100 ==
LOC: ED 19:36 → 4A 09-24 09:27
PROVIDERS: ADMIT Internal Medicine; ATTEND Internal Medicine
PROC: 5A1D70Z Performance of Urinary Filtration, Intermittent, Less than 6 Hours Per Day (ICD-10-PCS; principal; 2017-09-24)
PROC: 05HQ33Z Insertion of Infusion Device into Left External Jugular Vein, Percutaneous Approach (ICD-10-PCS; 2017-09-24)
DX: G40.901 Epilepsy, unspecified, not intractable, with status epilepticus (principal); N18.6 End stage renal disease; G93.41 Metabolic encephalopathy; I12.0 Hypertensive chronic kidney disease with stage 5 chronic kidney disease or end stage renal disease; I16.0 Hypertensive urgency; F14.10 Cocaine abuse, uncomplicated; G43.909 Migraine, unspecified, not intractable, without status migrainosus; F17.210 Nicotine dependence, cigarettes, uncomplicated; D63.1 Anemia in chronic kidney disease; M32.9 Systemic lupus erythematosus, unspecified; Z88.5 Allergy status to narcotic agent; Z79.899 Other long term (current) drug therapy; Z91.15 Patient's noncompliance with renal dialysis
CPT/HCPCS: 36415; 70450; 71010; 80048; 80061; 80320; 82550; 84484; 84703; 85025; 93005; 93010; 96365; 96372; 96375; 96376; 99285; 99406; G0480; J0360; J1644; J1953

== ENCOUNTER 2017-10-02 07:16 | Inpatient (IN) | payer MEDICARE ==
[2017-10-02] MEDS ORDERED: MORPHINE IV ONE (08:23)
[2017-10-02] MEDS ORDERED: APRESOLINE IV ONE (08:23)
--- NOTE | 2017-10-02 08:37 | Emergency Department Report ---
HPI - General Chief Complaint: Dyspnea/Respdistress Time Seen by Provider: 10/02/17 08:05 - HPI HPI: This is a 27-year-old -Citizen Of [place] female presents to the emergency department by EMS from home with complaints of body aches and joint pain, as well as some shortness of breath. The patient has a history of lupus and says that she feels like her body aches and joint pain consistent with a lupus exacerbation. The patient also has a history of end-stage renal disease on hemodialysis on Sunday//Sunday. In reviewing the patient's previous charts, she appears to have a history of medication and dialysis noncompliance, as well as a history of cocaine abuse. The patient denies any illicit drug use recently. She did miss her last dialysis session on Sunday. The body aches have been going on for the past few days and the shortness of breath started overnight. She says she was unable to get sleep secondary to the shortness of breath and was unable to get comfortable. She did not take anything for her symptoms prior to presentation. She denies any chest pain, fever, nausea or vomiting. She also has a past medical history of asthma, headaches, hypertension, seizures. She has a right upper extremity fistula. She does not have a primary care physician. Her magnetic prospecting operator is Dr. Strickland. No recent travel or sick contacts at home. ED Past Medical Hx - Past Medical History Previous Medical History?: Yes Hx Hypertension: Yes Hx Heart Attack/AMI: No Hx Congestive Heart Failure: No Hx Diabetes: No Hx Pulmonary Embolism: No Hx Liver Disease: No Hx Renal Disease: Yes Hx Sickle Cell Disease: No Hx Headaches / Migraines: Yes (3 nights) Hx Seizures: Yes Hx Asthma: Yes Hx COPD: No Additional medical history: Lupus - Surgical History Past Surgical History?: Yes Additional Surgical History: fistula right arm - Social History Smoking Status: Current Every Day Smoker Substance Use Type: Prescribed - Medications Home Medications: Home Medications Medication Instructions Recorded Confirmed Last Taken Type Clonidine HCl [Catapres] 0.3 mg PO TID #90 tablet 09/13/17 09/24/17 Unknown Rx Phenytoin Sodium Extended 100 mg PO QHS #30 capsule 09/13/17 09/24/17 Unknown Rx [Dilantin] hydrALAZINE [Apresoline TAB] 25 mg PO DAILY 09/18/17 09/24/17 Unknown History levETIRAcetam [Keppra TAB] 750 mg PO BID #60 tablet 09/25/17 Unknown Rx ED Review of Systems ROS: Stated complaint: SHORTNESS OF BREATH Other details as noted in HPI Comment: All other systems reviewed and negative Constitutional: denies: chills, fever Eyes: denies: eye pain, eye discharge, vision change ENT: denies: ear pain, throat pain Respiratory: orthopnea, shortness of breath Cardiovascular: denies: chest pain, palpitations Gastrointestinal: denies: abdominal pain, nausea, diarrhea Genitourinary: denies: urgency, dysuria, discharge Musculoskeletal: arthralgia, myalgia. denies: joint swelling Skin: denies: rash, lesions Neurological: denies: headache, weakness, paresthesias Physical Exam - Physical Exam Vital Signs: Vital Signs 10/02/17 07:41 Temperature 97.6 F Pulse Rate 102 H Respiratory 20 Rate Blood Pressure 219/146 O2 Sat by Pulse 99 Oximetry Physical Exam: GENERAL: The patient is well-developed well-nourished. HENT: Normocephalic. Atraumatic. Patient has moist mucous membranes. EYES: Extraocular motions are intact. Pupils equal reactive to light bilaterally. NECK: Supple. Trachea is midline. CHEST/LUNGS: Coarse breath sounds throughout the chest. There is some tachypnea but no accessory muscle use. There is no respiratory distress noted. HEART/CARDIOVASCULAR: Regular. There is no tachycardia. There is no murmur. ABDOMEN: Abdomen is soft, nontender. Patient has normal bowel sounds. There is no abdominal distention. SKIN: Skin is warm and dry. NEURO: The patient is awake, alert, and oriented. The patient is cooperative. The patient has no focal neurologic deficits. The patient has normal speech. MUSCULOSKELETAL: There is no tenderness or deformity. There is no limitation range of motion. There is no evidence of acute injury. There is a patent appearing right upper extremity dialysis fistula. ED Course Vital Signs 10/02/17 07:41 Temperature 97.6 F Pulse Rate 102 H Respiratory 20 Rate Blood Pressure 219/146 O2 Sat by Pulse 99 Oximetry - Consultations Consultation #1: I spoke with the patient's magnetic prospecting operator, Dr. Strickland, who is going to try to get the patient dialysis as soon as possible but did recommend giving the patient calcium, insulin, glucose and albuterol but does not feel the patient requires Kayexalate at this moment. The patient will be admitted to the hospitalist service. 10/02/17 10:51 - EJ/Peripheral Line Neck L Time Out Performed: Yes Indications: nurses unable to establis Skin Cleansed in Sterile Fashion: Yes Size: 22 Dressing Placed: Tegaderm, tape Patient Tolerated Procedure: well ED Medical Decision Making - Lab Data Result diagrams: 10/02/17 08:26 10/02/17 08:26 - EKG Data -: EKG Interpreted by Me EKG shows normal: sinus rhythm, axis, intervals, QRS complexes, ST-T waves (T- wave inversions to the septal leads and aVL) Rate: tachycardia (102 bpm) - EKG Data When compared to previous EKG there are: previous EKG unavailable Interpretation: other (mild sinus tachycardia, T-wave inversions to the septal leads. No ST elevation NE) - Radiology Data Radiology results: image reviewed interpreted by me: Chest x-ray shows some pulmonary vascular congestion and some effusions concerning for hypervolemia or CHF. - Medical Decision Making Patient is missed her last 2 dialysis sessions. She appears volume overloaded and has a potassium of 6.7. Nephrology has been counseled that and she will get dialysis this morning or afternoon. She got some of the hyperkalemia cocktail. She has hypertensive urgencyand has been getting antihypertensives. The patient will be admitted to the hospitalist service. - Differential Diagnosis CHF, hypervolemia, hyperkalemia, pneumonia, lupus Critical Care Time: No Critical care attestation.: If time is entered above; I have spent that time in minutes in the direct care of this critically ill patient, excluding procedure time. ED Disposition Clinical Impression: Hypertensive urgency, Noncompliance with renal dialysis, ESRD needing dialysis , Hyperkalemia SLE (systemic lupus erythematosus) Qualifiers: Systemic lupus erythematosus type: unspecified Systemic lupus erythematosus organ involvement: unspecified Qualified Code(s): M32.9 - Systemic lupus erythematosus, unspecified Arthralgia Qualifiers: Joint pain location: unspecified Qualified Code(s): M25.50 - Pain in unspecified joint Disposition: OP ADMIT IP TO THIS HOSP Is pt being admited?: Yes Condition: Fair Referrals: PRIMARY CARE, [Primary Care Provider] - 3-5 Days Time of Disposition: 10:09
--- NOTE | 2017-10-02 09:01 | XRay Report ---
CHEST 2 VIEWS INDICATION: Shortness of breath. COMPARISON: 09/24/2017 FINDINGS: Frontal and lateral chest radiographs now demonstrate subtle right lung air space opacities, somewhat nodular in the upper zone while more confluent towards the base, partly obscuring the hemidiaphragm. Small bilateral pleural effusions also noted as also fluid/thickening along the fissures. Stable cardiomediastinal silhouette/mild cardiomegaly, left axillary stent and few surgical clips. Intact bones. CONCLUSION: Pulmonary edema/congestion suspected developing radiographically, as described. Please correlate. Thank you for the opportunity to participate in this patient's care.
[2017-10-02 09:02] LABS: Hematocrit 29.7 % (30.3-42.9); Hemoglobin 9.3 gm/dl (10.1-14.3); Mean Corpuscular HGB Conc 31 % (30-34); Mean Corpuscular Hemoglobin 29 pg (28-32); Mean Corpuscular Volume 92 fl (79-97); Red Blood Count 3.23 M/mm3 (3.65-5.03); Red Cell Distribution Width 16.2 % (13.2-15.2)
[2017-10-02 09:03] LABS: Platelet Count 29 K/mm3 (140-440)
[2017-10-02 09:05] LABS: Basophils % (Auto) 0.4 % (0.0-1.8); Eosinophils # (Auto) 0.1 K/mm3 (0.0-0.4); Eosinophils % (Auto) 1.5 % (0.0-4.3); Lymphocytes # (Auto) 1.2 K/mm3 (1.2-5.4); Lymphocytes % (Auto) 20.7 % (13.4-35.0); Monocytes # (Auto) 0.3 K/mm3 (0.0-0.8); Monocytes % (Auto) 5.6 % (0.0-7.3)
[2017-10-02] MEDS ORDERED: NACL 0.9% 100 ML IV PRN (09:55)
[2017-10-02] MEDS ORDERED: D50W (25GM) Syringe IV ONE ×4 (10:03→16:53)
[2017-10-02] MEDS ORDERED: PROVENTIL IH ONE (10:30)
[2017-10-02] MEDS ORDERED: REGLAN IV ONE (10:59)
--- NOTE | 2017-10-02 11:33 | History and Physical Report ---
<MARTYYOLANDA WAGONER - Last Filed: 10/02/17 11:55> History of Present Illness Date of examination: 10/02/17 Date of admission: 10/02/17 10:09 Chief complaint: Shortness of breath History of present illness: Patient is a 27-year-old female with past medical history of hypertension, lupus, end-stage renal disease on dialysis, Sunday, , Sunday who presents to t by EMS from home with complaints of body aches and joint pain, as well as some shortness of breath. Her body aches have been going on for the past few days and the shortness of breath started yesterday. Patient states that unable to receive hemodialysis; she does not have any reason why? Patient followed by Dr. Wesley. The patient was last dialyzed on 09/27/2017 and missed Sunday treatment so she presents to ER for hemodialysis treatment today. She denies fevers, chills, chest pain, nausea, vomiting, abdominal pain, orthopnea, PND or leg swelling. Past History Past Medical History: ESRD ( Sunday, , Sunday ), hypertension Past Surgical History: Other (lupus, ) Medications and Allergies Allergies Allergy/AdvReac Type Severity Reaction Status Date / Time acetaminophen [From Percocet] AdvReac Unknown Verified 09/23/17 20:06 metoprolol AdvReac Vomiting Verified 09/23/17 20:06 oxycodone HCl [From Percocet] AdvReac Unknown Verified 09/23/17 20:06 Home Medications Medication Instructions Recorded Confirmed Last Taken Type Clonidine HCl [Catapres] 0.3 mg PO TID #90 tablet 09/13/17 10/02/17 Unknown Rx Phenytoin Sodium Extended 100 mg PO QHS #30 capsule 09/13/17 10/02/17 Unknown Rx [Dilantin] hydrALAZINE [Apresoline TAB] 25 mg PO DAILY 09/18/17 10/02/17 Unknown History levETIRAcetam [Keppra TAB] 750 mg PO BID #60 tablet 09/25/17 10/02/17 Unknown Rx Furosemide [Lasix] 80 mg PO QDAY 10/02/17 10/02/17 Unknown History predniSONE [Deltasone] 10 mg PO QDAY 10/02/17 10/02/17 Unknown History Active Meds: Active Medications Heparin Sodium (Porcine) (Heparin) 5,000 unit SUB-Q Q8HR [facility] Sodium Chloride (Nacl 0.9%) 100 mls @ 999 mls/hr IV LAKESHA PRN PRN Reason: Hypotension Review of Systems Constitutional: fatigue, weakness, malaise, lethargy, no weight loss, no weight gain, no fever, no chills Ears, nose, mouth and throat: no deferred, no tinnitis, no nose pain Breasts: no swelling, no mass Cardiovascular: shortness of breath, dyspnea on exertion, paroxysmal nocturnal dyspnea, no syncope Respiratory: cough, shortness of breath, dyspnea on exertion, no excessive sputum Gastrointestinal: no abdominal pain, no nausea, no vomiting, no diarrhea Rectal: no incontinence, no bleeding Musculoskeletal: no shooting arm pain, no arm numbness/tingling Integumentary: no redness, no sores, no wounds Neurological: no paralysis, no weakness, no parathesias, no numbness Psychiatric: no change in sleep habits, no sleep disturbances, no insomnia, no hypersomnia Endocrine: no excessive thirst, no nocturia, no excessive sweating, no flushing Hematologic/Lymphatic: no easy bruising, no easy bleeding Allergic/Immunologic: no urticaria, no allergic rhinitis Exam - Constitutional Vitals: Temp Pulse Resp BP Pulse Ox 98.8 F 89 20 187/121 92 10/02/17 09:55 10/02/17 09:55 10/02/17 09:55 10/02/17 10:01 10/02/17 09:55 General appearance: Present: no acute distress - EENT Eyes: Present: PERRL ENT: hearing intact - Neck Neck: Present: supple - Respiratory Respiratory effort: normal Respiratory: bilateral: diminished - Cardiovascular Rhythm: regular Heart Sounds: Present: S1 & S2 - Abdominal General gastrointestinal: Present: soft, non-tender - Rectal Rectal Exam: deferred - Integumentary Integumentary: Present: clear, warm, dry - Musculoskeletal Musculoskeletal: strength equal bilaterally - Psychiatric Psychiatric: appropriate mood/affect - Neurologic Neurologic: CNII-XII intact - Allied Health Allied health notes reviewed: nursing Results - Labs CBC & Chem 7: 10/02/17 08:26 10/02/17 08:26 Labs: Laboratory Last Values WBC 6.0 K/mm3 (4.5-11.0) 10/02/17 08:26 RBC 3.23 M/mm3 (3.65-5.03) L 10/02/17 08:26 Hgb 9.3 gm/dl (10.1-14.3) L 10/02/17 08:26 Hct 29.7 % (30.3-42.9) L 10/02/17 08:26 MCV 92 fl (79-97) 10/02/17 08:26 MCH 29 pg (28-32) 10/02/17 08:26 MCHC 31 % (30-34) 10/02/17 08:26 RDW 16.2 % (13.2-15.2) H 10/02/17 08:26 Plt Count 29 K/mm3 (140-440) L 10/02/17 08:26 Lymph % (Auto) 20.7 % (13.4-35.0) 10/02/17 08:26 [place] % (Auto) 5.6 % (0.0-7.3) 10/02/17 08:26 Eos % (Auto) 1.5 % (0.0-4.3) 10/02/17 08:26 Baso % (Auto) 0.4 % (0.0-1.8) 10/02/17 08:26 Lymph # 1.2 K/mm3 (1.2-5.4) 10/02/17 08:26 [place] # 0.3 K/mm3 (0.0-0.8) 10/02/17 08:26 Eos # 0.1 K/mm3 (0.0-0.4) 10/02/17 08:26 Baso # 0.0 K/mm3 (0.0-0.1) 10/02/17 08:26 Seg Neutrophils % 71.8 % (40.0-70.0) H 10/02/17 08:26 Seg Neutrophils # 4.3 K/mm3 (1.8-7.7) 10/02/17 08:26 Sodium 137 mmol/L (137-145) 10/02/17 08:26 Potassium 6.7 mmol/L (3.6-5.0) H* 10/02/17 08:26 Chloride 96.7 mmol/L (98-107) L 10/02/17 08:26 Carbon Dioxide 13 mmol/L (22-30) L 10/02/17 08:26 Anion Gap 34 mmol/L 10/02/17 08:26 BUN 62 mg/dL (7-17) H 10/02/17 08:26 Creatinine 14.8 mg/dL (0.7-1.2) H 10/02/17 08:26 Estimated GFR 4 ml/min 10/02/17 08:26 BUN/Creatinine Ratio 4 % 10/02/17 08:26 Glucose 64 mg/dL (65-100) L 10/02/17 08:26 Calcium 9.0 mg/dL (8.4-10.2) 10/02/17 08:26 Troponin T 0.017 ng/mL (0.00-0.029) 10/02/17 08:26 HCG, Qual Negative (Negative) 10/02/17 09:09 Assessment and Plan Assessment and plan: Patient is a 27-year-old female with past medical history of hypertension, lupus, end-stage renal disease on dialysis, Sunday, , Sunday who presents to by EMS from home with complaints of body aches and joint pain, as well as some shortness of breath. Her body aches have been going on for the past few days and the shortness of breath started yesterday. End Stage Renal Disease Nephrology following Volume Overload Patient will have emergent hemodialysis Hyperkalmia Patient received Hyperkalmia cocktail in the Ed Patient will have emergent HD today that will correct it. Closely monitor electrolytes Hypertensive urgency Optimized home antihypertensive medications IV Hydralazine for SBP>160 Closely monitor blood pressure Lupus exacerbation Started on IV steroid Seizure Continue on Keppra Chronic anemia H&H stable for patient at this point; no blood transfusions needed Closely monitor H&H Noncompliance Patient noncompliance with dialysis. counseling done DVT prophylaxis Heparin Advance Directives: Yes VTE prophylaxis?: Chemical Contraindication Mechanical VTE Prophylaxis: Treatment Not Indicated Plan of care discussed with patient/family: Yes <YANDY GONZALES R - Last Filed: 10/02/17 14:29> History of Present Illness Date of admission: 10/02/17 10:09 Medications and Allergies Active Meds: Active Medications Clonidine HCl (Catapres) 0.3 mg PO Q8HR [facility] Furosemide (Lasix) 80 mg PO DAILY@0600 [facility] Heparin Sodium (Porcine) (Heparin) 5,000 unit SUB-Q Q8HR [facility] Hydralazine HCl (Apresoline) 25 mg PO DAILY [facility] Sodium Chloride (Nacl 0.9%) 100 mls @ 999 mls/hr IV LAKESHA PRN PRN Reason: Hypotension Levetiracetam (Keppra) 750 mg PO BID [facility] Methylprednisolone Sodium Succinate (Solu-Medrol) 40 mg IV Q12HR [facility] Morphine Sulfate (Morphine) 2 mg IV Q4H PRN PRN Reason: Pain, Moderate (4-6) Ondansetron HCl (Zofran) 4 mg IV Q4H PRN PRN Reason: Nausea And Vomiting Phenytoin (Dilantin) 100 mg PO QHS [facility] Exam - Constitutional Vitals: Temp Pulse Resp BP Pulse Ox 98.8 F 89 20 187/121 92 10/02/17 09:55 10/02/17 09:55 10/02/17 09:55 10/02/17 10:01 10/02/17 09:55 Results - Labs CBC & Chem 7: 10/02/17 08:26 10/02/17 08:26 Labs: Laboratory Last Values WBC 6.0 K/mm3 (4.5-11.0) 10/02/17 08:26 RBC 3.23 M/mm3 (3.65-5.03) L 10/02/17 08:26 Hgb 9.3 gm/dl (10.1-14.3) L 10/02/17 08:26 Hct 29.7 % (30.3-42.9) L 10/02/17 08:26 MCV 92 fl (79-97) 10/02/17 08:26 MCH 29 pg (28-32) 10/02/17 08:26 MCHC 31 % (30-34) 10/02/17 08:26 RDW 16.2 % (13.2-15.2) H 10/02/17 08:26 Plt Count 29 K/mm3 (140-440) L 10/02/17 08:26 Lymph % (Auto) 20.7 % (13.4-35.0) 10/02/17 08:26 [place] % (Auto) 5.6 % (0.0-7.3) 10/02/17 08:26 Eos % (Auto) 1.5 % (0.0-4.3) 10/02/17 08:26 Baso % (Auto) 0.4 % (0.0-1.8) 10/02/17 08:26 Lymph # 1.2 K/mm3 (1.2-5.4) 10/02/17 08:26 [place] # 0.3 K/mm3 (0.0-0.8) 10/02/17 08:26 Eos # 0.1 K/mm3 (0.0-0.4) 10/02/17 08:26 Baso # 0.0 K/mm3 (0.0-0.1) 10/02/17 08:26 Seg Neutrophils % 71.8 % (40.0-70.0) H 10/02/17 08:26 Seg Neutrophils # 4.3 K/mm3 (1.8-7.7) 10/02/17 08:26 Sodium 137 mmol/L (137-145) 10/02/17 08:26 Potassium 6.7 mmol/L (3.6-5.0) H* 10/02/17 08:26 Chloride 96.7 mmol/L (98-107) L 10/02/17 08:26 Carbon Dioxide 13 mmol/L (22-30) L 10/02/17 08:26 Anion Gap 34 mmol/L 10/02/17 08:26 BUN 62 mg/dL (7-17) H 10/02/17 08:26 Creatinine 14.8 mg/dL (0.7-1.2) H 10/02/17 08:26 Estimated GFR 4 ml/min 10/02/17 08:26 BUN/Creatinine Ratio 4 % 10/02/17 08:26 Glucose 64 mg/dL (65-100) L 10/02/17 08:26 POC Glucose 44 (70-105) L 10/02/17 14:26 Calcium 9.0 mg/dL (8.4-10.2) 10/02/17 08:26 Troponin T 0.017 ng/mL (0.00-0.029) 10/02/17 08:26 HCG, Qual Negative (Negative) 10/02/17 09:09 Assessment and Plan Assessment and plan: I saw and evaluated the patient. I agree with the findings and the plan of care as documented in the Nurse Practitioner's~note, with the following corrections and additions.
--- NOTE | 2017-10-02 11:46 | Consultation ---
History of Present Illness - Reason for Consult Consult date: 10/02/17 end stage renal disease, hyperkalemia Requesting physician: TAMI ANDERSON - History of Present Illness Patient is a 27-year-old female with past medical history of hypertension, lupus, end-stage renal disease on dialysis, Sunday, , Sunday who presents to the emergency department for needing dialysis and shortness of breath Patient currently post takedown and altered mental status and therefore unable to obtain detailed history. Per ER physician patient brought by EMS indicating that patient complains of generalized ache and she missed her dialysis over the weekend. Patient her last dialysis was on 09/20/17. Per ER nurse patient states that she she did cocaine all weekend.No reports of fever, chills, chest pain, she seizure, trauma, loss of bowel or bladder continence or recent ill contacts. Patient missed her last dialysis treatment on Sunday. She has now been found to have a potassium of 6.7 and she is also acidotic. Clinically appears to be in CHF also. Her blood pressure was also extremely elevated. She is receiving the hyperkalemia cocktail in the emergency room. She'll try and get him dialyzed as soon as possible when the machine is available Past History Past Medical History: arthritis, ESRD, hypertension, seizures, other (Lupus) Past Surgical History: Other (history of creation of AV fistula) Social history: other (patient had used cocaine over the weekend) Family history: no significant family history Medications and Allergies Allergies Allergy/AdvReac Type Severity Reaction Status Date / Time acetaminophen [From Percocet] AdvReac Unknown Verified 09/23/17 20:06 metoprolol AdvReac Vomiting Verified 09/23/17 20:06 oxycodone HCl [From Percocet] AdvReac Unknown Verified 09/23/17 20:06 Home Medications Medication Instructions Recorded Confirmed Last Taken Type Clonidine HCl [Catapres] 0.3 mg PO TID #90 tablet 09/13/17 10/02/17 Unknown Rx Phenytoin Sodium Extended 100 mg PO QHS #30 capsule 09/13/17 10/02/17 Unknown Rx [Dilantin] hydrALAZINE [Apresoline TAB] 25 mg PO DAILY 09/18/17 10/02/17 Unknown History levETIRAcetam [Keppra TAB] 750 mg PO BID #60 tablet 09/25/17 10/02/17 Unknown Rx Furosemide [Lasix] 80 mg PO QDAY 10/02/17 10/02/17 Unknown History predniSONE [Deltasone] 10 mg PO QDAY 10/02/17 10/02/17 Unknown History Active Meds: Active Medications Heparin Sodium (Porcine) (Heparin) 5,000 unit SUB-Q Q8HR [facility] Sodium Chloride (Nacl 0.9%) 100 mls @ 999 mls/hr IV LAKESHA PRN PRN Reason: Hypotension Review of Systems All systems: negative (negative except as noted above) Exam - Vital Signs Vital signs: Vital Signs Temp Pulse Resp BP Pulse Ox 97.6 F 102 H 20 219/146 99 10/02/17 07:41 10/02/17 07:41 10/02/17 07:41 10/02/17 07:41 10/02/17 07:41 - General Appearance General appearance: well-developed, well-nourished, appears stated age EENT: PERRL, mucous membranes moist Neck: Present: neck supple, trachea midline. Absent: JVD/HJR, Masses Respiratory: Rales (bibasilar crackles) Heart: regular, normal heart rate, S1S2, no murmurs Gastrointestinal: Present: normal, normoactive bowel sounds Integumentary: other (AV fistula in her upper arm. Good bruit and thrill) Results - Lab Results 10/02/17 08:26 10/02/17 08:26 Most recent lab results Calcium 9.0 mg/dL (8.4-10.2) 10/02/17 08:26 Assessment and Plan Impression * End-stage renal disease on maintenance hemodialysis * Accelerated hypertension * Hyperkalemia * Metabolic acidosis * Cocaine abuse * Noncompliance * Seizure disorder * Lupus Recommendations * Agree with medical management of hyperkalemia * Shall plan to dialyze as soon as possible. Hopefully will correct her hyperkalemia, acidosis and also bring her blood pressure under reasonable control * If the blood pressure remains elevated postdialysis, we'll need to adjust her antihypertensive meds * She may need additional dialysis treatment tomorrow * Adjust diet and meds for ESRD state * No IV, Bp or venipuncture in her access arm * Avoid nephrotoxins * Patient advised regarding compliance with dialysis treatments and medication * Thank you very much for the consultation. Shall follow along with you
[2017-10-02] MEDS ORDERED: MORPHINE IV PRN (11:54)
[2017-10-02] MEDS ORDERED: REGLAN ONE (12:25)
[2017-10-02] MEDS ORDERED: ULTRAM ONE (12:26)
[2017-10-02] MEDS: ULTRAM PO ONE ×2 (12:26→15:24)
[2017-10-02] MEDS: D50W (25GM) Syringe IV ONE ×2 (12:33→15:23)
[2017-10-02] MEDS: CALCIUM GLUCONATE 1,000 MG in NACL 0.9% 100 ML IV ONE ×2 (12:40→15:24)
[2017-10-02] MEDS ORDERED: APRESOLINE IV PRN (13:10)
[2017-10-02] MEDS ORDERED: NON-FORMULARY (Clonidine Hcl [Catapres] 0.3 MG) PO SCH (14:00)
[2017-10-02] MEDS ORDERED: APRESOLINE ONE (14:06)
[2017-10-02] MEDS: CATAPRES PO SCH ×3 (14:38→22:15)
[2017-10-02] MEDS: HEPARIN SUB-Q SCH ×2 (16:39→22:16)
[2017-10-02] MEDS: ZOFRAN IV PRN ×2 (17:30→22:16)
[2017-10-02] MEDS: MORPHINE IV PRN ×2 (17:30→22:58)
[2017-10-02] MEDS ORDERED: NON-FORMULARY (Levetiracetam [Keppra Tab] 750 MG) PO SCH (22:00)
[2017-10-02] MEDS: DILANTIN PO SCH (22:15)
[2017-10-02] MEDS: KEPPRA PO SCH (22:19)
[2017-10-03] MEDS: MORPHINE IV PRN ×3 (05:49→22:30)
[2017-10-03] MEDS: HEPARIN SUB-Q SCH ×3 (05:53→22:28)
[2017-10-03] MEDS: LASIX PO SCH (05:54)
[2017-10-03] MEDS: CATAPRES PO SCH ×3 (05:54→22:29)
[2017-10-03 06:08] LABS: Basophils % (Auto) 0.3 % (0.0-1.8); Eosinophils % (Auto) 0.1 % (0.0-4.3); Hematocrit 24.4 % (30.3-42.9); Hemoglobin 7.9 gm/dl (10.1-14.3); Lymphocytes # (Auto) 0.4 K/mm3 (1.2-5.4); Lymphocytes % (Auto) 8.2 % (13.4-35.0); Mean Corpuscular HGB Conc 33 % (30-34); Mean Corpuscular Hemoglobin 29 pg (28-32); Mean Corpuscular Volume 90 fl (79-97); Monocytes # (Auto) 0.1 K/mm3 (0.0-0.8); Monocytes % (Auto) 2.9 % (0.0-7.3); Platelet Count 152 K/mm3 (140-440); Red Blood Count 2.72 M/mm3 (3.65-5.03); Red Cell Distribution Width 15.7 % (13.2-15.2)
[2017-10-03 06:24] LABS: Calcium 8.8 mg/dL (8.4-10.2)
[2017-10-03] MEDS ORDERED: CALCIUM GLUCONATE 1,000 MG in NACL 0.9% 100 ML IV ONE (08:30)
[2017-10-03] MEDS ORDERED: D50W (25GM) Vial IV ONE (08:30)
[2017-10-03] MEDS ORDERED: D50W (25GM) Syringe IV ONE (09:00)
[2017-10-03] MEDS: KIONEX PO SCH (09:00)
[2017-10-03] MEDS ORDERED: NACL 0.9% 100 ML IV PRN ×2 (09:00→15:10)
--- NOTE | 2017-10-03 09:37 | Progress Note ---
<MARTYYOLANDA WAGONER - Last Filed: 10/03/17 15:02> Assessment and Plan Assessment and plan: Patient is a 27-year-old female with past medical history of hypertension, lupus, end-stage renal disease on dialysis, Sunday, , Sunday who presents to by EMS from home with complaints of body aches and joint pain, as well as some shortness of breath. Her body aches have been going on for the past few days and the shortness of breath started yesterday. End Stage Renal Disease Nephrology following Volume Overload Patient had hemodialysis yesterday Hyperkalmia Patient given Kayexalate We will repeat BMP Closely monitor electrolytes Hypertensive urgency Optimized home antihypertensive medications IV Hydralazine for SBP>160 Closely monitor blood pressure Lupus exacerbation Wean IV steroid Seizure Continue on Keppra Chronic anemia H&H stable for patient at this point; no blood transfusions needed at present time. Closely monitor H&H Noncompliance Patient noncompliance with dialysis. counseling done DVT prophylaxis Heparin History Interval history: Patient denies having pain at preset time. Labs and nursing notes reviewed. Hospitalist Physical - Constitutional Vitals: Temp Pulse Resp BP Pulse Ox 98.6 F 78 20 129/73 100 10/03/17 05:18 10/03/17 05:54 10/03/17 05:49 10/03/17 05:54 10/03/17 05:18 General appearance: Present: no acute distress - EENT Eyes: Present: PERRL ENT: hearing intact - Neck Neck: Present: supple - Respiratory Respiratory effort: normal Respiratory: bilateral: CTA - Cardiovascular Rhythm: regular Heart Sounds: Present: S1 & S2 - Abdominal General gastrointestinal: soft, non-tender - Integumentary Integumentary: Present: clear, warm, dry - Psychiatric Psychiatric: appropriate mood/affect - Neurologic Neurologic: CNII-XII intact - Allied Health Allied health notes reviewed: nursing Results - Labs CBC & Chem 7: 10/03/17 05:27 10/03/17 08:45 Labs: Laboratory Last Values WBC 5.1 K/mm3 (4.5-11.0) 10/03/17 05:27 RBC 2.72 M/mm3 (3.65-5.03) L 10/03/17 05:27 Hgb 7.9 gm/dl (10.1-14.3) L 10/03/17 05:27 Hct 24.4 % (30.3-42.9) L 10/03/17 05:27 MCV 90 fl (79-97) 10/03/17 05:27 MCH 29 pg (28-32) 10/03/17 05:27 MCHC 33 % (30-34) 10/03/17 05:27 RDW 15.7 % (13.2-15.2) H 10/03/17 05:27 Plt Count 152 K/mm3 (140-440) D 10/03/17 05:27 Lymph % (Auto) 8.2 % (13.4-35.0) L 10/03/17 05:27 Martin % (Auto) 2.9 % (0.0-7.3) 10/03/17 05:27 Eos % (Auto) 0.1 % (0.0-4.3) 10/03/17 05:27 Baso % (Auto) 0.3 % (0.0-1.8) 10/03/17 05:27 Lymph # 0.4 K/mm3 (1.2-5.4) L 10/03/17 05:27 Martin # 0.1 K/mm3 (0.0-0.8) 10/03/17 05:27 Eos # 0.0 K/mm3 (0.0-0.4) 10/03/17 05:27 Baso # 0.0 K/mm3 (0.0-0.1) 10/03/17 05:27 Seg Neutrophils % 88.5 % (40.0-70.0) H 10/03/17 05:27 Seg Neutrophils # 4.5 K/mm3 (1.8-7.7) 10/03/17 05:27 Sodium 135 mmol/L (137-145) L 10/03/17 05:27 Potassium 6.8 mmol/L (3.6-5.0) H* 10/03/17 05:27 Chloride 92.8 mmol/L (98-107) L 10/03/17 05:27 Carbon Dioxide 27 mmol/L (22-30) D 10/03/17 05:27 Anion Gap 22 mmol/L 10/03/17 05:27 BUN 26 mg/dL (7-17) H 10/03/17 05:27 Creatinine 7.7 mg/dL (0.7-1.2) H 10/03/17 05:27 Estimated GFR 8 ml/min 10/03/17 05:27 BUN/Creatinine Ratio 3 % 10/03/17 05:27 Glucose 94 mg/dL (65-100) 10/03/17 05:27 POC Glucose 123 (70-105) H 10/02/17 16:38 Calcium 8.8 mg/dL (8.4-10.2) 10/03/17 05:27 Troponin T 0.017 ng/mL (0.00-0.029) 10/02/17 08:26 HCG, Qual Negative (Negative) 10/02/17 09:09 <YANDY GONZALES R - Last Filed: 10/03/17 15:12> Assessment and Plan Assessment and plan: I saw and evaluated the patient. I agree with the findings and the plan of care as documented in the Nurse Practitioner's~note, with the following corrections and additions. Hospitalist Physical - Constitutional Vitals: Temp Pulse Resp BP Pulse Ox 98.3 F 71 20 163/102 100 10/03/17 10:30 10/03/17 13:15 10/03/17 11:27 10/03/17 13:15 10/03/17 07:41 Results - Labs CBC & Chem 7: 10/03/17 05:27 10/03/17 08:45 Labs: Laboratory Last Values WBC 5.1 K/mm3 (4.5-11.0) 10/03/17 05:27 RBC 2.72 M/mm3 (3.65-5.03) L 10/03/17 05:27 Hgb 7.9 gm/dl (10.1-14.3) L 10/03/17 05:27 Hct 24.4 % (30.3-42.9) L 10/03/17 05:27 MCV 90 fl (79-97) 10/03/17 05:27 MCH 29 pg (28-32) 10/03/17 05:27 MCHC 33 % (30-34) 10/03/17 05:27 RDW 15.7 % (13.2-15.2) H 10/03/17 05:27 Plt Count 152 K/mm3 (140-440) D 10/03/17 05:27 Lymph % (Auto) 8.2 % (13.4-35.0) L 10/03/17 05:27 Martin % (Auto) 2.9 % (0.0-7.3) 10/03/17 05:27 Eos % (Auto) 0.1 % (0.0-4.3) 10/03/17 05:27 Baso % (Auto) 0.3 % (0.0-1.8) 10/03/17 05:27 Lymph # 0.4 K/mm3 (1.2-5.4) L 10/03/17 05:27 Martin # 0.1 K/mm3 (0.0-0.8) 10/03/17 05:27 Eos # 0.0 K/mm3 (0.0-0.4) 10/03/17 05:27 Baso # 0.0 K/mm3 (0.0-0.1) 10/03/17 05:27 Seg Neutrophils % 88.5 % (40.0-70.0) H 10/03/17 05:27 Seg Neutrophils # 4.5 K/mm3 (1.8-7.7) 10/03/17 05:27 Sodium 135 mmol/L (137-145) L 10/03/17 05:27 Potassium 5.2 mmol/L (3.6-5.0) H D 10/03/17 08:45 Chloride 92.8 mmol/L (98-107) L 10/03/17 05:27 Carbon Dioxide 27 mmol/L (22-30) D 10/03/17 05:27 Anion Gap 22 mmol/L 10/03/17 05:27 BUN 26 mg/dL (7-17) H 10/03/17 05:27 Creatinine 7.7 mg/dL (0.7-1.2) H 10/03/17 05:27 Estimated GFR 8 ml/min 10/03/17 05:27 BUN/Creatinine Ratio 3 % 10/03/17 05:27 Glucose 94 mg/dL (65-100) 10/03/17 05:27 POC Glucose 123 (70-105) H 10/02/17 16:38 Calcium 8.8 mg/dL (8.4-10.2) 10/03/17 05:27 Troponin T 0.017 ng/mL (0.00-0.029) 10/02/17 08:26 HCG, Qual Negative (Negative) 10/02/17 09:09
[2017-10-03] MEDS: APRESOLINE PO SCH (10:00)
[2017-10-03] MEDS ORDERED: NON-FORMULARY (Furosemide [Lasix] 80 MG) PO SCH (10:00)
--- NOTE | 2017-10-03 10:10 | Progress Note ---
Assessment and Plan Impression * End-stage renal disease on maintenance hemodialysis * Accelerated hypertension * Hyperkalemia - persistent * Metabolic acidosis * Cocaine abuse * Noncompliance * Seizure disorder * SLE Recommendations * Hemodiaysis today - UF as tolerated * Repeat K after dialysis today * continue antiHTN medications * Adjust diet and meds for ESRD state * No IV, Bp or venipuncture in her access arm * Avoid nephrotoxins Subjective Date of service: 10/03/17 Interval history: Patient seen on dialysis. She has no complaints. Objective - Vital Signs Vital signs: Vital Signs - 12hr 10/02/17 10/02/17 10/02/17 22:15 22:55 22:58 Temperature Pulse Rate 110 H Pulse Rate [ 110 H Apical] Respiratory 24 24 20 Rate Respiratory Rate [Back] Respiratory Rate [Bilateral Leg] Blood Pressure 135/108 O2 Sat by Pulse 100 Oximetry 10/02/17 10/02/17 10/03/17 23:20 23:28 00:14 Temperature 98.3 F Pulse Rate 90 Pulse Rate [ Apical] Respiratory 22 18 Rate Respiratory 24 Rate [Back] Respiratory 24 Rate [Bilateral Leg] Blood Pressure 144/98 O2 Sat by Pulse 100 Oximetry 10/03/17 10/03/17 10/03/17 05:18 05:49 05:54 Temperature 98.6 F Pulse Rate 79 78 Pulse Rate [ Apical] Respiratory 20 20 Rate Respiratory Rate [Back] Respiratory Rate [Bilateral Leg] Blood Pressure 129/73 129/73 O2 Sat by Pulse 100 Oximetry - General Appearance General appearance: well-developed, well-nourished EENT: ATNC Respiratory: Present: Clear to Ascultation Cardiology: regular, S1S2 Gastrointestinal: normal, no tenderness, no distended Integumentary: no rash, warm and dry Musculoskeletal: other (no edema) Psychiatric: cooperative - Lab 10/03/17 05:27 10/03/17 14:15 Most recent lab results Calcium 8.8 mg/dL (8.4-10.2) 10/03/17 05:27
[2017-10-03] MEDS: KEPPRA PO SCH ×2 (10:21→22:28)
[2017-10-03] MEDS ORDERED: NACL 0.9 (PRIMING MACHINE ONLY DIALYSIS) MC ONE (11:23)
[2017-10-03] MEDS: DILANTIN PO SCH (22:29)
[2017-10-03] MEDS ORDERED: BENADRYL PO ONE (23:30)
[2017-10-04] MEDS: MORPHINE IV PRN (03:54)
[2017-10-04] MEDS: CATAPRES PO SCH ×3 (05:19→22:14)
[2017-10-04] MEDS: LASIX PO SCH (05:19)
[2017-10-04] MEDS: HEPARIN SUB-Q SCH ×3 (05:20→22:18)
[2017-10-04 06:15] LABS: Calcium 8.7 mg/dL (8.4-10.2)
[2017-10-04] MEDS ORDERED: NACL 0.9% 100 ML IV PRN (09:01)
--- NOTE | 2017-10-04 09:05 | Progress Note ---
Assessment and Plan Impression * End-stage renal disease on maintenance hemodialysis * Accelerated hypertension * Hyperkalemia - persistent * Metabolic acidosis * Cocaine abuse * Noncompliance * Seizure disorder * SLE Recommendations * Hemodiaysis today - UF as tolerated * Have vascular surgery to see for access evaluation as patient w/ persistent hyperkalemia despite HD - ?recirculation * continue antiHTN medications * Adjust diet and meds for ESRD state * No IV, Bp or venipuncture in her access arm * Avoid nephrotoxins Subjective Date of service: 10/04/17 Interval history: Patient has no complaint today Objective - Vital Signs Vital signs: Vital Signs - 12hr 10/03/17 10/03/17 10/03/17 22:29 22:30 22:35 Temperature Pulse Rate 91 H Pulse Rate [ 92 H Apical] Respiratory 22 20 Rate Respiratory 22 Rate [Bilateral Leg] Blood Pressure 143/76 Blood Pressure [Left] O2 Sat by Pulse 100 Oximetry 10/03/17 10/04/17 10/04/17 23:00 00:25 03:54 Temperature 98.2 F Pulse Rate 82 Pulse Rate [ Apical] Respiratory 20 20 20 Rate Respiratory Rate [Bilateral Leg] Blood Pressure Blood Pressure 124/78 [Left] O2 Sat by Pulse 100 Oximetry 10/04/17 10/04/17 10/04/17 04:15 04:24 05:19 Temperature 78 F L Pulse Rate 78 Pulse Rate [ Apical] Respiratory 20 20 Rate Respiratory Rate [Bilateral Leg] Blood Pressure 124/76 124/76 Blood Pressure [Left] O2 Sat by Pulse 100 Oximetry 10/04/17 07:42 Temperature 98.3 F Pulse Rate Pulse Rate [ Apical] Respiratory 16 Rate Respiratory Rate [Bilateral Leg] Blood Pressure 117/71 Blood Pressure [Left] O2 Sat by Pulse Oximetry - General Appearance General appearance: well-developed, well-nourished EENT: ATNC Respiratory: Present: Clear to Ascultation Cardiology: regular, S1S2 Gastrointestinal: normal, no tenderness, no distended Integumentary: no rash, warm and dry Neurologic: no focal deficit Psychiatric: cooperative - Lab 10/03/17 05:27 10/04/17 05:23 Most recent lab results Calcium 8.7 mg/dL (8.4-10.2) 10/04/17 05:23
[2017-10-04] MEDS: KIONEX PO SCH (10:22)
[2017-10-04] MEDS: KEPPRA PO SCH ×2 (10:23→22:14)
--- NOTE | 2017-10-04 13:57 | Progress Note ---
Assessment and Plan Assessment and plan: End Stage Renal Disease Nephrology following Volume Overload Patient had hemodialysis yesterday Hyperkalmia, persistent Hemodialysis per nephrology. Vascular surgery will evaluate access given the persistent hyperkalemia. Closely monitor electrolytes Hypertensive urgency Optimized home antihypertensive medications IV Hydralazine for SBP>160 Closely monitor blood pressure Lupus exacerbation Wean IV steroid Seizure Continue on Keppra Chronic anemia H&H stable for patient at this point; no blood transfusions needed at present time. Closely monitor H&H Noncompliance Patient noncompliance with dialysis. counseling done DVT prophylaxis Heparin History Interval history: Patient is considering leaving AMA. Hospitalist Physical - Constitutional Vitals: Temp Pulse Resp BP Pulse Ox 98.0 F 78 16 151/89 100 10/04/17 10:45 10/04/17 12:45 10/04/17 10:45 10/04/17 12:45 10/04/17 04:15 General appearance: Present: no acute distress - EENT Eyes: Present: PERRL, EOM intact ENT: hearing intact, clear oral mucosa, dentition normal - Neck Neck: Present: supple, normal ROM - Respiratory Respiratory effort: normal Respiratory: bilateral: CTA - Cardiovascular Rhythm: regular Heart Sounds: Present: S1 & S2. Absent: gallop, rub - Extremities Extremities: no ischemia, No edema, Full ROM - Abdominal General gastrointestinal: soft, non-tender, non-distended, normal bowel sounds - Integumentary Integumentary: Present: clear, warm, dry - Neurologic Neurologic: CNII-XII intact, moves all extremities Results - Labs CBC & Chem 7: 10/03/17 05:27 10/04/17 05:23 Labs: Laboratory Last Values WBC 5.1 K/mm3 (4.5-11.0) 10/03/17 05:27 RBC 2.72 M/mm3 (3.65-5.03) L 10/03/17 05:27 Hgb 7.9 gm/dl (10.1-14.3) L 10/03/17 05:27 Hct 24.4 % (30.3-42.9) L 10/03/17 05:27 MCV 90 fl (79-97) 10/03/17 05:27 MCH 29 pg (28-32) 10/03/17 05:27 MCHC 33 % (30-34) 10/03/17 05:27 RDW 15.7 % (13.2-15.2) H 10/03/17 05:27 Plt Count 152 K/mm3 (140-440) D 10/03/17 05:27 Lymph % (Auto) 8.2 % (13.4-35.0) L 10/03/17 05:27 Dewitt % (Auto) 2.9 % (0.0-7.3) 10/03/17 05:27 Eos % (Auto) 0.1 % (0.0-4.3) 10/03/17 05:27 Baso % (Auto) 0.3 % (0.0-1.8) 10/03/17 05:27 Lymph # 0.4 K/mm3 (1.2-5.4) L 10/03/17 05:27 Dewitt # 0.1 K/mm3 (0.0-0.8) 10/03/17 05:27 Eos # 0.0 K/mm3 (0.0-0.4) 10/03/17 05:27 Baso # 0.0 K/mm3 (0.0-0.1) 10/03/17 05:27 Seg Neutrophils % 88.5 % (40.0-70.0) H 10/03/17 05:27 Seg Neutrophils # 4.5 K/mm3 (1.8-7.7) 10/03/17 05:27 Sodium 135 mmol/L (137-145) L 10/04/17 05:23 Potassium 5.7 mmol/L (3.6-5.0) H D 10/04/17 05:23 Chloride 92.4 mmol/L (98-107) L 10/04/17 05:23 Carbon Dioxide 29 mmol/L (22-30) 10/04/17 05:23 Anion Gap 19 mmol/L 10/04/17 05:23 BUN 14 mg/dL (7-17) 10/04/17 05:23 Creatinine 5.0 mg/dL (0.7-1.2) H 10/04/17 05:23 Estimated GFR 13 ml/min 10/04/17 05:23 BUN/Creatinine Ratio 3 % 10/04/17 05:23 Glucose 109 mg/dL (65-100) H 10/04/17 05:23 POC Glucose 123 (70-105) H 10/02/17 16:38 Calcium 8.7 mg/dL (8.4-10.2) 10/04/17 05:23 Troponin T 0.017 ng/mL (0.00-0.029) 10/02/17 08:26 HCG, Qual Negative (Negative) 10/02/17 09:09
[2017-10-04] MEDS: ZOFRAN IV PRN (16:29)
[2017-10-04] MEDS: APRESOLINE PO SCH (17:16)
--- NOTE | 2017-10-04 17:18 | Consultation ---
History of Present Illness - Reason for Consult Consult date: 10/04/17 Malfunctioning AV Fistula Right Upper Extremity Requesting physician: HELENA ESQUIVEL - History of Present Illness This patient is a 27-year-old female was admitted via the emergency room on 10/02/2017 due to shortness of breath. She has end-stage renal disease and is on hemodialysis through a right upper arm AV fistula. This was placed approximately 5 years ago presumably by [facility] based out of [facility]. She could not recall the physician's name. She denies any history of previous fistulogram or angioplasty to her AV fistula. Despite routine inpatient hemodialysis treatments, she has remains hyperkalemic. A vascular surgery consult was requested to evaluate her AV fistula with concerns of possible recirculation. Past History Past Medical History: dialysis ( Sunday, , Sunday ), ESRD, hypertension, other (Lupus) Past Surgical History: Other (right upper arm AV fistula, previous left upper arm AV fistula, both the left and a right neck permacath placements) Social history: other (patient had used cocaine over the weekend) Family history: no significant family history Medications and Allergies Allergies Allergy/AdvReac Type Severity Reaction Status Date / Time acetaminophen [From Percocet] AdvReac Unknown Verified 09/23/17 20:06 metoprolol AdvReac Vomiting Verified 09/23/17 20:06 oxycodone HCl [From Percocet] AdvReac Unknown Verified 09/23/17 20:06 Home Medications Medication Instructions Recorded Confirmed Last Taken Type Clonidine HCl [Catapres] 0.3 mg PO TID #90 tablet 09/13/17 10/02/17 Unknown Rx Phenytoin Sodium Extended 100 mg PO QHS #30 capsule 09/13/17 10/02/17 Unknown Rx [Dilantin] hydrALAZINE [Apresoline TAB] 25 mg PO DAILY 09/18/17 10/02/17 Unknown History levETIRAcetam [Keppra TAB] 750 mg PO BID #60 tablet 09/25/17 10/02/17 Unknown Rx Furosemide [Lasix] 80 mg PO QDAY 10/02/17 10/02/17 Unknown History predniSONE [Deltasone] 10 mg PO QDAY 10/02/17 10/02/17 Unknown History Active Meds: Active Medications Clonidine HCl (Catapres) 0.3 mg PO Q8HR [facility] Last Admin: 10/04/17 05:19 Dose: 0.3 mg Furosemide (Lasix) 80 mg PO DAILY@0600 [facility] Last Admin: 10/04/17 05:19 Dose: 80 mg Heparin Sodium (Porcine) (Heparin) 5,000 unit SUB-Q Q8HR [facility] Last Admin: 10/04/17 05:20 Dose: Not Given Hydralazine HCl (Apresoline) 25 mg PO DAILY [facility] Last Admin: 10/03/17 10:00 Dose: Not Given Sodium Chloride (Nacl 0.9%) 100 mls @ 999 mls/hr IV LAKESHA PRN PRN Reason: Hypotension Levetiracetam (Keppra) 750 mg PO BID [facility] Last Admin: 10/04/17 10:23 Dose: 750 mg Ondansetron HCl (Zofran) 4 mg IV Q4H PRN PRN Reason: Nausea And Vomiting Last Admin: 10/04/17 16:29 Dose: 4 mg Phenytoin (Dilantin) 100 mg PO QHS [facility] Last Admin: 10/03/17 22:29 Dose: 100 mg Prednisone (Deltasone) 40 mg PO QDAY [facility] Sodium Polystyrene Sulfonate (Kionex) 45 gm PO QDAY [facility] Last Admin: 10/04/17 10:22 Dose: 45 gm Review of Systems All systems: negative Exam - Constitutional Vitals: Temp Pulse Resp BP Pulse Ox 98.2 F 86 16 135/78 100 10/04/17 16:25 10/04/17 16:25 10/04/17 16:25 10/04/17 16:25 10/04/17 16:25 General appearance: Present: no acute distress - EENT Eyes: Present: EOM intact ENT: hearing intact - Neck Neck: Present: supple - Respiratory Respiratory effort: normal (unlabored at rest with oxygen supplementation by nasal cannula) - Extremities Extremities: no ischemia, normal temperature, abnormal (palpable thrill very strong proximally slightly diminished mid fistula & distally) - Psychiatric Psychiatric: no appropriate mood/affect (hostile) - Neurologic Neurologic: no focal deficits Results - Labs CBC & Chem 7: 10/03/17 05:27 10/04/17 05:23 Labs: Abnormal lab results 10/04/17 Range/Units 05:23 Sodium 135 L (137-145) mmol/L Potassium 5.7 H D (3.6-5.0) mmol/L Chloride 92.4 L (98-107) mmol/L Creatinine 5.0 H (0.7-1.2) mg/dL Glucose 109 H (65-100) mg/dL Assessment and Plan We were asked to evaluate the patient for a malfunctioning AV fistula with concerns of possible recirculation. The fistula was created approximately 5 years ago. She denies having any previous fistulograms are angioplasties. The patient was initially hostile refusing to answer questions or allow me to evaluate her fistula. 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 Ultimately, the patient stated understanding and allowed me to examine her. A fistulogram with possible angioplasty was recommended. The risk benefits and alternatives were discussed in great detail. She states understanding and has agreed to proceed. - Patient Problems (1) Dialysis AV fistula malfunction Current Visit: Yes Status: Acute (2) Hyperkalemia Current Visit: Yes Status: Acute (3) ESRD (end stage renal disease) on dialysis Current Visit: No Status: Chronic (4) SLE (systemic lupus erythematosus) Current Visit: No Status: Chronic
[2017-10-04] MEDS: DILANTIN PO SCH (22:14)
[2017-10-04] MEDS ORDERED: ULTRAM PO PRN (23:07)
[2017-10-05] MEDS: CATAPRES PO SCH ×2 (05:31→15:00)
[2017-10-05] MEDS: LASIX PO SCH (05:31)
[2017-10-05] MEDS: HEPARIN SUB-Q SCH ×2 (05:32→14:00)
[2017-10-05] MEDS ORDERED: ANCEF/STERILE WATER 2 GM/20 ML 2 GM/20 ML SYRINGE IV NR (08:00)
--- NOTE | 2017-10-05 09:19 | Progress Note ---
Assessment and Plan Impression * End-stage renal disease on maintenance hemodialysis * Accelerated hypertension * Hyperkalemia - persistent * Metabolic acidosis * Cocaine abuse * Noncompliance * Seizure disorder * SLE Recommendations * Stat BMP today * Access evaluation today as patient w/ persistent hyperkalemia despite HD - ? recirculation * Continue HD TTS and prn * Continue antiHTN medications * Adjust diet and meds for ESRD state * No IV, Bp or venipuncture in her access arm * Avoid nephrotoxins Subjective Date of service: 10/05/17 Interval history: Patient has no complaints. Objective - Vital Signs Vital signs: Vital Signs - 12hr 10/04/17 10/05/17 10/05/17 22:14 00:25 03:04 Temperature 98.1 F Pulse Rate 65 Respiratory 20 20 Rate Blood Pressure 129/72 127/71 O2 Sat by Pulse Oximetry 10/05/17 10/05/17 10/05/17 04:54 05:31 07:50 Temperature 97.7 F 97.6 F Pulse Rate 65 65 64 Respiratory 18 20 Rate Blood Pressure 125/77 125/77 116/67 O2 Sat by Pulse 100 100 Oximetry - General Appearance General appearance: well-developed, well-nourished EENT: ATNC Respiratory: Present: Clear to Ascultation Cardiology: regular, S1S2 Gastrointestinal: normal, no tenderness, no distended Integumentary: no rash Neurologic: alert and oriented x3 Musculoskeletal: other (no edema) Psychiatric: cooperative - Lab 10/03/17 05:27 10/04/17 05:23 Most recent lab results Calcium 8.7 mg/dL (8.4-10.2) 10/04/17 05:23
[2017-10-05] MEDS: KEPPRA PO SCH (09:37)
[2017-10-05] MEDS: APRESOLINE PO SCH (09:38)
[2017-10-05] MEDS: KIONEX PO SCH (10:00)
[2017-10-05] MEDS ORDERED: DELTASONE PO SCH (10:00)
[2017-10-05] MEDS ORDERED: NACL 0.9% 500 ML 500 ML ONE (10:53)
[2017-10-05] MEDS ORDERED: HEPARIN/NS 5000 UNIT/500ML(CATH LAB) 1,000 ML IR ONE (11:48)
[2017-10-05] MEDS ORDERED: HEPARIN 10,000 UNITS/10 ML ONE (11:48)
[2017-10-05] MEDS ORDERED: XYLOCAINE 2% INFILTRATI ONE (11:49)
[2017-10-05] MEDS ORDERED: ANCEF/STERILE WATER 2 GM/20 ML 2 GM/20 ML SYRINGE IV ONE (11:49)
[2017-10-05] MEDS: SUBLIMAZE ONE ×2 (11:57→12:24)
[2017-10-05] MEDS: VERSED ONE ×2 (11:57→12:24)
--- NOTE | 2017-10-05 12:36 | Operative Report ---
Operative Report Operative Report: EXAM: RIGHT UPPER EXTREMITY FISTULOGRAM, VENOPLASTY CLINICAL INDICATION: PATIENT WITH POOR CLEARANCES ON DIALYSIS DATE: 10/05/2017 PROCEDURE: Following an explanation of the risks, benefits and alternatives; written informed consent was obtained. The patient was brought to the angiographic suite and placed in supine position on the examination table. Initial evaluation of the fistula demonstrates tortuosity and pseudoaneurysms throughout the fistula. The patient's arm was prepped and draped in the usual sterile fashion. 1% lidocaine was used for anesthesia. Fistula was cannulated with a 7 cm 21-gauge needle directed towards the venous outflow. A 0.018 guidewire was advanced centrally. The needle was removed and a micro-sheath placed. The 0.018 guidewire was exchanged for a 0.035 guidewire and the micro-sheath exchanged for a 6 Irish vascular sheath. Angiography was then performed to the sheath. Just distal to the arterial anastomosis amount the fistula forms 360 turn while maintaining a patent lumen. This then extends into widened area of the fistula the medial aspect terminates, the lateral aspect is pseudoaneurysmal in nature. The lateral aspect continues with areas of tortuosity and irregularity and a 90 turn extending into the venous outflow. The remainder of the cephalic vein is patent. The central veins are patent. A 035 guidewire was then advanced centrally. Venoplasty of the tortuous outflow segments was then performed with some improvement in luminal flow. At this point, the guidewire, balloon and sheaths were removed and hemostasis achieved using 4-0 Vicryl suture and manual compression. A sterile dressing was then applied. The patient tolerated the procedure well. There were no immediate post procedure complications. Conscious sedation was performed under the guidance of radiologic nursing. Continuous cardiopulmonary monitoring was utilized. Impression: IMPRESSION: 1) Right upper extremity fistulogram demonstrating 360 tortuosity just distal to the arterial anastomosis with pseudoaneurysm formation within the body of the fistula, the more medial aspect of this pseudoaneurysm terminates with the lateral aspect continuing on intact areas of a tortuosity with a 90 turn and irregular vasculature extending towards the central veins. A central veins are widely patent. 2) Venoplasty of the outflow veins with some improvement in luminal flow. 3) Would recommend that the a repeat cannulated on the lateral side of the pseudoaneurysm at. 4) Ultimately, the patient will require a revision of the fistula to remove the redundancy.
[2017-10-05 16:08] LABS: Calcium 8.5 mg/dL (8.4-10.2)
--- NOTE | 2017-10-05 16:50 | Discharge Summary ---
Providers - Providers Date of Admission: 10/02/17 10:09 Date of discharge: 10/05/17 Attending physician: YANDY GONZALES 10/02/17 10:11 Consult to Physician [CONS] Routine Consulting Provider: CONNER WESLEY Reason For Exam: Dialysis, Hyperkalemia Place consult to:: Dr Wesley Notified:: y Was contact made?: Yes If yes, spoke with:: Dr Wesley Comment:: notified by er 10/04/17 09:02 Consult to Physician [CONS] Routine Consulting Provider: FERMIN CINTRON Reason For Exam: Persistent hyperK - access eval Place consult to:: Dr. Cintron Notified:: Rubina BORDEN Was contact made?: Yes If yes, spoke with:: GILBERTO SINCLAIR Time called:: 09:04 Primary care physician: CARLEY MARROQUIN Hospitalization Reason for admission: hyperkalimia Condition: Good Hospital course: Patient is a 27-year-old female with past medical history of hypertension, lupus, end-stage renal disease on dialysis, Sunday, , Sunday who presents to by EMS from home with complaints of body aches and joint pain, as well as some shortness of breath. Patient was diagnosed End Stage Renal Disease, Volume Overload, Hyperkalmia, Hypertensive urgency, Lupus exacerbation, Seizure , Chronic anemia and Noncompliance. Patient is noncompliance with renal dialysis. She received emergent dialysis, during which excess fluid was removed. patient despite routine inpatient hemodialysis treatments, she has remains hyperkalemic. A fistulogram done her hyperkalemia corrected. She was restarted on the rest of her meds, which she had been poorly compliant with which included BP meds. she was counseled about non compliance and she agreed that she has to make better arrangements in her personal life so that she can continue her HD and that she would start taking her meds faithfully. Discharge Diagnosed End Stage Renal Disease Volume Overload Hyperkalmia, persistent Hypertensive urgency Lupus exacerbation Seizure Chronic anemia Noncompliance Disposition: DC- TO HOME OR SELFCARE Time spent for discharge: 33 minutes Core Measure Documentation - Palliative Care Palliative Care/ Comfort Measures: Not Applicable - Core Measures Any of the following diagnoses?: none Exam - Constitutional Vitals: Temp Pulse Resp BP Pulse Ox 98.0 F 77 18 132/77 100 10/05/17 10:39 10/05/17 15:00 10/05/17 10:39 10/05/17 15:00 10/05/17 10:39 General appearance: Present: no acute distress - EENT Eyes: Present: PERRL ENT: hearing intact - Neck Neck: Present: supple - Respiratory Respiratory effort: normal Respiratory: bilateral: CTA - Cardiovascular Rhythm: regular Heart Sounds: Present: S1 & S2 - Abdominal General gastrointestinal: Present: soft, non-tender Female genitourinary: Present: deferred - Rectal Rectal Exam: deferred - Integumentary Integumentary: Present: clear, warm, dry - Musculoskeletal Musculoskeletal: strength equal bilaterally - Psychiatric Psychiatric: appropriate mood/affect - Neurologic Neurologic: moves all extremities - Allied Health Allied health notes reviewed: nursing Plan Diet: low fat, low cholesterol, low protein, renal Follow up with: PRIMARY CARE, [Referring] - 3-5 Days Prescriptions: Phenytoin [Dilantin] 100 mg PO QHS #30 capsule.er ALBUTEROL Inhaler [ProAir HFA Inhaler] 1 puff IH Q4H PRN 30 Days inha PRN Reason: Shortness Of Breath Clonidine HCl [Catapres] 0.3 mg PO TID #90 tablet Furosemide [Lasix] 80 mg PO QDAY #30 tablet hydrALAZINE [Apresoline TAB] 25 mg PO TID 30 Days tablet levETIRAcetam [Keppra TAB] 750 mg PO BID #60 tablet predniSONE [Deltasone] 10 mg PO QDAY 30 Days tablet traMADol [Ultram 50 MG tab] 50 mg PO Q8H PRN #14 tablet PRN Reason: Pain, Moderate (4-6)
[2017-10-05 17:47] VITALS: BP 124/87
== END 2017-10-05 17:48 | disposition home or self-care (01) | DRG 252 ==
LOC: ED 07:16 → 4A 10:09
PROVIDERS: ADMIT Hospitalist; ATTEND Hospitalist
PROC: 5A1D70Z Performance of Urinary Filtration, Intermittent, Less than 6 Hours Per Day (ICD-10-PCS; 2017-10-02)
PROC: 05HQ33Z Insertion of Infusion Device into Left External Jugular Vein, Percutaneous Approach (ICD-10-PCS; 2017-10-02)
PROC: B51M1ZZ Fluoroscopy of Right Upper Extremity Veins using Low Osmolar Contrast (ICD-10-PCS; 2017-10-02)
PROC: 5A1D70Z Performance of Urinary Filtration, Intermittent, Less than 6 Hours Per Day (ICD-10-PCS; 2017-10-03)
PROC: 5A1D70Z Performance of Urinary Filtration, Intermittent, Less than 6 Hours Per Day (ICD-10-PCS; 2017-10-04)
PROC: B51MYZZ Fluoroscopy of Right Upper Extremity Veins using Other Contrast (ICD-10-PCS; principal; 2017-10-05)
PROC: 057D3ZZ Dilation of Right Cephalic Vein, Percutaneous Approach (ICD-10-PCS; 2017-10-05)
DX: T82.590A Other mechanical complication of surgically created arteriovenous fistula, initial encounter (principal); N18.6 End stage renal disease; I12.0 Hypertensive chronic kidney disease with stage 5 chronic kidney disease or end stage renal disease; E87.2 Acidosis; Y83.8 Other surgical procedures as the cause of abnormal reaction of the patient, or of later complication, without mention of misadventure at the time of the procedure; Y92.89 Other specified places as the place of occurrence of the external cause; E87.5 Hyperkalemia; I16.0 Hypertensive urgency; M32.9 Systemic lupus erythematosus, unspecified; E87.70 Fluid overload, unspecified; Z99.2 Dependence on renal dialysis; F17.200 Nicotine dependence, unspecified, uncomplicated; Z91.15 Patient's noncompliance with renal dialysis; D64.9 Anemia, unspecified; G40.909 Epilepsy, unspecified, not intractable, without status epilepticus; F14.10 Cocaine abuse, uncomplicated
CPT/HCPCS: 36415; 36902; 71020; 80048; 82962; 84132; 84484; 84703; 85025; 93005; 93010; 94640; 96374; 96375; 96376; 99406; C1725; C1751; C1894; J0360; J0610; J0690; J1644; J1815; J2250; J2270; J2405; J2765; J2920; J3010; J7030; J7040; J7512; Q9967

== ENCOUNTER 2017-10-11 06:48 | Inpatient (IN) | payer MEDICARE ==
[2017-10-11] MEDS ORDERED: MORPHINE IV ONE (18:11)
[2017-10-11] MEDS ORDERED: ZOFRAN IV ONE (18:11)
[2017-10-11] MEDS ORDERED: TORADOL IV ONE (18:12)
--- NOTE | 2017-10-11 18:18 | Emergency Department Report ---
- General Chief Complaint: Pain General Stated Complaint: SOB Time Seen by Provider: 10/11/17 18:05 Source: patient Mode of arrival: Ambulatory Limitations: No Limitations - History of Present Illness Initial Comments: 27 YO FEMALE WITH C/O COUGH FOR 2 DAYS, WITH RIGHT SIDED CHEST PAIN AFTER COUGHING, RIGTH SIDED BODYACHES AND C/O HER BONES HURTING. PT FEELS THT THIS IS HER LUPUS EXACERBATION MD Complaint: cough, rhinorrhea, nasal congestion -: Gradual, days(s) (2) Severity: moderate Quality: aching Consistency: constant Improves With: nothing Associated Symptoms: chills, myalgias, rhinorrhea, nasal congestion, cough, chest pain, shortness of breath - Related Data Previous Rx's Medication Instructions Recorded Last Taken Type ALBUTEROL Inhaler [ProAir HFA 1 puff IH Q4H PRN 30 Days inha 10/05/17 Unknown Rx Inhaler] Clonidine HCl [Catapres] 0.3 mg PO TID #90 tablet 10/05/17 Unknown Rx Furosemide [Lasix TAB] 80 mg PO DAILY@0600 tablet 10/05/17 Unknown Rx Furosemide [Lasix] 80 mg PO QDAY #30 tablet 10/05/17 Unknown Rx Phenytoin [Dilantin] 100 mg PO QHS #30 capsule.er 10/05/17 Unknown Rx cloNIDine [Catapres] 0.3 mg PO Q8HR tablet 10/05/17 Unknown Rx hydrALAZINE [Apresoline TAB] 25 mg PO TID 30 Days tablet 10/05/17 Unknown Rx levETIRAcetam [Keppra TAB] 750 mg PO BID tablet 10/05/17 Unknown Rx levETIRAcetam [Keppra TAB] 750 mg PO BID #60 tablet 10/05/17 Unknown Rx predniSONE [Deltasone] 10 mg PO QDAY 30 Days tablet 10/05/17 Unknown Rx traMADol [Ultram 50 MG tab] 50 mg PO Q8H PRN #14 tablet 10/05/17 Unknown Rx Allergies Allergy/AdvReac Type Severity Reaction Status Date / Time acetaminophen [From Percocet] AdvReac Unknown Verified 09/23/17 20:06 metoprolol AdvReac Vomiting Verified 09/23/17 20:06 oxycodone HCl [From Percocet] AdvReac Unknown Verified 09/23/17 20:06 ED Review of Systems ROS: Stated complaint: SOB Other details as noted in HPI Constitutional: chills. denies: fever Eyes: denies: eye pain, eye discharge, vision change ENT: denies: ear pain, throat pain Respiratory: cough, shortness of breath. denies: wheezing Cardiovascular: chest pain (AFTR COUGHING). denies: palpitations Endocrine: no symptoms reported Gastrointestinal: denies: abdominal pain, nausea, diarrhea Genitourinary: denies: urgency, dysuria, discharge Musculoskeletal: denies: back pain, joint swelling, arthralgia Skin: denies: rash, lesions Neurological: headache. denies: weakness, paresthesias Psychiatric: denies: anxiety, depression Hematological/Lymphatic: denies: easy bleeding, easy bruising ED Past Medical Hx - Past Medical History Hx Hypertension: Yes Hx Heart Attack/AMI: No Hx Congestive Heart Failure: No Hx Diabetes: No Hx Deep Vein Thrombosis: No Hx Pulmonary Embolism: No Hx Liver Disease: No Hx Renal Disease: Yes (ESRD dialysis Sun) Hx Sickle Cell Disease: No Hx Arthritis: Yes Hx Headaches / Migraines: Yes (3 nights) Hx Seizures: Yes Hx Kidney Stones: No Hx Asthma: Yes Hx COPD: No Hx Dementia: No Additional medical history: Lupus - Surgical History Hx Coronary Stent: No Hx Pacemaker: No Hx Internal Defibrillator: No Additional Surgical History: fistula right arm - Social History Smoking Status: Current Every Day Smoker Substance Use Type: None - Medications Home Medications: Home Medications Medication Instructions Recorded Confirmed Last Taken Type ALBUTEROL Inhaler [ProAir HFA 1 puff IH Q4H PRN 30 Days inha 10/05/17 Unknown Rx Inhaler] Clonidine HCl [Catapres] 0.3 mg PO TID #90 tablet 10/05/17 Unknown Rx Furosemide [Lasix TAB] 80 mg PO DAILY@0600 tablet 10/05/17 Unknown Rx Furosemide [Lasix] 80 mg PO QDAY #30 tablet 10/05/17 Unknown Rx Phenytoin [Dilantin] 100 mg PO QHS #30 capsule.er 10/05/17 Unknown Rx cloNIDine [Catapres] 0.3 mg PO Q8HR tablet 10/05/17 Unknown Rx hydrALAZINE [Apresoline TAB] 25 mg PO TID 30 Days tablet 10/05/17 Unknown Rx levETIRAcetam [Keppra TAB] 750 mg PO BID tablet 10/05/17 Unknown Rx levETIRAcetam [Keppra TAB] 750 mg PO BID #60 tablet 10/05/17 Unknown Rx predniSONE [Deltasone] 10 mg PO QDAY 30 Days tablet 10/05/17 Unknown Rx traMADol [Ultram 50 MG tab] 50 mg PO Q8H PRN #14 tablet 10/05/17 Unknown Rx ED Physical Exam - General Limitations: No Limitations General appearance: alert, in no apparent distress - Head Head exam: Present: atraumatic, normocephalic - Eye Eye exam: Present: normal appearance, EOMI - ENT ENT exam: Present: mucous membranes moist - Neck Neck exam: Present: normal inspection, full ROM. Absent: tenderness - Respiratory Respiratory exam: Present: normal lung sounds bilaterally, chest wall tenderness (ON TH RIGHT SIDE). Absent: respiratory distress, wheezes, rales - Cardiovascular Cardiovascular Exam: Present: normal rhythm, tachycardia. Absent: systolic murmur, diastolic murmur, rubs, gallop - GI/Abdominal GI/Abdominal exam: Present: soft, normal bowel sounds. Absent: distended, tenderness - Rectal Rectal exam: Present: deferred - Extremities Exam Extremities exam: Present: normal inspection, full ROM - Back Exam Back exam: Present: normal inspection, full ROM - Neurological Exam Neurological exam: Present: alert, oriented X3, CN II-XII intact - Psychiatric Psychiatric exam: Present: normal affect, normal mood - Skin Skin exam: Present: warm, dry, intact, normal color. Absent: rash ED Course Vital Signs 10/11/17 10/11/17 10/11/17 07:20 18:30 20:00 Temperature 98.7 F 98.8 F 99.1 F Pulse Rate 120 H 120 H 103 H Respiratory 22 18 18 Rate Blood Pressure 185/123 Blood Pressure 185/123 199/124 184/114 [Left] O2 Sat by Pulse 100 99 Oximetry ED Medical Decision Making - Lab Data Result diagrams: 10/11/17 18:29 10/11/17 18:29 Critical care attestation.: If time is entered above; I have spent that time in minutes in the direct care of this critically ill patient, excluding procedure time. ED Disposition Clinical Impression: Hyperkalemia, Elevated brain natriuretic peptide (BNP) level, Hx of seizure disorder, Acute dyspnea, Elevated troponin, Uncontrolled hypertension Disposition: OP ADMIT IP TO THIS HOSP Is pt being admited?: Yes Does the pt Need Aspirin: No Condition: Stable Instructions: Hypertension (ED) Referrals: PRIMARY CARE, [Primary Care Provider] - 3-5 Days Time of Disposition: 01:00 (DR RED WAS PAGED AND CHRIS WINCHESTER ADMIT THE PT TO THE HOSPITAL)
[2017-10-11 18:56] LABS: Basophils % (Auto) 0.5 % (0.0-1.8); Eosinophils # (Auto) 0.1 K/mm3 (0.0-0.4); Hematocrit 22.2 % (30.3-42.9); Hemoglobin 7.4 gm/dl (10.1-14.3); Lymphocytes # (Auto) 1.1 K/mm3 (1.2-5.4); Lymphocytes % (Auto) 15.7 % (13.4-35.0); Mean Corpuscular HGB Conc 33 % (30-34); Mean Corpuscular Hemoglobin 30 pg (28-32); Mean Corpuscular Volume 91 fl (79-97); Monocytes % (Auto) 13.6 % (0.0-7.3); Platelet Count 207 K/mm3 (140-440); Red Blood Count 2.45 M/mm3 (3.65-5.03); Red Cell Distribution Width 15.5 % (13.2-15.2)
[2017-10-11 19:13] LABS: BUN/Creatinine Ratio 4; Blood Urea Nitrogen 42 mg/dL (7-17); Calcium 8.7 mg/dL (8.4-10.2); Creatine Kinase MB < 1.0 ng/mL (0.0-4.0); Hemolysis Index 38
[2017-10-11 19:16] LABS: Alanine Aminotransferase < 5 units/L (7-56)
[2017-10-11 19:34] LABS: Chol/HDL Ratio 1.78 %; HDL Cholesterol 83 mg/dL (40-59); LDL Cholesterol,Direct 55 mg/dL (50-130)
--- NOTE | 2017-10-11 23:49 | History and Physical Report ---
History of Present Illness Date of examination: 10/11/17 History of present illness: 27-year-old and a history of lupus, end-stage renal disease on dialysis Sunday, Sunday, seizure, asthma, hypertension was brought to the emergency room because of shortness of breath. She missed the last 2 days off dialysis. Complaining of a nonproductive cough, generalized weakness, no fever no chills Review Of Systems: Constitutional: no weight loss Ears, eyes, nose, mouth and throat: no nasal congestion, no nasal discharge, no sinus pressure, blurry vision, diplopia Neck: No neck pain or rigidity. Cardiovascular: No chest pain, palpitations Respiratory: No shortness of breath, cough Gastrointestinal: No abdominal pain, hematochezia Genitourinary : no dysuria, frequency , hematuria Musculoskeletal: no muscle ache Integumentary: no rash, no pruritis Neurological: no parathesias, focal weakness Endocrine: no cold or heat intolerance, no polyuria or polydipsia Hematologic/Lymphatic: no easy bruising, no easy bleeding, no gland swelling Allergic/Immunologic: no urticaria, no angioedema. PAST MEDICAL HISTORY:lupus, end-stage renal disease on dialysis Sunday , Sunday, seizure, asthma, hypertension PAST SURGICAL HISTORY:avf FAMILY HISTORY:hypertension SOCIAL HISTORY: Unknown Medications and Allergies Allergies Allergy/AdvReac Type Severity Reaction Status Date / Time acetaminophen [From Percocet] AdvReac Unknown Verified 09/23/17 20:06 metoprolol AdvReac Vomiting Verified 09/23/17 20:06 oxycodone HCl [From Percocet] AdvReac Unknown Verified 09/23/17 20:06 Home Medications Medication Instructions Recorded Confirmed Last Taken Type ALBUTEROL Inhaler [ProAir HFA 1 puff IH Q4H PRN 30 Days inha 10/05/17 10/12/17 Unknown Rx Inhaler] Clonidine HCl [Catapres] 0.3 mg PO TID #90 tablet 10/05/17 10/12/17 Unknown Rx Furosemide [Lasix TAB] 80 mg PO DAILY@0600 tablet 10/05/17 10/12/17 Unknown Rx Furosemide [Lasix] 80 mg PO QDAY #30 tablet 10/05/17 10/12/17 Unknown Rx Phenytoin [Dilantin] 100 mg PO QHS #30 capsule.er 10/05/17 10/12/17 Unknown Rx cloNIDine [Catapres] 0.3 mg PO Q8HR tablet 10/05/17 10/12/17 Unknown Rx hydrALAZINE [Apresoline TAB] 25 mg PO TID 30 Days tablet 10/05/17 10/12/17 Unknown Rx levETIRAcetam [Keppra TAB] 750 mg PO BID tablet 10/05/17 10/12/17 Unknown Rx levETIRAcetam [Keppra TAB] 750 mg PO BID #60 tablet 10/05/17 10/12/17 Unknown Rx predniSONE [Deltasone] 10 mg PO QDAY 30 Days tablet 10/05/17 10/12/17 Unknown Rx traMADol [Ultram 50 MG tab] 50 mg PO Q8H PRN #14 tablet 10/05/17 10/12/17 Unknown Rx Exam - Physical Exam Narrative exam: Gen. appearance: Patient lying in bed in no acute distress HEENT: Normocephalic/atraumatic, pupils equal round reactive to light, extra occular movement intact, no scleral icterus, no JVD or thyromegaly or nodule, neck is supple, mucous membrane moist, no erythema or exudate Heart: S1-S2, regular rate and rhythm Lungs:crackles bilateral breathing comfortable Abdomen: Positive bowel sounds, nontender, nondistended, no organomegaly Extremities: No edema, cyanosis, clubbing Neuro:: Oriented 3 , cranial nerves II-12 intact, speech, motor intact Skin: No rash, nodules, warm dry - Constitutional Vitals: Temp Pulse Resp BP Pulse Ox 99.1 F 103 H 18 184/114 99 10/11/17 20:00 10/11/17 20:00 10/11/17 20:00 10/11/17 20:00 10/11/17 18:30 Results - Labs CBC & Chem 7: 10/12/17 Unknown 10/11/17 18:29 Labs: Abnormal lab results 10/11/17 10/11/17 10/11/17 Range/Units 18:29 18:29 19:45 RBC 2.45 L (3.65-5.03) M/mm3 Hgb 7.4 L (10.1-14.3) gm/dl Hct 22.2 L (30.3-42.9) % RDW 15.5 H (13.2-15.2) % [place] % (Auto) 13.6 H (0.0-7.3) % Lymph # 1.1 L (1.2-5.4) K/mm3 [place] # 1.0 H (0.0-0.8) K/mm3 Potassium 5.1 H (3.6-5.0) mmol/L Chloride 94.7 L (98-107) mmol/L BUN 42 H (7-17) mg/dL Creatinine 10.6 H (0.7-1.2) mg/dL ALT < 5 L (7-56) units/L Troponin T 0.039 H (0.00-0.029) ng/mL HDL Cholesterol 83 H (40-59) mg/dL Phenytoin 1.0 L (10.0-20.0) ug/mL - Imaging and Cardiology Chest x-ray: pending Assessment and Plan Assessment Fluid overload End-stage renal disease needing dialysis Seizure Hypertension Lupus Plan Admit to medicine consult renal for dialysis, check d-dimer, chest x-ray DVT prophylaxis Addendum D-dimer positive, check V/Q
[2017-10-11] MEDS ORDERED: TYLENOL PO PRN (23:50)
[2017-10-11] MEDS ORDERED: ZOFRAN IV PRN (23:50)
[2017-10-11] MEDS ORDERED: MILK OF MAGNESIA PO PRN (23:50)
[2017-10-11] MEDS ORDERED: DULCOLAX PR PRN (23:50)
[2017-10-12] MEDS ORDERED: NACL 0.9% 100 ML IV PRN (00:11)
[2017-10-12 06:08] LABS: Basophils % (Auto) 0.7 % (0.0-1.8); Eosinophils # (Auto) 0.2 K/mm3 (0.0-0.4); Eosinophils % (Auto) 2.9 % (0.0-4.3); Hemoglobin 6.4 gm/dl (10.1-14.3); Lymphocytes # (Auto) 0.7 K/mm3 (1.2-5.4); Lymphocytes % (Auto) 12.5 % (13.4-35.0); Mean Corpuscular HGB Conc 33 % (30-34); Mean Corpuscular Hemoglobin 30 pg (28-32); Mean Corpuscular Volume 90 fl (79-97); Monocytes # (Auto) 0.7 K/mm3 (0.0-0.8); Monocytes % (Auto) 11.2 % (0.0-7.3); Platelet Count 188 K/mm3 (140-440); Red Blood Count 2.11 M/mm3 (3.65-5.03); Red Cell Distribution Width 15.5 % (13.2-15.2)
[2017-10-12 06:24] LABS: Hematocrit 20.1 % (30.3-42.9)
[2017-10-12 06:30] LABS: Calcium 8.6 mg/dL (8.4-10.2)
--- NOTE | 2017-10-12 06:39 | XRay Report ---
FINAL REPORT PROCEDURE: XR CHEST ROUTINE 2V TECHNIQUE: PA and lateral chest radiographs were obtained. CPT 09067 HISTORY: SOB COMPARISON: No prior studies are available for comparison. FINDINGS: Heart: The heart is enlarged. Mediastinum/Vessels: Normal. Lungs/Pleural space: There are bilateral perihilar infiltrates and small effusions. There is pulmonary edema suggesting heart failure or fluid overload. There is no pneumothorax. Bony thorax: No acute osseous abnormality. Other: IMPRESSION: The heart is enlarged. There are bilateral perihilar infiltrates and small effusions. There is pulmonary edema suggesting heart failure or fluid overload. There is no pneumothorax. .
--- NOTE | 2017-10-12 09:09 | Progress Note ---
Assessment and Plan Assessment and plan: Patient is a 27-year old female with history of lupus, end- stage renal disease on dialysis Sunday, Sunday, seizure, asthma, hypertension who presents to the Emergency Department for shortness of breath due to she missed two cession of dialysis. End Stage Renal Disease Nephrology following Blood loss anemia H&H found to be 6.4/20.0; Patient transfused 2 units of PRBC today with hemodialysis. Check post transfusion H&H Closely monitor H&H Volume Overload Patient had hemodialysis yesterday and she is having today also Hyperkalmia Resolved Hypertensive urgency Optimized home antihypertensive medications IV Hydralazine for SBP>160 Closely monitor blood pressure Lupus Stable Continue on oral steroid Seizure Continue on Keppra Noncompliance Patient noncompliance with dialysis. counseling done DVT prophylaxis Heparin History Interval history: Patient complains of right leg pain; she denies chest pain or shortness of breath. Labs and nursing notes reviewed. Hospitalist Physical - Constitutional Vitals: Temp Pulse Resp BP Pulse Ox 99.9 F H 103 H 18 166/111 100 10/12/17 08:52 10/12/17 08:52 10/12/17 08:52 10/12/17 08:52 10/12/17 08:52 General appearance: Present: no acute distress - EENT Eyes: Present: PERRL ENT: hearing intact - Neck Neck: Present: supple - Respiratory Respiratory effort: normal Respiratory: bilateral: CTA - Cardiovascular Rhythm: regular Heart Sounds: Present: S1 & S2 - Abdominal General gastrointestinal: soft, non-tender - Integumentary Integumentary: Present: clear, warm, dry - Psychiatric Psychiatric: appropriate mood/affect - Neurologic Neurologic: moves all extremities - Allied Health Allied health notes reviewed: nursing Results - Labs CBC & Chem 7: 10/12/17 Unknown 10/12/17 Unknown Labs: Laboratory Last Values WBC 5.8 K/mm3 (4.5-11.0) 10/12/17 Unknown RBC 2.11 M/mm3 (3.65-5.03) L 10/12/17 Unknown Hgb 6.4 gm/dl (10.1-14.3) L 10/12/17 Unknown Hct 20.1 % (30.3-42.9) L 10/12/17 Unknown MCV 90 fl (79-97) 10/12/17 Unknown MCH 30 pg (28-32) 10/12/17 Unknown MCHC 33 % (30-34) 10/12/17 Unknown RDW 15.5 % (13.2-15.2) H 10/12/17 Unknown Plt Count 188 K/mm3 (140-440) 10/12/17 Unknown Lymph % (Auto) 12.5 % (13.4-35.0) L 10/12/17 Unknown [place] % (Auto) 11.2 % (0.0-7.3) H 10/12/17 Unknown Eos % (Auto) 2.9 % (0.0-4.3) 10/12/17 Unknown Baso % (Auto) 0.7 % (0.0-1.8) 10/12/17 Unknown Lymph # 0.7 K/mm3 (1.2-5.4) L 10/12/17 Unknown [place] # 0.7 K/mm3 (0.0-0.8) 10/12/17 Unknown Eos # 0.2 K/mm3 (0.0-0.4) 10/12/17 Unknown Baso # 0.0 K/mm3 (0.0-0.1) 10/12/17 Unknown Seg Neutrophils % 72.7 % (40.0-70.0) H 10/12/17 Unknown Seg Neutrophils # 4.2 K/mm3 (1.8-7.7) 10/12/17 Unknown D-Dimer 623.71 ng/mlDDU (0-234) H 10/12/17 00:30 Sodium 142 mmol/L (137-145) 10/12/17 Unknown Potassium 4.5 mmol/L (3.6-5.0) 10/12/17 Unknown Chloride 96.1 mmol/L (98-107) L 10/12/17 Unknown Carbon Dioxide 29 mmol/L (22-30) D 10/12/17 Unknown Anion Gap 21 mmol/L 10/12/17 Unknown BUN 26 mg/dL (7-17) H 10/12/17 Unknown Creatinine 7.7 mg/dL (0.7-1.2) H 10/12/17 Unknown Estimated GFR 8 ml/min 10/12/17 Unknown BUN/Creatinine Ratio 3 % 10/12/17 Unknown Glucose 81 mg/dL (65-100) 10/12/17 Unknown Calcium 8.6 mg/dL (8.4-10.2) 10/12/17 Unknown Total Bilirubin 0.20 mg/dL (0.1-1.2) 10/11/17 18: AST 13 units/L (5-40) 10/11/17 18: ALT < 5 units/L (7-56) L 10/11/17 18: Alkaline Phosphatase 100 units/L (35-129) 10/11/17 18: Total Creatine Kinase 59 units/L (30-135) 10/11/17 18: CK-MB (CK-2) < 1.0 ng/mL (0.0-4.0) 10/11/17 18 CK-MB (CK-2) Rel Index 1.6 (0-4) 10/11/17 Troponin T 0.039 ng/mL (0.00-0.029) H 10/11/17 18: NT-Pro-B Natriuret Pep 25547 pg/mL (0-450) H 10/11/17 23:50 Total Protein 7.0 g/dL (6.3-8.2) 10/11/17 18: Albumin 4.0 g/dL (3.9-5) 10/11/17 18: Albumin/Globulin Ratio 1.3 % 10/11/17 18: Triglycerides 53 mg/dL (2-149) 10/11/17 18: Cholesterol 148 mg/dL (50-199) 10/11/17 18: LDL Cholesterol Direct 55 mg/dL (50-130) 10/11/17 18: HDL Cholesterol 83 mg/dL (40-59) H 10/11/17 18:29 Cholesterol/HDL Ratio 1.78 % 10/11/17 18:29 HCG, Qual Negative (Negative) 10/12/17 04:10 Phenytoin 1.0 ug/mL (10.0-20.0) L 10/11/17 19:45
--- NOTE | 2017-10-12 09:33 | Consultation ---
History of Present Illness - History of Present Illness Thank you for the consultation patient was evaluated today. Source of information; patient himself current records were also reviewed History of presenting illness; Patient is a 27-year-old very noncompliant patient who has been admitted here with severe anemia. Patient was ordered for hemodialysis last night but according to the dialysis nurse she was noncompliant through the chart floor and dialysis was terminated only after just above an hour treatment was provided. Patient denies having any fever or chills chest pain shortness of breath she is a very poor historian. patient has been having symptoms off cough cold and congestion with clear secretions. No rashes no oral nasal ulcers but does have some joint pain.She has been admitted here after missing dialysis treatment as noted in the chart Upon further questioning she also denies having any bloody or dark bowel movement any vaginal bleeding or bleeding in any form. She has also not seen her operations expert even though she has history of lupus. She also does not follow any diet plan Past medical history is significant for chronically noncompliant patient History of systemic lupus Anemia and end-stage renal disease Secondary hyperparathyroidism Seizure disorder Chronic tobacco abuse Allergies: acetaminophen metoprolol and oxycodone Social history: tobacco use denies any recreational drug of substance abuse Family history: noncontributory for renal-related disorder Review of system is positive for cough or congestion shortness of breath some weakness joint pain Complete review of systems obtained pertinent positive above other's review of systems negative Physical examination General: No acute distress HEENT: Oral mucosa moist no pharyngeal erythema positive for pallor no icterus no uremic order Neck: Supple no evidence of any thyromegaly trachea midline no JVD Chest: Clear to auscultation no crackles are also wheezes anteriorly Heart: Regular rate and rhythm S1-S2 heard no S3-S4 Abdomen: Soft nontender no renal bruit no CVA tenderness no suprapubic fullness no organomegaly Extremity: Minimal edema dry skin no peripheral cyanosis pulses palpable Neurological: Alert awake follows command grossly nonfocal examination Back: Nontender thoracolumbar spine Musculoskeletal: No joint effusion noted Skin: No petechial rash/noted Assessment and plan End-stage renal disease: Patient will receive her hemodialysis treatment and will continue 3 times a week on Sunday vested Sunday schedule, as she has been doing in the outpatient setting she has missed 2 days of dialysis Anemia in end-stage renal disease: To monitor and follow, patient needs further workup for anemia in the meantime will require 2 units of packed red blood cell transfusion with hemodialysis today, rule out GI loss rule out other hematological problems Secondary hyperparathyroidism: To monitor and follow phosphorus and PTH Noncompliant patient: Counseling and educated at length, missing dialysis treatment noncompliant with diet and lifestyle Mild hyperkalemia Admitted with respiratory infection: History of lupus patient was advised to follow-up with her operations expert counseled and educated at length History of fall lupus, ESRD, asthma, seizure, long-standing hypertension discussed with hospital medicine about ordering 2 units of packed red blood cell transfusion which can be given with hemodialysis treatment today patient is very noncompliant and refused to get full treatment yesterday which is unfortunate Her overall prognosis is going to be very poor mortality risk is going to be high she is not a good candidate for transplant Nature and issue of renal-related issues were discussed with patient, all questions were answered and simple Romansh Patient does have good understanding about renal-related issues. Counseled and educated to get further education from [facility] and related links, and if any further question to clarify with me We'll continue to follow and make recommendations from renal standpoint If you have any questions please feel free to contact me at [phone] Medications and Allergies Allergies Allergy/AdvReac Type Severity Reaction Status Date / Time acetaminophen [From Percocet] AdvReac Unknown Verified 09/23/17 20:06 metoprolol AdvReac Vomiting Verified 09/23/17 20:06 oxycodone HCl [From Percocet] AdvReac Unknown Verified 09/23/17 20:06 Home Medications Medication Instructions Recorded Confirmed Last Taken Type ALBUTEROL Inhaler [ProAir HFA 1 puff IH Q4H PRN 30 Days inha 10/05/17 10/12/17 Unknown Rx Inhaler] Clonidine HCl [Catapres] 0.3 mg PO TID #90 tablet 10/05/17 10/12/17 Unknown Rx Furosemide [Lasix TAB] 80 mg PO DAILY@0600 tablet 10/05/17 10/12/17 Unknown Rx Furosemide [Lasix] 80 mg PO QDAY #30 tablet 10/05/17 10/12/17 Unknown Rx Phenytoin [Dilantin] 100 mg PO QHS #30 capsule.er 10/05/17 10/12/17 Unknown Rx cloNIDine [Catapres] 0.3 mg PO Q8HR tablet 10/05/17 10/12/17 Unknown Rx hydrALAZINE [Apresoline TAB] 25 mg PO TID 30 Days tablet 10/05/17 10/12/17 Unknown Rx levETIRAcetam [Keppra TAB] 750 mg PO BID tablet 10/05/17 10/12/17 Unknown Rx levETIRAcetam [Keppra TAB] 750 mg PO BID #60 tablet 10/05/17 10/12/17 Unknown Rx predniSONE [Deltasone] 10 mg PO QDAY 30 Days tablet 10/05/17 10/12/17 Unknown Rx traMADol [Ultram 50 MG tab] 50 mg PO Q8H PRN #14 tablet 10/05/17 10/12/17 Unknown Rx Active Meds: Active Medications Bisacodyl (Dulcolax) 10 mg [place] QDAY PRN PRN Reason: Constipation unrelieved by MOM Sodium Chloride (Nacl 0.9%) 100 mls @ 999 mls/hr IV LAKESHA PRN PRN Reason: Hypotension Magnesium Hydroxide (Milk Of Magnesia) 30 ml PO Q4H PRN PRN Reason: Constipation Ondansetron HCl (Zofran) 4 mg IV Q8H PRN PRN Reason: N/V unrelieved by Reglan Exam - Vital Signs Vital signs: Vital Signs Resp BP 22 185/123 10/11/17 07:16 10/11/17 07:16 Results - Lab Results 10/12/17 Unknown 10/12/17 Unknown Most recent lab results Calcium 8.6 mg/dL (8.4-10.2) 10/12/17 Unknown
[2017-10-12] MEDS ORDERED: NACL 0.9% 500 ML 500 ML IV SCH (11:34)
[2017-10-12] MEDS ORDERED: PROAIR IH PRN (12:48)
[2017-10-12] MEDS ORDERED: PROVENTIL IH PRN (13:04)
[2017-10-12] MEDS ORDERED: NON-FORMULARY (Clonidine Hcl [Catapres] 0.3 MG) PO SCH (14:00)
[2017-10-12] MEDS: HEPARIN SUB-Q SCH ×2 (20:35→22:09)
[2017-10-12] MEDS: KEPPRA PO SCH ×2 (20:36→22:09)
[2017-10-12] MEDS: CATAPRES PO SCH ×3 (20:36→22:10)
[2017-10-12] MEDS: APRESOLINE PO SCH ×2 (20:37→20:39)
[2017-10-12] MEDS: DILANTIN PO SCH ×2 (20:37→22:09)
[2017-10-12] MEDS: MORPHINE IV PRN (20:37)
[2017-10-12] MEDS ORDERED: NON-FORMULARY (Levetiracetam [Keppra Tab] 750 MG) PO SCH (22:00)
[2017-10-13] MEDS: MORPHINE IV PRN ×3 (05:28→16:51)
[2017-10-13] MEDS: CATAPRES PO SCH (05:30)
[2017-10-13] MEDS ORDERED: LASIX PO SCH (06:00)
[2017-10-13 06:06] LABS: Hematocrit 22.6 % (30.3-42.9); Hemoglobin 7.7 gm/dl (10.1-14.3)
[2017-10-13] MEDS ORDERED: NON-FORMULARY (Furosemide [Lasix] 80 MG) PO SCH (10:00)
[2017-10-13] MEDS ORDERED: DELTASONE PO SCH (10:00)
[2017-10-13] MEDS: HEPARIN SUB-Q SCH (10:21)
[2017-10-13] MEDS: APRESOLINE PO SCH (10:21)
[2017-10-13] MEDS: KEPPRA PO SCH (10:22)
--- NOTE | 2017-10-13 10:49 | Discharge Summary ---
Providers - Providers Date of Admission: 10/11/17 23:50 Date of discharge: 10/13/17 Attending physician: CARLEY MCGEE 10/11/17 23:50 Consult to Physician [CONS] Routine Consulting Provider: CONNER WESLEY Reason For Exam: hd Place consult to:: Dr. Wesley Notified:: Arelis BORDEN Phone number called:: Was contact made?: Yes If yes, spoke with:: [facility] Time called:: 08:51 10/12/17 01:01 Consult to Physician [CONS] Stat Consulting Provider: HELENA ESQUIVEL Reason For Exam: NEED FOR IMMEDIATE DIALYSIS Place consult to:: ED Notified:: YES Was contact made?: Yes Primary care physician: MOTOR GRADER OPERATOR Hospitalization Condition: Stable Disposition: DC-30 STILL A PATIENT Exam - Constitutional Vitals: Temp Pulse Resp BP Pulse Ox 98.5 F 89 16 103/65 100 10/13/17 08:44 10/13/17 08:44 10/13/17 08:44 10/13/17 08:44 10/13/17 08:44 Plan Activity: no restrictions Diet: low fat, low cholesterol, low salt, renal Additional Instructions: 1.Follow up with PCP or [facility] in 1 week. 2.Continue routine dialysis as scheduled Follow up with: PRIMARY CAREMD [Primary Care Provider] - 3-5 Days Forms: Discharge Signature Page
--- NOTE | 2017-10-13 12:49 | Progress Note ---
Subjective Interval history: Patient was seen today for follow-up, on many renal related issues received hemodialysis treatment during this admission cough and congestion is much better Interdisciplinary notes were reviewed Vitals labs intake and output medications were reviewed from today Allergies: Reviewed Social history: Reviewed Family history: Reviewed Physical examination HEENT: Oral mucosa moist no pharyngeal erythema, mild pallor Neck: Supple no JVD Chest: Clear to auscultation no crackles rales or wheezes Heart: Regular rate and rhythm S1-S2 heard no S3-S4 Abdomen: Soft nontender no renal bruit no CVA tenderness no suprapubic fullness Extremity: Mild edema dry skin no peripheral cyanosis pulses palpable Neurological: Alert awake Musculoskeletal: No joint effusion noted Assessment and plan end-stage renal disease: Patient is currently in maintenance hemodialysis Anemia and end-stage renal disease: Post packed red blood cell transfusion clinically feeling better Symptoms of cough cold congestion: All improving well I had a detailed discussion with patient about the plan of care. She was advised to comply with treatment recommendation. Patient denies having any blood in the stool denies having any vaginal bleeding or rectal bleed. chest x-ray showed illness of mild pulmonary vascular congestion with some effusion clinically she is doing better She has issues with chronic noncompliance and I have advised her to make a follow-up appointment with rheumatology as well as primary care physician is a must and her case patient clinically denies having any symptoms of chest pain pressure or shortness of breath If her hemoglobin declines and if she is symptomatic she will need to come to the ER and get admitted to receive further packed red blood cell transfusion Her overall prognosis will depend upon the degree of compliance and involvement of the care which has been very poor Labs were discussed with patient explained and simple Indonesian does have good understanding off renal related issues, Will continue to follow and make recommendation from renal standpoint Objective - Vital Signs Vital signs: Vital Signs - 12hr 10/13/17 10/13/17 10/13/17 01:52 02:16 04:21 Temperature 98.2 F Pulse Rate 106 H 95 H Pulse Rate [ 105 H Left Radial] Respiratory 18 Rate Blood Pressure 121/81 O2 Sat by Pulse 100 100 Oximetry 10/13/17 10/13/17 10/13/17 05:28 05:30 08:22 Temperature Pulse Rate 95 H 92 H Pulse Rate [ Left Radial] Respiratory 20 Rate Blood Pressure 121/81 O2 Sat by Pulse Oximetry 10/13/17 10/13/17 08:44 10:00 Temperature 98.5 F Pulse Rate 89 Pulse Rate [ Left Radial] Respiratory 16 Rate Blood Pressure 103/65 O2 Sat by Pulse 100 100 Oximetry - Lab 10/13/17 05:43 10/12/17 Unknown Most recent lab results Calcium 8.6 mg/dL (8.4-10.2) 10/12/17 Unknown
[2017-10-13] MEDS ORDERED: CATAPRES PO SCH (14:00)
[2017-10-13 21:02] VITALS: BP 106/62
== END 2017-10-13 21:16 | disposition home or self-care (01) | DRG 640 ==
LOC: ED 06:48 → 4A 23:50
PROVIDERS: ADMIT Internal Medicine; ATTEND Internal Medicine
PROC: 5A1D70Z Performance of Urinary Filtration, Intermittent, Less than 6 Hours Per Day (ICD-10-PCS; principal; 2017-10-11)
DX: E87.70 Fluid overload, unspecified (principal); N18.6 End stage renal disease; I12.0 Hypertensive chronic kidney disease with stage 5 chronic kidney disease or end stage renal disease; M19.90 Unspecified osteoarthritis, unspecified site; G43.909 Migraine, unspecified, not intractable, without status migrainosus; J45.909 Unspecified asthma, uncomplicated; F17.210 Nicotine dependence, cigarettes, uncomplicated; M32.9 Systemic lupus erythematosus, unspecified; E87.5 Hyperkalemia; G40.909 Epilepsy, unspecified, not intractable, without status epilepticus; D50.0 Iron deficiency anemia secondary to blood loss (chronic); I16.0 Hypertensive urgency; D63.1 Anemia in chronic kidney disease; Z82.49 Family history of ischemic heart disease and other diseases of the circulatory system; Z91.19 Patient's noncompliance with other medical treatment and regimen; Z88.8 Allergy status to other drugs, medicaments and biological substances
CPT/HCPCS: 36415; 71046; 80048; 80053; 80061; 80185; 82550; 82553; 83880; 84484; 84703; 85014; 85018; 85025; 85379; 86850; 86900; 86901; 86920; 87400; 93005; 93010; 94760; 96374; 96375; 99406; J1644; J1885; J2270; J2405; J7512